=== PATIENT | female | born 1990 | race American Indian/Alaskan Native ===

== ENCOUNTER 2018-12-29 15:53 | Emergency (ER) | payer BC ==
[2018-12-29 16:35] VITALS: BP 121/75
--- NOTE | 2018-12-29 16:40 | Emergency Department Report ---
ED ENT HPI - General Chief complaint: Dental/Oral Stated complaint: LT SIDE HEAD PAIN/EAR SWOLLEN Time Seen by Provider: 12/29/18 16:34 Source: patient Mode of arrival: Ambulatory Limitations: No Limitations - History of Present Illness Initial comments: pt is a 28 yo female who presents to the ED with c/o left ear pain that began two days ago. she states it feels like a pressure. states she has rash behind the left ear which is painful. she denies any fever, ear drainage, numbness, weakness, or any other sx. no sick contacts. she denies any PMHx. allergy to sulfa. LNMP: 12/21/18. - Related Data Previous Rx's Medication Instructions Recorded Last Taken Type Acetaminophen/Codeine [Tylenol 1 tab PO Q6H PRN #12 tab 12/29/18 Unknown Rx /Codeine # 3 tab] Lidocaine [Lidocaine GEL] 1 applicatio TP BID #1 gel..gram. 12/29/18 Unknown Rx valACYclovir [Valtrex] 1,000 mg PO TID 7 Days #42 tab 12/29/18 Unknown Rx Allergies Allergy/AdvReac Type Severity Reaction Status Date / Time Sulfa (Sulfonamide Allergy Hives Verified 12/29/18 15:57 Antibiotics) ED Dental HPI - General Chief complaint: Dental/Oral Stated complaint: LT SIDE HEAD PAIN/EAR SWOLLEN Time Seen by Provider: 12/29/18 16:34 Source: patient Mode of arrival: Ambulatory Limitations: No Limitations - Related Data Previous Rx's Medication Instructions Recorded Last Taken Type Acetaminophen/Codeine [Tylenol 1 tab PO Q6H PRN #12 tab 12/29/18 Unknown Rx /Codeine # 3 tab] Lidocaine [Lidocaine GEL] 1 applicatio TP BID #1 gel..gram. 12/29/18 Unknown Rx valACYclovir [Valtrex] 1,000 mg PO TID 7 Days #42 tab 12/29/18 Unknown Rx Allergies Allergy/AdvReac Type Severity Reaction Status Date / Time Sulfa (Sulfonamide Allergy Hives Verified 12/29/18 15:57 Antibiotics) ED Review of Systems ROS: Stated complaint: LT SIDE HEAD PAIN/EAR SWOLLEN Other details as noted in HPI Comment: All other systems reviewed and negative ED Past Medical Hx - Past Medical History Previous Medical History?: No - Surgical History Past Surgical History?: Yes Additional Surgical History: Right leg surgery with omar 2010 - Medications Home Medications: Home Medications Medication Instructions Recorded Confirmed Last Taken Type Acetaminophen/Codeine [Tylenol 1 tab PO Q6H PRN #12 tab 12/29/18 Unknown Rx /Codeine # 3 tab] Lidocaine [Lidocaine GEL] 1 applicatio TP BID #1 gel..gram. 12/29/18 Unknown Rx valACYclovir [Valtrex] 1,000 mg PO TID 7 Days #42 tab 12/29/18 Unknown Rx ED Physical Exam - General Limitations: No Limitations General appearance: alert, in no apparent distress - Head Head exam: Present: atraumatic, normocephalic - Eye Eye exam: Present: normal appearance - ENT ENT exam: Present: mucous membranes moist, TM's normal bilaterally, normal external ear exam, other (no vesicles on the TM or canal, no vesicles on the nose) - Neurological Exam Neurological exam: Present: alert, oriented X3 - Psychiatric Psychiatric exam: Present: normal affect, normal mood - Skin Skin exam: Present: warm, dry, other (small amount of grouped vesicles present in the left posterior auricle region) ED Course Vital Signs 12/29/18 16:34 Temperature 98.3 F Pulse Rate 92 H Respiratory 16 Rate Blood Pressure 121/75 O2 Sat by Pulse 100 Oximetry ED Medical Decision Making - Medical Decision Making pt is a 28 yo female who presents to the ED with c/o left ear pain that began two days ago. she states it feels like a pressure. states she has rash behind the left ear which is painful. she denies any fever, ear drainage, numbness, weakness, or any other sx. no sick contacts. she denies any PMHx. allergy to sulfa. LNMP: 12/21/18. VSS. on exam: no vesicles on the TM or canal bilaterally, no vesicles on the nose, small amount of grouped vesicles present in the left posterior auricle region. Examination appears consistent with shingles rash. Patient given prescriptions for valacyclovir, Tylenol with codeine, lidocaine gel. advised pt to please take medication as prescribed. do not drive or operate heavy machinery while taking pain medication. follow up with a primary care doctor and ear nose and throat doctor in 2 days. it is very important you follow up to prevent hearing disturbance, disability. return to the emergency room for any new or worsening symptoms. Critical care attestation.: If time is entered above; I have spent that time in minutes in the direct care of this critically ill patient, excluding procedure time. ED Disposition Clinical Impression: Shingles Qualifiers: Herpes zoster complications: without complications Qualified Code(s): B02.9 - Zoster without complications Disposition: TO HOME OR SELFCARE Is pt being admited?: No Does the pt Need Aspirin: No Condition: Stable Instructions: Herpes Zoster (ED) Additional Instructions: please take medication as prescribed. do not drive or operate heavy machinery while taking pain medication. follow up with a primary care doctor and ear nose and throat doctor in 2 days. it is very important you follow up to prevent hearing disturbance, disability. return to the emergency room for any new or worsening symptoms. Prescriptions: Lidocaine [Lidocaine GEL] 1 applicatio TP BID #1 gel..gram. Acetaminophen/Codeine [Tylenol /Codeine # 3 tab] 1 tab PO Q6H PRN #12 tab PRN Reason: Pain , Severe (7-10) valACYclovir [Valtrex] 1,000 mg PO TID 7 Days #42 tab Referrals: [facility] [Provider Group] - 2-3 Days JOCE NEWBERRY MD [Staff Physician] - 2-3 Days Time of Disposition: 16:41 Print Language: SPANISH
== END 2018-12-29 16:56 | disposition home or self-care (01) ==
LOC: ED 15:53
DX: B02.9 Zoster without complications (principal); H92.02 Otalgia, left ear; Z88.2 Allergy status to sulfonamides; Z79.899 Other long term (current) drug therapy
CPT/HCPCS: 99281

== ENCOUNTER 2019-11-11 16:57 | Emergency (ER) | payer BC ==
[2019-11-11] MEDS ORDERED: ACETAMINOPHEN 325 MG TAB PO ONE (17:44)
--- NOTE | 2019-11-11 18:21 | XRay Report ---
CHEST 2 VIEWS INDICATION / CLINICAL INFORMATION: cough, SOB, fever. COMPARISON: None available. FINDINGS: SUPPORT DEVICES: None. HEART / MEDIASTINUM: No significant abnormality. LUNGS / PLEURA: Mild airspace consolidation superior segment right lower lobe. No pneumothorax. ADDITIONAL FINDINGS: No significant additional findings. IMPRESSION: 1. Right lower lobe pneumonia Signer Name: Sean Bentley MD Signed: 11/11/2019 6:17 PM Workstation Name: [id number]
[2019-11-11] MEDS ORDERED: predniSONE 20 MG TAB PO ONE (21:51)
[2019-11-11] MEDS ORDERED: DOXYCYCLINE 100 MG CAP PO ONE (21:51)
[2019-11-11] MEDS ORDERED: AZITHROMYCIN 250 MG TAB PO ONE (21:51)
--- NOTE | 2019-11-11 21:56 | Emergency Department Report ---
ED Fever HPI - General Chief Complaint: Upper Respiratory Infection Stated Complaint: NO SMELL/NO TASTE/SOB/SORE THROAT/COUGH/ PUI?: Yes Time Seen by Provider: 11/11/19 21:41 Source: patient Exam Limitations: no limitations - History of Present Illness Initial Comments: This is a 29-year-old female with history of asthma who presents with 2 weeks of cough. She has shortness of breath loss of taste and smell. She has mild headaches. She has chills. Fever began 2 days ago. No known sick contacts. 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 She has been to local [employer]. She lives with her sister. No recent travel. Timing/Duration: other (2 days fever, 2 weeks cough) Fever Severity/Quality: greater than 100.5 F Fever Therapy COOK SHIP: none Associated Symptoms: cough, headache, muscle aches ED Review of Systems ROS: Stated complaint: NO SMELL/NO TASTE/SOB/SORE THROAT/COUGH/ Other details as noted in HPI Comment: All other systems reviewed and negative Constitutional: chills, fever, malaise ENT: ear pain Respiratory: cough, shortness of breath. denies: wheezing Cardiovascular: denies: chest pain Gastrointestinal: denies: abdominal pain, nausea, vomiting Neurological: headache ED Past Medical Hx - Past Medical History Previous Medical History?: Yes Hx Asthma: Yes - Surgical History Past Surgical History?: Yes Additional Surgical History: Right leg surgery with omar 2010 - Social History Smoking Status: Never Smoker - Medications Home Medications: Home Medications Medication Instructions Recorded Confirmed Last Taken Type Acetaminophen/Codeine [Tylenol 1 tab PO Q6H PRN #12 tab 12/29/18 Unknown Rx /Codeine # 3 tab] Lidocaine [Lidocaine GEL] 1 applicatio TP BID #1 gel..gram. 12/29/18 Unknown Rx valACYclovir [Valtrex] 1,000 mg PO TID 7 Days #42 tab 12/29/18 Unknown Rx Nitrofurantoin [place]/M-Cryst 100 mg PO Q12HR 10 Days #20 capsule 08/25/19 Unknown Rx [Macrobid CAP] Albuterol Mdi (or & Nicu Only) 2 puff IH QID PRN #8.5 gram 11/11/19 Unknown Rx [ProAir HFA Inhaler] Doxycycline Hyclate [Doxycycline 1 tab PO Q12HR 7 Days #14 tab 11/11/19 Unknown Rx Hyclate TAB] predniSONE [Deltasone] 3 tab PO QDAY 3 Days #9 tab 11/11/19 Unknown Rx ED Physical Exam - General Limitations: No Limitations General appearance: alert, in no apparent distress - Head Head exam: Present: atraumatic, normocephalic - Eye Eye exam: Present: normal appearance - ENT ENT exam: Present: normal orophraynx, mucous membranes moist - Neck Neck exam: Present: normal inspection, full ROM - Respiratory Respiratory exam: Present: normal lung sounds bilaterally. Absent: respiratory distress, wheezes, rales, rhonchi - Cardiovascular Cardiovascular Exam: Present: regular rate, normal rhythm, normal heart sounds. Absent: systolic murmur, diastolic murmur, rubs, gallop - GI/Abdominal GI/Abdominal exam: Present: soft, normal bowel sounds. Absent: distended, tenderness, guarding, rebound - Extremities Exam Extremities exam: Present: normal inspection - Neurological Exam Neurological exam: Present: alert, oriented X3 - Psychiatric Psychiatric exam: Present: normal affect, normal mood - Skin Skin exam: Present: warm, dry, intact, normal color. Absent: rash ED Course Vital Signs 11/11/19 17:45 Temperature 100.6 F H Pulse Rate 111 H Respiratory 18 Rate Blood Pressure 114/65 [Right] O2 Sat by Pulse 97 Oximetry ED Medical Decision Making - Medical Decision Making This is a 29-year-old female with history of asthma who presents with constellation of symptoms considering viral syndrome. Differential diagnosis include COVID-19 coronavirus infection versus influenza. Considering distinctive symptoms loss of taste and smell, I have strong suspicion of COVID- 19 infection considering her current pandemic. Patient understands to self quarantine self isolate for 14 days after initial symptom. Chest radiograph reveals right lower lobe pneumonia. I have prescribed doxycycline and prednisone. Prednisone burst therapy indicated in setting of history of asthma. Patient is discharged home in stable condition. She is ambulatory without difficulty or work of breathing. Critical care attestation.: If time is entered above; I have spent that time in minutes in the direct care of this critically ill patient, excluding procedure time. ED Disposition Clinical Impression: Suspected COVID-19 virus infection, Community acquired pneumonia Disposition: TO HOME OR SELFCARE Is pt being admited?: No Does the pt Need Aspirin: No Condition: Stable Instructions: Bacterial Pneumonia (ED), COVID-19 Prescriptions: predniSONE [Deltasone] 3 tab PO QDAY 3 Days #9 tab Doxycycline Hyclate [Doxycycline Hyclate TAB] 1 tab PO Q12HR 7 Days #14 tab Albuterol Mdi (or & Nicu Only) [ProAir HFA Inhaler] 2 puff IH QID PRN #8.5 gram PRN Reason: Shortness Of Breath Referrals: SIDRA BLAND MD [Staff Physician] - as needed Forms: Work/School Release Form(ED)
[2019-11-11 22:33] VITALS: BP 108/60
== END 2019-11-11 22:38 | disposition home or self-care (01) ==
LOC: ED 16:57
DX: J18.8 Other pneumonia, unspecified organism (principal); J45.909 Unspecified asthma, uncomplicated; Z20.828 Contact with and (suspected) exposure to other viral communicable diseases; Z98.890 Other specified postprocedural states; Z88.2 Allergy status to sulfonamides; Z79.899 Other long term (current) drug therapy
CPT/HCPCS: 71046; 99283; J7512

== ENCOUNTER 2020-03-23 15:33 | Inpatient (IN) | payer BC, OTHER ==
[2020-03-23] MEDS ORDERED: SODIUM CHLORIDE 0.9% 500 ML 500 ML IV ONE (16:12)
[2020-03-23] MEDS ORDERED: ONDANSETRON 4 MG/2 ML INJ IV ONE (16:32)
[2020-03-23] MEDS ORDERED: cefTRIAXone/NS 2 GM/100 ML 2 GM/100 ML BAG IV ONE (16:32)
[2020-03-23] MEDS ORDERED: MORPHINE 4 MG/1 ML INJ IV ONE (16:32)
[2020-03-23] MEDS ORDERED: ACETAMINOPHEN 500 MG TAB PO ONE (16:32)
[2020-03-23] MEDS ORDERED: SODIUM CHLORIDE 0.9% 1000 ML IV SOLN IV ONE (16:33)
--- NOTE | 2020-03-23 16:34 | Emergency Department Report ---
ED General Adult HPI - General Chief complaint: Fever Stated complaint: LYMPH NODE SWELLING PUI?: Yes Time Seen by Provider: 03/23/20 16:17 Source: patient, RN notes reviewed Mode of arrival: Stretcher Limitations: No Limitations - History of Present Illness Initial comments: The patient was evaluated in the emergency department for symptoms described in the history of present illness. He/she was evaluated in the context of the global COVID-19 pandemic, which necessitated consideration that the patient might be at risk for infection with the virus that causes COVID-19. Institutional protocols and algorithms that pertain to the evaluation of patients at risk for COVID-19 are in a state of rapid change based on informati on released by regulatory bodies including the CDC and federal and state organizations. These policies and algorithms were followed during the patient's care in the emergency department. Please note that these policies, procedures and recommendations changed on a rapid basis. During the entire history and physical examination, I had on complete personal protective equipment. During the history and physical examination, I am chaperoned by nurse Deysi Gillis This is a 29-year-old female. She is not known to myself previously. She presents to the ER with a complaint of cough and chills for about 2 weeks. She describes left posterior cervical neck discomfort, over her trapezius. She reports having had lymph node surgically removed in her left neck March 09, for reasons that she cannot specify, at [facility]. Denies loss of taste and smell. Denies vomiting. Positive cough. Positive shortness of breath. No diarrhea. No urinary symptoms. Positive left flank pain for the past 2 days. Chills are intermittent over the past 2 weeks. Left flank pain is intermittent. Left neck pain is intermittent. -: Gradual, days(s), week(s) Location: neck (Left posterior paramidline neck), abdomen (Left posterior flank) Radiation: non-radiation Quality: aching Consistency: intermittent Improves with: rest Worsens with: movement - Related Data Previous Rx's Medication Instructions Recorded Last Taken Type Acetaminophen/Codeine [Tylenol 1 tab PO Q6H PRN #12 tab 12/29/18 Unknown Rx /Codeine # 3 tab] Lidocaine [Lidocaine GEL] 1 applicatio TP BID #1 gel..gram. 12/29/18 Unknown Rx valACYclovir [Valtrex] 1,000 mg PO TID 7 Days #42 tab 12/29/18 Unknown Rx Nitrofurantoin Mchenry/M-Cryst 100 mg PO Q12HR 10 Days #20 capsule 08/25/19 Unknown Rx [Macrobid CAP] Albuterol Mdi (or & Nicu Only) 2 puff IH QID PRN #8.5 gram 11/11/19 Unknown Rx [ProAir HFA Inhaler] Doxycycline Hyclate [Doxycycline 1 tab PO Q12HR 7 Days #14 tab 11/11/19 Unknown Rx Hyclate TAB] predniSONE [Deltasone] 3 tab PO QDAY 3 Days #9 tab 11/11/19 Unknown Rx Allergies Allergy/AdvReac Type Severity Reaction Status Date / Time Sulfa (Sulfonamide Allergy Hives Verified 08/25/19 12:19 Antibiotics) ED Review of Systems ROS: Stated complaint: LYMPH NODE SWELLING Other details as noted in HPI Constitutional: chills, fever, weakness Eyes: denies: eye discharge ENT: denies: ear pain, throat pain, dental pain, hearing loss, epistaxis, congestion Respiratory: cough, shortness of breath Cardiovascular: denies: chest pain Gastrointestinal: abdominal pain. denies: vomiting, hematemesis, melena, hematochezia Genitourinary: denies: dysuria Musculoskeletal: back pain Neurological: weakness. denies: headache, numbness, paresthesias, abnormal gait, vertigo ED Past Medical Hx - Past Medical History Previous Medical History?: Yes Hx Asthma: Yes - Surgical History Past Surgical History?: Yes Additional Surgical History: Right leg surgery with omar 2010 - Social History Smoking Status: Never Smoker Substance Use Type: None - Medications Home Medications: Home Medications Medication Instructions Recorded Confirmed Last Taken Type Acetaminophen/Codeine [Tylenol 1 tab PO Q6H PRN #12 tab 12/29/18 Unknown Rx /Codeine # 3 tab] Lidocaine [Lidocaine GEL] 1 applicatio TP BID #1 gel..gram. 12/29/18 Unknown Rx valACYclovir [Valtrex] 1,000 mg PO TID 7 Days #42 tab 12/29/18 Unknown Rx Nitrofurantoin Mchenry/M-Cryst 100 mg PO Q12HR 10 Days #20 capsule 08/25/19 Unknown Rx [Macrobid CAP] Albuterol Mdi (or & Nicu Only) 2 puff IH QID PRN #8.5 gram 11/11/19 Unknown Rx [ProAir HFA Inhaler] Doxycycline Hyclate [Doxycycline 1 tab PO Q12HR 7 Days #14 tab 11/11/19 Unknown Rx Hyclate TAB] predniSONE [Deltasone] 3 tab PO QDAY 3 Days #9 tab 11/11/19 Unknown Rx ED Physical Exam - General Limitations: No Limitations General appearance: alert, in no apparent distress - Head Head exam: Present: atraumatic, normocephalic - Eye Eye exam: Present: normal appearance, EOMI. Absent: nystagmus - ENT ENT exam: Present: normal exam, normal orophraynx, mucous membranes moist, normal external ear exam, other (Patient speaking in full sentences. There is no stridor or dysphonia. There is no elevation of the base of the tongue. The uvula is midline and nonswollen. No pharyngeal exudates are noted) - Neck Neck exam: Present: full ROM, lymphadenopathy, other (There is no redness, pus or streaking noted on the posterior neck. Surgical site appears to be clean and healing well, without redness, pus or streaking. Lymphadenopathy noted in the right paracervical neck region.). Absent: tenderness, meningismus - Respiratory Respiratory exam: Present: accessory muscle use, decreased breath sounds. Absent: respiratory distress, wheezes, rales, rhonchi, stridor - Cardiovascular Cardiovascular Exam: Present: normal rhythm, tachycardia, normal heart sounds. Absent: bradycardia, irregular rhythm, systolic murmur, diastolic murmur, rubs, gallop - GI/Abdominal GI/Abdominal exam: Present: soft. Absent: distended, tenderness, guarding, rebound, rigid, pulsatile mass - Extremities Exam Extremities exam: Present: normal inspection, full ROM, other (2+ pulses noted in the bilateral upper and lower extremities. There is no palpable cord. negative Homans sign. Muscular compartments are soft. The pelvis is stable.). Absent: tenderness, pedal edema, calf tenderness - Back Exam Back exam: Present: normal inspection, full ROM. Absent: tenderness, CVA tenderness (R), CVA tenderness (L), paraspinal tenderness, vertebral tenderness - Neurological Exam Neurological exam: Present: alert, other (No facial droop. Tongue midline. Extraocular movements intact bilaterally. Facial sensation intact to light touch in V1, V2, V3 distribution bilaterally. 5 and a 5 strength in 4 extremities. Sensation intact to light touch in 4 extremities.). Absent: motor sensory deficit - Psychiatric Psychiatric exam: Present: anxious - Skin Skin exam: Present: warm, dry, intact, normal color. Absent: rash ED Course Vital Signs 03/23/20 03/23/20 16:02 19:05 Temperature 101.6 F H 97.7 F Pulse Rate 134 H 104 H Respiratory 20 20 Rate Blood Pressure 130/71 Blood Pressure 108/66 [Right] O2 Sat by Pulse 99 98 Oximetry - Reevaluation(s) Reevaluation #1: 03/23/20 17:18 Differential diagnosis, including but not limited to: Pneumonia, pulmonary embolism, bacteremia, viremia, postoperative infection, COVID-19, urinary tract infection, intra-abdominal infection Assessment and plan: 29-year-old female, status post neck surgery at [place] approximately 3 weeks ago, with fever, tachycardia, chills. Patient meets systemic inflammatory response syndrome criteria, manifest by fever and tach ycardia. She complains of left posterior neck pain, external examination shows a supple neck, without any redness, pus or streaking, or obviously infected neck structures. She also complained of left flank pain. She will be resuscitated according to the sepsis pathway, with fluids, antibiotics, acetaminophen. She will be placed in isolation precautions to rule her out for Covid. An x-ray the chest suggested right lower lobe pneumonia, with a pleural effusion. She is also found to have markedly elevated D-dimer. We will therefore obtain a CT scan of the chest to rule out pulmonary embolism, and to better delineate her pulmonary disease. We will obtain CT scan of the abdomen pelvis to evaluate her left flank pain. We will obtain CT scan of the neck to assess her neck discomfort, and assess for postoperative infection. I have requested medical records from [place]. We will reassess after initial data points. Have discussed this plan of care with the patient, who verbalized understanding, and is amenable to this plan of care. Antibiotics ordered. Isolation precautions are initiated. 03/23/20 17:19 Reevaluation #2: 03/23/20 19:11 Courtesy consultation placed to infectious disease. We will defer to inpatient team to follow this up. Do not have emergent clinical question for infectious disease at this time. Reevaluation #3: 03/23/20 19:36 Patient reports that she feels improved. Medical records have not arrived yet. Patient amenable to admission and hospitalization. Hospital physician, Dr. Davis, to admit patient to the medical service. - Consultations Consultation #1: 03/23/20 19:10 CT scan of the neck reviewed and appreciated. Does not demonstrate any emergent surgical condition. Patient most likely had excisional biopsy at the other hospital. We are still waiting for her medical records to arrive. Have contacted general surgeon on-call, Dr. Maurilio Guardado, Have discussed the patient's history, physical, pertinent laboratory studies, and pertinent neck imaging studies. She recommends that if the inpatient medical team has any particular questions, she can be contacted, however, she advises, that is very unlikely that the patient will require additional surgical intervention to the neck. ED Medical Decision Making - Lab Data Result diagrams: 03/23/20 16:28 03/23/20 16:28 Vital Signs 03/23/20 16:02 Temperature 101.6 F H Pulse Rate 134 H Respiratory 20 Rate Blood Pressure 130/71 O2 Sat by Pulse 99 Oximetry Lab Results 03/23/20 03/23/20 03/23/20 Range/Units 16:28 16:28 16:28 WBC 4.7 (4.5-11.0) K/mm3 RBC 3.90 (3.65-5.03) M/mm3 Hgb 9.9 L (10.1-14.3) gm/dl Hct 30.3 (30.3-42.9) % MCV 78 L (79-97) fl MCH 26 L (28-32) pg MCHC 33 (30-34) % RDW 20.3 H (13.2-15.2) % Plt Count 316 (140-440) K/mm3 Lymph % (Auto) 14.0 (13.4-35.0) % Mchenry % (Auto) 5.0 (0.0-7.3) % Eos % (Auto) 0.0 (0.0-4.3) % Baso % (Auto) 0.3 (0.0-1.8) % Lymph # (Auto) 0.7 L (1.2-5.4) K/mm3 Mchenry # (Auto) 0.2 (0.0-0.8) K/mm3 Eos # (Auto) 0.0 (0.0-0.4) K/mm3 Baso # (Auto) 0.0 (0.0-0.1) K/mm3 Seg Neutrophils % 80.7 H (40.0-70.0) % Seg Neutrophils # 3.8 (1.8-7.7) K/mm3 PT 14.2 (12.2-14.9) Sec. INR 1.11 (0.87-1.13) D-Dimer 2608.14 H (0-234) ng/mlDDU Estimated GFR > 60 ml/min BUN/Creatinine Ratio 9 % Magnesium (1.7-2.3) mg/dL Ferritin (10.0-200.0) ng/mL Total Creatine Kinase (30-135) units/L Albumin/Globulin Ratio 0.7 % HCG, Quant (0-4) mIU/mL 03/23/20 03/23/20 03/23/20 Range/Units 16:28 16:28 16:28 WBC (4.5-11.0) K/mm3 RBC (3.65-5.03) M/mm3 Hgb (10.1-14.3) gm/dl Hct (30.3-42.9) % MCV (79-97) fl MCH (28-32) pg MCHC (30-34) % RDW (13.2-15.2) % Plt Count (140-440) K/mm3 Lymph % (Auto) (13.4-35.0) % Mchenry % (Auto) (0.0-7.3) % Eos % (Auto) (0.0-4.3) % Baso % (Auto) (0.0-1.8) % Lymph # (Auto) (1.2-5.4) K/mm3 Mchenry # (Auto) (0.0-0.8) K/mm3 Eos # (Auto) (0.0-0.4) K/mm3 Baso # (Auto) (0.0-0.1) K/mm3 Seg Neutrophils % (40.0-70.0) % Seg Neutrophils # (1.8-7.7) K/mm3 PT (12.2-14.9) Sec. INR (0.87-1.13) D-Dimer (0-234) ng/mlDDU Estimated GFR ml/min BUN/Creatinine Ratio % Magnesium 1.90 (1.7-2.3) mg/dL Ferritin 1124.0 H (10.0-200.0) ng/mL Total Creatine Kinase 30 (30-135) units/L Albumin/Globulin Ratio % HCG, Quant < 2 (0-4) mIU/mL - EKG Data -: EKG Interpreted by Mo - EKG Data 03/23/20 17:15 Sinus rhythm, tachycardia. 127 bpm. Borderline rightward axis deviation. High left ventricular voltage. QTC prolonged. Abnormal EKG. Not a STEMI. MO interval, QTc within normal limits. There is no prior for comparison. - Radiology Data Radiology results: report reviewed, image reviewed . XR chest 1V ap INDICATION / CLINICAL INFORMATION: Sepsis. COMPARISON: 11/11/2019 FINDINGS: SUPPORT DEVICES: None. HEART /PULMONARY VASCULATURE: No significant abnormality. LUNGS / PLEURA: There is moderately sized right pleural effusion with adjacent patchy airspace opacities in the right lung base. Left lung is clear. No evidence of pneumothorax. ADDITIONAL FINDINGS: No significant additional findings. IMPRESSION: Moderate right pleural effusion with adjacent atelectasis/pneumonia. Signer Name: Renyaldo Adair MD Signed: 03/23/2020 4:01 PM Workstation Name: [id number] CT NECK WITH INTRAVENOUS CONTRAST AND MULTIPLANAR RECONSTRUCTION CLINICAL HISTORY: neck pain fever, s/p surgery TECHNIQUE: 3.75 mm thick contiguous axial scans were obtained from the skull base down to the aortic arch during intravenous contrast administration. In addition to evaluation of axial source images sagittal and coronal multiplanar reconstructions were produced and reviewed for this report. Contrast dose report: Omnipaque 300: 75 ML administered intravenously All CT imaging studies performed at this facility utilize dose modulation, iterative reconstruction or weight based dosing, if appropriate, to obtain the lowest achievable radiation dose. FINDINGS: LYMPH NODES: Extensive conglomerate lymphadenopathy is seen throughout the neck. Lymphadenopathy is present in level 1B, level 2, level 3, level 4 and level 5 locations. This is a bilaterally symmetrical process characterized by multifocal areas of decreased attenuation, presumably secondary to necrosis, throughout. There is a history of recent left-sided lymph node biopsy. No evidence of surgical complication is identified. AIRWAY: No abnormalities are seen along the course of the airway. Nasopharynx, oropharynx, hypopharynx, larynx and v isualized portions of the subglottic airway all have an unremarkable appearance. ORAL CAVITY/FLOOR OF MOUTH: No abnormalities are seen in evaluation of the oral cavity and tongue. The floor the mouth has a normal appearance. MAJOR SALIVARY GLANDS: The parotid and submandibular salivary glands have a normal appearance. NASAL CAVITY AND PARANASAL SINUSES: Evaluation of the nasal cavity reveals no abnormality. The paranasal sinuses are free from inflammatory mucosal disease. ORBITS:No abnormalities of the visualized portions of the orbits are identified. Globes, optic nerves, extraocular muscles and lacrimal glands have an unremarkable appearance. THYROID GLAND: The thyroid gland is normal in size and homogeneous in attenuation. No focal thyroid lesions are identified. TEMPORAL BONES:Mastoid air cells are normally pneumatized. CERVICAL SPINE: Incidental note is made of developmental fusion across the left C5-C6 facet joint. Evaluation of the cervical spine reveals no significant abnormality. Normal alignment is maintained. No significant degenerative changes are identified. LUNG APICES: A loculated pleural effusion is identified anteriorly with a large posterior layering pleural effusion also identified. CONTRAST ADMINISTRATION: Enhancement of normal vascular structures is demonstrated. No areas of abnormal contrast enhancement are identified. IMPRESSION: 1. Extensive, bilaterally symmetrical cervical lymphadenopathy with multifocal areas of necrosis. Differential diagnosis includes a variety of infectious diseases, including tuberculous lymphadenitis and metastatic disease. IMPORTANT FINDING: Time of Communication (MARKET INTELLIGENCE CONSULTANT/CDT): 1730 Central standard time Licensed Practitioner Receiving Report: Dr. Bartholomew of the [facility] emergency department. Signer Name: Devon Pendleton MD Signed: 03/23/2020 5:41 PM Workstation Name: [id number] CT ABDOMEN AND PELVIS WITH CONTRAST INDICATION / CLINICAL INFORMATION: left flank pain, sepsis. TECHNIQUE: Axial CT images were obtained through the abdomen and pelvis after 75 cc Omnipaque 300 milligrams percent IV contrast. All CT scans at this location are performed using CT dose reduction for ALARA by means of automated exposure control. COMPARISON: None available. FINDINGS: LOWER CHEST: Space changes right lower lobe with associated loculated right pleural effusion CT of the thorax may be of benefit for further evaluation LIVER: No significant abnormality. GALLBLADDER: No significant abnormality. BILE DUCTS: No significant abnormality. PANCREAS: No significant abnormality. SPLEEN: No significant abnormality. ADRENALS: No significant abnormality. RIGHT KIDNEY and URETER: Small lucency lower pole right kidney, most likely representing a cyst. If the patient's had recent pyelonephritis a small abscess should be considered. LEFT KIDNEY and URETER: No significant abnormality. STOMACH and SMALL BOWEL: No significant abnormality. COLON: No significant abnormality. APPENDIX: No significant abnormality. PERITONEUM: No free fluid. No free air. No fluid collection. LYMPH NODES: No significant adenopathy. AORTA and ARTERIES: No significant abnormality. IVC and VEINS: No significant abnorm ality. URINARY BLADDER: No significant abnormality. REPRODUCTIVE ORGANS: No significant abnormality. Bilateral ovarian cyst are present. Small amount of free fluid is present in the cul-de-sac. ADDITIONAL FINDINGS: None. SKELETAL SYSTEM: No significant abnormality. IMPRESSION: 1. Multifocal patchy parenchymal changes right lower lung with associated loculated right pleural effusion, pneumonia is a concern 2. Ovarian cyst 3. Free fluid in the cul-de-sac Signer Name: Frank Huffman MD Signed: 03/23/2020 5:40 PM Workstation Name: [id number] CTA CHEST WITH CONTRAST INDICATION / CLINICAL INFORMATION: cough fever + d dimer, sepsis, pleural effusion. TECHNIQUE: Axial CT images were obtained through the chest after injection of IV contrast. 3 plane MIP and/or 3D reconstructions were produced. All CT scans at this location are performed using CT dose reduction for ALARA by means of automated exposure control. COMPARISON: None available. FINDINGS: PULMONARY ARTERIES: No central or se gmental pulmonary embolus. THORACIC AORTA: No significant abnormality. HEART: No significant abnormality. ADENOPATHY: Partially imaged bilateral cervical lymphadenopathy as detailed separately. There is bulky lymphadenopathy in the bilateral axillary regions, throughout the mediastinum, and involving bilateral hilar regions. LUNGS/PLEURA: There is airspace consolidation in the right lower lobe with extensive tree-in-bud opacities throughout the remainder of the right lower lobe and involving the right middle lobe and bilateral upper lobes. There is partially loculated [id number] volume right pleural effusion. No significant pleural effusion on the left. No pneumothorax. ADDITIONAL FINDINGS: None. UPPER ABDOMEN: Detailed separately. SKELETAL STRUCTURES: No significant osseous abnormality. IMPRESSION: 1. No evidence of pulmonary embolus. 2. Extensive lymphadenopathy throughout the chest, involving bilateral axillary, mediastinal, and hilar regions. Differential includes infectious etiologies, to include tuberculosis lymphadenitis, also including metastatic disease and lympho proliferative disorders. 3. Airspace consolidation of the right lower lobe with extensive tree-in-bud opacities in the right lower lobe and middle lobe, less so within bilateral upper lobes. There is also a partially loculated [id number] right pleural effusion. Findings are most consistent with infection. Signer Name: Reynaldo Adair MD Signed: 03/23/2020 6:12 PM Workstation Name: [id number] Critical care attestation.: If time is entered above; I have spent that time in minutes in the direct care of this critically ill patient, excluding procedure time. ED Disposition Clinical Impression: Systemic inflammatory response syndrome (SIRS), Neck pain on left side, Left flank pain, Suspected 2019 novel coronavirus infection, Loculated pleural effusion Disposition: OP ADMIT IP TO THIS HOSP Is pt being admited?: Yes Does the pt Need Aspirin: No Condition: Serious
[2020-03-23 16:45] LABS: Basophils % (Auto) 0.3 % (0.0-1.8); Hematocrit 30.3 % (30.3-42.9); Hemoglobin 9.9 gm/dl (10.1-14.3); Lymphocytes # (Auto) 0.7 K/mm3 (1.2-5.4); Mean Corpuscular HGB Conc 33 % (30-34); Mean Corpuscular Volume 78 fl (79-97); Monocytes # (Auto) 0.2 K/mm3 (0.0-0.8); Platelet Count 316 K/mm3 (140-440)
[2020-03-23 16:48] LABS: Red Cell Distribution Width 20.3 % (13.2-15.2)
[2020-03-23 16:55] LABS: INR 1.11 (0.87-1.13)
[2020-03-23 17:03] LABS: Alanine Aminotransferase 19 units/L (7-56); Albumin 3.3 g/dL (3.9-5); BUN/Creatinine Ratio 9; Blood Urea Nitrogen 9 mg/dL (7-17); Calcium 8.7 mg/dL (8.4-10.2); Hemolysis Index 13
--- NOTE | 2020-03-23 17:05 | XRay Report ---
. XR chest 1V ap INDICATION / CLINICAL INFORMATION: Sepsis. COMPARISON: 11/11/2019 FINDINGS: SUPPORT DEVICES: None. HEART /PULMONARY VASCULATURE: No significant abnormality. LUNGS / PLEURA: There is moderately sized right pleural effusion with adjacent patchy airspace opacit ies in the right lung base. Left lung is clear. No evidence of pneumothorax. ADDITIONAL FINDINGS: No significant additional findings. IMPRESSION: Moderate right pleural effusion with adjacent atelectasis/pneumonia. Signer Name: Reynaldo Adair MD Signed: 03/23/2020 5:01 PM Workstation Name: [id number]
[2020-03-23 17:14] LABS: HCG,Quantitative < 2 mIU/mL (0-4)
[2020-03-23 17:29] LABS: C-Reactive Protein 7.5 mg/dL (0.00-1.30)
--- NOTE | 2020-03-23 18:45 | Cat Scan Report ---
CT ABDOMEN AND PELVIS WITH CONTRAST INDICATION / CLINICAL INFORMATION: left flank pain, sepsis. TECHNIQUE: Axial CT images were obtained through the abdomen and pelvis after 75 cc Omnipaque 300 milligrams per cent IV contrast. All CT scans at this location are performed using CT dose reduction for SWAPNA sapp of automated exposure control. COMPARISON: None available. FINDINGS: LOWER CHEST: Space changes right lower lobe with associated loculated right pleural effusion CT of th e thorax may be of benefit for further evaluation LIVER: No significant abnormality. GALLBLADDER: No significant abnormality. BILE DUCTS: No significant abnormality. PANCREAS: No significant abnormality. SPLEEN: No significant abnormality. ADRENALS: No significant abnormality. RIGHT KIDNEY and URETER: Small lucency lower pole right kidney, most likely representing a cyst. If t he patient's had recent pyelonephritis a small abscess should be considered. LEFT KIDNEY and URETER: No significant abnormality. STOMACH and SMALL BOWEL: No significant abnormality. COLON: No significant abnormality. APPENDIX: No significant abnormality. PERITONEUM: No free fluid. No free air. No fluid collection. LYMPH NODES: No significant adenopathy. AORTA and ARTERIES: No significant abnormality. IVC and VEINS: No significant abnormality. URINARY BLADDER: No significant abnormality. REPRODUCTIVE ORGANS: No significant abnormality. Bilateral ovarian cyst are present. Small amount of free fluid is present in the cul-de-sac. ADDITIONAL FINDINGS: None. SKELETAL SYSTEM: No significant abnormality. IMPRESSION: 1. Multifocal patchy parenchymal changes right lower lung with associated loculated right pleural eff usion, pneumonia is a concern 2. Ovarian cyst 3. Free fluid in the cul-de-sac Signer Name: Frank Huffman MD Signed: 03/23/2020 6:40 PM Workstation Name: [id number]
--- NOTE | 2020-03-23 18:46 | Cat Scan Report ---
CT NECK WITH INTRAVENOUS CONTRAST AND MULTIPLANAR RECONSTRUCTION CLINICAL HISTORY: neck pain fever, s/p surgery TECHNIQUE: 3.75 mm thick contiguous axial scans were obtained from the skull base down to the aortic arch during intravenous contrast administration. In addition to evaluation of axial source images sagittal and c oronal multiplanar reconstructions were produced and reviewed for this report. Contrast dose report: Omnipaque 300: 75 ML administered intravenously All CT imaging studies performed at this facility utilize dose modulation, iterative reconstruction o r weight based dosing, if appropriate, to obtain the lowest achievable radiation dose. FINDINGS: LYMPH NODES: Extensive conglomerate lymphadenopathy is seen throughout the neck. Lymphadenopathy is p resent in level 1B, level 2, level 3, level 4 and level 5 locations. This is a bilaterally symmetrica l process characterized by multifocal areas of decreased attenuation, presumably secondary to necrosi s, throughout. There is a history of recent left-sided lymph node biopsy. No evidence of surgical complication is id entified. AIRWAY: No abnormalities are seen along the course of the airway. Nasopharynx, oropharynx, hypopharyn x, larynx and visualized portions of the subglottic airway all have an unremarkable appearance. ORAL CAVITY/FLOOR OF MOUTH: No abnormalities are seen in evaluation of the oral cavity and tongue. Th e floor the mouth has a normal appearance. MAJOR SALIVARY GLANDS: The parotid and submandibular salivary glands have a normal appearance. NASAL CAVITY AND PARANASAL SINUSES: Evaluation of the nasal cavity reveals no abnormality. The parana edwardo sinuses are free from inflammatory mucosal disease. ORBITS:No abnormalities of the visualized portions of the orbits are identified. Globes, optic nerves , extraocular muscles and lacrimal glands have an unremarkable appearance. THYROID GLAND: The thyroid gland is normal in size and homogeneous in attenuation. No focal thyroid l esions are identified. TEMPORAL BONES:Mastoid air cells are normally pneumatized. CERVICAL SPINE: Incidental note is made of developmental fusion across the left C5-C6 facet joint. Ev aluation of the cervical spine reveals no significant abnormality. Normal alignment is maintained. No significant degenerative changes are identified. LUNG APICES: A loculated pleural effusion is identified anteriorly with a large posterior layering pl eural effusion also identified. CONTRAST ADMINISTRATION: Enhancement of normal vascular structures is demonstrated. No areas of abnor mal contrast enhancement are identified. IMPRESSION: 1. Extensive, bilaterally symmetrical cervical lymphadenopathy with multifocal areas of necrosis. Dif ferential diagnosis includes a variety of infectious diseases, including tuberculous lymphadenitis an d metastatic disease. IMPORTANT FINDING: Time of Communication (SWITCH [employer]W SUPERVISOR/CDT): 1730 Central standard time Licensed Practitioner Receiving Report: Dr. Bartholomew of the [facility] emergenc y department. Signer Name: Devon Pendleton MD Signed: 03/23/2020 6:41 PM Workstation Name: [id number]
--- NOTE | 2020-03-23 19:17 | Cat Scan Report ---
CTA CHEST WITH CONTRAST INDICATION / CLINICAL INFORMATION: cough fever + d dimer, sepsis, pleural effusion. TECHNIQUE: Axial CT images were obtained through the chest after injection of IV contrast. 3 plane DC P and/or 3D reconstructions were produced. All CT scans at this location are performed using CT dose reduction for ALARA by means of automated exposure control. COMPARISON: None available. FINDINGS: PULMONARY ARTERIES: No central or segmental pulmonary embolus. THORACIC AORTA: No significant abnormality. HEART: No significant abnormality. ADENOPATHY: Partially imaged bilateral cervical lymphadenopathy as detailed separately. There is bulk y lymphadenopathy in the bilateral axillary regions, throughout the mediastinum, and involving bilate ral hilar regions. LUNGS/PLEURA: There is airspace consolidation in the right lower lobe with extensive tree-in-bud opac ities throughout the remainder of the right lower lobe and involving the right middle lobe and bilate ral upper lobes. There is partially loculated vjihp-[id number] volume right pleural effusion. No sig nificant pleural effusion on the left. No pneumothorax. ADDITIONAL FINDINGS: None. UPPER ABDOMEN: Detailed separately. SKELETAL STRUCTURES: No significant osseous abnormality. IMPRESSION: 1. No evidence of pulmonary embolus. 2. Extensive lymphadenopathy throughout the chest, involving bilateral axillary, mediastinal, and hil ar regions. Differential includes infectious etiologies, to include tuberculosis lymphadenitis, also including metastatic disease and lymphoproliferative disorders. 3. Airspace consolidation of the right lower lobe with extensive tree-in-bud opacities in the right l ower lobe and middle lobe, less so within bilateral upper lobes. There is also a partially loculated [id number] right pleural effusion. Findings are most consistent with infection. Signer Name: Reynaldo Adair MD Signed: 03/23/2020 7:12 PM Workstation Name: [id number]
--- NOTE | 2020-03-23 19:24 | History and Physical Report ---
History of Present Illness Chief complaint: I dont feel good History of present illness: 29 YO Female with Asthma presents to ED for evaluation. Patient reports "I do not feel good". Patient states that she has experienced dry cough, shaking chills, fever, generalized weakness, malaise over the past 2 weeks with pe rsistently worsening symptoms over the same timeframe. Patient transported to [facility] via private vehicle for further care and evaluation of the aforementioned symptoms. The patient was seen and evaluated in the emergency department. The patient was found to have a temperature of 1 to 1.6 F, tachycardia with a heart rate in 130s, and a respiratory rate in the 30s. All lab and imaging studies reviewed. Patient underwent chest x-ray which revealed pneumonia. Patient initiated on coronavirus protocol in the emergency department prior to my evaluation. 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 Patient admitted to medical floor due to increased risk of worsening symptoms. General surgery team consulted in ED. Patient denies chills, chest pain, palpitations, skin rash, recent ill contacts, or known exposure to COVID-19. Patient underwent cervical lymph node dissection at [facility]. Records request placed in the emergency department. Past History Past Medical History: other (See HPI) Past Surgical History: Other (Right leg surgery, cervical lymph node dissection) Social history: single. denies: smoking, alcohol abuse, prescription drug abuse Family history: hypertension Medications and Allergies Allergies Allergy/AdvReac Type Severity Reaction Status Date / Time Sulfa (Sulfonamide Allergy Hives Verified 08/25/19 12:19 Antibiotics) Home Medications Medication Instructions Recorded Confirmed Last Taken Type Acetaminophen/Codeine [Tylenol 1 tab PO Q6H PRN #12 tab 12/29/18 Unknown Rx /Codeine # 3 tab] Lidocaine [Lidocaine GEL] 1 applicatio TP BID #1 gel..gram. 12/29/18 Unknown Rx valACYclovir [Valtrex] 1,000 mg PO TID 7 Days #42 tab 12/29/18 Unknown Rx Nitrofurantoin [place]/M-Cryst 100 mg PO Q12HR 10 Days #20 capsule 08/25/19 Unknown Rx [Macrobid CAP] Albuterol Mdi (or & Nicu Only) 2 puff IH QID PRN #8.5 gram 11/11/19 Unknown Rx [ProAir HFA Inhaler] Doxycycline Hyclate [Doxycycline 1 tab PO Q12HR 7 Days #14 tab 11/11/19 Unknown Rx Hyclate TAB] predniSONE [Deltasone] 3 tab PO QDAY 3 Days #9 tab 11/11/19 Unknown Rx Active Meds: Active Medications Acetaminophen (Acetaminophen 325 Mg Tab) 650 mg PO Q4H PRN PRN Reason: Pain MILD(1-3)/Fever >100.5/RIVERA Albuterol (Albuterol 2.5 Mg/3 Ml Nebu) 2.5 mg IH Q4HRT PRN PRN Reason: Shortness Of Breath Ondansetron HCl (Ondansetron 4 Mg/2 Ml Inj) 4 mg IV Q8H PRN PRN Reason: Nausea And Vomiting Sodium Chloride (Sodium Chloride 0.9% 10 Ml Flush Syringe) 10 ml IV BID SUN Sodium Chloride (Sodium Chloride 0.9% 10 Ml Flush Syringe) 10 ml IV PRN PRN PRN Reason: LINE FLUSH Review of Systems Constitutional: fever, fatigue, weakness, malaise, no weight loss, no weight gain Ears, nose, mouth and throat: no ear pain, no ear discharge, no tinnitis, no decreased hearing, no nasal discharge Breasts: no change in shape Cardiovascular: no orthopnea, no palpitations, no edema, no syncope Respiratory: no cough with sputum, no shortness of breath Gastrointestinal: no abdominal pain, no nausea, no vomiting, no constipation Genitourinary Female: no pelvic pain, no flank pain, no urinary frequency, no post void dribbling Rectal: no pain, no incontinence Musculoskeletal: no neck stiffness, no neck pain, no shooting arm pain, no low back pain Integumentary: no rash, no redness, no sores, no wounds, no jaundice Neurological: no head injury, no paralysis, no parathesias Psychiatric: no anxiety, no sleep disturbances, no change in appetite, no change in libido, no disorientation Endocrine: no cold intolerance, no polyphagia, no polydipsia, no polyuria Hematologic/Lymphatic: lymphadenopathy, no easy bruising, no easy bleeding Allergic/Immunologic: no urticaria, no wheezing, no persistent infections, no anaphylaxis Exam - Constitutional Vitals: Temp Pulse Resp BP Pulse Ox 97.7 F 104 H 20 108/66 98 03/23/20 19:05 03/23/20 19:05 03/23/20 19:05 03/23/20 19:05 03/23/20 19:05 General appearance: Present: mild distress - EENT Eyes: Present: PERRL ENT: hearing intact, clear oral mucosa - Neck Neck: Present: supple, normal ROM - Respiratory Respiratory effort: normal Respiratory: bilateral: CTA - Cardiovascular Heart Sounds: Present: S1 & S2. Absent: rub, click - Extremities Extremities: pulses symmetrical, No edema Peripheral Pulses: within normal limits - Abdominal General gastrointestinal: Present: soft, non-tender, non-distended, normal bowel sounds Female genitourinary: Present: normal - Integumentary Integumentary: Present: clear, warm, dry - Musculoskeletal Musculoskeletal: gait normal, strength equal bilaterally - Psychiatric Psychiatric: appropriate mood/affect, intact judgment & insight - Neurologic Neurologic: CNII-XII intact, moves all extremities Results - Labs CBC & Chem 7: 03/23/20 16:28 03/23/20 16:28 Labs: Abnormal lab results 03/23/20 03/23/20 03/23/20 Range/Units 16:28 16:28 16:28 Hgb 9.9 L (10.1-14.3) gm/dl MCV 78 L (79-97) fl MCH 26 L (28-32) pg RDW 20.3 H (13.2-15.2) % Lymph # (Auto) 0.7 L (1.2-5.4) K/mm3 Seg Neutrophils % 80.7 H (40.0-70.0) % D-Dimer 2608.14 H (0-234) ng/mlDDU VBG pH (7.320-7.420) Sodium 130 L (137-145) mmol/L Chloride 95.2 L (98-107) mmol/L Ferritin (10.0-200.0) ng/mL Lactate Dehydrogenase (91-180) units/L C-Reactive Protein (0.00-1.30) mg/dL Total Protein 8.3 H (6.3-8.2) g/dL Albumin 3.3 L (3.9-5) g/dL 03/23/20 03/23/20 03/23/20 Range/Units 16:28 16: 17:13 Hgb (10.1-14.3) gm/dl MCV (79-97) fl MCH (28-32) pg RDW (13.2-15.2) % Lymph # (Auto) (1.2-5.4) K/mm3 Seg Neutrophils % (40.0-70.0) % D-Dimer (0-234) ng/mlDDU VBG pH 7.482 H (7.320-7.420) Sodium (137-145) mmol/L Chloride (98-107) mmol/L Ferritin 1124.0 H (10.0-200.0) ng/mL Lactate Dehydrogenase 428 H (91-180) units/L C-Reactive Protein 7.50 H (0.00-1.30) mg/dL Total Protein (6.3-8.2) g/dL Albumin (3.9-5) g/dL Assessment and Plan - Patient Problems (1) Pneumonia Current Visit: Yes Status: Acute Plan to address problem: Pneumonia protocol: Chest x-ray, CBC, CMP, supplemental oxygen, pulse oximetry, IV antibiotic therapy, supportive care. (2) Suspected tuberculosis Current Visit: Yes Status: Acute Plan to address problem: QuantiFERON gold, AFB, PPD placement, contact isolation, isolation precautions. (3) Suspected 2019 novel coronavirus infection Current Visit: Yes Status: Acute Plan to address problem: Coronavirus protocol: Coronavirus PCR ordered and is pending at time of admission, IV antibiotic therapy, supportive care. Contact precautions, isolation precautions. (4) Hyponatremia syndrome Current Visit: Yes Status: Acute Plan to address problem: IV fluid resuscitation therapy as clinically indicated, BMP, repeat BMP in a.m. (5) DVT prophylaxis Current Visit: Yes Status: Acute Plan to address problem: SCD to bilateral lower extremities while in bed
[2020-03-23 21:53] LABS: Bilirubin,Urine NEG (Negative); Blood,Urine SM (Negative); Color,Urine Colorless (Yellow); Protein,Urine <15 mg/dL mg/dL (Negative); Urobilinogen,Urine < 2.0 mg/dL (<2.0)
[2020-03-23] MEDS ORDERED: TUBERCULIN PPD 5 TUB UNIT/0.1 ML INJ ID ONE (21:54)
[2020-03-23] MEDS: ACETAMINOPHEN 325 MG TAB PO PRN (22:06)
[2020-03-24] MEDS: ACETAMINOPHEN 325 MG TAB PO PRN ×4 (02:21→22:08)
[2020-03-24 05:05] LABS: Basophils % (Auto) 0.2 % (0.0-1.8); Hematocrit 24.5 % (30.3-42.9); Hemoglobin 8.7 gm/dl (10.1-14.3); Lymphocytes # (Auto) 0.8 K/mm3 (1.2-5.4); Lymphocytes % (Auto) 7.3 % (13.4-35.0); Mean Corpuscular HGB Conc 35 % (30-34); Mean Corpuscular Volume 77 fl (79-97); Monocytes # (Auto) 0.6 K/mm3 (0.0-0.8); Monocytes % (Auto) 5.7 % (0.0-7.3); Platelet Count 251 K/mm3 (140-440); Red Blood Count 3.21 M/mm3 (3.65-5.03)
[2020-03-24 05:07] LABS: Red Cell Distribution Width 20.7 % (13.2-15.2)
[2020-03-24 05:10] LABS: BUN/Creatinine Ratio 11; Blood Urea Nitrogen 12 mg/dL (7-17); Calcium 7.6 mg/dL (8.4-10.2); Hemolysis Index 3
[2020-03-24] MEDS: cefTRIAXone/NS 1 GM/50 ML 1 GM/50 ML BAG IV SCH (13:36)
[2020-03-24] MEDS: AZITHROMYCIN/NS 500 MG/250 ML 500 MG/250 ML BAG IV SCH (14:34)
[2020-03-24] MEDS: SODIUM CHLORIDE 0.9% 1000 ML 1,000 ML IV SCH (14:36)
--- NOTE | 2020-03-24 14:49 | Consultation ---
History of Present Illness - Reason for Consult Consult date: 03/24/20 lymphadenopathy Requesting physician: MIKE GONG - History of Present Illness The patient is a 29-year-old female with history of asthma admitted to the hospital with dry cough, shaking chills, fever over the last 2 weeks. Upon evaluation in the ER, there was fever of 103.1 F, tachypnea, tachycardia. Labs revealed normal WBC, D-dimer 03/21/2007, ferritin 1124, LDH 428, CRP 7.5, procalcitonin 0.58. Patient was admitted to the hospital as a COVID-[address] chest revealed extensive lymphadenopathy throughout the chest including bilateral axillary, mediastinal and hilar regions. There was evidence of airspace consolidation of the right lower lobe with extensive tree-in-bud opacities in the right lower and middle lobe. CT neck showed extensive bilateral symmetrical cervical lymphadenopathy with multifocal areas of necrosis. Patient reports she was recently hospitalized at [facility] due to swollen lymph nodes in the neck, fever, shortness of breath, pneumonia and anemia. She underwent a lymph node biopsy but does not have the results yet. She has a history of HIV diagnosed in 2013, just restarted her medications a week ago, follows up at [facility] clinic and is on Epzicom in addition to Tivicay, it seems she had nausea with her previous medications. Patient reports she underwent evaluation for TB, COVID-19 and influenza while at [facility] and was negative. No international travel. No history of homelessness. No recreational drug use. Review of Systems: per HPI Past History Past Medical History: other (See HPI) Past Surgical History: Other (Right leg surgery, cervical lymph node dissection) Social history: single. denies: smoking, alcohol abuse, prescription drug abuse Family history: hypertension Medications and Allergies Allergies Allergy/AdvReac Type Severity Reaction Status Date / Time peanut Allergy Swelling Unverified 03/24/20 13:22 Sulfa (Sulfonamide Allergy Hives Verified 08/25/19 12:19 Antibiotics) Home Medications Medication Instructions Recorded Confirmed Last Taken Type Acetaminophen/Codeine [Tylenol 1 tab PO Q6H PRN #12 tab 12/29/18 Unknown Rx /Codeine # 3 tab] Lidocaine [Lidocaine GEL] 1 applicatio TP BID #1 gel..gram. 12/29/18 Unknown Rx valACYclovir [Valtrex] 1,000 mg PO TID 7 Days #42 tab 12/29/18 Unknown Rx Nitrofurantoin [place]/M-Cryst 100 mg PO Q12HR 10 Days #20 capsule 08/25/19 Unknown Rx [Macrobid CAP] Albuterol Mdi (or & Nicu Only) 2 puff IH QID PRN #8.5 gram 11/11/19 Unknown Rx [ProAir HFA Inhaler] Doxycycline Hyclate [Doxycycline 1 tab PO Q12HR 7 Days #14 tab 11/11/19 Unknown Rx Hyclate TAB] predniSONE [Deltasone] 3 tab PO QDAY 3 Days #9 tab 11/11/19 Unknown Rx Active Meds: Active Medications Acetaminophen (Acetaminophen 325 Mg Tab) 650 mg PO Q4H PRN PRN Reason: Pain MILD(1-3)/Fever >100.5/RIVERA Last Admin: 03/24/20 11:29 Dose: 650 mg Documented by: Albuterol (Albuterol 2.5 Mg/3 Ml Nebu) 2.5 mg IH Q4HRT PRN PRN Reason: Shortness Of Breath Azithromycin (Zithromax/Ns) 500 mg in 250 mls @ 250 mls/hr IV Q24H [facility] Stop: 03/28/20 14:59 Last Admin: 03/24/20 14:34 Dose: 250 mls/hr Documented by: Ceftriaxone Sodium (Rocephin/Ns 1 Gm/50 Ml) 1 gm in 50 mls @ 100 mls/hr IV Q24H SUN; Protocol Last Admin: 03/24/20 13:36 Dose: 100 mls/hr Documented by: Sodium Chloride (Nacl 0.9% 1000 Ml) 1,000 mls @ 100 mls/hr IV DIRECT SUN Last Admin: 03/24/20 14:36 Dose: 100 mls/hr Documented by: Ondansetron HCl (Ondansetron 4 Mg/2 Ml Inj) 4 mg IV Q8H PRN PRN Reason: Nausea And Vomiting Sodium Chloride (Sodium Chloride 0.9% 10 Ml Flush Syringe) 10 ml IV BID [facility] Last Admin: 03/24/20 11:33 Dose: 10 ml Documented by: Sodium Chloride (Sodium Chloride 0.9% 10 Ml Flush Syringe) 10 ml IV PRN PRN PRN Reason: LINE FLUSH Physical Examination - Physical Exam Narrative exam: Physical Exam (reviewed in chart to minimize risk of transmission) Constitutional: deferred Head, Ears, Nose: deferred Eyes: deferred Neck: deferred Oral: deferred Cardiovascular: deferred Respiratory: deferred GI: deferred Musculoskeletal: deferred Skin: deferred Hem/Lymphatic: deferred Psych: deferred Neurological: deferred - Constitutional Vitals: Vital Signs Temp Pulse Resp BP Pulse Ox 102.9 F H 133 H 18 119/60 95 03/24/20 11:00 03/24/20 11:20 03/24/20 08:00 03/24/20 11:20 03/24/20 11:20 Temperature -Last 24 Hours Temperature 102.9 F Temperature 97.6 F Temperature 100.1 F Temperature 103.1 F Temperature 99.5 F Temperature 102.9 F Temperature 97.6 F Temperature 97.7 F Temperature 101.6 F Results - Labs CBC & Chem 7: 03/24/20 04:20 03/24/20 04:20 Labs: Abnormal lab results 03/23/20 03/23/20 03/23/20 Range/Units 16:28 16:28 16:28 RBC (3.65-5.03) M/mm3 Hgb 9.9 L (10.1-14.3) gm/dl Hct (30.3-42.9) % MCV 78 L (79-97) fl MCH 26 L (28-32) pg MCHC (30-34) % RDW 20.3 H (13.2-15.2) % Lymph % (Auto) (13.4-35.0) % Lymph # (Auto) 0.7 L (1.2-5.4) K/mm3 Seg Neutrophils % 80.7 H (40.0-70.0) % Seg Neutrophils # (1.8-7.7) K/mm3 D-Dimer 2608.14 H (0-234) ng/mlDDU VBG pH (7.320-7.420) Sodium 130 L (137-145) mmol/L Chloride 95.2 L (98-107) mmol/L Carbon Dioxide (22-30) mmol/L Calcium (8.4-10.2) mg/dL Ferritin (10.0-200.0) ng/mL Lactate Dehydrogenase (91-180) units/L C-Reactive Protein (0.00-1.30) mg/dL Total Protein 8.3 H (6.3-8.2) g/dL Albumin 3.3 L (3.9-5) g/dL 03/23/20 03/23/20 03/23/20 Range/Units 16:28 16:28 17:13 RBC (3.65-5.03) M/mm3 Hgb (10.1-14.3) gm/dl Hct (30.3-42.9) % MCV (79-97) fl MCH (28-32) pg MCHC (30-34) % RDW (13.2-15.2) % Lymph % (Auto) (13.4-35.0) % Lymph # (Auto) (1.2-5.4) K/mm3 Seg Neutrophils % (40.0-70.0) % Seg Neutrophils # (1.8-7.7) K/mm3 D-Dimer (0-234) ng/mlDDU VBG pH 7.482 H (7.320-7.420) Sodium (137-145) mmol/L Chloride (98-107) mmol/L Carbon Dioxide (22-30) mmol/L Calcium (8.4-10.2) mg/dL Ferritin 1124.0 H (10.0-200.0) ng/mL Lactate Dehydrogenase 428 H (91-180) units/L C-Reactive Protein 7.50 H (0.00-1.30) mg/dL Total Protein (6.3-8.2) g/dL Albumin (3.9-5) g/dL 03/24/20 03/24/20 Range/Units 04:20 04:20 RBC 3.21 L (3.65-5.03) M/mm3 Hgb 8.7 L (10.1-14.3) gm/dl Hct 24.5 L (30.3-42.9) % MCV 77 L (79-97) fl MCH 27 L (28-32) pg MCHC 35 H (30-34) % RDW 20.7 H (13.2-15.2) % Lymph % (Auto) 7.3 L (13.4-35.0) % Lymph # (Auto) 0.8 L (1.2-5.4) K/mm3 Seg Neutrophils % 86.8 H (40.0-70.0) % Seg Neutrophils # 9.4 H (1.8-7.7) K/mm3 D-Dimer (0-234) ng/mlDDU VBG pH (7.320-7.420) Sodium 130 L (137-145) mmol/L Chloride (98-107) mmol/L Carbon Dioxide 21 L (22-30) mmol/L Calcium 7.6 L (8.4-10.2) mg/dL Ferritin (10.0-200.0) ng/mL Lactate Dehydrogenase (91-180) units/L C-Reactive Protein (0.00-1.30) mg/dL Total Protein (6.3-8.2) g/dL Albumin (3.9-5) g/dL - Imaging and Cardiology Chest x-ray: report reviewed, image reviewed (R sided pneumonia) Assessment and Plan Cultures: SARS CoV2 PCR: Pending 03/23/2020 blood culture: In process A/P: 29/ with HIV, asthma recent admission at [facility], underwent lymph node biopsy/surgery now here with: #Pneumonia: continue empiric abx: Ceftriaxone + Azithromycin. #Extensive lymphadenopathy: Status post biopsy at [facility]. Opportunistic infection v/s lymphoma v/s sarcoid. Patient reports she underwent evaluation for TB, COVID-19 and influenza while at [facility] and was negative. #HIV disease: unknown CD4 and HIV RNA PCR. ?prior non compliance. follows up at [facility] clinic and is on Epzicom in addition to Tivicay, it seems she had nausea with her previous medications Recs: -Follow-up COVID-19 PCR -Obtain cervical lymph node biopsy results and hospitalization records from [facility] -EBV DNA PCR, CMV DNA PCR ordered -Continue empiric antibiotics for now: Ceftriaxone plus azithromycin -Continue HIV medications: PO Epzicom plus Tivicay (patient has her own meds) -serum crypto Ag, urinary histoplasma Ag Bonita Vazquez MD, FACP [facility] [place] O: [phone] F: [phone]
[2020-03-24] MEDS ORDERED: ABACAVIR PO SCH (15:00)
[2020-03-24] MEDS ORDERED: LAMIVUDINE 300 MG PO SCH (15:00)
[2020-03-24] MEDS: ABACAVIR 300 MG TAB PO SCH (17:53)
[2020-03-24] MEDS: DOLUTEGRAVIR 50 MG TAB PO SCH (17:53)
--- NOTE | 2020-03-24 19:00 | Progress Note ---
Assessment and Plan Sepsis -POA -Presented with tachycardia into the 130s, tachypnea into the 30s and febrile state in the 101.6 and CXR shows pneumonia -Antibiotic therapy -Infectious disease consulted, appreciate recommendations -COVID-19 PCR negative -03/23 blood cultures x2 no growth to date -03/23 urinalysis negative for nitrates and leukoesterase Pneumonia -03/23 CXR shows pneumonia -03/23 CTA chest shows airspace consolidation at the right lower lobe with extensive tree-in-bud opacities in the right lower lobe and middle lobe and bilateral upper lobe -Supplemental oxygen as needed -SPO2 monitoring -IV antibiotic therapy -Supportive care -Pulmonary hygiene Extensive adenopathy -S/p biopsy at [place] (per infectious disease requested cervical lymph node biopsy results and hospitalization records) -Opportunistic infection versus lymphoma versus sarcoid -Kaiden bar virus and cytomegalovirus PCR pending -03/24 serum crypto antigen negative -03/24 urinary histoplasma antigen pending -03/23 CTA chest shows extensive lymphadenopathy throughout the chest involving bilateral axillary, mediastinal anthony regions, airspace consolidation of the right lower lobe with extensive tree-in-bud opacities in the right lower lobe and middle lobe less so within bilateral upper lobes and a partially loculated small to moderate right pleural effusion -03/23 CTA neck shows recent left-sided lymph node biopsy, extensive bilateral symmetrical cervical neck lymphadenopathies with multifocal areas of necrosis -03/23 CT abdomen with contrast shows multifocal patchy parenchymal changes in the right lower lung with associated loculated pleural right pleural effusion, ovari an cyst and free fluid in the cul-de-sac Suspected tuberculosis -03/23 CTA chest shows no evidence of pulmonary embolism, extensive lymphadenopathy throughout the chest involving bilateral axillary, mediastinal anterior regions (differentials include infectious etiologies such as tuberculosis and lymphadenitis), airspace consolidation of the right lower lobe with extensive tree-in-bud opacities in the right lower and middle lobe, less so within bilateral upper lobes and a partially loculated [id number] right pleural effusion -03/23 PPD pending -Continue airborne and droplet precautions HIV disease -Unknown CD4 -Continue home antiretroviral therapy Hyponatremia -Presented with a sodium of 130 -MIVF -Avoid rapid correction -03/25 sodium 130 -Monitor neuro status Elevated D-dimer -Presented with a D-dimer of 2608 -03/23 CTA chest shows no evidence of pulmonary embolism COVID-19 PUI -03/24 COVID-19 PCR negative Subjective Date of service: 03/24/20 Interval history: This is a 29-year-old female with asthma and HIV he was admitted to the hospital on 03/23 with a 2-week history of a dry cough, shaking chills, and fever. Work-up in the emergency department revealed tachypnea, tachycardia, febrile state and a CXR which revealed pneumonia. Patient CT scan of the chest revealed bilateral infiltrates as well as evidence of tuberculosis lymphadenitis, and hyponatremia. Patient was admitted to the hospital service with consult infectious disease for rule out tuberculosis and COVID-19. 03/24: TB PPD pending, COVID-19 PCR negative, infectious disease consulted, fever and patient was started on antibiotic therapy. No acute events reported overnight. Remains supplemental oxygenation. Objective - Constitutional Vitals: Vital Signs - 12hr 03/24/20 03/24/20 03/24/20 08:00 08:03 11:00 Temperature 102.9 F H Pulse Rate Respiratory 18 Rate Blood Pressure O2 Sat by Pulse 95 Oximetry 03/24/20 03/24/20 03/24/20 11:20 16:18 16:37 Temperature 103.0 F H Pulse Rate 133 H 138 H 77 Respiratory 21 Rate Blood Pressure 119/60 83/62 108/49 O2 Sat by Pulse 95 97 83 L Oximetry General appearance: Present: no acute distress - EENT Eyes: PERRL, EOM intact ENT: hearing intact, clear oral mucosa, dentition normal - Neck Neck: supple, normal ROM - Respiratory Respiratory effort: normal Respiratory: bilateral: diminished - Cardiovascular Rhythm: regular Heart Sounds: Present: S1 & S2. Absent: systolic murmur, diastolic murmur Extremities: no ischemia, pulses intact, pulses symmetrical, No edema, normal temperature, normal color, Full ROM - Gastrointestinal General gastrointestinal: Present: soft, non-tender (Today), non-distended, normal bowel sounds - Integumentary Integumentary: clear, warm, dry - Musculoskeletal Musculoskeletal: strength equal bilaterally - Neurologic Neurologic: CNII-XII intact, no focal deficits, moves all extremities - Psychiatric Psychiatric: appropriate mood/affect, intact judgment & insight, memory intact, cooperative - Allied health notes Allied health notes reviewed: nursing - Labs CBC & Chem 7: 03/24/20 04:20 03/24/20 04:20 Labs: Abnormal lab results 03/24/20 03/24/20 Range/Units 04:20 04:20 RBC 3.21 L (3.65-5.03) M/mm3 Hgb 8.7 L (10.1-14.3) gm/dl Hct 24.5 L (30.3-42.9) % MCV 77 L (79-97) fl MCH 27 L (28-32) pg MCHC 35 H (30-34) % RDW 20.7 H (13.2-15.2) % Lymph % (Auto) 7.3 L (13.4-35.0) % Lymph # (Auto) 0.8 L (1.2-5.4) K/mm3 Seg Neutrophils % 86.8 H (40.0-70.0) % Seg Neutrophils # 9.4 H (1.8-7.7) K/mm3 Sodium 130 L (137-145) mmol/L Carbon Dioxide 21 L (22-30) mmol/L Calcium 7.6 L (8.4-10.2) mg/dL
[2020-03-25] MEDS: SODIUM CHLORIDE 0.9% 1000 ML 1,000 ML IV SCH ×2 (01:56→20:35)
[2020-03-25] MEDS: ONDANSETRON 4 MG/2 ML INJ IV PRN ×3 (04:20→18:50)
[2020-03-25] MEDS: ACETAMINOPHEN 325 MG TAB PO PRN ×4 (05:07→18:44)
[2020-03-25 06:46] LABS: BUN/Creatinine Ratio 11; Blood Urea Nitrogen 10 mg/dL (7-17); Calcium 7.5 mg/dL (8.4-10.2); Hemolysis Index 6
[2020-03-25] MEDS: guaiFENesin/CODEINE 100-10MG ORAL LIQD 5 ML PO PRN ×3 (10:22→21:32)
[2020-03-25] MEDS: METOPROLOL TARTRATE 5 MG/5 ML INJ IV PRN (10:26)
[2020-03-25] MEDS: AZITHROMYCIN/NS 500 MG/250 ML 500 MG/250 ML BAG IV SCH (13:01)
--- NOTE | 2020-03-25 13:34 | Progress Note ---
Assessment and Plan Cultures: SARS CoV2 PCR: Negative 03/23/2020 blood culture: no growth 03/23/2020 urine culture: no growth 03/24/2020 serum cryptococcal antigen: Negative A/P: 29/F with HIV, asthma recent admission at [place], underwent lymph node biopsy/surgery now here with: #Pneumonia: continue empiric abx: Ceftriaxone + Azithromycin. #Extensive lymphadenopathy: Status post biopsy at [place]. Opportunistic infecti on v/s lymphoma v/s sarcoid. Patient reports she underwent evaluation for TB, COVID-19 and influenza while at [place] and was negative. #HIV disease: unknown CD4 and HIV RNA PCR. ?prior non compliance. follows up at [facility] clinic and is on Epzicom in addition to Tivicay, it seems she had nausea with her previous medications Recs: -F/U cervical lymph node biopsy results and hospitalization records from [place] -f/u EBV DNA PCR, CMV DNA PCR, urinary histoplasma Ag -Continue empiric antibiotics for now: Ceftriaxone plus azithromycin -Continue HIV medications: PO Epzicom plus Tivicay (patient has her own meds) -f/u HIV RNA PCR, CD4 count -It seems all my miscellaneous lab orders were canceled, reordered Histoplasma urinary antigen, EBV DNA PCR quantitative, Fungitell, TB QuantiFERON gold Bonita Vazquez MD, FACP [facility], [place]) O: [phone] F: [phone] Subjective Date of service: 03/25/20 Interval history: Fevers present no other complaints. COVID-19 PCR negative. Objective - Exam Narrative Exam: Physical Exam: Constitutional: Alert, cooperative. No acute distress Head, Ears, Nose: Normocephalic, atraumatic. External ears, nose normal Eyes: Conjunctivae/corneas clear. No icterus. No ptosis. Neck: Supple, no meningeal signs Cardiovascular: S1, S2 normal. Respiratory: Good air entry, clear to auscultation bilaterally GI: Soft, non-tender; bowel sounds normal. No peritoneal signs Musculoskeletal: No pedal edema, no cyanosis. Skin: No rash or abscess Psych: Mood ok. Affect normal Neurological: Awake, alert, oriented. No gross abnormality - Constitutional Vitals: Vital Signs Temp Pulse Resp BP Pulse Ox 99.1 F 105 H 18 102/61 96 03/25/20 12:53 03/25/20 12:53 03/25/20 12:53 03/25/20 12:53 03/25/20 12:53 Temperature -Last 24 Hours Temperature 99.1 F Temperature 98.0 F Temperature 100.2 F Temperature 102.9 F Temperature 102.9 F Temperature 102.9 F Temperature 103.0 F - Labs CBC & Chem 7: 03/24/20 04:20 03/25/20 05:35 Labs: Abnormal lab results 03/25/20 03/25/20 Range/Units 05:35 05:35 D-Dimer 1687.63 H (0-234) ng/mlDDU Sodium 128 L (137-145) mmol/L Carbon Dioxide 21 L (22-30) mmol/L Calcium 7.5 L (8.4-10.2) mg/dL C-Reactive Protein 28.60 H (0.00-1.30) mg/dL
[2020-03-25] MEDS: METOPROLOL TARTRATE 25 MG TAB PO SCH ×2 (13:43→21:33)
--- NOTE | 2020-03-25 14:00 | Progress Note ---
Assessment and Plan Assessment and plan: Sepsis -POA -Presented with tachycardia into the 130s, tachypnea into the 30s and febrile state in the 101.6 and CXR shows pneumonia -S/p 2 L normal saline bolus and ceftriaxone in the ED -Antibiotic therapy -Infectious disease consulted, appreciate recommendations -COVID-19 PCR negative -03/23 blood cultures x2 no growth to date -03/23 urinalysis negative for nitrates and leukoesterase Febrile illness -Patient has been spiking temperatures since admissions -Antibiotic therapy -Infectious disease consulted, patient recommendations -04/02 blood cultures x2 with no growth after 4 hours -03/23 urine culture shows normal joan -03/24 cryptococcal serum antigen negative Pneumonia -03/23 CXR shows pneumonia -03/23 CTA chest shows airspace consolidation at the right lower lobe with extensive tree-in-bud opacities in the right lower lobe and middle lobe and bilateral upper lobe -Supplemental oxygen as needed -SPO2 monitoring -IV antibiotic therapy -Supportive care -Pulmonary hygiene Extensive adenopathy -S/p biopsy at [place] (per infectious disease requested cervical lymph node biopsy results and hospitalization records) -Opportunistic infection versus lymphoma versus sarcoid -Kaiden bar virus and cytomegalovirus PCR pending -03/24 serum crypto antigen negative -03/24 urinary histoplasma antigen pending -03/23 CTA chest shows extensive lymphadenopathy throughout the chest involving bilateral axillary, mediastinal anthony regions, airspace consolidation of the right lower lobe with extensive tree-in-bud opacities in the right lower lobe and middle lobe less so within bilateral upper lobes and a partially loculated small to moderate right pleural effusion -03/23 CTA neck shows recent left-sided lymph node biopsy, extensive bilateral symmetrical cervical neck lymphadenopathies with multifocal areas of necrosis -03/23 CT abdomen with contrast shows multifocal patchy parenchymal changes in the right lower lung with associated loculated pleural right pleural effusion, ovarian cyst and free fluid in the cul-de-sac Suspected tuberculosis -03/23 CTA chest shows no evidence of pulmonary embolism, extensive lymphadenopathy throughout the chest involving bilateral axillary, mediastinal anterior regions (differentials include infectious etiologies such as tuberculosis and lymphadenitis), airspace consolidation of the right lower lobe with extensive tree-in-bud opacities in the right lower and middle lobe, less so within bilateral upper lobes and a partially loculated [id number] right pleural effusion -03/23 PPD pending -Continue airborne and droplet precautions HIV disease -Unknown CD4 -Continue home antiretroviral therapy Hyponatremia -Presented with a sodium of 130 -S/p 2 L normal saline bolus in the ED -MIVF -Avoid rapid correction -03/24 sodium 130, 03/25 Na 128 -Monitor neuro status Elevated D-dimer -Presented with a D-dimer of 2608 -03/23 CTA chest shows no evidence of pulmonary embolism Malnutrition -Presented with a BMI of 21 -Nutrition consulted for supplementation and dietary education DVT -SCDs to bilateral lower extremities while in bed -Lovenox subcu -GI prophylaxis COVID-19 PUI, ruled out -03/24 COVID-19 PCR negative History Interval history: This is a 29-year-old female with asthma and HIV he was admitted to the hospital on 03/23 with a 2-week history of a dry cough, shaking chills, and fever. Work-up in the emergency department revealed tachypnea, tachycardia, febrile state and a CXR which revealed pneumonia. Patient CT scan of the chest revealed bilateral infiltrates as well as evidence of tuberculosis lymphadenitis, and hyponatremia. Patient was admitted to the hospital service with consult infectious disease for rule out tuberculosis and COVID-19. 03/24: TB PPD pending, COVID-19 PCR negative, infectious disease consulted, fever and patient was started on antibiotic therapy. No acute events reported overnight. Remains supplemental oxygenation. 03/25: Patient is having persistent fevers, tachycardia into the 140s s/p IV Lopressor x1 and p.o. Lopressor for rate control, patient was transferred from [facility] to telemetry overnight. Hospitalist Physical - Constitutional Vitals: Temp Pulse Resp BP Pulse Ox 99.1 F 105 H 18 102/61 96 03/25/20 12:53 03/25/20 13:43 03/25/20 12:53 03/25/20 13:43 03/25/20 12:53 General appearance: Present: mild distress - EENT Eyes: Present: EOM intact ENT: clear oral mucosa, dentition normal - Neck Neck: Present: normal ROM - Respiratory Respiratory effort: normal Respiratory: bilateral: diminished - Cardiovascular Rhythm: regular Heart Sounds: Present: S1 & S2. Absent: systolic murmur, diastolic murmur - Extremities Extremities: no ischemia, pulses intact, pulses symmetrical, No edema, normal temperature, normal color, Full ROM Peripheral Pulses: within normal limits - Abdominal General gastrointestinal: soft, non-tender, non-distended, normal bowel sounds - Integumentary Integumentary: Present: clear, warm, dry - Psychiatric Psychiatric: cooperative - Neurologic Neurologic: CNII-XII intact, no focal deficits, moves all extremities - Allied Health Allied health notes reviewed: nursing Results - Labs CBC & Chem 7: 03/24/20 04:20 03/25/20 05:35 Labs: Laboratory Last Values WBC 10.8 K/mm3 (4.5-11.0) 03/24/20 04:20 RBC 3.21 M/mm3 (3.65-5.03) L 03/24/20 04:20 Hgb 8.7 gm/dl (10.1-14.3) L 03/24/20 04:20 Hct 24.5 % (30.3-42.9) L 03/24/20 04:20 MCV 77 fl (79-97) L 03/24/20 04:20 MCH 27 pg (28-32) L 03/24/20 04:20 MCHC 35 % (30-34) H 03/24/20 04:20 RDW 20.7 % (13.2-15.2) H 03/24/20 04:20 Plt Count 251 K/mm3 (140-440) 03/24/20 04:20 Lymph % (Auto) 7.3 % (13.4-35.0) L 03/24/20 04:20 [place] % (Auto) 5.7 % (0.0-7.3) 03/24/20 04:20 Eos % (Auto) 0.0 % (0.0-4.3) 03/24/20 04:20 Baso % (Auto) 0.2 % (0.0-1.8) 03/24/20 04:20 Lymph # (Auto) 0.8 K/mm3 (1.2-5.4) L 03/24/20 04:20 [place] # (Auto) 0.6 K/mm3 (0.0-0.8) 03/24/20 04:20 Eos # (Auto) 0.0 K/mm3 (0.0-0.4) 03/24/20 04:20 Baso # (Auto) 0.0 K/mm3 (0.0-0.1) 03/24/20 04:20 Seg Neutrophils % 86.8 % (40.0-70.0) H 03/24/20 04:20 Seg Neutrophils # 9.4 K/mm3 (1.8-7.7) H 03/24/20 04:20 PT 14.2 Sec. (12.2-14.9) 03/23/20 16:28 INR 1.11 (0.87-1.13) 03/23/20 16:28 D-Dimer 1687.63 ng/mlDDU (0-234) H 03/25/20 05:35 VBG pH 7.482 (7.320-7.420) H 03/23/20 17:13 Sodium 128 mmol/L (137-145) L 03/25/20 05:35 Potassium 3.8 mmol/L (3.6-5.0) 03/25/20 05:35 Chloride 99.5 mmol/L (98-107) 03/25/20 05:35 Carbon Dioxide 21 mmol/L (22-30) L 03/25/20 05:35 Anion Gap 11 mmol/L 03/25/20 05:35 BUN 10 mg/dL (7-17) 03/25/20 05:35 Creatinine 0.9 mg/dL (0.6-1.2) 03/25/20 05:35 Estimated GFR > 60 ml/min 03/25/20 05:35 BUN/Creatinine Ratio 11 % 03/25/20 05:35 Glucose 89 mg/dL (65-100) 03/25/20 05:35 Lactic Acid 1.10 mmol/L (0.7-2.0) 03/23/20 18:25 Calcium 7.5 mg/dL (8.4-10.2) L 03/25/20 05:35 Magnesium 1.90 mg/dL (1.7-2.3) 03/23/20 16:28 Ferritin 1124.0 ng/mL (10.0-200.0) H 03/23/20 16:28 Total Bilirubin 0.50 mg/dL (0.1-1.2) 03/23/20 16:28 AST 26 units/L (5-40) 03/23/20 16:28 ALT 19 units/L (7-56) 03/23/20 16:28 Alkaline Phosphatase 114 units/L (35-129) 03/23/20 16:28 Lactate Dehydrogenase 428 units/L (91-180) H 03/23/20 16:28 Total Creatine Kinase 30 units/L (30-135) 03/23/20 16:28 C-Reactive Protein 28.60 mg/dL (0.00-1.30) H 03/25/20 05:35 Total Protein 8.3 g/dL (6.3-8.2) H 03/23/20 16:28 Albumin 3.3 g/dL (3.9-5) L 03/23/20 16:28 Albumin/Globulin Ratio 0.7 % 03/23/20 16:28 Procalcitonin 0.58 ng/mL (<0.15) 03/23/20 16:28 HCG, Quant < 2 mIU/mL (0-4) 03/23/20 16:28 Urine Color Colorless (Yellow) 03/23/20 Unknown Urine Turbidity Clear (Clear) 03/23/20 Unknown Urine pH 7.0 (5.0-7.0) 03/23/20 Unknown Ur Specific [place] 1.019 (1.003-1.030) 03/23/20 Unknown Urine Protein <15 mg/dl mg/dL (Negative) 03/23/20 Unknown Urine Glucose (UA) Neg mg/dL (Negative) 03/23/20 Unknown Urine Ketones Neg mg/dL (Negative) 03/23/20 Unknown Urine Blood Sm (Negative) 03/23/20 Unknown Urine Nitrite Neg (Negative) 03/23/20 Unknown Ur Reducing Substances Not Reportable 03/23/20 Unknown Urine Bilirubin Neg (Negative) 03/23/20 Unknown Urine Ictotest Not Reportable 03/23/20 Unknown Urine Urobilinogen < 2.0 mg/dL (<2.0) 03/23/20 Unknown Ur Leukocyte Esterase Neg (Negative) 03/23/20 Unknown Urine WBC (Auto) 1.0 /HPF (0.0-6.0) 03/23/20 Unknown Urine RBC (Auto) 1.0 /HPF (0.0-6.0) 03/23/20 Unknown U Epithel Cells (Auto) < 1.0 /HPF (0-13.0) 03/23/20 Unknown Coronavirus (PCR) Negative (Negative) 03/24/20 Unknown Microbiology: Microbiology 03/23/20 Unknown Urine,Clean Catch Urine Culture - Final 03/24/20 Unknown Serum Cryptococcal Antigen - Final 03/23/20 16:33 Peripheral/Venous Blood Culture - Preliminary NO GROWTH AFTER 24 HOURS 03/23/20 16:28 Peripheral/Venous Blood Culture - Preliminary NO GROWTH AFTER 24 HOURS Marroquin/IV: Voiding Method Toilet Active Medications - Current Medications Current Medications: Generic Name Dose Route Start Last Admin Trade Name Freq PRN Reason Stop Dose Admin Abacavir Sulfate 600 mg 03/24/20 16:00 03/24/20 17:53 Abacavir 300 Mg Tab PO 600 mg DAILY SUN Administration Acetaminophen 650 mg 03/23/20 19:21 03/25/20 10:40 Acetaminophen 325 Mg Tab PO 650 mg Q4H PRN Administration Pain MILD(1-3)/Fever >100.5/RIVERA Albuterol 2.5 mg 03/23/20 19:21 Albuterol 2.5 Mg/3 Ml Nebu IH Q4HRT PRN Shortness Of Breath Alprazolam 0.5 mg 03/25/20 11:00 Alprazolam 0.5 Mg Tab PO Q8H PRN Anxiety Azithromycin 500 mg in 250 mls @ 250 mls/hr 03/24/20 14:00 03/25/20 13:01 Zithromax/Ns IV 03/28/20 14:59 250 mls/hr Q24H SUN Administration Ceftriaxone Sodium 1 gm in 50 mls @ 100 mls/hr 03/24/20 14:00 03/24/20 13:36 Rocephin/Ns 1 Gm/50 Ml IV 100 mls/hr Q24H SUN Administration Protocol Sodium Chloride 1,000 mls @ 100 mls/hr 03/24/20 14:30 03/25/20 01:56 Nacl 0.9% 1000 Ml IV 100 mls/hr DIRECT SUN Administration Lamivudine 300 mg 03/24/20 16:00 03/24/20 17:54 Lamivudine 150 Mg Tab PO 300 mg DAILY SUN Administration Metoprolol Tartrate 2.5 mg 03/25/20 11:00 03/25/20 10:26 Metoprolol Tartrate 5 Mg/5 Ml Inj IV 2.5 mg Q6H PRN Administration Tachyarrhythmias Metoprolol Tartrate 12.5 mg 03/25/20 11:00 03/25/20 13:43 Metoprolol Tartrate 25 Mg Tab PO 12.5 mg BID SUN Administration Ondansetron HCl 4 mg 03/23/20 19:21 03/25/20 09:50 Ondansetron 4 Mg/2 Ml Inj IV 4 mg Q8H PRN Administration Nausea And Vomiting Pseudoephedrine/Acetam/Chlorphenir 15 ml 03/24/20 16:53 03/25/20 10:22 Guaifenesin/Codeine 100-10mg Oral Liqd 5 Ml PO 15 ml Q4H PRN Administration Cough Sodium Chloride 10 ml 03/23/20 22:00 03/25/20 09:51 Sodium Chloride 0.9% 10 Ml Flush Syringe IV 10 ml BID SUN Administration Sodium Chloride 10 ml 03/23/20 19:21 Sodium Chloride 0.9% 10 Ml Flush Syringe IV PRN PRN LINE FLUSH Nutrition/Malnutrition Assess - Dietary Evaluation Nutrition/Malnutrition Findings: Nutrition Notes Start: 03/24/20 10:38 Freq: Status: Active Protocol: Document 03/24/20 10:39 [email or web address] (Rec: 03/24/20 10:59 [email or web address] [id number]) Co-Sign 03/24/20 10:39 MK Nutrition Notes Need for Assessment generated from: MD Order,retail asset protection specialist,MST Initial or Follow up Assessment Other Pertinent Diagnosis Suspected COVID, Pneu, suspected tuberculosis, loculated pleural effusion Current Diet Cardiac Diet Labs/Tests Na 130 Pertinent Medications Reviewed Height 5 ft 2 in Weight 52.1 kg [place] Body Weight (kg) 50.00 BMI 20.9 Intake Prior to Admission Fair Weight Status Appropriate Subjective/Other Information Consulted for poor oral intakes, ONS and MST score. Pt is unsure of any recent wt loss, has a poor appetite and poor intakes. Pt states she didn't eat breakfast because she didn't like the options. Pt states that she has a peanut allergy and she was given a PB&J sandwhich for dinner last night that she didn't eat. Pt states she would like a supplement BID with strawberry or vanilla flavor. Burn Absent Trauma Absent GI Symptoms None Food Allergy Yes Current % PO Negligible Minimum of two criteria No physical signs of malnutrition #1 Nutrition Diagnosis Inadequate oral intake Etiology poor appetite As Evidenced by Signs and Symptoms Pt consuming 0% of PO intakes and does not like the food options that have been provided. Is patient on ventilator? No Is Patient Ambulatory and/or Out of Bed No REE-([facility]-confined to bed) [phone] Calculation Used for Recommendations [facility] Additional Notes Protein needs:42-52g (0.8-1g/ kg) Fluid: 1ml/kcal or MD order Nutrition Intervention Change Diet Order: Continue cardiac diet Add Supplement/Snack (indicate name/kcal Ensure Enlive BID /protein ) Provides kCal: 700 Provides Protein (gm) 40 Goal #1 Meet at least 75% of energy and protein needs Goal #2 Monitor for PO intakes Goal #3 ONS tolerance Anticipated Discharge Needs: Cardiac Diet Follow-Up By: 03/26/20 Additional Comments F/U for Intakes, and ONS tolerance
[2020-03-25] MEDS: DOLUTEGRAVIR 50 MG TAB PO SCH (14:20)
[2020-03-25] MEDS: ABACAVIR 300 MG TAB PO SCH (14:20)
[2020-03-25] MEDS: cefTRIAXone/NS 1 GM/50 ML 1 GM/50 ML BAG IV SCH (14:25)
[2020-03-25] MEDS: ENOXAPARIN 40 MG/0.4 ML INJ SUB-Q SCH (14:25)
[2020-03-25] MEDS: ALPRAZolam 0.5 MG TAB PO PRN (21:32)
[2020-03-26] MEDS: ACETAMINOPHEN 325 MG TAB PO PRN ×4 (01:52→17:08)
[2020-03-26] MEDS: ONDANSETRON 4 MG/2 ML INJ IV PRN ×3 (01:52→22:55)
[2020-03-26] MEDS: guaiFENesin/CODEINE 100-10MG ORAL LIQD 5 ML PO PRN ×4 (01:52→22:46)
[2020-03-26] MEDS: SODIUM CHLORIDE 0.9% 1000 ML 1,000 ML IV SCH ×2 (02:04→16:25)
[2020-03-26 06:54] LABS: BUN/Creatinine Ratio 10; Blood Urea Nitrogen 9 mg/dL (7-17); Calcium 7.3 mg/dL (8.4-10.2); Hemolysis Index 0
[2020-03-26] MEDS: ENOXAPARIN 40 MG/0.4 ML INJ SUB-Q SCH (09:20)
[2020-03-26] MEDS: METOPROLOL TARTRATE 25 MG TAB PO SCH ×2 (09:21→21:42)
[2020-03-26] MEDS ORDERED: ENOXAPARIN 30 MG/0.3 ML INJ SUB-Q SCH (10:00)
[2020-03-26] MEDS: ABACAVIR 300 MG TAB PO SCH (12:20)
[2020-03-26] MEDS: DOLUTEGRAVIR 50 MG TAB PO SCH (12:20)
--- NOTE | 2020-03-26 13:49 | Progress Note ---
Assessment and Plan Cultures: SARS CoV2 PCR: Negative 03/23/2020 blood culture: no growth 03/23/2020 urine culture: no growth 03/24/2020 serum cryptococcal antigen: Negative A/P: 29/F with HIV, asthma recent admission at [place], underwent lymph node biopsy/surgery now here with: #Pneumonia: continue empiric abx: Ceftriaxone + Azithromycin. #Extensive lymphadenopathy: Status post biopsy at [place]. Opportunistic infecti on v/s lymphoma v/s sarcoid. Patient reports she underwent evaluation for TB, COVID-19 and influenza while at [place] and was negative. #HIV disease: unknown CD4 and HIV RNA PCR. ?prior non compliance. follows up at [facility] clinic and is on Epzicom in addition to Tivicay, it seems she had nausea with her previous medications Recs: -F/U cervical lymph node biopsy results and hospitalization records from [place]. D/W Dr. Zaragoza -f/u EBV DNA PCR, CMV DNA PCR, urinary histoplasma Ag -Continue empiric antibiotics for now: Ceftriaxone plus azithromycin -Continue HIV medications: PO Epzicom plus Tivicay (patient has her own meds) -f/u HIV RNA PCR, CD4 count -Orders placed but not yet collected: Histoplasma urinary antigen, EBV DNA PCR quantitative, Fungitell, TB QuantiFERON gold Bonita Vazquez MD, FACP [facility] ([facility] O: [phone] F: [phone] Subjective Date of service: 03/26/20 Interval history: Fevers improving. No other symptoms. Objective - Exam Narrative Exam: Physical Exam: Constitutional: Alert, cooperative. No acute distress Head, Ears, Nose: Normocephalic, atraumatic. External ears, nose normal Eyes: Conjunctivae/corneas clear. No icterus. No ptosis. Neck: Supple, no meningeal signs Cardiovascular: S1, S2 normal. Respiratory: Good air entry, clear to auscultation bilaterally GI: Soft, non-tender; bowel sounds normal. No peritoneal signs Musculoskeletal: No pedal edema, no cyanosis. Skin: No rash or abscess Psych: Mood ok. Affect normal Neurological: Awake, alert, oriented. No gross abnormality - Constitutional Vitals: Vital Signs Temp Pulse Resp BP Pulse Ox 98.0 F 79 16 99/56 100 03/26/20 12:12 03/26/20 12:12 03/26/20 12:12 03/26/20 12:12 03/26/20 12:12 Temperature -Last 24 Hours Temperature 98.0 F Temperature 98.9 F Temperature 100.5 F Temperature 97.8 F Temperature 97.8 F Temperature 97.4 F - Labs CBC & Chem 7: 03/24/20 04:20 03/26/20 06:05 Labs: Abnormal lab results 03/26/20 Range/Units 06:05 Sodium 133 L (137-145) mmol/L Glucose 110 H (65-100) mg/dL Calcium 7.3 L (8.4-10.2) mg/dL
[2020-03-26] MEDS: AZITHROMYCIN/NS 500 MG/250 ML 500 MG/250 ML BAG IV SCH (13:50)
--- NOTE | 2020-03-26 14:45 | Progress Note ---
Assessment and Plan Assessment and plan: Sepsis -POA -Presented with tachycardia into the 130s, tachypnea into the 30s and febrile state in the 101.6 and CXR shows pneumonia -S/p 2 L normal saline bolus and ceftriaxone in the ED -Antibiotic therapy -Infectious disease consulted, appreciate recommendations -COVID-19 PCR negative -03/23 blood cultures x2 no growth to date -03/23 urinalysis negative for nitrates and leukoesterase Febrile illness -Patient has been spiking temperatures since admissions -Antibiotic therapy -Infectious disease consulted, patient recommendations -04/02 blood cultures x2 with no growth after 4 hours -03/23 urine culture shows normal joan -03/24 cryptococcal serum antigen negative -03/24 Histoplasma urinary antigen, EBV DNA PCR quantitative, Fungitell, TB QuantiFERON gold pending Pneumonia -03/23 CXR shows pneumonia -03/23 CTA chest shows airspace consolidation at the right lower lobe with extensive tree-in-bud opacities in the right lower lobe and middle lobe and bilateral upper lobe -Supplemental oxygen as needed -SPO2 monitoring -IV antibiotic therapy -Supportive care -Pulmonary hygiene Extensive adenopathy -S/p biopsy at [place] (per infectious disease requested cervical lymph node biopsy results and hospitalization records) -Per ID: Opportunistic infection versus lymphoma versus sarcoid -Kaiden bar virus and cytomegalovirus PCR pending -03/24 serum crypto antigen negative -03/24 urinary histoplasma antigen pending -03/23 CTA chest shows extensive lymphadenopathy throughout the chest involving bilateral axillary, mediastinal anthony regions, airspace consolidation of the right lower lobe with extensive tree-in-bud opacities in the right lower lobe and middle lobe less so within bilateral upper lobes and a partially loculated small to moderate right pleural effusion -03/23 CTA neck shows recent left-sided lymph node biopsy, extensive bilateral symmetrical cervical neck lymphadenopathies with multifocal areas of necrosis -03/23 CT abdomen with contrast shows multifocal patchy parenchymal changes in the right lower lung with associated loculated pleural right pleural effusion, ovarian cyst and free fluid in the cul-de-sac -03/24 Histoplasma urinary antigen, EBV DNA PCR quantitative, Fungitell, TB QuantiFERON gold pending Suspected tuberculosis -03/23 CTA chest shows no evidence of pulmonary embolism, extensive lymphadenopathy throughout the chest involving bilateral axillary, mediastinal anterior regions (differentials include infectious etiologies such as tuberculosis and lymphadenitis), airspace consolidation of the right lower lobe with extensive tree-in-bud opacities in the right lower and middle lobe, less so within bilateral upper lobes and a partially loculated [id number] right p leural effusion -03/23 PPD pending -03/24 TB QuantiFERON gold pending -Continue airborne and droplet precautions Hyponatremia -Presented with a sodium of 130 -S/p 2 L normal saline bolus in the ED -MIVF -Avoid rapid correction -03/24 sodium 130, 03/25 Na 128, 03/26 Na 133 -Monitor neuro status Elevated D-dimer -Presented with a D-dimer of 2608 -03/23 CTA chest shows no evidence of pulmonary embolism HIV disease -Unknown CD4 -Continue home antiretroviral therapy Malnutrition -Presented with a BMI of 21 -Nutrition consulted for supplementation and dietary education DVT -SCDs to bilateral lower extremities while in bed -Lovenox subcu -GI prophylaxis COVID-19 PUI, ruled out -03/24 COVID-19 PCR negative History Interval history: This is a 29-year-old female with asthma and HIV he was admitted to the hospital on 03/23 with a 2-week history of a dry cough, shaking chills, and fever. Work-up in the emergency department revealed tachypnea, tachycardia, febrile state and a CXR which revealed pneumonia. Patient CT scan of the chest revealed bilateral infiltrates as well as evidence of tuberculosis lymphadenitis, and hyponatremia. Patient was admitted to the hospital service with consult infectious disease for rule out tuberculosis and COVID-19. 03/24: TB PPD pending, COVID-19 PCR negative, infectious disease consulted, fever and patient was started on antibiotic therapy. No acute events reported overnight. Remains supplemental oxygenation. 03/25: Patient is having persistent fevers, tachycardia into the 140s s/p IV Lopressor x1 and p.o. Lopressor for rate control, patient was transferred [facility] to telemetry overnight. 03/26: Patient had a low-grade temperature this morning which was treated with Tylenol. Patient states that she feels slightly better but is still experiencing coughing and chills. Patient still remains on empiric antibiotics and her hyponatremia has improved. Hospitalist Physical - Constitutional Vitals: Temp Pulse Resp BP Pulse Ox 98.0 F 79 16 99/56 100 03/26/20 12:12 03/26/20 12:12 03/26/20 12:12 03/26/20 12:12 03/26/20 12:12 General appearance: Present: mild distress - EENT Eyes: Present: PERRL, EOM intact ENT: clear oral mucosa, dentition normal - Neck Neck: Present: normal ROM - Respiratory Respiratory effort: normal Respiratory: bilateral: diminished - Cardiovascular Rhythm: regular Heart Sounds: Present: S1 & S2. Absent: systolic murmur, diastolic murmur - Extremities Extremities: no ischemia, pulses intact, pulses symmetrical, No edema, normal temperature, normal color, Full ROM Peripheral Pulses: within normal limits - Abdominal General gastrointestinal: soft, non-tender, non-distended, normal bowel sounds - Integumentary Integumentary: Present: clear, warm, dry - Psychiatric Psychiatric: appropriate mood/affect, cooperative - Neurologic Neurologic: CNII-XII intact, no focal deficits, moves all extremities - Allied Health Allied health notes reviewed: nursing Results - Labs CBC & Chem 7: 03/24/20 04:20 03/26/20 06:05 Labs: Laboratory Last Values WBC 10.8 K/mm3 (4.5-11.0) 03/24/20 04:20 RBC 3.21 M/mm3 (3.65-5.03) L 03/24/20 04:20 Hgb 8.7 gm/dl (10.1-14.3) L 03/24/20 04:20 Hct 24.5 % (30.3-42.9) L 03/24/20 04:20 MCV 77 fl (79-97) L 03/24/20 04:20 MCH 27 pg (28-32) L 03/24/20 04:20 MCHC 35 % (30-34) H 03/24/20 04:20 RDW 20.7 % (13.2-15.2) H 03/24/20 04:20 Plt Count 251 K/mm3 (140-440) 03/24/20 04:20 Lymph % (Auto) 7.3 % (13.4-35.0) L 03/24/20 04:20 [place] % (Auto) 5.7 % (0.0-7.3) 03/24/20 04:20 Eos % (Auto) 0.0 % (0.0-4.3) 03/24/20 04:20 Baso % (Auto) 0.2 % (0.0-1.8) 03/24/20 04:20 Lymph # (Auto) 0.8 K/mm3 (1.2-5.4) L 03/24/20 04:20 Parker # (Auto) 0.6 K/mm3 (0.0-0.8) 03/24/20 04:20 Eos # (Auto) 0.0 K/mm3 (0.0-0.4) 03/24/20 04:20 Baso # (Auto) 0.0 K/mm3 (0.0-0.1) 03/24/20 04:20 Seg Neutrophils % 86.8 % (40.0-70.0) H 03/24/20 04:20 Seg Neutrophils # 9.4 K/mm3 (1.8-7.7) H 03/24/20 04:20 PT 14.2 Sec. (12.2-14.9) 03/23/20 16:28 INR 1.11 (0.87-1.13) 03/23/20 16:28 D-Dimer 1687.63 ng/mlDDU (0-234) H 03/25/20 05:35 VBG pH 7.482 (7.320-7.420) H 03/23/20 17:13 Sodium 133 mmol/L (137-145) L 03/26/20 06:05 Potassium 4.0 mmol/L (3.6-5.0) 03/26/20 06:05 Chloride 105.2 mmol/L (98-107) 03/26/20 06:05 Carbon Dioxide 23 mmol/L (22-30) 03/26/20 06:05 Anion Gap 9 mmol/L 03/26/20 06:05 BUN 9 mg/dL (7-17) 03/26/20 06:05 Creatinine 0.9 mg/dL (0.6-1.2) 03/26/20 06:05 Estimated GFR > 60 ml/min 03/26/20 06:05 BUN/Creatinine Ratio 10 % 03/26/20 06:05 Glucose 110 mg/dL (65-100) H 03/26/20 06:05 Lactic Acid 1.10 mmol/L (0.7-2.0) 03/23/20 18:25 Calcium 7.3 mg/dL (8.4-10.2) L 03/26/20 06:05 Magnesium 1.90 mg/dL (1.7-2.3) 03/23/20 16:28 Ferritin 1124.0 ng/mL (10.0-200.0) H 03/23/20 16:28 Total Bilirubin 0.50 mg/dL (0.1-1.2) 03/23/20 16:28 AST 26 units/L (5-40) 03/23/20 16:28 ALT 19 units/L (7-56) 03/23/20 16:28 Alkaline Phosphatase 114 units/L (35-129) 03/23/20 16:28 Lactate Dehydrogenase 428 units/L (91-180) H 03/23/20 16:28 Total Creatine Kinase 30 units/L (30-135) 03/23/20 16:28 C-Reactive Protein 28.60 mg/dL (0.00-1.30) H 03/25/20 05:35 Total Protein 8.3 g/dL (6.3-8.2) H 03/23/20 16:28 Albumin 3.3 g/dL (3.9-5) L 03/23/20 16:28 Albumin/Globulin Ratio 0.7 % 03/23/20 16:28 Procalcitonin 0.58 ng/mL (<0.15) 03/23/20 16:28 HCG, Quant < 2 mIU/mL (0-4) 03/23/20 16:28 Urine Color Colorless (Yellow) 03/23/20 Unknown Urine Turbidity Clear (Clear) 03/23/20 Unknown Urine pH 7.0 (5.0-7.0) 03/23/20 Unknown Ur Specific [place] 1.019 (1.003-1.030) 03/23/20 Unknown Urine Protein <15 mg/dl mg/dL (Negative) 03/23/20 Unknown Urine Glucose (UA) Neg mg/dL (Negative) 03/23/20 Unknown Urine Ketones Neg mg/dL (Negative) 03/23/20 Unknown Urine Blood Sm (Negative) 03/23/20 Unknown Urine Nitrite Neg (Negative) 03/23/20 Unknown Ur Reducing Substances Not Reportable 03/23/20 Unknown Urine Bilirubin Neg (Negative) 03/23/20 Unknown Urine Ictotest Not Reportable 03/23/20 Unknown Urine Urobilinogen < 2.0 mg/dL (<2.0) 03/23/20 Unknown Ur Leukocyte Esterase Neg (Negative) 03/23/20 Unknown Urine WBC (Auto) 1.0 /HPF (0.0-6.0) 03/23/20 Unknown Urine RBC (Auto) 1.0 /HPF (0.0-6.0) 03/23/20 Unknown U Epithel Cells (Auto) < 1.0 /HPF (0-13.0) 03/23/20 Unknown Nasal Screen MRSA (PCR) Negative (Negative) 03/24/20 06:42 Coronavirus (PCR) Negative (Negative) 03/24/20 Unknown Microbiology: Microbiology 03/23/20 16:33 Peripheral/Venous Blood Culture - Preliminary NO GROWTH AFTER 48 HOURS 03/23/20 16:28 Peripheral/Venous Blood Culture - Preliminary NO GROWTH AFTER 48 HOURS 03/23/20 Unknown Urine,Clean Catch Urine Culture - Final [place]/IV: Voiding Method Toilet Active Medications - Current Medications Current Medications: Generic Name Dose Route Start Last Admin Trade Name Freq PRN Reason Stop Dose Admin Abacavir Sulfate 600 mg 03/24/20 16:00 03/26/20 12:20 Abacavir 300 Mg Tab PO 600 mg DAILY SUN Administration Acetaminophen 650 mg 03/23/20 19:21 03/26/20 12:19 Acetaminophen 325 Mg Tab PO 650 mg Q4H PRN Administration Pain MILD(1-3)/Fever >100.5/RIVERA Albuterol 2.5 mg 03/23/20 19:21 Albuterol 2.5 Mg/3 Ml Nebu IH Q4HRT PRN Shortness Of Breath Alprazolam 0.5 mg 03/25/20 11:00 03/25/20 21:32 Alprazolam 0.5 Mg Tab PO 0.5 mg Q8H PRN Administration Anxiety Enoxaparin Sodium 40 mg 03/25/20 15:00 03/26/20 09:20 Enoxaparin 40 Mg/0.4 Ml Inj SUB-Q 40 mg QDAY@1000 SUN Administration Azithromycin 500 mg in 250 mls @ 250 mls/hr 03/24/20 14:00 03/26/20 13:50 Zithromax/Ns IV 03/28/20 14:59 250 mls/hr Q24H SUN Administration Ceftriaxone Sodium 1 gm in 50 mls @ 100 mls/hr 03/24/20 14:00 03/25/20 14:25 Rocephin/Ns 1 Gm/50 Ml IV 100 mls/hr Q24H SUN Administration Protocol Sodium Chloride 1,000 mls @ 100 mls/hr 03/24/20 14:30 03/26/20 02:04 Nacl 0.9% 1000 Ml IV 100 mls/hr DIRECT SUN Administration Lamivudine 300 mg 03/24/20 16:00 03/26/20 13:51 Lamivudine 150 Mg Tab PO 300 mg DAILY SUN Administration Metoprolol Tartrate 2.5 mg 03/25/20 11:00 03/25/20 10:26 Metoprolol Tartrate 5 Mg/5 Ml Inj IV 2.5 mg Q6H PRN Administration Tachyarrhythmias Metoprolol Tartrate 12.5 mg 03/25/20 11:00 03/26/20 09:21 Metoprolol Tartrate 25 Mg Tab PO 12.5 mg BID SUN Administration Ondansetron HCl 4 mg 03/23/20 19:21 03/26/20 12:30 Ondansetron 4 Mg/2 Ml Inj IV 4 mg Q8H PRN Administration Nausea And Vomiting Pseudoephedrine/Acetam/Chlorphenir 15 ml 03/24/20 16:53 03/26/20 12:19 Guaifenesin/Codeine 100-10mg Oral Liqd 5 Ml PO 15 ml Q4H PRN Administration Cough Sodium Chloride 10 ml 03/23/20 22:00 03/26/20 12:20 Sodium Chloride 0.9% 10 Ml Flush Syringe IV 10 ml BID SUN Administration Sodium Chloride 10 ml 03/23/20 19:21 03/26/20 02:03 Sodium Chloride 0.9% 10 Ml Flush Syringe IV 10 ml PRN PRN Administration LINE FLUSH Nutrition/Malnutrition Assess - Dietary Evaluation Nutrition/Malnutrition Findings: Nutrition Notes Start: 03/24/20 10:38 Freq: Status: Active Protocol: Document 03/26/20 11:52 CW (Rec: 03/26/20 12:06 CW [id number]) Nutrition Notes Initial or Follow up Reassessment Other Pertinent Diagnosis PNA, suspected tuberculosis Current Diet Cardiac Diet Labs/Tests Na 133 Ca 7.3 Pertinent Medications Rocephin Zofran NS at 100ml/h Height 5 ft 2 in Weight 52.2 kg [place] Body Weight (kg) 50.00 BMI 21.0 Weight change and time frame Weight change noted Weight Status Appropriate Subjective/Other Information Current [place] score of 19. Pt states good appetite at the moment. Vomiting event x 1 yesterday and day before yesterday that was treated by rx. pt states rx helped and does not feel nauseous at this time. Pt reports some diarrhea. GI issues likely related to ABTx. Pt reports consuming ONS. Percent of energy/protein needs met: 100%/100% Burn Absent Trauma Absent GI Symptoms Nausea,Vomiting,Diarrhea Food Allergy Yes Current % PO Good (75-100%) Minimum of two criteria No physical signs of malnutrition #1 Nutrition Diagnosis Inadequate oral intake As Evidenced by Signs and Symptoms PO intake of 75% of meals + intakes of ONS Diagnosis Progress(for reassessment Improved documentation) Is patient on ventilator? No Is Patient Ambulatory and/or Out of Bed Yes REE-([facility]-ambulatory/OOB) [ 1553.825 [id number]] Calculation Used for Recommendations [facility] Additional Notes Protein needs:42-52g (0.8-1g/ kg) Fluid: 1ml/kcal or MD order Nutrition Intervention Change Diet Order: Continue cardiac diet Add Supplement/Snack (indicate name/kcal Ensure Enlive BID /protein ) Provides kCal: 700 Provides Protein (gm) 40 Goal #1 Meet at least 75% of energy and protein needs Goal #2 Monitor for PO intakes Goal #3 ONS tolerance Anticipated Discharge Needs: Cardiac Diet Follow-Up By: 03/31/20 Additional Comments F/U for Intakes, and ONS tolerance
[2020-03-26] MEDS: METOPROLOL TARTRATE 5 MG/5 ML INJ IV PRN ×2 (16:41→23:37)
[2020-03-26] MEDS: cefTRIAXone/NS 1 GM/50 ML 1 GM/50 ML BAG IV SCH (17:11)
[2020-03-26] MEDS: ALPRAZolam 0.5 MG TAB PO PRN (22:46)
[2020-03-27] MEDS ORDERED: ACETAMINOPHEN 325 MG TAB PO SCH
[2020-03-27] MEDS: IBUPROFEN 600 MG TAB PO PRN ×3 (01:53→21:54)
[2020-03-27 04:17] LABS: HIV-1 RNA QN PCR 4.54 Log cps/mL
[2020-03-27 05:56] LABS: BUN/Creatinine Ratio 8; Blood Urea Nitrogen 7 mg/dL (7-17); Calcium 7.4 mg/dL (8.4-10.2); Hemolysis Index 5
[2020-03-27] MEDS: ABACAVIR 300 MG TAB PO SCH (10:53)
[2020-03-27] MEDS: DOLUTEGRAVIR 50 MG TAB PO SCH (10:53)
[2020-03-27] MEDS: ENOXAPARIN 40 MG/0.4 ML INJ SUB-Q SCH (10:54)
[2020-03-27] MEDS: METOPROLOL TARTRATE 25 MG TAB PO SCH ×2 (10:55→21:55)
[2020-03-27] MEDS: ONDANSETRON 4 MG/2 ML INJ IV PRN (13:06)
[2020-03-27] MEDS: AZITHROMYCIN/NS 500 MG/250 ML 500 MG/250 ML BAG IV SCH (13:07)
[2020-03-27] MEDS: METOPROLOL TARTRATE 5 MG/5 ML INJ IV PRN (13:31)
[2020-03-27] MEDS: guaiFENesin/CODEINE 100-10MG ORAL LIQD 5 ML PO PRN (13:34)
[2020-03-27] MEDS: ALBUTEROL 2.5 MG/3 ML NEBU IH PRN (13:57)
--- NOTE | 2020-03-27 14:51 | Progress Note ---
Assessment and Plan Assessment and plan: Sepsis -POA -Presented with tachycardia into the 130s, tachypnea into the 30s and febrile state in the 101.6 and CXR shows pneumonia -S/p 2 L normal saline bolus and ceftriaxone in the ED -Antibiotic therapy -Infectious disease consulted, appreciate recommendations -COVID-19 PCR negative -03/23 blood cultures x2 no growth to date -03/23 urinalysis negative for nitrates and leukocyte esterase Febrile illness -Due to underlying illness -Patient has been spiking temperatures since admissions -Antibiotic therapy -Infectious disease consulted, appreciate recommendations -04/02 blood cultures x2 with no growth after 4 hours -03/23 urine culture shows normal joan -03/24 cryptococcal serum antigen negative -03/24 Histoplasma urinary antigen, EBV DNA PCR quantitative, Fungitell, TB QuantiFERON gold pending -03/27 CXR show worsened patchy consolidation/effusion in the right lung base with minimal patchy left basilar airspace disease also now present. No appreciable effusion on the left. -Pulmonary hygiene Pneumonia -03/23 CXR shows pneumonia -03/23 CTA chest shows airspace consolidation at the right lower lobe with extensive tree-in-bud opacities in the right lower lobe and middle lobe and bilateral upper lobe -03/27 CXR show worsened patchy consolidation/effusion in the right lung base with minimal patchy left basilar airspace disease also now present. No appreciable effusion on the left. -Supplemental oxygen as needed -SPO2 monitoring -IV antibiotic therapy -Supportive care -Pulmonary hygiene Extensive adenopathy -S/p biopsy at [facility] (per infectious disease requested cervical lymph node biopsy results and hospitalization records) -Per ID: Opportunistic infection versus lymphoma versus sarcoid -Kaiden bar virus and cytomegalovirus PCR pending -03/24 serum crypto antigen negative -03/24 urinary histoplasma antigen pending -03/23 CTA chest shows extensive lymphadenopathy throughout the chest involving bilateral axillary, mediastinal anthony regions, airspace consolidation of the right lower lobe with extensive tree-in-bud opacities in the right lower lobe and middle lobe less so within bilateral upper lobes and a partially loculated small to moderate right pleural effusion -03/23 CTA neck shows recent left-sided lymph node biopsy, extensive bilateral symmetrical cervical neck lymphadenopathies with multifocal areas of necrosis -03/23 CT abdomen with contrast shows multifocal patchy parenchymal changes in the right lower lung with associated loculated pleural right pleural effusion, ovarian cyst and free fluid in the cul-de-sac -03/24 Histoplasma urinary antigen, EBV DNA PCR quantitative, Fungitell, TB QuantiFERON gold pending Suspected tuberculosis -03/23 CTA chest shows no evidence of pulmonary embolism, extensive lymphadenopathy throughout the chest involving bilateral axillary, mediastinal anterior regions (differentials include infectious etiologies such as tuberculosis and lymphadenitis), airspace consolidation of the right lower lobe with extensive tree-in-bud opacities in the right lower and middle lobe, less so within bilateral upper lobes and a partially loculated [id number] right pleural effusion -03/23 PPD administered, read on 03/26 as negative (no induration, redness noted) -03/24 TB QuantiFERON gold pending -Continue airborne and droplet precautions Hyponatremia -Presented with a sodium of 130 -S/p 2 L normal saline bolus in the ED -MIVF -Avoid rapid correction -03/24 sodium 130, 03/25 Na 128, 03/26 Na 133, 03/27 135 -Monitor neuro status Hyperchloremia -03/27 chloride 108.4 -MIVF with NS -Trend BMP Metabolic acidosis -03/24 CO2 on BMP is 21, 03/25 CO2 21, 03/26 CO2 23, 03/27 CO2 21 -Patient is on MIVF due to miscellaneous loss for febrile illness, hyponatremia and labile BP -Trend BMP Elevated D-dimer -Presented with a D-dimer of 2608 -03/23 CTA chest shows no evidence of pulmonary embolism HIV disease -Unknown CD4 -Continue home antiretroviral therapy Malnutrition -Presented with a BMI of 21 -Nutrition consulted for supplementation and dietary education Anxiety -As needed Ativan -Redirection and verbal de-escalation as needed -Supportive care DVT -SCDs to bilateral lower extremities while in bed -Lovenox subcu -GI prophylaxis COVID-19 PUI, ruled out -03/24 COVID-19 PCR negative History Interval history: This is a 29-year-old female with asthma and HIV he was admitted to the hospital on 03/23 with a 2-week history of a dry cough, shaking chills, and fever. Work-up in the emergency department revealed tachypnea, tachycardia, febrile state and a CXR which revealed pneumonia. Patient CT scan of the chest revealed bilateral infiltrates as well as evidence of tuberculosis lymphadenitis, and hyponatremia. Patient was admitted to the hospital service with consult infectious disease for rule out tuberculosis and COVID-19. 03/24: TB PPD pending, COVID-19 PCR negative, infectious disease consulted, fever and patient was started on antibiotic therapy. No acute events reported overnight. Remains supplemental oxygenation. 03/25: Patient is having persistent fevers, tachycardia into the 140s s/p IV L opressor x1 and p.o. Lopressor for rate control, patient was transferred from [facility] to telemetry overnight. 03/26: Patient had a low-grade temperature this morning which was treated with Tylenol. Patient states that she feels slightly better but is still experiencing coughing and chills. Patient still remains on empiric antibiotics and her hyponatremia has improved. She has persistent fevers, on antibiotics, supportive care, we will try scheduled Tylenol every 6 hours for 24 hours 03/27: Patient remains febrile. This afternoon patient was tachypneic, tachycardic and experienced wheezing therefore she received an albuterol treatment with RT and IV metoprolol. Patient stated that she felt like she was having an anxiety attack and has a history of anxiety and RN was instructed to provide the patient with as needed Ativan. CXR ordered. Patient is currently on 5 L nasal cannula however on reexamination patient was speaking on the phone with her father. We will also order as needed Tessalon Perles. Patient's CXR shows worsening patchy consolidation/effusion in the right lung base with minimal patchy left basilar airspace disease. Encourage pulmonary hygiene. Hospitalist Physical - Constitutional Vitals: Temp Pulse Resp BP Pulse Ox 99.3 F 118 H 24 134/87 94 03/27/20 13:38 03/27/20 14:13 03/27/20 14:13 03/27/20 13:38 03/27/20 13:38 General appearance: Present: mild distress Results - Labs CBC & Chem 7: 03/24/20 04:20 03/27/20 04:53 Labs: Laboratory Last Values WBC 10.8 K/mm3 (4.5-11.0) 03/24/20 04:20 RBC 3.21 M/mm3 (3.65-5.03) L 03/24/20 04:20 Hgb 8.7 gm/dl (10.1-14.3) L 03/24/20 04:20 Hct 24.5 % (30.3-42.9) L 03/24/20 04:20 MCV 77 fl (79-97) L 03/24/20 04:20 MCH 27 pg (28-32) L 03/24/20 04:20 MCHC 35 % (30-34) H 03/24/20 04:20 RDW 20.7 % (13.2-15.2) H 03/24/20 04:20 Plt Count 251 K/mm3 (140-440) 03/24/20 04:20 Lymph % (Auto) 7.3 % (13.4-35.0) L 03/24/20 04:20 Howard % (Auto) 5.7 % (0.0-7.3) 03/24/20 04:20 Eos % (Auto) 0.0 % (0.0-4.3) 03/24/20 04:20 Baso % (Auto) 0.2 % (0.0-1.8) 03/24/20 04:20 Lymph # (Auto) 0.8 K/mm3 (1.2-5.4) L 03/24/20 04:20 Howard # (Auto) 0.6 K/mm3 (0.0-0.8) 03/24/20 04:20 Eos # (Auto) 0.0 K/mm3 (0.0-0.4) 03/24/20 04:20 Baso # (Auto) 0.0 K/mm3 (0.0-0.1) 03/24/20 04:20 Seg Neutrophils % 86.8 % (40.0-70.0) H 03/24/20 04:20 Seg Neutrophils # 9.4 K/mm3 (1.8-7.7) H 03/24/20 04:20 PT 14.2 Sec. (12.2-14.9) 03/23/20 16:28 INR 1.11 (0.87-1.13) 03/23/20 16:28 D-Dimer 1520.95 ng/mlDDU (0-234) H 03/27/20 04:53 VBG pH 7.482 (7.320-7.420) H 03/23/20 17:13 Sodium 135 mmol/L (137-145) L 03/27/20 04:53 Potassium 3.9 mmol/L (3.6-5.0) 03/27/20 04:53 Chloride 108.4 mmol/L (98-107) H 03/27/20 04:53 Carbon Dioxide 21 mmol/L (22-30) L 03/27/20 04:53 Anion Gap 10 mmol/L 03/27/20 04:53 BUN 7 mg/dL (7-17) 03/27/20 04:53 Creatinine 0.9 mg/dL (0.6-1.2) 03/27/20 04:53 Estimated GFR > 60 ml/min 03/27/20 04:53 BUN/Creatinine Ratio 8 % 03/27/20 04:53 Glucose 110 mg/dL (65-100) H 03/27/20 04:53 Lactic Acid 1.10 mmol/L (0.7-2.0) 03/23/20 18:25 Calcium 7.4 mg/dL (8.4-10.2) L 03/27/20 04:53 Magnesium 1.90 mg/dL (1.7-2.3) 03/23/20 16:28 Ferritin 1124.0 ng/mL (10.0-200.0) H 03/23/20 16:28 Total Bilirubin 0.50 mg/dL (0.1-1.2) 03/23/20 16:28 AST 26 units/L (5-40) 03/23/20 16:28 ALT 19 units/L (7-56) 03/23/20 16:28 Alkaline Phosphatase 114 units/L (35-129) 03/23/20 16:28 Lactate Dehydrogenase 428 units/L (91-180) H 03/23/20 16:28 Total Creatine Kinase 30 units/L (30-135) 03/23/20 16:28 C-Reactive Protein 23.00 mg/dL (0.00-1.30) H 03/27/20 04:53 Total Protein 8.3 g/dL (6.3-8.2) H 03/23/20 16:28 Albumin 3.3 g/dL (3.9-5) L 03/23/20 16:28 Albumin/Globulin Ratio 0.7 % 03/23/20 16:28 Procalcitonin 0.58 ng/mL (<0.15) 03/23/20 16:28 HCG, Quant < 2 mIU/mL (0-4) 03/23/20 16:28 Urine Color Colorless (Yellow) 03/23/20 Unknown Urine Turbidity Clear (Clear) 03/23/20 Unknown Urine pH 7.0 (5.0-7.0) 03/23/20 Unknown Ur Specific [place] 1.019 (1.003-1.030) 03/23/20 Unknown Urine Protein <15 mg/dl mg/dL (Negative) 03/23/20 Unknown Urine Glucose (UA) Neg mg/dL (Negative) 03/23/20 Unknown Urine Ketones Neg mg/dL (Negative) 03/23/20 Unknown Urine Blood Sm (Negative) 03/23/20 Unknown Urine Nitrite Neg (Negative) 03/23/20 Unknown Ur Reducing Substances Not Reportable 03/23/20 Unknown Urine Bilirubin Neg (Negative) 03/23/20 Unknown Urine Ictotest Not Reportable 03/23/20 Unknown Urine Urobilinogen < 2.0 mg/dL (<2.0) 03/23/20 Unknown Ur Leukocyte Esterase Neg (Negative) 03/23/20 Unknown Urine WBC (Auto) 1.0 /HPF (0.0-6.0) 03/23/20 Unknown Urine RBC (Auto) 1.0 /HPF (0.0-6.0) 03/23/20 Unknown U Epithel Cells (Auto) < 1.0 /HPF (0-13.0) 03/23/20 Unknown Nasal Screen MRSA (PCR) Negative (Negative) 03/24/20 06:42 Coronavirus (PCR) Negative (Negative) 03/24/20 Unknown HIV-1 RNA PCR copies/ml 40961 Copies/mL H 03/24/20 15:27 HIV-1 RNA (PCR) log 4.54 Log cps/mL H 03/24/20 15:27 Microbiology: Microbiology 03/23/20 16:33 Peripheral/Venous Blood Culture - Preliminary NO GROWTH AFTER 72 HOURS 03/23/20 16:28 Peripheral/Venous Blood Culture - Preliminary NO GROWTH AFTER 72 HOURS Marroquin/IV: Voiding Method Toilet Active Medications - Current Medications Current Medications: Generic Name Dose Route Start Last Admin Trade Name Freq PRN Reason Stop Dose Admin Abacavir Sulfate 600 mg 03/24/20 16:00 03/27/20 10:53 Abacavir 300 Mg Tab PO 600 mg DAILY SUN Administration Albuterol 2.5 mg 03/23/20 19:21 03/27/20 13:57 Albuterol 2.5 Mg/3 Ml Nebu IH 2.5 mg Q4HRT PRN Administration Shortness Of Breath Alprazolam 0.5 mg 03/25/20 11:00 03/26/20 22:46 Alprazolam 0.5 Mg Tab PO 0.5 mg Q8H PRN Administration Anxiety Enoxaparin Sodium 40 mg 03/25/20 15:00 03/27/20 10:54 Enoxaparin 40 Mg/0.4 Ml Inj SUB-Q 40 mg QDAY@1000 SUN Administration Azithromycin 500 mg in 250 mls @ 250 mls/hr 03/24/20 14:00 03/27/20 13:07 Zithromax/Ns IV 03/28/20 14:59 250 mls/hr Q24H SUN Administration Ceftriaxone Sodium 1 gm in 50 mls @ 100 mls/hr 03/24/20 14:00 03/26/20 17:11 Rocephin/Ns 1 Gm/50 Ml IV 100 mls/hr Q24H SUN Administration Protocol Sodium Chloride 1,000 mls @ 100 mls/hr 03/24/20 14:30 03/26/20 16:25 Nacl 0.9% 1000 Ml IV 100 mls/hr DIRECT SUN Administration Ibuprofen 600 mg 03/27/20 00:15 03/27/20 14:16 Ibuprofen 600 Mg Tab PO 600 mg Q8H PRN Administration Pain, Mild (1-3) Lamivudine 300 mg 03/24/20 16:00 03/27/20 10:53 Lamivudine 150 Mg Tab PO 300 mg DAILY SUN Administration Metoprolol Tartrate 2.5 mg 03/25/20 11:00 03/27/20 13:31 Metoprolol Tartrate 5 Mg/5 Ml Inj IV 2.5 mg Q6H PRN Administration Tachyarrhythmias Metoprolol Tartrate 12.5 mg 03/25/20 11:00 03/27/20 10:55 Metoprolol Tartrate 25 Mg Tab PO 12.5 mg BID SUN Administration Ondansetron HCl 4 mg 03/23/20 19:21 03/27/20 13:06 Ondansetron 4 Mg/2 Ml Inj IV 4 mg Q8H PRN Administration Nausea And Vomiting Pseudoephedrine/Acetam/Chlorphenir 15 ml 03/24/20 16:53 03/27/20 13:34 Guaifenesin/Codeine 100-10mg Oral Liqd 5 Ml PO 15 ml Q4H PRN Administration Cough Sodium Chloride 10 ml 03/23/20 22:00 03/27/20 10:53 Sodium Chloride 0.9% 10 Ml Flush Syringe IV 10 ml BID SUN Administration Sodium Chloride 10 ml 03/23/20 19:21 03/26/20 02:03 Sodium Chloride 0.9% 10 Ml Flush Syringe IV 10 ml PRN PRN Administration LINE FLUSH Nutrition/Malnutrition Assess - Dietary Evaluation Nutrition/Malnutrition Findings: Nutrition Notes Start: 03/24/20 10:38 Freq: Status: Active Protocol: Document 03/26/20 11:52 CW (Rec: 03/26/20 12:06 CW [email or web address]) Nutrition Notes Initial or Follow up Reassessment Other Pertinent Diagnosis PNA, suspected tuberculosis Current Diet Cardiac Diet Labs/Tests Na 133 Ca 7.3 Pertinent Medications Rocephin Zofran NS at 100ml/h Height 5 ft 2 in Weight 52.2 kg [place] Body Weight (kg) 50.00 BMI 21.0 Weight change and time frame Weight change noted Weight Status Appropriate Subjective/Other Information Current [place] score of 19. Pt states good appetite at the moment. Vomiting event x 1 yesterday and day before yesterday that was treated by rx. pt states rx helped and does not feel nauseous at this time. Pt reports some diarrhea. GI issues likely related to ABTx. Pt reports consuming ONS. Percent of energy/protein needs met: 100%/100% Burn Absent Trauma Absent GI Symptoms Nausea,Vomiting,Diarrhea Food Allergy Yes Current % PO Good (75-100%) Minimum of two criteria No physical signs of malnutrition #1 Nutrition Diagnosis Inadequate oral intake As Evidenced by Signs and Symptoms PO intake of 75% of meals + intakes of ONS Diagnosis Progress(for reassessment Improved documentation) Is patient on ventilator? No Is Patient Ambulatory and/or Out of Bed Yes REE-([facility]-ambulatory/OOB) [ 1553.825 [id number]] Calculation Used for Recommendations [facility] Additional Notes Protein needs:42-52g (0.8-1g/ kg) Fluid: 1ml/kcal or MD order Nutrition Intervention Change Diet Order: Continue cardiac diet Add Supplement/Snack (indicate name/kcal Ensure Enlive BID /protein ) Provides kCal: 700 Provides Protein (gm) 40 Goal #1 Meet at least 75% of energy and protein needs Goal #2 Monitor for PO intakes Goal #3 ONS tolerance Anticipated Discharge Needs: Cardiac Diet Follow-Up By: 03/31/20 Additional Comments F/U for Intakes, and ONS tolerance
--- NOTE | 2020-03-27 15:13 | XRay Report ---
CHEST 1 VIEW INDICATION: tachypnea. COMPARISON: 03/23/2020 FINDINGS: SUPPORT DEVICES: None. HEART: Within normal limits. LUNGS/PLEURA: Worsened patchy consolidation/effusion in the right lung base with minimal patchy left basilar airspace disease also now present. No appreciable effusion on the left. ADDITIONAL FINDINGS: None. IMPRESSION: 1. Worsened exam. Signer Name: Renzo Loco MD Signed: 03/27/2020 3:09 PM Workstation Name: [id number]
--- NOTE | 2020-03-27 15:54 | Progress Note ---
Assessment and Plan Cultures: SARS CoV2 PCR: Negative 03/23/2020 blood culture: no growth 03/23/2020 urine culture: no growth 03/24/2020 serum cryptococcal antigen: Negative HIV RNA PCR 34,900 MRSA nasal PCR: Negative A/P: 29/F with HIV, asthma recent admission at [place], underwent lymph node biopsy/surgery now here with: #Pneumonia: continue empiric abx: Ceftriaxone + Azithromycin. #Extensive lymphadenopathy: Status post biopsy at [place]. Patient reports she underwent evaluation for TB, COVID-19 and influenza while at [place] and was negative. 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 Negative for fungal and AFB organisms. Flow cytometry negative for abnormal B or T-cell population. Differential diagnosis is wide, could be fungal/AFB, Kikuchi, Castleman's disease, autoimmune, sarcoidosis. ?IRIS from recent initiation of HAART. #HIV disease: unknown CD4, HIV RNA PCR back at 34,900. ?prior non compliance. follows up at [facility] clinic and is on Epzicom in addition to Tivicay, it seems she had nausea with her previous medications. HAART was recently started. Recs: -HHV-8 PCR ordered -Started empiric p.o. atovaquone 750 mg twice daily. Patient allergic to Bactrim -f/u EBV DNA PCR, CMV DNA PCR, urinary histoplasma Ag, Fungitell, TB QuantiFERON gold -Continue empiric antibiotics for now: Ceftriaxone plus azithromycin -Continue HIV medications: PO Epzicom plus Tivicay (patient has her own meds) -f/u CD4 count -If fevers persist and no other etiology is found, may consider a short steroid trial Bonita Vazquez MD, FACP [facility] O: [phone] F: [phone] Subjective Date of service: 03/27/20 Interval history: Patient spiking fevers. Also tachycardic. T-max was 103.9 F. Outside records are now available. Objective - Exam Narrative Exam: Physical Exam: Constitutional: Alert, cooperative. No acute distress Head, Ears, Nose: Normocephalic, atraumatic. External ears, nose normal Eyes: Conjunctivae/corneas clear. No icterus. No ptosis. Neck: Supple, no meningeal signs Cardiovascular: S1, S2 normal. Respiratory: Good air entry, clear to auscultation bilaterally GI: Soft, non-tender; bowel sounds normal. No peritoneal signs Musculoskeletal: No pedal edema, no cyanosis. Skin: No rash or abscess Psych: Mood ok. Affect normal Neurological: Awake, alert, oriented. No gross abnormality - Constitutional Vitals: Vital Signs Temp Pulse Resp BP Pulse Ox 99.3 F 118 H 24 134/87 94 03/27/20 13:38 03/27/20 14:13 03/27/20 14:13 03/27/20 13:38 03/27/20 13:38 Temperature -Last 24 Hours Temperature 99.3 F Temperature 98.2 F Temperature 98.0 F Temperature 103.9 F Temperature 99.0 F Temperature 102.9 F Temperature 100.9 F Temperature 102.9 F - Labs CBC & Chem 7: 03/24/20 04:20 03/27/20 04:53 Labs: Abnormal lab results 03/24/20 03/27/20 03/27/20 Range/Units 15:27 04:53 04:53 D-Dimer 1520.95 H (0-234) ng/mlDDU Sodium 135 L (137-145) mmol/L Chloride 108.4 H (98-107) mmol/L Carbon Dioxide 21 L (22-30) mmol/L Glucose 110 H (65-100) mg/dL Calcium 7.4 L (8.4-10.2) mg/dL C-Reactive Protein 23.00 H (0.00-1.30) mg/dL HIV-1 RNA PCR copies/ml 98994 H Copies/mL HIV-1 RNA (PCR) log 4.54 H Log cps/mL
[2020-03-27] MEDS: cefTRIAXone/NS 1 GM/50 ML 1 GM/50 ML BAG IV SCH (17:07)
[2020-03-27] MEDS: SODIUM CHLORIDE 0.9% 1000 ML 1,000 ML IV SCH (17:09)
[2020-03-27] MEDS: ATOVAQUONE 750 MG/5 ML ORAL SUSP PO SCH (21:56)
[2020-03-28] MEDS: SODIUM CHLORIDE 0.9% 1000 ML 1,000 ML IV SCH ×2 (04:00→14:59)
[2020-03-28] MEDS: guaiFENesin/CODEINE 100-10MG ORAL LIQD 5 ML PO PRN ×4 (04:01→20:10)
[2020-03-28 06:51] LABS: Hematocrit 29.5 % (30.3-42.9); Hemoglobin 9.4 gm/dl (10.1-14.3); Mean Corpuscular HGB Conc 32 % (30-34); Mean Corpuscular Volume 80 fl (79-97); Platelet Count 284 K/mm3 (140-440); Red Blood Count 3.71 M/mm3 (3.65-5.03)
[2020-03-28 07:07] LABS: Red Cell Distribution Width 21.9 % (13.2-15.2)
[2020-03-28 07:13] LABS: Blood Urea Nitrogen 7 mg/dL (7-17); Calcium 7.6 mg/dL (8.4-10.2); Hemolysis Index 10
[2020-03-28 07:15] LABS: BUN/Creatinine Ratio 10
[2020-03-28] MEDS: METOPROLOL TARTRATE 5 MG/5 ML INJ IV PRN ×2 (07:28→20:09)
[2020-03-28] MEDS: ALPRAZolam 0.5 MG TAB PO PRN ×2 (07:31→20:29)
[2020-03-28] MEDS: METOPROLOL TARTRATE 25 MG TAB PO SCH ×3 (07:36→22:55)
[2020-03-28] MEDS: IBUPROFEN 600 MG TAB PO PRN ×2 (07:59→20:26)
--- NOTE | 2020-03-28 08:22 | Progress Note ---
Assessment and Plan Assessment and plan: --COVID-19 PCR negative --Extensive lymphadenopathy; S/p biopsy at [facility] (per infectious disease requested cervical lymph node biopsy results and hospitalization records) biopsy results from [facility];: showed necrotizing granulomatous lymphadenitis. Negative for fungal and AFB organisms. Flow cytometry negative for abnormal B or T-cell population. Differential diagnosis is wide, could be fungal/AFB, Kikuchi, Castleman's disease, autoimmune, sarcoidosis. ?IRIS from recent initiation of HAART. --Persistent fevers ; Due to underlying illness Continue current antibiotics, follow cultures Antipyretics, cooling blankets and supportive care --Persistent tachycardia; Secondary to fever, sepsis Treat the underlying cause, antipyretics, antibiotics Metoprolol, anxiolytics Xanax --Sepsis; present on admission tachycardia ,tachypnea, fever , CXR shows pneumonia Empiric antibiotics, IV fluids, follow cultures Cultures negative to date, ID following --Pneumonia/sepsis secondary to pneumonia Oxygen titrate O2 sats to more than 90% IV antibiotics, Supportive care, COVID-19 negative --History of HIV disease; management per ID --Severe hyponatremia; present on admission Continue current management, sodium levels significantly improved --Metabolic acidosis; multifactorial IV hydration, significant improvement closely monitor --Elevated D-dimers; CTA chest negative for PE Lower extremity venous Doppler to evaluate for DVT --Mild malnutrition/hypoalbuminemia; Nutrition supplements, nutrition consult --History of anxiety disorder; Low-dose Xanax, patient needs to follow psych upon discharge For further evaluation and management --DVT prophylaxis; subcu Lovenox We will closely monitor the patient and adjust management as needed Plan of care reviewed with the patient and her nurse Caser In recommendations noted and appreciated History Interval history: I have seen and examined the patient at the bedside Patient's chart and medications reviewed Patient feels slightly better Remains febrile in sinus tachycardia Vital signs noted Hospitalist Physical - Constitutional Vitals: Temp Pulse Resp BP Pulse Ox 100.6 F H 137 H 18 133/68 95 03/28/20 07:56 03/28/20 07:56 03/28/20 07:56 03/28/20 07:56 03/28/20 07:56 General appearance: Present: mild distress, well-nourished, other (Febrile) - EENT Eyes: Present: PERRL, EOM intact - Neck Neck: Present: supple, normal ROM - Respiratory Respiratory effort: normal Respiratory: bilateral: diminished, rhonchi, negative: rales, wheezing - Cardiovascular Rhythm: regular Heart Sounds: Present: S1 & S2 - Extremities Extremities: no ischemia, No edema - Abdominal General gastrointestinal: soft, non-tender, non-distended, normal bowel sounds - Integumentary Integumentary: Present: clear, warm - Psychiatric Psychiatric: appropriate mood/affect, cooperative - Neurologic Neurologic: CNII-XII intact, moves all extremities Results - Labs CBC & Chem 7: 03/28/20 06:35 03/28/20 06:35 Labs: Laboratory Last Values WBC 11.1 K/mm3 (4.5-11.0) H 03/28/20 06:35 RBC 3.71 M/mm3 (3.65-5.03) 03/28/20 06:35 Hgb 9.4 gm/dl (10.1-14.3) L 03/28/20 06:35 Hct 29.5 % (30.3-42.9) L 03/28/20 06:35 MCV 80 fl (79-97) 03/28/20 06:35 MCH 25 pg (28-32) L 03/28/20 06:35 MCHC 32 % (30-34) 03/28/20 06:35 RDW 21.9 % (13.2-15.2) H 03/28/20 06:35 Plt Count 284 K/mm3 (140-440) 03/28/20 06:35 Lymph % (Auto) 7.3 % (13.4-35.0) L 03/24/20 04:20 [place] % (Auto) 5.7 % (0.0-7.3) 03/24/20 04:20 Eos % (Auto) 0.0 % (0.0-4.3) 03/24/20 04:20 Baso % (Auto) 0.2 % (0.0-1.8) 03/24/20 04:20 Lymph # (Auto) 0.8 K/mm3 (1.2-5.4) L 03/24/20 04:20 [place] # (Auto) 0.6 K/mm3 (0.0-0.8) 03/24/20 04:20 Eos # (Auto) 0.0 K/mm3 (0.0-0.4) 03/24/20 04:20 Baso # (Auto) 0.0 K/mm3 (0.0-0.1) 03/24/20 04:20 Seg Neutrophils % 86.8 % (40.0-70.0) H 03/24/20 04:20 Seg Neutrophils # 9.4 K/mm3 (1.8-7.7) H 03/24/20 04:20 PT 14.2 Sec. (12.2-14.9) 03/23/20 16:28 INR 1.11 (0.87-1.13) 03/23/20 16:28 D-Dimer 1520.95 ng/mlDDU (0-234) H 03/27/20 04:53 VBG pH 7.482 (7.320-7.420) H 03/23/20 17:13 Sodium 139 mmol/L (137-145) 03/28/20 06:35 Potassium 3.7 mmol/L (3.6-5.0) 03/28/20 06:35 Chloride 111.1 mmol/L (98-107) H 03/28/20 06:35 Carbon Dioxide 16 mmol/L (22-30) L 03/28/20 06:35 Anion Gap 16 mmol/L 03/28/20 06:35 BUN 7 mg/dL (7-17) 03/28/20 06:35 Creatinine 0.7 mg/dL (0.6-1.2) 03/28/20 06:35 Estimated GFR > 60 ml/min 03/28/20 06:35 BUN/Creatinine Ratio 10 % 03/28/20 06:35 Glucose 93 mg/dL (65-100) 03/28/20 06:35 Lactic Acid 1.10 mmol/L (0.7-2.0) 03/23/20 18:25 Calcium 7.6 mg/dL (8.4-10.2) L 03/28/20 06:35 Magnesium 1.90 mg/dL (1.7-2.3) 03/23/20 16:28 Ferritin 1124.0 ng/mL (10.0-200.0) H 03/23/20 16:28 Total Bilirubin 0.50 mg/dL (0.1-1.2) 03/23/20 16:28 AST 26 units/L (5-40) 03/23/20 16:28 ALT 19 units/L (7-56) 03/23/20 16:28 Alkaline Phosphatase 114 units/L (35-129) 03/23/20 16:28 Lactate Dehydrogenase 428 units/L (91-180) H 03/23/20 16:28 Total Creatine Kinase 30 units/L (30-135) 03/23/20 16:28 C-Reactive Protein 23.00 mg/dL (0.00-1.30) H 03/27/20 04:53 Total Protein 8.3 g/dL (6.3-8.2) H 03/23/20 16:28 Albumin 3.3 g/dL (3.9-5) L 03/23/20 16:28 Albumin/Globulin Ratio 0.7 % 03/23/20 16:28 Procalcitonin 0.58 ng/mL (<0.15) 03/23/20 16:28 HCG, Quant < 2 mIU/mL (0-4) 03/23/20 16:28 Urine Color Colorless (Yellow) 03/23/20 Unknown Urine Turbidity Clear (Clear) 03/23/20 Unknown Urine pH 7.0 (5.0-7.0) 03/23/20 Unknown Ur Specific [place] 1.019 (1.003-1.030) 03/23/20 Unknown Urine Protein <15 mg/dl mg/dL (Negative) 03/23/20 Unknown Urine Glucose (UA) Neg mg/dL (Negative) 03/23/20 Unknown Urine Ketones Neg mg/dL (Negative) 03/23/20 Unknown Urine Blood Sm (Negative) 03/23/20 Unknown Urine Nitrite Neg (Negative) 03/23/20 Unknown Ur Reducing Substances Not Reportable 03/23/20 Unknown Urine Bilirubin Neg (Negative) 03/23/20 Unknown Urine Ictotest Not Reportable 03/23/20 Unknown Urine Urobilinogen < 2.0 mg/dL (<2.0) 03/23/20 Unknown Ur Leukocyte Esterase Neg (Negative) 03/23/20 Unknown Urine WBC (Auto) 1.0 /HPF (0.0-6.0) 03/23/20 Unknown Urine RBC (Auto) 1.0 /HPF (0.0-6.0) 03/23/20 Unknown U Epithel Cells (Auto) < 1.0 /HPF (0-13.0) 03/23/20 Unknown Nasal Screen MRSA (PCR) Negative (Negative) 03/24/20 06:42 Coronavirus (PCR) Negative (Negative) 03/24/20 Unknown HIV-1 RNA PCR copies/ml 83333 Copies/mL H 03/24/20 15:27 HIV-1 RNA (PCR) log 4.54 Log cps/mL H 03/24/20 15:27 Microbiology: Microbiology 03/23/20 16:33 Peripheral/Venous Blood Culture - Preliminary NO GROWTH AFTER 4 DAYS 03/23/20 16:28 Peripheral/Venous Blood Culture - Preliminary NO GROWTH AFTER 4 DAYS Marroquin/IV: Voiding Method Toilet Active Medications - Current Medications Current Medications: Generic Name Dose Route Start Last Admin Trade Name Freq PRN Reason Stop Dose Admin Abacavir Sulfate 600 mg 03/24/20 16:00 03/27/20 10:53 Abacavir 300 Mg Tab PO 600 mg DAILY SUN Administration Albuterol 2.5 mg 03/23/20 19:21 03/27/20 13:57 Albuterol 2.5 Mg/3 Ml Nebu IH 2.5 mg Q4HRT PRN Administration Shortness Of Breath Alprazolam 0.5 mg 03/25/20 11:00 03/28/20 07:31 Alprazolam 0.5 Mg Tab PO 0.5 mg Q8H PRN Administration Anxiety Atovaquone 750 mg 03/27/20 22:00 03/27/20 21:56 Atovaquone 750 Mg/5 Ml Oral Susp PO 750 mg BID SUN Administration Benzonatate 100 mg 03/27/20 14:53 Benzonatate 100 Mg Cap PO Q8HR PRN Cough Enoxaparin Sodium 40 mg 03/25/20 15:00 03/27/20 10:54 Enoxaparin 40 Mg/0.4 Ml Inj SUB-Q 40 mg QDAY@1000 SUN Administration Azithromycin 500 mg in 250 mls @ 250 mls/hr 03/24/20 14:00 03/27/20 13:07 Zithromax/Ns IV 03/28/20 14:59 250 mls/hr Q24H SNU Administration Ceftriaxone Sodium 1 gm in 50 mls @ 100 mls/hr 03/24/20 14:00 03/27/20 17:07 Rocephin/Ns 1 Gm/50 Ml IV 100 mls/hr Q24H SUN Administration Protocol Sodium Chloride 1,000 mls @ 100 mls/hr 03/24/20 14:30 03/28/20 04:00 Nacl 0.9% 1000 Ml IV 100 mls/hr DIRECT SUN Administration Ibuprofen 600 mg 03/27/20 00:15 03/28/20 07:59 Ibuprofen 600 Mg Tab PO 600 mg Q8H PRN Administration Pain, Mild (1-3) Lamivudine 300 mg 03/24/20 16:00 03/27/20 10:53 Lamivudine 150 Mg Tab PO 300 mg DAILY SUN Administration Metoprolol Tartrate 2.5 mg 03/25/20 11:00 03/28/20 07:28 Metoprolol Tartrate 5 Mg/5 Ml Inj IV 2.5 mg Q6H PRN Administration Tachyarrhythmias Metoprolol Tartrate 25 mg 03/27/20 22:00 03/28/20 07:36 Metoprolol Tartrate 25 Mg Tab PO 25 mg BID SUN Administration Ondansetron HCl 4 mg 03/23/20 19:21 03/27/20 13:06 Ondansetron 4 Mg/2 Ml Inj IV 4 mg Q8H PRN Administration Nausea And Vomiting Pseudoephedrine/Acetam/Chlorphenir 15 ml 03/24/20 16:53 03/28/20 07:31 Guaifenesin/Codeine 100-10mg Oral Liqd 5 Ml PO 15 ml Q4H PRN Administration Cough Sodium Chloride 10 ml 03/23/20 22:00 03/27/20 21:56 Sodium Chloride 0.9% 10 Ml Flush Syringe IV 10 ml BID SUN Administration Sodium Chloride 10 ml 03/23/20 19:21 03/26/20 02:03 Sodium Chloride 0.9% 10 Ml Flush Syringe IV 10 ml PRN PRN Administration LINE FLUSH Nutrition/Malnutrition Assess - Dietary Evaluation Nutrition/Malnutrition Findings: Nutrition Notes Start: 03/24/20 10:38 Freq: Status: Active Protocol: Document 03/26/20 11:52 CW (Rec: 03/26/20 12:06 CW [id number]) Nutrition Notes Initial or Follow up Reassessment Other Pertinent Diagnosis PNA, suspected tuberculosis Current Diet Cardiac Diet Labs/Tests Na 133 Ca 7.3 Pertinent Medications Rocephin Zofran NS at 100ml/h Height 5 ft 2 in Weight 52.2 kg [place] Body Weight (kg) 50.00 BMI 21.0 Weight change and time frame Weight change noted Weight Status Appropriate Subjective/Other Information Current [place] score of 19. Pt states good appetite at the moment. Vomiting event x 1 yesterday and day before yesterday that was treated by rx. pt states rx helped and does not feel nauseous at this time. Pt reports some diarrhea. GI issues likely related to ABTx. Pt reports consuming ONS. Percent of energy/protein needs met: 100%/100% Burn Absent Trauma Absent GI Symptoms Nausea,Vomiting,Diarrhea Food Allergy Yes Current % PO Good (75-100%) Minimum of two criteria No physical signs of malnutrition #1 Nutrition Diagnosis Inadequate oral intake As Evidenced by Signs and Symptoms PO intake of 75% of meals + intakes of ONS Diagnosis Progress(for reassessment Improved documentation) Is patient on ventilator? No Is Patient Ambulatory and/or Out of Bed Yes REE-([facility]-ambulatory/OOB) [ 1553.825 [id number]] Calculation Used for Recommendations [facility] Additional Notes Protein needs:42-52g (0.8-1g/ kg) Fluid: 1ml/kcal or MD order Nutrition Intervention Change Diet Order: Continue cardiac diet Add Supplement/Snack (indicate name/kcal Ensure Enlive BID /protein ) Provides kCal: 700 Provides Protein (gm) 40 Goal #1 Meet at least 75% of energy and protein needs Goal #2 Monitor for PO intakes Goal #3 ONS tolerance Anticipated Discharge Needs: Cardiac Diet Follow-Up By: 03/31/20 Additional Comments F/U for Intakes, and ONS tolerance
[2020-03-28] MEDS: BENZONATATE 100 MG CAP PO PRN (09:33)
[2020-03-28] MEDS: ENOXAPARIN 40 MG/0.4 ML INJ SUB-Q SCH (10:35)
[2020-03-28] MEDS: ATOVAQUONE 750 MG/5 ML ORAL SUSP PO SCH ×2 (10:35→22:55)
[2020-03-28] MEDS: ABACAVIR 300 MG TAB PO SCH (10:35)
[2020-03-28] MEDS: DOLUTEGRAVIR 50 MG TAB PO SCH (10:35)
[2020-03-28] MEDS: ALBUTEROL 2.5 MG/3 ML NEBU IH PRN (14:44)
[2020-03-28] MEDS: AZITHROMYCIN/NS 500 MG/250 ML 500 MG/250 ML BAG IV SCH (14:52)
[2020-03-28] MEDS: ONDANSETRON 4 MG/2 ML INJ IV PRN (14:54)
--- NOTE | 2020-03-28 15:22 | Progress Note ---
Assessment and Plan Cultures: SARS CoV2 PCR: Negative 03/23/2020 blood culture: no growth 03/23/2020 urine culture: no growth 03/24/2020 serum cryptococcal antigen: Negative HIV RNA PCR 34,900 MRSA nasal PCR: Negative A/P: 29/F with HIV, asthma recent admission at [facility], underwent lymph node biopsy/surgery now here with: #Pneumonia: continue empiric abx: Ceftriaxone + Azithromycin. #Extensive lymphadenopathy: Status post biopsy at [facility]. Patient reports she underwent evaluation for TB, COVID-19 and influenza while at [facility] and was negative. 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 Negative for fungal and AFB organisms. Flow cytometry negative for abnormal B or T-cell population. Differential diagnosis is wide, could be fungal/AFB, Kikuchi, Castleman's disease, autoimmune, sarcoidosis. ?IRIS from recent initiation of HAART. #HIV disease: unknown CD4, HIV RNA PCR back at 34,900. ?prior non compliance. follows up at [facility] clinic and is on Epzicom in addition to Tivicay, it seems she had nausea with her previous medications. HAART was recently started. Recs: -HHV-8 PCR pending -Started empiric p.o. atovaquone 750 mg twice daily. Patient allergic to Bactrim -f/u EBV DNA PCR, CMV DNA PCR, urinary histoplasma Ag, Fungitell, TB QuantiFERON gold -Continue empiric antibiotics for now: Ceftriaxone plus azithromycin. complete 5 and 3 days respectively. -Continue HIV medications: PO Epzicom plus Tivicay (patient has her own meds) -f/u CD4 count -If fevers persist and no other etiology is found, may consider a short steroid trial Liat Lopez MD [facility] ([facility] O: [phone] F: [phone] Subjective Date of service: 03/28/20 Interval history: Remains febrile to 100.6 with a white count 11.1. On 4 L nasal cannula. Objective - Exam Narrative Exam: Physical Exam: Constitutional: Alert, cooperative. No acute distress Head, Ears, Nose: Normocephalic, atraumatic. External ears, nose normal Eyes: Conjunctivae/corneas clear. No icterus. No ptosis. Neck: Supple, no meningeal signs Cardiovascular: S1, S2 normal. Respiratory: Good air entry, clear to auscultation bilaterally GI: Soft, non-tender; bowel sounds normal. No peritoneal signs Musculoskeletal: No pedal edema, no cyanosis. Skin: No rash or abscess Psych: Mood ok. Affect normal Neurological: Awake, alert, oriented. No gross abnormality - Constitutional Vitals: Vital Signs Temp Pulse Resp BP Pulse Ox 100.3 F H 103 H 18 133/73 100 03/28/20 11:18 03/28/20 14:13 03/28/20 14:13 03/28/20 11:18 03/28/20 11:18 Temperature -Last 24 Hours Temperature 100.3 F Temperature 100.6 F Temperature 97.4 F Temperature 98.6 F Temperature 97.5 F - Labs CBC & Chem 7: 03/28/20 06:35 03/28/20 06:35 Labs: Abnormal lab results 03/28/20 03/28/20 Range/Units 06:35 06:35 WBC 11.1 H (4.5-11.0) K/mm3 Hgb 9.4 L (10.1-14.3) gm/dl Hct 29.5 L (30.3-42.9) % MCH 25 L (28-32) pg RDW 21.9 H (13.2-15.2) % Chloride 111.1 H (98-107) mmol/L Carbon Dioxide 16 L (22-30) mmol/L Calcium 7.6 L (8.4-10.2) mg/dL
[2020-03-28] MEDS: cefTRIAXone/NS 1 GM/50 ML 1 GM/50 ML BAG IV SCH (18:12)
[2020-03-29] MEDS: guaiFENesin/CODEINE 100-10MG ORAL LIQD 5 ML PO PRN ×2 (05:25→16:55)
[2020-03-29] MEDS: METOPROLOL TARTRATE 5 MG/5 ML INJ IV PRN ×2 (05:49→17:00)
[2020-03-29] MEDS: IBUPROFEN 600 MG TAB PO PRN ×2 (06:22→18:10)
[2020-03-29] MEDS: DOLUTEGRAVIR 50 MG TAB PO SCH (09:53)
[2020-03-29] MEDS: ABACAVIR 300 MG TAB PO SCH (09:54)
[2020-03-29] MEDS: ATOVAQUONE 750 MG/5 ML ORAL SUSP PO SCH ×2 (09:54→22:45)
[2020-03-29] MEDS: ONDANSETRON 4 MG/2 ML INJ IV PRN (09:55)
[2020-03-29] MEDS: METOPROLOL TARTRATE 25 MG TAB PO SCH ×2 (09:55→22:45)
[2020-03-29] MEDS: ENOXAPARIN 40 MG/0.4 ML INJ SUB-Q SCH (09:55)
[2020-03-29] MEDS: BENZONATATE 100 MG CAP PO PRN ×2 (09:55→17:03)
--- NOTE | 2020-03-29 11:02 | Progress Note ---
Assessment and Plan Assessment and plan: --COVID-19 PCR negative --Extensive lymphadenopathy; S/p biopsy at [place] (per infectious disease requested cervical lymph node biopsy results and hospitalization records) biopsy results from [place];: showed necrotizing granulomatous lymphadenitis. Negative for fungal and AFB organisms. Flow cytometry negative for abnormal B or T-cell population. Differential diagnosis is wide, could be fungal/AFB, Kikuchi, Castleman's disease, autoimmune, sarcoidosis. ?IRIS from recent initiation of HAART. --Persistent fevers ; Due to underlying illness Continue current antibiotics, follow cultures Antipyretics, cooling blankets and supportive care --Persistent tachycardia; Secondary to fever, sepsis Treat the underlying cause, antipyretics, antibiotics Metoprolol, anxiolytics Xanax --Sepsis; present on admission tachycardia ,tachypnea, fever , CXR shows pneumonia Empiric antibiotics, IV fluids, follow cultures Cultures negative to date, ID following --Pneumonia/sepsis secondary to pneumonia Oxygen titrate O2 sats to more than 90% IV antibiotics, Supportive care, COVID-19 negative --History of HIV disease; management per ID --Severe hyponatremia; present on admission Continue current management, sodium levels significantly improved --Metabolic acidosis; multifactorial IV hydration, significant improvement closely monitor --Elevated D-dimers; CTA chest negative for PE Lower extremity venous Doppler to evaluate for DVT --Mild malnutrition/hypoalbuminemia; Nutrition supplements, nutrition consult --History of anxiety disorder; Low-dose Xanax, patient needs to follow psych upon discharge For further evaluation and management --DVT prophylaxis; subcu Lovenox We will closely monitor the patient and adjust management as needed Plan of care reviewed with the patient and her nurse Senior Principal Process Engineer recommendations noted and appreciated History Interval history: I have seen and examined the patient at the bedside Patient's chart and medications reviewed Patient continues to have low-grade fevers and sinus tachycardia Slightly anxious Vital signs reviewed Hospitalist Physical - Constitutional Vitals: Temp Pulse Resp BP Pulse Ox 98.2 F 121 H 18 136/85 98 03/29/20 08:29 03/29/20 09:55 03/29/20 08:29 03/29/20 09:55 03/29/20 08:29 General appearance: Present: no acute distress, well-nourished - EENT Eyes: Present: PERRL, EOM intact - Neck Neck: Present: supple, normal ROM - Respiratory Respiratory effort: normal Respiratory: bilateral: diminished, negative: rales, rhonchi, wheezing - Cardiovascular Rhythm: regular Heart Sounds: Present: S1 & S2 - Extremities Extremities: no ischemia, No edema - Abdominal General gastrointestinal: soft, non-tender, non-distended, normal bowel sounds - Integumentary Integumentary: Present: clear, warm - Psychiatric Psychiatric: appropriate mood/affect, cooperative - Neurologic Neurologic: CNII-XII intact, moves all extremities Results - Labs CBC & Chem 7: 03/28/20 06:35 03/28/20 06:35 Labs: Laboratory Last Values WBC 11.1 K/mm3 (4.5-11.0) H 03/28/20 06:35 RBC 3.71 M/mm3 (3.65-5.03) 03/28/20 06:35 Hgb 9.4 gm/dl (10.1-14.3) L 03/28/20 06:35 Hct 29.5 % (30.3-42.9) L 03/28/20 06:35 MCV 80 fl (79-97) 03/28/20 06:35 MCH 25 pg (28-32) L 03/28/20 06:35 MCHC 32 % (30-34) 03/28/20 06:35 RDW 21.9 % (13.2-15.2) H 03/28/20 06:35 Plt Count 284 K/mm3 (140-440) 03/28/20 06:35 Lymph % (Auto) 7.3 % (13.4-35.0) L 03/24/20 04:20 Price % (Auto) 5.7 % (0.0-7.3) 03/24/20 04:20 Eos % (Auto) 0.0 % (0.0-4.3) 03/24/20 04:20 Baso % (Auto) 0.2 % (0.0-1.8) 03/24/20 04:20 Lymph # (Auto) 0.8 K/mm3 (1.2-5.4) L 03/24/20 04:20 Price # (Auto) 0.6 K/mm3 (0.0-0.8) 03/24/20 04:20 Eos # (Auto) 0.0 K/mm3 (0.0-0.4) 03/24/20 04:20 Baso # (Auto) 0.0 K/mm3 (0.0-0.1) 03/24/20 04:20 Seg Neutrophils % 86.8 % (40.0-70.0) H 03/24/20 04:20 Seg Neutrophils # 9.4 K/mm3 (1.8-7.7) H 03/24/20 04:20 PT 14.2 Sec. (12.2-14.9) 03/23/20 16:28 INR 1.11 (0.87-1.13) 03/23/20 16:28 D-Dimer 1520.95 ng/mlDDU (0-234) H 03/27/20 04:53 VBG pH 7.482 (7.320-7.420) H 03/23/20 17:13 Sodium 139 mmol/L (137-145) 03/28/20 06:35 Potassium 3.7 mmol/L (3.6-5.0) 03/28/20 06:35 Chloride 111.1 mmol/L (98-107) H 03/28/20 06:35 Carbon Dioxide 16 mmol/L (22-30) L 03/28/20 06:35 Anion Gap 16 mmol/L 03/28/20 06:35 BUN 7 mg/dL (7-17) 03/28/20 06:35 Creatinine 0.7 mg/dL (0.6-1.2) 03/28/20 06:35 Estimated GFR > 60 ml/min 03/28/20 06:35 BUN/Creatinine Ratio 10 % 03/28/20 06:35 Glucose 93 mg/dL (65-100) 03/28/20 06:35 Lactic Acid 1.10 mmol/L (0.7-2.0) 03/23/20 18:25 Calcium 7.6 mg/dL (8.4-10.2) L 03/28/20 06:35 Magnesium 1.90 mg/dL (1.7-2.3) 03/23/20 16:28 Ferritin 1124.0 ng/mL (10.0-200.0) H 03/23/20 16:28 Total Bilirubin 0.50 mg/dL (0.1-1.2) 03/23/20 16:28 AST 26 units/L (5-40) 03/23/20 16:28 ALT 19 units/L (7-56) 03/23/20 16:28 Alkaline Phosphatase 114 units/L (35-129) 03/23/20 16:28 Lactate Dehydrogenase 428 units/L (91-180) H 03/23/20 16:28 Total Creatine Kinase 30 units/L (30-135) 03/23/20 16:28 C-Reactive Protein 23.00 mg/dL (0.00-1.30) H 03/27/20 04:53 Total Protein 8.3 g/dL (6.3-8.2) H 03/23/20 16:28 Albumin 3.3 g/dL (3.9-5) L 03/23/20 16:28 Albumin/Globulin Ratio 0.7 % 03/23/20 16:28 Procalcitonin 0.58 ng/mL (<0.15) 03/23/20 16:28 HCG, Quant < 2 mIU/mL (0-4) 03/23/20 16:28 Urine Color Colorless (Yellow) 03/23/20 Unknown Urine Turbidity Clear (Clear) 03/23/20 Unknown Urine pH 7.0 (5.0-7.0) 03/23/20 Unknown Ur Specific [place] 1.019 (1.003-1.030) 03/23/20 Unknown Urine Protein <15 mg/dl mg/dL (Negative) 03/23/20 Unknown Urine Glucose (UA) Neg mg/dL (Negative) 03/23/20 Unknown Urine Ketones Neg mg/dL (Negative) 03/23/20 Unknown Urine Blood Sm (Negative) 03/23/20 Unknown Urine Nitrite Neg (Negative) 03/23/20 Unknown Ur Reducing Substances Not Reportable 03/23/20 Unknown Urine Bilirubin Neg (Negative) 03/23/20 Unknown Urine Ictotest Not Reportable 03/23/20 Unknown Urine Urobilinogen < 2.0 mg/dL (<2.0) 03/23/20 Unknown Ur Leukocyte Esterase Neg (Negative) 03/23/20 Unknown Urine WBC (Auto) 1.0 /HPF (0.0-6.0) 03/23/20 Unknown Urine RBC (Auto) 1.0 /HPF (0.0-6.0) 03/23/20 Unknown U Epithel Cells (Auto) < 1.0 /HPF (0-13.0) 03/23/20 Unknown Nasal Screen MRSA (PCR) Negative (Negative) 03/24/20 06:42 Coronavirus (PCR) Negative (Negative) 03/24/20 Unknown HIV-1 RNA PCR copies/ml 57422 Copies/mL H 03/24/20 15:27 HIV-1 RNA (PCR) log 4.54 Log cps/mL H 03/24/20 15:27 Microbiology: Microbiology 03/23/20 16:33 Peripheral/Venous Blood Culture - Final NO GROWTH AFTER 5 DAYS 03/23/20 16:28 Peripheral/Venous Blood Culture - Final NO GROWTH AFTER 5 DAYS [place]/IV: Voiding Method Bedside Commode Active Medications - Current Medications Current Medications: Generic Name Dose Route Start Last Admin Trade Name Freq PRN Reason Stop Dose Admin Abacavir Sulfate 600 mg 03/24/20 16:00 03/29/20 09:54 Abacavir 300 Mg Tab PO 600 mg DAILY SUN Administration Albuterol 2.5 mg 03/23/20 19:21 03/28/20 14:44 Albuterol 2.5 Mg/3 Ml Nebu IH 2.5 mg Q4HRT PRN Administration Shortness Of Breath Alprazolam 0.5 mg 03/25/20 11:00 03/28/20 20:29 Alprazolam 0.5 Mg Tab PO 0.5 mg Q8H PRN Administration Anxiety Atovaquone 750 mg 03/27/20 22:00 03/29/20 09:54 Atovaquone 750 Mg/5 Ml Oral Susp PO 750 mg BID SUN Administration Benzonatate 100 mg 03/27/20 14:53 03/29/20 09:55 Benzonatate 100 Mg Cap PO 100 mg Q8HR PRN Administration Cough Enoxaparin Sodium 40 mg 03/25/20 15:00 03/29/20 09:55 Enoxaparin 40 Mg/0.4 Ml Inj SUB-Q 40 mg QDAY@1000 SUN Administration Ceftriaxone Sodium 1 gm in 50 mls @ 100 mls/hr 03/24/20 14:00 03/28/20 18:12 Rocephin/Ns 1 Gm/50 Ml IV 100 mls/hr Q24H SUN Administration Protocol Sodium Chloride 1,000 mls @ 100 mls/hr 03/24/20 14:30 03/28/20 14:59 Nacl 0.9% 1000 Ml IV 100 mls/hr DIRECT SUN Administration Ibuprofen 600 mg 03/27/20 00:15 03/29/20 06:22 Ibuprofen 600 Mg Tab PO 600 mg Q8H PRN Administration Pain, Mild (1-3) Lamivudine 300 mg 03/24/20 16:00 03/29/20 09:54 Lamivudine 150 Mg Tab PO 300 mg DAILY SUN Administration Metoprolol Tartrate 2.5 mg 03/25/20 11:00 03/29/20 05:49 Metoprolol Tartrate 5 Mg/5 Ml Inj IV 2.5 mg Q6H PRN Administration Tachyarrhythmias Metoprolol Tartrate 25 mg 03/27/20 22:00 03/29/20 09:55 Metoprolol Tartrate 25 Mg Tab PO 25 mg BID SUN Administration Ondansetron HCl 4 mg 03/23/20 19:21 03/29/20 09:55 Ondansetron 4 Mg/2 Ml Inj IV 4 mg Q8H PRN Administration Nausea And Vomiting Pseudoephedrine/Acetam/Chlorphenir 15 ml 03/24/20 16:53 03/29/20 05:25 Guaifenesin/Codeine 100-10mg Oral Liqd 5 Ml PO 15 ml Q4H PRN Administration Cough Sodium Chloride 10 ml 03/23/20 22:00 03/29/20 09:56 Sodium Chloride 0.9% 10 Ml Flush Syringe IV 10 ml BID SUN Administration Sodium Chloride 10 ml 03/23/20 19:21 03/26/20 02:03 Sodium Chloride 0.9% 10 Ml Flush Syringe IV 10 ml PRN PRN Administration LINE FLUSH Nutrition/Malnutrition Assess - Dietary Evaluation Nutrition/Malnutrition Findings: Nutrition Notes Start: 03/24/20 10:38 Freq: Status: Active Protocol: Document 03/26/20 11:52 CW (Rec: 03/26/20 12:06 CW [email or web address]) Nutrition Notes Initial or Follow up Reassessment Other Pertinent Diagnosis PNA, suspected tuberculosis Current Diet Cardiac Diet Labs/Tests Na 133 Ca 7.3 Pertinent Medications Rocephin Zofran NS at 100ml/h Height 5 ft 2 in Weight 52.2 kg [place] Body Weight (kg) 50.00 BMI 21.0 Weight change and time frame Weight change noted Weight Status Appropriate Subjective/Other Information Current [place] score of 19. Pt states good appetite at the moment. Vomiting event x 1 yesterday and day before yesterday that was treated by rx. pt states rx helped and does not feel nauseous at this time. Pt reports some diarrhea. GI issues likely related to ABTx. Pt reports consuming ONS. Percent of energy/protein needs met: 100%/100% Burn Absent Trauma Absent GI Symptoms Nausea,Vomiting,Diarrhea Food Allergy Yes Current % PO Good (75-100%) Minimum of two criteria No physical signs of malnutrition #1 Nutrition Diagnosis Inadequate oral intake As Evidenced by Signs and Symptoms PO intake of 75% of meals + intakes of ONS Diagnosis Progress(for reassessment Improved documentation) Is patient on ventilator? No Is Patient Ambulatory and/or Out of Bed Yes REE-([facility]-ambulatory/OOB) [ 1553.825 [id number]] Calculation Used for Recommendations [facility] Additional Notes Protein needs:42-52g (0.8-1g/ kg) Fluid: 1ml/kcal or MD order Nutrition Intervention Change Diet Order: Continue cardiac diet Add Supplement/Snack (indicate name/kcal Ensure Enlive BID /protein ) Provides kCal: 700 Provides Protein (gm) 40 Goal #1 Meet at least 75% of energy and protein needs Goal #2 Monitor for PO intakes Goal #3 ONS tolerance Anticipated Discharge Needs: Cardiac Diet Follow-Up By: 03/31/20 Additional Comments F/U for Intakes, and ONS tolerance
[2020-03-29] MEDS: SODIUM CHLORIDE 0.9% 1000 ML 1,000 ML IV SCH (13:26)
[2020-03-29 16:24] LABS: CD4/CD8 Ratio 0.23 (0.86-5.00)
[2020-03-29] MEDS: ALPRAZolam 0.5 MG TAB PO PRN (17:03)
[2020-03-29] MEDS: LOPERAMIDE 2 MG CAP PO PRN (17:03)
[2020-03-29] MEDS ORDERED: METOPROLOL TARTRATE 5 MG/5 ML INJ IV STA (18:17)
[2020-03-29] MEDS ORDERED: METOPROLOL TARTRATE 5 MG/5 ML INJ IV ONE (18:22)
[2020-03-30] MEDS: guaiFENesin/CODEINE 100-10MG ORAL LIQD 5 ML PO PRN ×2 (00:12→22:59)
[2020-03-30] MEDS: LOPERAMIDE 2 MG CAP PO PRN ×3 (00:13→22:59)
[2020-03-30] MEDS: IBUPROFEN 600 MG TAB PO PRN (01:00)
[2020-03-30 05:47] LABS: Hematocrit 32.4 % (30.3-42.9); Hemoglobin 10.6 gm/dl (10.1-14.3); Mean Corpuscular HGB Conc 33 % (30-34); Mean Corpuscular Volume 79 fl (79-97); Platelet Count 189 K/mm3 (140-440); Red Blood Count 4.11 M/mm3 (3.65-5.03)
[2020-03-30 05:51] LABS: Red Cell Distribution Width 22.1 % (13.2-15.2)
[2020-03-30 05:57] LABS: Blood Urea Nitrogen 5 mg/dL (7-17); Calcium 7.4 mg/dL (8.4-10.2); Hemolysis Index 7
[2020-03-30 05:59] LABS: BUN/Creatinine Ratio 7
[2020-03-30 06:53] LABS: Anisocytosis 1+; Band Neutrophils # (Manual) 0.1 K/mm3; Platelet Estimate Consistent w Auto; Total Cells Counted 100
[2020-03-30] MEDS: SODIUM CHLORIDE 0.9% 1000 ML 1,000 ML IV SCH (10:47)
[2020-03-30] MEDS: ENOXAPARIN 40 MG/0.4 ML INJ SUB-Q SCH ×2 (10:48→11:03)
[2020-03-30] MEDS: METOPROLOL TARTRATE 25 MG TAB PO SCH ×2 (10:48→23:00)
[2020-03-30] MEDS: DOLUTEGRAVIR 50 MG TAB PO SCH (10:49)
[2020-03-30] MEDS: ABACAVIR 300 MG TAB PO SCH (10:49)
[2020-03-30] MEDS: ATOVAQUONE 750 MG/5 ML ORAL SUSP PO SCH ×3 (10:49→22:59)
[2020-03-30] MEDS: ONDANSETRON 4 MG/2 ML INJ IV PRN ×2 (11:10→22:59)
--- NOTE | 2020-03-30 11:34 | Progress Note ---
Assessment and Plan Assessment and plan: Sepsis -POA -Presented with tachycardia into the 130s, tachypnea into the 30s and febrile state in the 101.6 and CXR shows pneumonia -S/p 2 L normal saline bolus and ceftriaxone in the ED -Antibiotic therapy -Infectious disease consulted, appreciate recommendations -COVID-19 PCR negative -03/23 blood cultures x2 no growth to date -03/23 urinalysis negative for nitrates and leukocyte esterase Persistent fevers -Due to underlying illness -Patient has been spiking temperatures since admissions -Antibiotic therapy -Infectious disease consulted, appreciate recommendations -04/02 blood cultures x2 with no growth after 4 hours -03/23 urine culture shows normal joan -03/24 cryptococcal serum antigen negative -03/24 Histoplasma urinary antigen, EBV DNA PCR quantitative, Fungitell, TB QuantiFERON gold pending -Pulmonary hygiene -Supportive care Persistent tachycardia -Low-dose beta-fletcher, titrate as needed -IV beta-fletcher as needed -Telemetry monitoring -Supportive care Pneumonia -03/23 CXR shows pneumonia -03/27 CXR shows worsened patchy consolidation/effusion in the right lung base with minimal patchy left basilar airspace disease also now present. No appreciable effusion on the left. -Supplemental oxygen as needed -SPO2 monitoring -IV antibiotic therapy -Supportive care -Pulmonary hygiene Extensive adenopathy -S/p biopsy at [place] (per infectious disease requested cervical lymph node biopsy results and hospitalization records) -Per ID: Opportunistic infection versus lymphoma versus sarcoid -03/23 CTA chest shows extensive lymphadenopathy throughout the chest involving bilateral axillary, mediastinal anthony regions, airspace consolidation of the right lower lobe with extensive tree-in-bud opacities in the right lower lobe and middle lobe less so within bilateral upper lobes and a partially loculated small to moderate right pleural effusion -03/23 CTA neck shows recent left-sided lymph node biopsy, extensive bilateral symmetrical cervical neck lymphadenopathies with multifocal areas of necrosis -03/23 CT abdomen with contrast shows multifocal patchy parenchymal changes in the right lower lung with associated loculated pleural right pleural effusion, ovarian cyst and free fluid in the cul-de-sac -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, negative for fungal and AFB organisms, flow cytometry negative for abnormal B or T-cell population Suspected tuberculosis -03/23 PPD administered, read on 03/26 as negative (no induration, redness noted) -03/24 TB QuantiFERON gold pending -Discontinue airborne and droplet precautions Hyperchloremia -03/27 chloride 108.4 -MIVF with NS -Trend BMP Metabolic acidosis -03/24 CO2 on BMP is 21 -Multifactorial -Trend BMP Elevated D-dimer -Presented with a D-dimer of 2608 -03/23 CTA chest shows no evidence of pulmonary embolism -03/30 BLE Doppler US pending HIV disease -Unknown CD4 -Continue home antiretroviral therapy -Follow-up outpatient with HIV clinic or ID Malnutrition -Presented with a BMI of 21 -Nutrition consulted for supplementation and dietary education Anxiety -As needed Ativan -Redirection and verbal de-escalation as needed -Supportive care -Follow-up outpatient with psych DVT -SCDs to bilateral lower extremities while in bed -Lovenox subcu -GI prophylaxis COVID-19 PUI, ruled out -03/24 COVID-19 PCR negative Hyponatremia, resolved -Present admission -Presented with a sodium of 130 -S/p 2 L normal saline bolus in the ED -MIVF -Avoid rapid correction -Trend BMP -Monitor neuro status -03/28 sodium 139 History Interval history: This is a 29-year-old female with asthma and HIV he was admitted to the hospital on 03/23 with a 2-week history of a dry cough, shaking chills, and fever. Work-up in the emergency department revealed tachypnea, tachycardia, febrile state and a CXR which revealed pneumonia. Patient CT scan of the chest revealed bilateral infiltrates as well as evidence of tuberculosis lymphadenitis, and hyponatremia. Patient was admitted to the hospital service with consult infectious disease for rule out tuberculosis and COVID-19. 03/24: TB PPD pending, COVID-19 PCR negative, infectious disease consulted, fever and patient was started on antibiotic therapy. No acute events reported overnight. Remains supplemental oxygenation. 03/25: Patient is having persistent fevers, tachycardia into the 140s s/p IV Lopressor x1 and p.o. Lopressor for rate control, patient was transferred from [facility] to telemetry overnight. 03/26: Patient had a low-grade temperature this morning which was treated with Tylenol. Patient states that she feels slightly better but is still experiencing coughing and chills. Patient still remains on empiric antibiotics and her hyponatremia has improved. She has persistent fevers, on antibiotics, supportive care, we will try scheduled Tylenol every 6 hours for 24 hours 2/12: Patient remains febrile. This afternoon patient was tachypneic, tachycardic and experienced wheezing therefore she received an albuterol treatment with RT and IV metoprolol. Patient stated that she felt like she was having an anxiety attack and has a history of anxiety and RN was instructed to provide the patient with as needed Ativan. CXR ordered. Patient is currently on 5 L nasal cannula however on reexamination patient was speaking on the phone with her father. We will also order as needed Tessalon Perles. Patient's CXR shows worsening patchy consolidation/effusion in the right lung base with minimal patchy left basilar airspace disease. Encourage pulmonary hygiene. 03/28: Febrile and sinus tachycardia 03/29: Febrile and sinus tachycardia 03/30: Patient was hypoglycemic this morning to the 60s and she received oral intake. RN to recheck BG. Patient placed on hypoglycemic protocol with Accu- Cheks AC at bedtime. Patient remains tachycardic though afebrile (T-max 99.0). Discharge pending infectious disease clearance. Hospitalist Physical - Constitutional Vitals: Temp Pulse Resp BP Pulse Ox 97.4 F L 111 H 22 125/87 100 03/30/20 09:21 03/30/20 11:00 03/30/20 11:00 03/30/20 10:48 03/30/20 09:21 General appearance: Present: mild distress, well-nourished, other (Febrile) Results - Labs CBC & Chem 7: 03/30/20 04:54 03/30/20 04:54 Labs: Laboratory Last Values WBC 8.1 K/mm3 (4.5-11.0) 03/30/20 04:54 RBC 4.11 M/mm3 (3.65-5.03) 03/30/20 04:54 Hgb 10.6 gm/dl (10.1-14.3) 03/30/20 04:54 Hct 32.4 % (30.3-42.9) 03/30/20 04:54 MCV 79 fl (79-97) 03/30/20 04:54 MCH 26 pg (28-32) L 03/30/20 04:54 MCHC 33 % (30-34) 03/30/20 04:54 RDW 22.1 % (13.2-15.2) H 03/30/20 04:54 Plt Count 189 K/mm3 (140-440) 03/30/20 04:54 Lymph % (Auto) Grades 1 Thru 6 Home Teacher 03/30/20 04:54 [place] % (Auto) Grades 1 Thru 6 Home Teacher 03/30/20 04:54 Eos % (Auto) Grades 1 Thru 6 Home Teacher 03/30/20 04:54 Baso % (Auto) Grades 1 Thru 6 Home Teacher 03/30/20 04:54 Lymph # (Auto) Grades 1 Thru 6 Home Teacher 03/30/20 04:54 [place] # (Auto) Grades 1 Thru 6 Home Teacher 03/30/20 04:54 Eos # (Auto) Grades 1 Thru 6 Home Teacher 03/30/20 04:54 Baso # (Auto) Grades 1 Thru 6 Home Teacher 03/30/20 04:54 Add Manual Diff Complete 03/30/20 04:54 Total Counted 100 03/30/20 04:54 Seg Neutrophils % Grades 1 Thru 6 Home Teacher 03/30/20 04:54 Seg Neuts % (Manual) 91.0 % (40.0-70.0) H 03/30/20 04:54 Band Neutrophils % 1.0 % 03/30/20 04:54 Lymphocytes % (Manual) 1.0 % (13.4-35.0) L 03/30/20 04:54 Monocytes % (Manual) 7.0 % (0.0-7.3) 03/30/20 04:54 Nucleated RBC % Not Reportable 03/30/20 04:54 Seg Neutrophils # Grades 1 Thru 6 Home Teacher 03/30/20 04:54 Seg Neutrophils # Man 7.4 K/mm3 (1.8-7.7) 03/30/20 04:54 Band Neutrophils # 0.1 K/mm3 03/30/20 04:54 Abs Lymphs (Manual) 1064 cells/uL (850-3900) 03/24/20 15:27 Lymphocytes # (Manual) 0.1 K/mm3 (1.2-5.4) L 03/30/20 04:54 Abs React Lymphs (Man) 0.0 K/mm3 03/30/20 04:54 Monocytes # (Manual) 0.6 K/mm3 (0.0-0.8) 03/30/20 04:54 Eosinophils # (Manual) 0.0 K/mm3 (0.0-0.4) 03/30/20 04:54 Basophils # (Manual) 0.0 K/mm3 (0.0-0.1) 03/30/20 04:54 Metamyelocytes # 0.0 K/mm3 03/30/20 04:54 Myelocytes # 0.0 K/mm3 03/30/20 04:54 Promyelocytes # 0.0 K/mm3 03/30/20 04:54 Blast Cells # 0.0 K/mm3 03/30/20 04:54 WBC Morphology Not Reportable 03/30/20 04:54 Hypersegmented Neuts Not Reportable 03/30/20 04:54 Hyposegmented Neuts Not Reportable 03/30/20 04:54 Hypogranular Neuts Not Reportable 03/30/20 04:54 Smudge Cells Not Reportable 03/30/20 04:54 Toxic Granulation Not Reportable 03/30/20 04:54 Toxic Vacuolation Not Reportable 03/30/20 04:54 Dohle Bodies Not Reportable 03/30/20 04:54 Pelger-Huet Anomaly Not Reportable 03/30/20 04:54 Ney Rods Not Reportable 03/30/20 04:54 Platelet Estimate Consistent w auto 03/30/20 04:54 Clumped Platelets Not Reportable 03/30/20 04:54 Plt Clumps, EDTA Not Reportable 03/30/20 04:54 Large Platelets Not Reportable 03/30/20 04:54 Giant Platelets Not Reportable 03/30/20 04:54 Platelet Satelliting Not Reportable 03/30/20 04:54 Plt Morphology Comment Not Reportable 03/30/20 04:54 RBC Morphology Not Reportable 03/30/20 04:54 Dimorphic RBCs Not Reportable 03/30/20 04:54 Polychromasia Not Reportable 03/30/20 04:54 Hypochromasia Not Reportable 03/30/20 04:54 Poikilocytosis Not Reportable 03/30/20 04:54 Anisocytosis 1+ 03/30/20 04:54 Microcytosis Not Reportable 03/30/20 04:54 Macrocytosis Not Reportable 03/30/20 04:54 Spherocytes Not Reportable 03/30/20 04:54 Pappenheimer Bodies Not Reportable 03/30/20 04:54 Sickle Cells Not Reportable 03/30/20 04:54 Target Cells Not Reportable 03/30/20 04:54 Tear Drop Cells Not Reportable 03/30/20 04:54 Ovalocytes Not Reportable 03/30/20 04:54 Helmet Cells Not Reportable 03/30/20 04:54 [place] Bodies Not Reportable 03/30/20 04:54 Mcrae Rings Not Reportable 03/30/20 04:54 Duarte Cells Not Reportable 03/30/20 04:54 Bite Cells Not Reportable 03/30/20 04:54 Crenated Cell Not Reportable 03/30/20 04:54 Elliptocytes Not Reportable 03/30/20 04:54 Acanthocytes (Spur) Not Reportable 03/30/20 04:54 Rouleaux Not Reportable 03/30/20 04:54 Hemoglobin C Crystals Not Reportable 03/30/20 04:54 Schistocytes Not Reportable 03/30/20 04:54 Malaria parasites Not Reportable 03/30/20 04:54 Tyron Bodies Not Reportable 03/30/20 04:54 Hem Pathologist Commnt No 03/30/20 04:54 PT 14.2 Sec. (12.2-14.9) 03/23/20 16:28 INR 1.11 (0.87-1.13) 03/23/20 16:28 D-Dimer 1520.95 ng/mlDDU (0-234) H 03/27/20 04:53 VBG pH 7.482 (7.320-7.420) H 03/23/20 17:13 Sodium 142 mmol/L (137-145) 03/30/20 04:54 Potassium 3.6 mmol/L (3.6-5.0) 03/30/20 04:54 Chloride 114.9 mmol/L (98-107) H 03/30/20 04:54 Carbon Dioxide 18 mmol/L (22-30) L 03/30/20 04:54 Anion Gap 13 mmol/L 03/30/20 04:54 BUN 5 mg/dL (7-17) L 03/30/20 04:54 Creatinine 0.7 mg/dL (0.6-1.2) 03/30/20 04:54 Estimated GFR > 60 ml/min 03/30/20 04:54 BUN/Creatinine Ratio 7 % 03/30/20 04:54 Glucose 92 mg/dL (65-100) 03/30/20 04:54 POC Glucose 66 mg/dL (70-105) L 03/30/20 09:13 Lactic Acid 1.10 mmol/L (0.7-2.0) 03/23/20 18:25 Calcium 7.4 mg/dL (8.4-10.2) L 03/30/20 04:54 Magnesium 1.90 mg/dL (1.7-2.3) 03/23/20 16:28 Ferritin 1124.0 ng/mL (10.0-200.0) H 03/23/20 16:28 Total Bilirubin 0.50 mg/dL (0.1-1.2) 03/23/20 16:28 AST 26 units/L (5-40) 03/23/20 16:28 ALT 19 units/L (7-56) 03/23/20 16:28 Alkaline Phosphatase 114 units/L (35-129) 03/23/20 16:28 Lactate Dehydrogenase 428 units/L (91-180) H 03/23/20 16:28 Total Creatine Kinase 30 units/L (30-135) 03/23/20 16:28 C-Reactive Protein 23.00 mg/dL (0.00-1.30) H 03/27/20 04:53 Total Protein 8.3 g/dL (6.3-8.2) H 03/23/20 16:28 Albumin 3.3 g/dL (3.9-5) L 03/23/20 16:28 Albumin/Globulin Ratio 0.7 % 03/23/20 16:28 Procalcitonin 0.58 ng/mL (<0.15) 03/23/20 16:28 HCG, Quant < 2 mIU/mL (0-4) 03/23/20 16:28 Urine Color Colorless (Yellow) 03/23/20 Unknown Urine Turbidity Clear (Clear) 03/23/20 Unknown Urine pH 7.0 (5.0-7.0) 03/23/20 Unknown Ur Specific [place] 1.019 (1.003-1.030) 03/23/20 Unknown Urine Protein <15 mg/dl mg/dL (Negative) 03/23/20 Unknown Urine Glucose (UA) Neg mg/dL (Negative) 03/23/20 Unknown Urine Ketones Neg mg/dL (Negative) 03/23/20 Unknown Urine Blood Sm (Negative) 03/23/20 Unknown Urine Nitrite Neg (Negative) 03/23/20 Unknown Ur Reducing Substances Not Reportable 03/23/20 Unknown Urine Bilirubin Neg (Negative) 03/23/20 Unknown Urine Ictotest Not Reportable 03/23/20 Unknown Urine Urobilinogen < 2.0 mg/dL (<2.0) 03/23/20 Unknown Ur Leukocyte Esterase Neg (Negative) 03/23/20 Unknown Urine WBC (Auto) 1.0 /HPF (0.0-6.0) 03/23/20 Unknown Urine RBC (Auto) 1.0 /HPF (0.0-6.0) 03/23/20 Unknown U Epithel Cells (Auto) < 1.0 /HPF (0-13.0) 03/23/20 Unknown Nasal Screen MRSA (PCR) Negative (Negative) 03/24/20 06:42 Lymph Enumerat CD4/CD8 0.23 (0.86-5.00) L 03/24/20 15:27 % CD3 Cells 92 % (57-85) H 03/24/20 15:27 Absolute CD3 Count 978 cells/uL (840-3060) 03/24/20 15:27 % CD4 Cells 17 % (30-61) L 03/24/20 15:27 Absolute CD4 Count 191 cells/uL (490-1740) L 03/24/20 15:27 % CD8 Cells 76 % (12-42) H 03/24/20 15:27 Absolute CD8 Count 837 cells/uL (180-1170) 03/24/20 15:27 % CD19 Cells 2 % (6-29) L 03/24/20 15:27 Absolute CD19 Count 22 cells/uL (110-660) L 03/24/20 15:27 Coronavirus (PCR) Negative (Negative) 03/24/20 Unknown HIV-1 RNA PCR copies/ml 61598 Copies/mL H 03/24/20 15:27 HIV-1 RNA (PCR) log 4.54 Log cps/mL H 03/24/20 15:27 Marroquin/IV: Voiding Method Bedside Commode Active Medications - Current Medications Current Medications: Generic Name Dose Route Start Last Admin Trade Name Freq PRN Reason Stop Dose Admin Abacavir Sulfate 600 mg 03/24/20 16:00 03/30/20 10:49 Abacavir 300 Mg Tab PO 600 mg DAILY SUN Administration Albuterol 2.5 mg 03/23/20 19:21 03/28/20 14:44 Albuterol 2.5 Mg/3 Ml Nebu IH 2.5 mg Q4HRT PRN Administration Shortness Of Breath Alprazolam 0.5 mg 03/25/20 11:00 03/29/20 17:03 Alprazolam 0.5 Mg Tab PO 0.5 mg Q8H PRN Administration Anxiety Atovaquone 750 mg 03/27/20 22:00 03/30/20 11:04 Atovaquone 750 Mg/5 Ml Oral Susp PO Not Given BID SUN Benzonatate 100 mg 03/27/20 14:53 03/29/20 17:03 Benzonatate 100 Mg Cap PO 100 mg Q8HR PRN Administration Cough Enoxaparin Sodium 40 mg 03/25/20 15:00 03/30/20 11:03 Enoxaparin 40 Mg/0.4 Ml Inj SUB-Q Not Given QDAY@1000 SUN Sodium Chloride 1,000 mls @ 100 mls/hr 03/24/20 14:30 03/30/20 10:47 Nacl 0.9% 1000 Ml IV 100 mls/hr DIRECT SUN Administration Ibuprofen 600 mg 03/27/20 00:15 03/30/20 01:00 Ibuprofen 600 Mg Tab PO 600 mg Q8H PRN Administration Pain, Mild (1-3) Lamivudine 300 mg 03/24/20 16:00 03/30/20 10:50 Lamivudine 150 Mg Tab PO 300 mg DAILY SUN Administration Loperamide HCl 2 mg 03/29/20 14:39 03/30/20 11:09 Loperamide 2 Mg Cap PO 2 mg Q2H PRN Administration Diarrhea Metoprolol Tartrate 2.5 mg 03/25/20 11:00 03/29/20 17:00 Metoprolol Tartrate 5 Mg/5 Ml Inj IV 2.5 mg Q6H PRN Administration Tachyarrhythmias Metoprolol Tartrate 50 mg 03/29/20 22:00 03/30/20 10:48 Metoprolol Tartrate 25 Mg Tab PO 50 mg BID SUN Administration Ondansetron HCl 4 mg 03/23/20 19:21 03/30/20 11:10 Ondansetron 4 Mg/2 Ml Inj IV 4 mg Q8H PRN Administration Nausea And Vomiting Pseudoephedrine/Acetam/Chlorphenir 15 ml 03/24/20 16:53 03/30/20 00:12 Guaifenesin/Codeine 100-10mg Oral Liqd 5 Ml PO 15 ml Q4H PRN Administration Cough Sodium Chloride 10 ml 03/23/20 22:00 03/30/20 10:51 Sodium Chloride 0.9% 10 Ml Flush Syringe IV 10 ml BID SUN Administration Sodium Chloride 10 ml 03/23/20 19:21 03/26/20 02:03 Sodium Chloride 0.9% 10 Ml Flush Syringe IV 10 ml PRN PRN Administration LINE FLUSH Nutrition/Malnutrition Assess - Dietary Evaluation Nutrition/Malnutrition Findings: Nutrition Notes Start: 03/24/20 10:38 Freq: Status: Active Protocol: Document 03/26/20 11:52 CW (Rec: 03/26/20 12:06 CW [email or web address]) Nutrition Notes Initial or Follow up Reassessment Other Pertinent Diagnosis PNA, suspected tuberculosis Current Diet Cardiac Diet Labs/Tests Na 133 Ca 7.3 Pertinent Medications Rocephin Zofran NS at 100ml/h Height 5 ft 2 in Weight 52.2 kg [place] Body Weight (kg) 50.00 BMI 21.0 Weight change and time frame Weight change noted Weight Status Appropriate Subjective/Other Information Current Carr score of 19. Pt states good appetite at the moment. Vomiting event x 1 yesterday and day before yesterday that was treated by rx. pt states rx helped and does not feel nauseous at this time. Pt reports some diarrhea. GI issues likely related to ABTx. Pt reports consuming ONS. Percent of energy/protein needs met: 100%/100% Burn Absent Trauma Absent GI Symptoms Nausea,Vomiting,Diarrhea Food Allergy Yes Current % PO Good (75-100%) Minimum of two criteria No physical signs of malnutrition #1 Nutrition Diagnosis Inadequate oral intake As Evidenced by Signs and Symptoms PO intake of 75% of meals + intakes of ONS Diagnosis Progress(for reassessment Improved documentation) Is patient on ventilator? No Is Patient Ambulatory and/or Out of Bed Yes REE-([facility]-ambulatory/OOB) [ 1553.825 [id number]] Calculation Used for Recommendations [facility] Additional Notes Protein needs:42-52g (0.8-1g/ kg) Fluid: 1ml/kcal or MD order Nutrition Intervention Change Diet Order: Continue cardiac diet Add Supplement/Snack (indicate name/kcal Ensure Enlive BID /protein ) Provides kCal: 700 Provides Protein (gm) 40 Goal #1 Meet at least 75% of energy and protein needs Goal #2 Monitor for PO intakes Goal #3 ONS tolerance Anticipated Discharge Needs: Cardiac Diet Follow-Up By: 03/31/20 Additional Comments F/U for Intakes, and ONS tolerance
[2020-03-30] MEDS: METOPROLOL TARTRATE 5 MG/5 ML INJ IV PRN (14:26)
[2020-03-30] MEDS: ACETAMINOPHEN 325 MG TAB PO PRN ×2 (15:25→23:01)
--- NOTE | 2020-03-30 17:00 | Progress Note ---
Assessment and Plan Cultures: SARS CoV2 PCR: Negative 03/23/2020 blood culture: no growth 03/23/2020 urine culture: no growth 03/24/2020 serum cryptococcal antigen: Negative HIV RNA PCR 34,900 MRSA nasal PCR: Negative A/P: 29/F with HIV, asthma recent admission at [place], underwent lymph node biopsy/surgery now here with: #Pneumonia: continue empiric abx: Ceftriaxone + Azithromycin. #Extensive lymphadenopathy: Status post biopsy at [place]. Patient reports she underwent evaluation for TB, COVID-19 and influenza while at [place] and was negative. 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 Negative for fungal and AFB organisms. Flow cytometry negative for abnormal B or T-cell population. Differential diagnosis is wide, could be fungal/AFB, Kikuchi, Castleman's disease, autoimmune, sarcoidosis. ?IRIS from recent initiation of HAART. #HIV disease: CD4 191, HIV RNA PCR back at 34,900. ?prior non compliance. follows up at [facility] clinic and is on Epzicom in addition to Tivicay, it seems she had nausea with her previous medications. HAART was recently started. Recs: -HHV-8 PCR pending -Started empiric p.o. atovaquone 750 mg twice daily. Patient allergic to Bactrim -f/u EBV DNA PCR, CMV DNA PCR, urinary histoplasma Ag, Fungitell, TB QuantiFERON gold -Escalated to vancomycin and meropenem -Ordered blood cultures -Consulted pulmonary -Continue HIV medications: PO Epzicom plus Tivicay (patient has her own meds) -If fevers persist and no other etiology is found, may consider a short steroid trial Liat Lopez MD [facility] ([facility] O: [phone] F: [phone] Subjective Date of service: 03/30/20 Interval history: Febrile to 102.7 with severe tachypnea tachycardia. Currently requiring Venturi mask. White count normal present time. CD4 count 191 with 17% Objective - Exam Narrative Exam: Physical Exam: Constitutional: Alert, cooperative. No acute distress Head, Ears, Nose: Normocephalic, atraumatic. External ears, nose normal Eyes: Conjunctivae/corneas clear. No icterus. No ptosis. Neck: Supple, no meningeal signs Cardiovascular: S1, S2 normal. Respiratory: Good air entry, clear to auscultation bilaterally GI: Soft, non-tender; bowel sounds normal. No peritoneal signs Musculoskeletal: No pedal edema, no cyanosis. Skin: No rash or abscess Psych: Mood ok. Affect normal Neurological: Awake, alert, oriented. No gross abnormality - Constitutional Vitals: Vital Signs Temp Pulse Resp BP Pulse Ox 102.7 F H 140 H 42 H 155/85 95 03/30/20 14:51 03/30/20 15:04 03/30/20 15:32 03/30/20 14:51 03/30/20 15:20 Temperature -Last 24 Hours Temperature 102.7 F Temperature 100.4 F Temperature 97.4 F Temperature 98.0 F Temperature 97.8 F Temperature 99.0 F Temperature 99.8 F Temperature 100.3 F Temperature 99.7 F - Labs CBC & Chem 7: 03/30/20 04:54 03/30/20 04:54 Labs: Abnormal lab results 03/30/20 03/30/20 03/30/20 Range/Units 04:54 04:54 09:13 MCH 26 L (28-32) pg RDW 22.1 H (13.2-15.2) % Seg Neuts % (Manual) 91.0 H (40.0-70.0) % Lymphocytes % (Manual) 1.0 L (13.4-35.0) % Lymphocytes # (Manual) 0.1 L (1.2-5.4) K/mm3 Chloride 114.9 H (98-107) mmol/L Carbon Dioxide 18 L (22-30) mmol/L BUN 5 L (7-17) mg/dL POC Glucose 66 L (70-105) mg/dL Calcium 7.4 L (8.4-10.2) mg/dL
[2020-03-30] MEDS ORDERED: VANCOMYCIN PHARMACY TO DOSE IV SCH (18:00)
[2020-03-30] MEDS: MEROPENEM/NS 1 GRAM/100 ML 1 GRAM/100 ML BAG IV SCH ×2 (19:05→23:08)
[2020-03-30] MEDS ORDERED: VANCOMYCIN/NS 1 GM/250 ML 1 GM/250 ML BAG IV ONE (20:00)
--- NOTE | 2020-03-30 21:18 | XRay Report ---
CHEST 1 VIEW 03/30/2020 9:03 PM INDICATION / CLINICAL INFORMATION: PNA. COMPARISON: 03/27/2020. FINDINGS: SUPPORT DEVICES: None. HEART / MEDIASTINUM: Stable. LUNGS / PLEURA: There has been minimal worsening of right-sided pulmonary opacities. No pneumothorax. ADDITIONAL FINDINGS: No significant additional findings. IMPRESSION: 1. Interval worsening of right-sided pulmonary opacities. Signer Name: Ephraim Pederson MD Signed: 03/30/2020 9:14 PM Workstation Name: [id number]
[2020-03-30] MEDS: BENZONATATE 100 MG CAP PO PRN (22:59)
[2020-03-30] MEDS: ALPRAZolam 0.5 MG TAB PO PRN (22:59)
[2020-03-31] MEDS: guaiFENesin/CODEINE 100-10MG ORAL LIQD 5 ML PO PRN (04:35)
[2020-03-31] MEDS: LOPERAMIDE 2 MG CAP PO PRN (04:35)
[2020-03-31] MEDS: IBUPROFEN 600 MG TAB PO PRN (05:03)
[2020-03-31] MEDS: ONDANSETRON 4 MG/2 ML INJ IV PRN (05:04)
[2020-03-31] MEDS: MEROPENEM/NS 1 GRAM/100 ML 1 GRAM/100 ML BAG IV SCH ×3 (05:06→23:10)
[2020-03-31 05:45] LABS: BUN/Creatinine Ratio TNR; Blood Urea Nitrogen TNR mg/dL (7-17)
[2020-03-31 05:46] LABS: Calcium TNR mg/dL (8.4-10.2); Hemolysis Index TNR
[2020-03-31] MEDS: DOLUTEGRAVIR 50 MG TAB PO SCH (09:21)
[2020-03-31] MEDS: VANCOMYCIN 750 MG in SODIUM CHLORIDE 0.9% 250ML 250 ML IV SCH ×2 (09:21→20:43)
[2020-03-31] MEDS: METOPROLOL TARTRATE 25 MG TAB PO SCH ×2 (09:22→23:11)
[2020-03-31] MEDS: ABACAVIR 300 MG TAB PO SCH (09:22)
[2020-03-31] MEDS: ENOXAPARIN 40 MG/0.4 ML INJ SUB-Q SCH (09:23)
[2020-03-31] MEDS: ATOVAQUONE 750 MG/5 ML ORAL SUSP PO SCH ×2 (09:23→23:11)
[2020-03-31 11:48] LABS: BUN/Creatinine Ratio 8; Blood Urea Nitrogen 7 mg/dL (7-17); Calcium 7.7 mg/dL (8.4-10.2); Hemolysis Index 3
--- NOTE | 2020-03-31 12:38 | Event Note ---
Date: 03/31/20 Called for worsening right sided pleural effusion. ORdered stat coags and ultrasound guided thoracentesis. If not done in the next 24 hours will attempt at bedside tomorrow. Will go ahead and order necessary studies. Patient currently stable on room air.
[2020-03-31] MEDS ORDERED: POTASSIUM CHLORIDE ER 20 MEQ TAB PO NR (13:53)
--- NOTE | 2020-03-31 13:56 | Progress Note ---
Assessment and Plan Cultures: SARS CoV2 PCR: Negative 03/23/2020 blood culture: no growth 03/23/2020 urine culture: no growth 03/24/2020 serum cryptococcal antigen: Negative HIV RNA PCR 34,900 MRSA nasal PCR: Negative A/P: 29/F with HIV, asthma recent admission at [facility], underwent lymph node biopsy/surgery now here with: #Pneumonia: continue empiric abx: Ceftriaxone + Azithromycin. #Extensive lymphadenopathy: Status post biopsy at [facility]. Patient reports she underwent evaluation for TB, COVID-19 and influenza while at [facility] and was negative. 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 Negative for fungal and AFB organisms. Flow cytometry negative for abnormal B or T-cell population. Differential diagnosis is wide, could be fungal/AFB, Kikuchi, Castleman's disease, autoimmune, sarcoidosis. ?IRIS from recent initiation of HAART. CMV DNA negative #HIV disease: CD4 191, HIV RNA PCR back at 34,900. ?prior non compliance. follows up at [facility] clinic and is on Epzicom in addition to Tivicay, it seems she had nausea with her previous medications. HAART was recently started. Recs: -HHV-8 PCR pending -Started empiric p.o. atovaquone 750 mg twice daily. Patient allergic to Bactrim -f/u EBV DNA PCR, urinary histoplasma Ag, Fungitell, TB QuantiFERON gold -Escalated to vancomycin and meropenem -Continue HIV medications: PO Epzicom plus Tivicay (patient has her own meds) -If fevers persist and no other etiology is found, may consider a short steroid trial Liat Lopez MD [facility] ([facility] O: [phone] F: [phone] Subjective Date of service: 03/31/20 Interval history: Afebrile over last 24 hours, no other acute concerns. Serum CMV DNA has returned negative. Objective - Exam Narrative Exam: Physical Exam: Constitutional: Alert, cooperative. No acute distress Head, Ears, Nose: Normocephalic, atraumatic. External ears, nose normal Eyes: Conjunctivae/corneas clear. No icterus. No ptosis. Neck: Supple, no meningeal signs Cardiovascular: S1, S2 normal. Respiratory: Good air entry, clear to auscultation bilaterally GI: Soft, non-tender; bowel sounds normal. No peritoneal signs Musculoskeletal: No pedal edema, no cyanosis. Skin: No rash or abscess Psych: Mood ok. Affect normal Neurological: Awake, alert, oriented. No gross abnormality - Constitutional Vitals: Vital Signs Temp Pulse Resp BP Pulse Ox 98.0 F 98 H 18 114/77 100 03/31/20 11:14 03/31/20 11:14 03/31/20 11:14 03/31/20 11:14 03/31/20 11:14 Temperature -Last 24 Hours Temperature 98.0 F Temperature 97.6 F Temperature 98.8 F Temperature 97.5 F Temperature 96.8 F Temperature 97.9 F Temperature 102.7 F - Labs CBC & Chem 7: 03/30/20 04:54 03/31/20 10:19 Labs: Abnormal lab results 03/31/20 Range/Units 10:19 Potassium 3.5 L (3.6-5.0) mmol/L Chloride 111.3 H (98-107) mmol/L Carbon Dioxide 21 L (22-30) mmol/L Glucose 109 H (65-100) mg/dL Calcium 7.7 L (8.4-10.2) mg/dL
[2020-03-31 14:43] LABS: INR 1.26 (0.87-1.13)
[2020-03-31 14:54] LABS: Partial Thromboplastin Time 63.2 Sec. (24.2-36.6)
--- NOTE | 2020-03-31 15:16 | Progress Note ---
Assessment and Plan Assessment and plan: Sepsis -POA -Presented with tachycardia into the 130s, tachypnea into the 30s and febrile state in the 101.6 and CXR shows pneumonia -S/p 2 L normal saline bolus and ceftriaxone in the ED -Antibiotic therapy -Infectious disease consulted, appreciate recommendations -COVID-19 PCR negative -03/23 blood cultures x2 no growth to date -03/23 urinalysis negative for nitrates and leukocyte esterase Persistent fevers -Due to underlying illness -Patient has been spiking temperatures since admissions -Antibiotic therapy -Infectious disease consulted, appreciate recommendations -04/02 blood cultures x2 with no growth after 4 hours -03/23 urine culture shows normal joan -03/24 cryptococcal serum antigen negative, Histoplasma urinary antigen, EBV DNA PCR quantitative, Fungitell, TB QuantiFERON gold positive, CMV negative -Pulmonary hygiene -Supportive care Acute respiratory failure -Patient is a supplemental oxygenation -Pulmonary hygiene -Pulmonary consult, appreciate recommendations Pleural effusion -Partially loculated wckva-up-dlnmxuwu right pleural effusion noted on CTA chest -Pulmonology consult, appreciate recommendations -03/31 coagulation studies -Plan for thoracentesis by pulmonology Persistent tachycardia -Low-dose beta-fletcher, titrate as needed -IV beta-fletcher as needed -Telemetry monitoring -Supportive care Pneumonia -03/23 CXR shows pneumonia -03/27 CXR shows worsened patchy consolidation/effusion in the right lung base with minimal patchy left basilar airspace disease also now present. No appreciable effusion on the left. -Supplemental oxygen as needed -SPO2 monitoring -Antibiotic therapy -Supportive care -Pulmonary hygiene Extensive adenopathy -S/p biopsy at [place] (per infectious disease requested cervical lymph node biopsy results and hospitalization records) -Per ID: Opportunistic infection versus lymphoma versus sarcoid -03/23 CTA chest shows extensive lymphadenopathy throughout the chest involving bilateral axillary, mediastinal anthony regions, airspace consolidation of the right lower lobe with extensive tree-in-bud opacities in the right lower lobe and middle lobe less so within bilateral upper lobes -03/23 CTA neck shows recent left-sided lymph node biopsy, extensive bilateral symmetrical cervical neck lymphadenopathies with multifocal areas of necrosis -Per ID: Biopsy from [place] showed necrotizing granulomatous lymphandenitis, negative for fungal and AFB organisms, flow cytometry negative for abnormal B or T-cell population Hyperchloremia,improving -03/27 chloride 108.4 -MIVF with NS -Trend BMP Metabolic acidosis,improving -03/24 CO2 on BMP is 21 -Multifactorial -Trend BMP Elevated D-dimer -Presented with a D-dimer of 2608 -03/23 CTA chest shows no evidence of pulmonary embolism -03/30 BLE Doppler US negative for DVT/SVT HIV disease -03/24: CD4/CD8 0.23, CD3% 92, absolute CD3 978, CD4% 17, absolute CD4 191, CD8% 76, absolute CD8 837, CD19% 2, absolute CD19 22 -Continue home antiretroviral therapy -Follow-up outpatient with HIV clinic or ID Hypokalemia -03/31 potassium 3.5 -Repleted -Trend BMP Malnutrition -Presented with a BMI of 21 -Nutrition consulted for supplementation and dietary education Anxiety -As needed Ativan -Redirection and verbal de-escalation as needed -Supportive care -Follow-up outpatient with psych DVT -SCDs to bilateral lower extremities while in bed -Lovenox subcu -GI prophylaxis Suspected tuberculosis -03/23 PPD administered, read on 03/26 as negative (no induration, redness noted) -03/24 TB QuantiFERON gold positive -Discontinue airborne and droplet precautions -ruled out by [place] History Interval history: This is a 29-year-old female with asthma and HIV he was admitted to the hospital on 03/23 with a 2-week history of a dry cough, shaking chills, and fever. Work-up in the emergency department revealed tachypnea, tachycardia, febrile state and a CXR which revealed pneumonia. Patient CT scan of the chest revealed bilateral infiltrates as well as evidence of tuberculosis lymphadenitis, and hyponatremia. Patient was admitted to the hospital service with consult infectious disease for rule out tuberculosis and COVID-19. 03/24: TB PPD pending, COVID-19 PCR negative, infectious disease consulted, fever and patient was started on antibiotic therapy. No acute events reported overnight. Remains supplemental oxygenation. 03/25: Patient is having persistent fevers, tachycardia into the 140s s/p IV Lopressor x1 and p.o. Lopressor for rate control, patient was transferred from [facility] to telemetry overnight. 03/26: Patient had a low-grade temperature this morning which was treated with Tylenol. Patient states that she feels slightly better but is still experiencing coughing and chills. Patient still remains on empiric antibiotics and her hyponatremia has improved. She has persistent fevers, on antibiotics, supportive care, we will try scheduled Tylenol every 6 hours for 24 hours 03/27: Patient remains febrile. This afternoon patient was tachypneic, tachycardi c and experienced wheezing therefore she received an albuterol treatment with RT and IV metoprolol. Patient stated that she felt like she was having an anxiety attack and has a history of anxiety and RN was instructed to provide the patient with as needed Ativan. CXR ordered. Patient is currently on 5 L nasal cannula however on reexamination patient was speaking on the phone with her father. We will also order as needed Tessalon Perles. Patient's CXR shows worsening patchy consolidation/effusion in the right lung base with minimal patchy left basilar airspace disease. Encourage pulmonary hygiene. 03/28: Febrile and sinus tachycardia 03/29: Febrile and sinus tachycardia 03/30: Patient was hypoglycemic this morning to the 60s and she received oral intake. RN to recheck BG. Patient placed on hypoglycemic protocol with Accu- Cheks AC at bedtime. Patient remains tachycardic though afebrile (T-max 99.0). Discharge pending infectious disease clearance. 03/31: Pulmonology was consulted for loculated pleural effusion. Patient remains tachycardic to the low 100s but has been afebrile. Coagulation studies ordered by pulmonology are slightly elevated. Patient is hypokalemic today which was repleted. Repeat BMP in the a.m. Hospitalist Physical - Constitutional Vitals: Temp Pulse Resp BP Pulse Ox 98.0 F 98 H 18 114/77 100 03/31/20 11:14 03/31/20 11:14 03/31/20 11:14 03/31/20 11:14 03/31/20 11:14 General appearance: Present: no acute distress, well-nourished, other - EENT Eyes: Present: PERRL, EOM intact ENT: hearing intact, clear oral mucosa, dentition normal - Neck Neck: Present: normal ROM - Respiratory Respiratory effort: normal Respiratory: bilateral: diminished - Cardiovascular Rhythm: regular Heart Sounds: Present: S1 & S2. Absent: systolic murmur, diastolic murmur - Extremities Extremities: no ischemia, pulses intact, pulses symmetrical, No edema, normal temperature, normal color, Full ROM Peripheral Pulses: within normal limits - Abdominal General gastrointestinal: soft, non-tender, non-distended, normal bowel sounds - Integumentary Integumentary: Present: clear, warm, dry - Psychiatric Psychiatric: appropriate mood/affect, cooperative - Neurologic Neurologic: CNII-XII intact, no focal deficits, moves all extremities - Allied Health Allied health notes reviewed: nursing Results - Labs CBC & Chem 7: 03/30/20 04:54 03/31/20 10:19 Labs: Laboratory Last Values WBC 8.1 K/mm3 (4.5-11.0) 03/30/20 04:54 RBC 4.11 M/mm3 (3.65-5.03) 03/30/20 04:54 Hgb 10.6 gm/dl (10.1-14.3) 03/30/20 04:54 Hct 32.4 % (30.3-42.9) 03/30/20 04:54 MCV 79 fl (79-97) 03/30/20 04:54 MCH 26 pg (28-32) L 03/30/20 04:54 MCHC 33 % (30-34) 03/30/20 04:54 RDW 22.1 % (13.2-15.2) H 03/30/20 04:54 Plt Count 189 K/mm3 (140-440) 03/30/20 04:54 Lymph % (Auto) Quick Print Operator 03/30/20 04:54 [place] % (Auto) Quick Print Operator 03/30/20 04:54 Eos % (Auto) Quick Print Operator 03/30/20 04:54 Baso % (Auto) Quick Print Operator 03/30/20 04:54 Lymph # (Auto) Quick Print Operator 03/30/20 04:54 [place] # (Auto) Quick Print Operator 03/30/20 04:54 Eos # (Auto) Quick Print Operator 03/30/20 04:54 Baso # (Auto) Quick Print Operator 03/30/20 04:54 Add Manual Diff Complete 03/30/20 04:54 Total Counted 100 03/30/20 04:54 Seg Neutrophils % Quick Print Operator 03/30/20 04:54 Seg Neuts % (Manual) 91.0 % (40.0-70.0) H 03/30/20 04:54 Band Neutrophils % 1.0 % 03/30/20 04:54 Lymphocytes % (Manual) 1.0 % (13.4-35.0) L 03/30/20 04:54 Monocytes % (Manual) 7.0 % (0.0-7.3) 03/30/20 04:54 Nucleated RBC % Not Reportable 03/30/20 04:54 Seg Neutrophils # Quick Print Operator 03/30/20 04:54 Seg Neutrophils # Man 7.4 K/mm3 (1.8-7.7) 03/30/20 04:54 Band Neutrophils # 0.1 K/mm3 03/30/20 04:54 Abs Lymphs (Manual) 1064 cells/uL (850-3900) 03/24/20 15:27 Lymphocytes # (Manual) 0.1 K/mm3 (1.2-5.4) L 03/30/20 04:54 Abs React Lymphs (Man) 0.0 K/mm3 03/30/20 04:54 Monocytes # (Manual) 0.6 K/mm3 (0.0-0.8) 03/30/20 04:54 Eosinophils # (Manual) 0.0 K/mm3 (0.0-0.4) 03/30/20 04:54 Basophils # (Manual) 0.0 K/mm3 (0.0-0.1) 03/30/20 04:54 Metamyelocytes # 0.0 K/mm3 03/30/20 04:54 Myelocytes # 0.0 K/mm3 03/30/20 04:54 Promyelocytes # 0.0 K/mm3 03/30/20 04:54 Blast Cells # 0.0 K/mm3 03/30/20 04:54 WBC Morphology Not Reportable 03/30/20 04:54 Hypersegmented Neuts Not Reportable 03/30/20 04:54 Hyposegmented Neuts Not Reportable 03/30/20 04:54 Hypogranular Neuts Not Reportable 03/30/20 04:54 Smudge Cells Not Reportable 03/30/20 04:54 Toxic Granulation Not Reportable 03/30/20 04:54 Toxic Vacuolation Not Reportable 03/30/20 04:54 Dohle Bodies Not Reportable 03/30/20 04:54 Pelger-Huet Anomaly Not Reportable 03/30/20 04:54 Ney Rods Not Reportable 03/30/20 04:54 Platelet Estimate Consistent w auto 03/30/20 04:54 Clumped Platelets Not Reportable 03/30/20 04:54 Plt Clumps, EDTA Not Reportable 03/30/20 04:54 Large Platelets Not Reportable 03/30/20 04:54 Giant Platelets Not Reportable 03/30/20 04:54 Platelet Satelliting Not Reportable 03/30/20 04:54 Plt Morphology Comment Not Reportable 03/30/20 04:54 RBC Morphology Not Reportable 03/30/20 04:54 Dimorphic RBCs Not Reportable 03/30/20 04:54 Polychromasia Not Reportable 03/30/20 04:54 Hypochromasia Not Reportable 03/30/20 04:54 Poikilocytosis Not Reportable 03/30/20 04:54 Anisocytosis 1+ 03/30/20 04:54 Microcytosis Not Reportable 03/30/20 04:54 Macrocytosis Not Reportable 03/30/20 04:54 Spherocytes Not Reportable 03/30/20 04:54 Pappenheimer Bodies Not Reportable 03/30/20 04:54 Sickle Cells Not Reportable 03/30/20 04:54 Target Cells Not Reportable 03/30/20 04:54 Tear Drop Cells Not Reportable 03/30/20 04:54 Ovalocytes Not Reportable 03/30/20 04:54 Helmet Cells Not Reportable 03/30/20 04:54 [place] Bodies Not Reportable 03/30/20 04:54 [place] Rings Not Reportable 03/30/20 04:54 Duarte Cells Not Reportable 03/30/20 04:54 Bite Cells Not Reportable 03/30/20 04:54 Crenated Cell Not Reportable 03/30/20 04:54 Elliptocytes Not Reportable 03/30/20 04:54 Acanthocytes (Spur) Not Reportable 03/30/20 04:54 Rouleaux Not Reportable 03/30/20 04:54 Hemoglobin C Crystals Not Reportable 03/30/20 04:54 Schistocytes Not Reportable 03/30/20 04:54 Malaria parasites Not Reportable 03/30/20 04:54 Tyron Bodies Not Reportable 03/30/20 04:54 Hem Pathologist Commnt No 03/30/20 04:54 PT 15.6 Sec. (12.2-14.9) H 03/31/20 14:02 INR 1.26 (0.87-1.13) H 03/31/20 14:02 APTT 63.2 Sec. (24.2-36.6) H* 03/31/20 14:02 D-Dimer 1520.95 ng/mlDDU (0-234) H 03/27/20 04:53 VBG pH 7.482 (7.320-7.420) H 03/23/20 17:13 Sodium 140 mmol/L (137-145) 03/31/20 10:19 Potassium 3.5 mmol/L (3.6-5.0) L 03/31/20 10:19 Chloride 111.3 mmol/L (98-107) H 03/31/20 10:19 Carbon Dioxide 21 mmol/L (22-30) L 03/31/20 10:19 Anion Gap 11 mmol/L 03/31/20 10:19 BUN 7 mg/dL (7-17) 03/31/20 10:19 Creatinine 0.9 mg/dL (0.6-1.2) 03/31/20 10:19 Estimated GFR > 60 ml/min 03/31/20 10:19 BUN/Creatinine Ratio 8 % 03/31/20 10:19 Glucose 109 mg/dL (65-100) H 03/31/20 10:19 POC Glucose 103 mg/dL (70-105) 03/31/20 11:12 Lactic Acid 1.10 mmol/L (0.7-2.0) 03/23/20 18:25 Calcium 7.7 mg/dL (8.4-10.2) L 03/31/20 10:19 Magnesium 1.90 mg/dL (1.7-2.3) 03/23/20 16:28 Ferritin 1124.0 ng/mL (10.0-200.0) H 03/23/20 16:28 Total Bilirubin 0.50 mg/dL (0.1-1.2) 03/23/20 16:28 AST 26 units/L (5-40) 03/23/20 16:28 ALT 19 units/L (7-56) 03/23/20 16:28 Alkaline Phosphatase 114 units/L (35-129) 03/23/20 16:28 Lactate Dehydrogenase 428 units/L (91-180) H 03/23/20 16:28 Total Creatine Kinase 30 units/L (30-135) 03/23/20 16:28 C-Reactive Protein 23.00 mg/dL (0.00-1.30) H 03/27/20 04:53 Total Protein 8.3 g/dL (6.3-8.2) H 03/23/20 16:28 Albumin 3.3 g/dL (3.9-5) L 03/23/20 16:28 Albumin/Globulin Ratio 0.7 % 03/23/20 16:28 Procalcitonin 26.58 ng/mL (<0.15) 03/30/20 18:15 HCG, Quant < 2 mIU/mL (0-4) 03/23/20 16:28 Urine Color Colorless (Yellow) 03/23/20 Unknown Urine Turbidity Clear (Clear) 03/23/20 Unknown Urine pH 7.0 (5.0-7.0) 03/23/20 Unknown Ur Specific [place] 1.019 (1.003-1.030) 03/23/20 Unknown Urine Protein <15 mg/dl mg/dL (Negative) 03/23/20 Unknown Urine Glucose (UA) Neg mg/dL (Negative) 03/23/20 Unknown Urine Ketones Neg mg/dL (Negative) 03/23/20 Unknown Urine Blood Sm (Negative) 03/23/20 Unknown Urine Nitrite Neg (Negative) 03/23/20 Unknown Ur Reducing Substances Not Reportable 03/23/20 Unknown Urine Bilirubin Neg (Negative) 03/23/20 Unknown Urine Ictotest Not Reportable 03/23/20 Unknown Urine Urobilinogen < 2.0 mg/dL (<2.0) 03/23/20 Unknown Ur Leukocyte Esterase Neg (Negative) 03/23/20 Unknown Urine WBC (Auto) 1.0 /HPF (0.0-6.0) 03/23/20 Unknown Urine RBC (Auto) 1.0 /HPF (0.0-6.0) 03/23/20 Unknown U Epithel Cells (Auto) < 1.0 /HPF (0-13.0) 03/23/20 Unknown Nasal Screen MRSA (PCR) Negative (Negative) 03/24/20 06:42 Lymph Enumerat CD4/CD8 0.23 (0.86-5.00) L 03/24/20 15:27 % CD3 Cells 92 % (57-85) H 03/24/20 15:27 Absolute CD3 Count 978 cells/uL (840-3060) 03/24/20 15:27 % CD4 Cells 17 % (30-61) L 03/24/20 15:27 Absolute CD4 Count 191 cells/uL (490-1740) L 03/24/20 15:27 % CD8 Cells 76 % (12-42) H 03/24/20 15:27 Absolute CD8 Count 837 cells/uL (180-1170) 03/24/20 15:27 % CD19 Cells 2 % (6-29) L 03/24/20 15:27 Absolute CD19 Count 22 cells/uL (110-660) L 03/24/20 15:27 Coronavirus (PCR) Negative (Negative) 03/24/20 Unknown CMV Specimen Source Serum 03/24/20 15:27 CMV DNA PCR log service technician copier/mL See scanned result 03/24/20 15:27 HIV-1 RNA PCR copies/ml 02411 Copies/mL H 03/24/20 15:27 HIV-1 RNA (PCR) log 4.54 Log cps/mL H 03/24/20 15:27 TB (QFT) Gold In Tube Positive (NEGATIVE) H 03/27/20 11:08 TB Test (QFT) Nil 3.46 IU/mL 03/27/20 11:08 TB Test Mitogen - Nil 4.57 IU/mL 03/27/20 11:08 TB Test Ag - Nil 1 1.82 IU/mL 03/27/20 11:08 TB Test Ag - Nil 2 1.95 IU/mL 03/27/20 11:08 Microbiology: Microbiology 03/30/20 18:15 Peripheral/Venous Blood Culture - Preliminary Culture in Progress 03/30/20 18:15 Peripheral/Venous Blood Culture - Preliminary Culture in Progress Marroquin/IV: Voiding Method Toilet Active Medications - Current Medications Current Medications: Generic Name Dose Route Start Last Admin Trade Name Freq PRN Reason Stop Dose Admin Abacavir Sulfate 600 mg 03/24/20 16:00 03/31/20 09:22 Abacavir 300 Mg Tab PO 600 mg DAILY SUN Administration Acetaminophen 650 mg 03/30/20 15:19 03/30/20 23:01 Acetaminophen 325 Mg Tab PO 650 mg Q4H PRN Administration Pain, Mild (1-3) Albuterol 2.5 mg 03/23/20 19:21 03/28/20 14:44 Albuterol 2.5 Mg/3 Ml Nebu IH 2.5 mg Q4HRT PRN Administration Shortness Of Breath Alprazolam 0.5 mg 03/25/20 11:00 03/30/20 22:59 Alprazolam 0.5 Mg Tab PO 0.5 mg Q8H PRN Administration Anxiety Atovaquone 750 mg 03/27/20 22:00 03/31/20 09:23 Atovaquone 750 Mg/5 Ml Oral Susp PO 750 mg BID SUN Administration Benzonatate 100 mg 03/27/20 14:53 03/30/20 22:59 Benzonatate 100 Mg Cap PO 100 mg Q8HR PRN Administration Cough Enoxaparin Sodium 40 mg 03/25/20 15:00 03/31/20 09:23 Enoxaparin 40 Mg/0.4 Ml Inj SUB-Q 40 mg QDAY@1000 SUN Administration MEROPENEM/NS 1 GRAM/100 ML 1 gram in 100 mls @ 100 mls/hr 03/30/20 18:00 03/31/20 05:06 Merrem/Ns 1 Gram/100 Ml IV 100 mls/hr Q8HR SUN Administration Protocol Vancomycin HCl 750 mg/ Sodium 265 mls @ 166.667 mls/hr 03/31/20 08:00 03/31/20 09:21 Chloride IV 166.667 mls/hr Q12H SUN Administration Ibuprofen 600 mg 03/27/20 00:15 03/31/20 05:03 Ibuprofen 600 Mg Tab PO 600 mg Q8H PRN Administration Pain, Mild (1-3) Lamivudine 300 mg 03/24/20 16:00 03/31/20 09:22 Lamivudine 150 Mg Tab PO 300 mg DAILY SUN Administration Loperamide HCl 2 mg 03/29/20 14:39 03/31/20 04:35 Loperamide 2 Mg Cap PO 2 mg Q2H PRN Administration Diarrhea Metoprolol Tartrate 2.5 mg 03/25/20 11:00 03/30/20 14:26 Metoprolol Tartrate 5 Mg/5 Ml Inj IV 2.5 mg Q6H PRN Administration Tachyarrhythmias Metoprolol Tartrate 50 mg 03/29/20 22:00 03/31/20 09:22 Metoprolol Tartrate 25 Mg Tab PO 50 mg BID SUN Administration Ondansetron HCl 4 mg 03/23/20 19:21 03/31/20 05:04 Ondansetron 4 Mg/2 Ml Inj IV 4 mg Q8H PRN Administration Nausea And Vomiting Potassium Chloride 40 meq 03/31/20 13:53 Potassium Chloride Er 20 Meq Tab PO 03/31/20 18:00 ONCE NR Pseudoephedrine/Acetam/Chlorphenir 15 ml 03/24/20 16:53 03/31/20 04:35 Guaifenesin/Codeine 100-10mg Oral Liqd 5 Ml PO 15 ml Q4H PRN Administration Cough Sodium Chloride 10 ml 03/23/20 22:00 03/31/20 09:22 Sodium Chloride 0.9% 10 Ml Flush Syringe IV 10 ml BID SUN Administration Sodium Chloride 10 ml 03/23/20 19:21 03/31/20 05:05 Sodium Chloride 0.9% 10 Ml Flush Syringe IV 10 ml PRN PRN Administration LINE FLUSH Nutrition/Malnutrition Assess - Dietary Evaluation Nutrition/Malnutrition Findings: Nutrition Notes Start: 03/24/20 10:38 Freq: Status: Active Protocol: Document 03/31/20 11:21 CW (Rec: 03/31/20 11:32 CW [id number]) Nutrition Notes Initial or Follow up Reassessment Other Pertinent Diagnosis PNA, suspected tuberculosis, HIV Current Diet Cardiac Diet Labs/Tests Ca 7.4 BG 82 Pertinent Medications Imodium Zofran Vancomycin NS at 100 ml/h Height 5 ft 2 in Weight 57.2 kg [place] Body Weight (kg) 50.00 BMI 23.1 Weight change and time frame Weight change noted; likely r/ t edema Weight Status Appropriate Subjective/Other Information F/U for ONS tolerance adn intakes. Intakes has decreased and pt states loss of appetite; meal preferences noted. Pt tolerating ONS. R/o nausea, vomiting, and diarrhea Percent of energy/protein needs met: 43%77% Burn Absent Trauma Absent GI Symptoms Nausea,Vomiting,Diarrhea Food Allergy Yes Current % PO Poor (25-49%) Minimum of two criteria Yes Energy Intake (severe) < or equal to 50% Estimated Energy Requirement > or equal to 5 days Fluid Accumulation Moderate to Severe (severe) Reduced Lumber Tallier Strength Measurably Reduced (severe) #1 Nutrition Diagnosis Malnutrition Etiology loss of appetite As Evidenced by Signs and Symptoms PO intake of 50% or less x 6 days, 1+ pitting edema, bilateral wekaness Is patient on ventilator? No Is Patient Ambulatory and/or Out of Bed Yes REE-([facility]-ambulatory/OOB) [ 1618.825 [id number]] Calculation Used for Recommendations [facility] Additional Notes Protein needs:52 - 69g (1 - 1. 2g/kg for hepatic disorder) Fluid: 1ml/kcal or MD order Nutrition Intervention Change Diet Order: Continue cardiac diet Add Supplement/Snack (indicate name/kcal Ensure Enlive BID /protein ) Provides kCal: 700 Provides Protein (gm) 40 Goal #1 Meet at least 75% of energy and protein needs Anticipated Discharge Needs: Cardiac Diet Follow-Up By: 04/02/20 Additional Comments F/U PO intake and ONS tolerance
--- NOTE | 2020-03-31 15:50 | Vascular Lab Report ---
VL venous duplex LE BILAT INDICATION / CLINICAL INFORMATION: r/o dvt. TECHNIQUE: Duplex doppler imaging was performed using venous compression and other maneuvers. COMPARISON: None available. FINDINGS: No venous thrombosis is identified within the visualized extremity vasculature. ADDITIONAL FINDINGS: None. IMPRESSION: 1. No sonographic evidence for DVT in the visualized bilateral lower extremity vasculature. Signer Name: Evan Dean MD Signed: 03/31/2020 3:46 PM Workstation Name: [id number]
[2020-03-31] MEDS ORDERED: DEXTROSE 50% IN WATER (25GM) 50 ML SYRINGE IV ONE (16:27)
[2020-03-31 22:57] LABS: INR 1.31 (0.87-1.13)
[2020-03-31 22:58] LABS: Partial Thromboplastin Time 50.7 Sec. (24.2-36.6)
[2020-04-01 05:15] LABS: INR 1.36 (0.87-1.13)
[2020-04-01 05:16] LABS: Partial Thromboplastin Time 42.8 Sec. (24.2-36.6)
[2020-04-01] MEDS: MEROPENEM/NS 1 GRAM/100 ML 1 GRAM/100 ML BAG IV SCH ×3 (05:37→23:14)
[2020-04-01] MEDS: BENZONATATE 100 MG CAP PO PRN (08:34)
[2020-04-01] MEDS: ATOVAQUONE 750 MG/5 ML ORAL SUSP PO SCH ×2 (09:09→23:15)
[2020-04-01] MEDS: ABACAVIR 300 MG TAB PO SCH (09:09)
[2020-04-01] MEDS: ENOXAPARIN 40 MG/0.4 ML INJ SUB-Q SCH (09:09)
[2020-04-01] MEDS: DOLUTEGRAVIR 50 MG TAB PO SCH (09:09)
[2020-04-01] MEDS: ACETAMINOPHEN 325 MG TAB PO PRN ×2 (09:34→23:15)
[2020-04-01] MEDS ORDERED: SODIUM CHLORIDE 0.45% 1000 ML 1,000 ML IV SCH (11:00)
[2020-04-01] MEDS: METOPROLOL TARTRATE 25 MG TAB PO SCH ×2 (11:24→23:15)
--- NOTE | 2020-04-01 14:21 | XRay Report ---
CHEST 1 VIEW INDICATION: sob, cough, recent thoracentesis. COMPARISON: 03/30/2020 FINDINGS: Support devices: None. Heart: Stable Lungs/Pleura: Right lung infiltration and right pleural effusion have decreased by at least 50%. The left lung remains clear. No pneumothorax is appreciated. Additional findings: None. IMPRESSION: 50% decrease in the loculated right pleural effusion. No pneumothorax. Signer Name: Matt Morrow Jr, MD Signed: 04/01/2020 2:17 PM Workstation Name: [id number]
--- NOTE | 2020-04-01 14:37 | Ultrasound Report ---
Ultrasound-guided thoracentesis HISTORY: right sided thoracentesis. COMPARISON: AP chest performed 2 days ago PROCEDURE: The risks (including but not limited to bleeding, infection, and pneumothorax) and benefi ts were explained to the patient and informed consent was obtained. A time out procedure was perform ed. Ultrasound was used to evaluate the right pleural effusion and locate the optimal site for needle ent ry. Multiple rather thick septations are noted in the right pleural effusion. Once the skin was marke d, the procedure site was prepped and draped in the usual sterile fashion and lidocaine was used for local anesthesia. A skin areli was made and a 6-Mohawk thoracentesis catheter was placed. The patien t was monitored closely throughout the procedure, and a total of 720 mL of blood-tinged fluid was asp irated. Samples were sent to the lab for further evaluation per the primary clinicians orders. The patient tolerated the procedure well with no complications. A post-procedure chest x-ray was imm ediately ordered. IMPRESSION: Successful ultrasound-guided thoracentesis as described. Signer Name: Matt Morrow Jr, MD Signed: 04/01/2020 2:32 PM Workstation Name: [id number]
[2020-04-01 14:54] LABS: INR 1.35 (0.87-1.13)
[2020-04-01 14:55] LABS: Partial Thromboplastin Time 58.9 Sec. (24.2-36.6)
[2020-04-01] MEDS: VANCOMYCIN 750 MG in SODIUM CHLORIDE 0.9% 250ML 250 ML IV SCH (15:40)
[2020-04-01] MEDS: DEXTROSE 50% IN WATER (25GM) 50 ML SYRINGE IV PRN (15:40)
--- NOTE | 2020-04-01 16:17 | Progress Note ---
Assessment and Plan Assessment and plan: Sepsis -POA -Presented with tachycardia into the 130s, tachypnea into the 30s and febrile state in the 101.6 and CXR shows pneumonia -S/p 2 L normal saline bolus and ceftriaxone in the ED -Antibiotic therapy -Infectious disease consulted, appreciate recommendations -COVID-19 PCR negative -03/23 blood cultures x2 no growth to date -03/23 urinalysis negative for nitrates and leukocyte esterase Persistent fevers -Due to underlying illness -Patient has been spiking temperatures since admissions -Antibiotic therapy -Infectious disease consulted, appreciate recommendations -04/02 blood cultures x2 with no growth after 4 hours -03/23 urine culture shows normal joan -03/24 cryptococcal serum antigen negative, Histoplasma urinary antigen, EBV DNA PCR quantitative, Fungitell, TB QuantiFERON gold positive, CMV negative -Pulmonary hygiene -Supportive care Acute respiratory failure -Patient is a supplemental oxygenation -Pulmonary hygiene -Pulmonary consult, appreciate recommendations Pleural effusion -Partially loculated [id number] right pleural effusion noted on CTA chest -Pulmonology consult, appreciate recommendations -03/31 coagulation studies -04/01 thoracentesis with removal of 720 mL of blood-tinged fluid -04/01 CXR postthoracentesis shows 50% decrease in loculated pleural effusion with no pneumothorax -04/01 Pleural fluid acid-fast base culture and smear, cell count, glucose, LDH, total protein pending Persistent tachycardia -Initiated beta-fletcher, titrate as needed -IV beta-fletcher as needed -Telemetry monitoring -Supportive care Pneumonia -03/23 CXR shows pneumonia -03/27 CXR shows worsened patchy consolidation/effusion in the right lung base with minimal patchy left basilar airspace disease also now present. No appreciable effusion on the left. -Supplemental oxygen as needed -SPO2 monitoring -Antibiotic therapy -Supportive care -Pulmonary hygiene Extensive adenopathy -S/p biopsy at [facility] (per infectious disease requested cervical lymph node biopsy results and hospitalization records) -Per ID: Opportunistic infection versus lymphoma versus sarcoid -03/23 CTA chest shows extensive lymphadenopathy throughout the chest involving bilateral axillary, mediastinal anthony regions, airspace consolidation of the right lower lobe with extensive tree-in-bud opacities in the right lower lobe and middle lobe less so within bilateral upper lobes -03/23 CTA neck shows recent left-sided lymph node biopsy, extensive bilateral symmetrical cervical neck lymphadenopathies with multifocal areas of necrosis -Per ID: 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, neg ative for fungal and AFB organisms, flow cytometry negative for abnormal B or T- cell population Acute kidney injury -Presented with a BUN/creatinine 7/0.9 -04/01 BUN/creatinine 7/1.3 -MIVF -Trend BMP -Consider nephrology consult and further studies if not improving -Avoid nephrotoxic medications -Renally dose medications -Strict intake and output Hyperchloremia,improving -03/27 chloride 108.4 -MIVF with NS -Trend BMP Metabolic acidosis,improving -03/24 CO2 on BMP is 21 -Multifactorial -Trend BMP Elevated D-dimer -Presented with a D-dimer of 2608 -03/23 CTA chest shows no evidence of pulmonary embolism -03/30 BLE Doppler US negative for DVT/SVT HIV disease -03/24: CD4/CD8 0.23, CD3% 92, absolute CD3 978, CD4% 17, absolute CD4 191, CD8% 76, absolute CD8 837, CD19% 2, absolute CD19 22 -Continue home antiretroviral therapy -Follow-up outpatient with HIV clinic or ID Malnutrition -Presented with a BMI of 21 -Nutrition consulted for supplementation and dietary education Anxiety -As needed Ativan -Redirection and verbal de-escalation as needed -Supportive care -Follow-up outpatient with psych DVT -SCDs to bilateral lower extremities while in bed -Lovenox subcu -GI prophylaxis Suspected tuberculosis -03/23 PPD administered, read on 03/26 as negative (no induration, redness noted) -03/24 TB QuantiFERON gold positive -Discontinue airborne and droplet precautions -Per [facility] records: Acid-fast base of lymph node biopsy was negative Hypokalemia, resolved -03/31 potassium 3.5, 04/01 K 3.6 -Repleted -Trend BMP History Interval history: This is a 29-year-old female with asthma and HIV he was admitted to the hospital on 03/23 with a 2-week history of a dry cough, shaking chills, and fever. Work-up in the emergency department revealed tachypnea, tachycardia, febrile state and a CXR which revealed pneumonia. Patient CT scan of the chest revealed bilateral infiltrates as well as evidence of tuberculosis lymphadenitis, and hyponatremia. Patient was admitted to the hospital service with consult infectious disease for rule out tuberculosis and COVID-19. 03/24: TB PPD pending, COVID-19 PCR negative, infectious disease consulted, fever and patient was started on antibiotic therapy. No acute events reported overnight. Remains supplemental oxygenation. 03/25: Patient is having persistent fevers, tachycardia into the 140s s/p IV Lopressor x1 and p.o. Lopressor for rate control, patient was transferred from [facility] to telemetry overnight. 03/26: Patient had a low-grade temperature this morning which was treated with Tylenol. Patient states that she feels slightly better but is still experiencing coughing and chills. Patient still remains on empiric antibiotics and her hyponatremia has improved. She has persistent fevers, on antibiotics, supportive care, we will try scheduled Tylenol every 6 hours for 24 hours 03/27: Patient remains febrile. This afternoon patient was tachypneic, tachycardic and experienced wheezing therefore she received an albuterol treatment with RT and IV metoprolol. Patient stated that she felt like she was having an anxiety attack and has a history of anxiety and RN was instructed to provide the patient with as needed Ativan. CXR ordered. Patient is currently on 5 L nasal cannula however on reexamination patient was speaking on the phone with her father. We will also order as needed Tessalon Perles. Patient's CXR shows worsening patchy consolidation/effusion in the right lung base with minimal patchy left basilar airspace disease. Encourage pulmonary hygiene. 03/28: Febrile and sinus tachycardia 03/29: Febrile and sinus tachycardia 03/30: Patient was hypoglycemic this morning to the 60s and she received oral intake. RN to recheck BG. Patient placed on hypoglycemic protocol with Accu- Cheks AC at bedtime. Patient remains tachycardic though afebrile (T-max 99.0). Discharge pending infectious disease clearance. 03/31: Pulmonology was consulted for loculated pleural effusion. Patient remains tachycardic to the low 100s but has been afebrile. Coagulation studies ordered by pulmonology are slightly elevated. Patient is hypokalemic today which was repleted. Repeat BMP in the a.m. 04/01: At the time my examination patient was 35% Venturi mask for comfort even though her SPO2 was in the high 90s, patient stated that she feels zapien, T-max 100.4, patient scheduled for a thoracentesis today. No acute events reported overnight. Patient still remains tachycardic and today she developed acute kidney injury. Hospitalist Physical - Constitutional Vitals: Temp Pulse Resp BP Pulse Ox 98.3 F 79 18 135/73 100 04/01/20 12:19 04/01/20 12:19 04/01/20 12:19 04/01/20 12:19 04/01/20 12:19 General appearance: Present: no acute distress, well-nourished, other - EENT Eyes: Present: PERRL, EOM intact ENT: hearing intact, clear oral mucosa, dentition normal - Neck Neck: Present: normal ROM, cervical LAD, other - Respiratory Respiratory effort: normal Respiratory: bilateral: CTA - Cardiovascular Rhythm: regular Heart Sounds: Present: S1 & S2. Absent: systolic murmur, diastolic murmur - Extremities Extremities: no ischemia, pulses intact, pulses symmetrical, No edema, normal temperature, normal color, Full ROM Peripheral Pulses: within normal limits - Abdominal General gastrointestinal: soft, non-tender, non-distended, normal bowel sounds - Integumentary Integumentary: Present: clear, warm, dry - Psychiatric Psychiatric: appropriate mood/affect, cooperative - Neurologic Neurologic: CNII-XII intact, no focal deficits, moves all extremities - Allied Health Allied health notes reviewed: nursing Results - Labs CBC & Chem 7: 03/30/20 04:54 04/01/20 04:44 Labs: Laboratory Last Values WBC 8.1 K/mm3 (4.5-11.0) 03/30/20 04:54 RBC 4.11 M/mm3 (3.65-5.03) 03/30/20 04:54 Hgb 10.6 gm/dl (10.1-14.3) 03/30/20 04:54 Hct 32.4 % (30.3-42.9) 03/30/20 04:54 MCV 79 fl (79-97) 03/30/20 04:54 MCH 26 pg (28-32) L 03/30/20 04:54 MCHC 33 % (30-34) 03/30/20 04:54 RDW 22.1 % (13.2-15.2) H 03/30/20 04:54 Plt Count 189 K/mm3 (140-440) 03/30/20 04:54 Lymph % (Auto) Port Cdl A Driver 03/30/20 04:54 [place]aine % (Auto) Port Cdl A Driver 03/30/20 04:54 Eos % (Auto) Port Cdl A Driver 03/30/20 04:54 Baso % (Auto) Port Cdl A Driver 03/30/20 04:54 Lymph # (Auto) Port Cdl A Driver 03/30/20 04:54 Blaine # (Auto) Port Cdl A Driver 03/30/20 04:54 Eos # (Auto) Port Cdl A Driver 03/30/20 04:54 Baso # (Auto) Port Cdl A Driver 03/30/20 04:54 Add Manual Diff Complete 03/30/20 04:54 Total Counted 100 03/30/20 04:54 Seg Neutrophils % Port Cdl A Driver 03/30/20 04:54 Seg Neuts % (Manual) 91.0 % (40.0-70.0) H 03/30/20 04:54 Band Neutrophils % 1.0 % 03/30/20 04:54 Lymphocytes % (Manual) 1.0 % (13.4-35.0) L 03/30/20 04:54 Monocytes % (Manual) 7.0 % (0.0-7.3) 03/30/20 04:54 Nucleated RBC % Not Reportable 03/30/20 04:54 Seg Neutrophils # Port Cdl A Driver 03/30/20 04:54 Seg Neutrophils # Man 7.4 K/mm3 (1.8-7.7) 03/30/20 04:54 Band Neutrophils # 0.1 K/mm3 03/30/20 04:54 Abs Lymphs (Manual) 1064 cells/uL (850-3900) 03/24/20 15:27 Lymphocytes # (Manual) 0.1 K/mm3 (1.2-5.4) L 03/30/20 04:54 Abs React Lymphs (Man) 0.0 K/mm3 03/30/20 04:54 Monocytes # (Manual) 0.6 K/mm3 (0.0-0.8) 03/30/20 04:54 Eosinophils # (Manual) 0.0 K/mm3 (0.0-0.4) 03/30/20 04:54 Basophils # (Manual) 0.0 K/mm3 (0.0-0.1) 03/30/20 04:54 Metamyelocytes # 0.0 K/mm3 03/30/20 04:54 Myelocytes # 0.0 K/mm3 03/30/20 04:54 Promyelocytes # 0.0 K/mm3 03/30/20 04:54 Blast Cells # 0.0 K/mm3 03/30/20 04:54 WBC Morphology Not Reportable 03/30/20 04:54 Hypersegmented Neuts Not Reportable 03/30/20 04:54 Hyposegmented Neuts Not Reportable 03/30/20 04:54 Hypogranular Neuts Not Reportable 03/30/20 04:54 Smudge Cells Not Reportable 03/30/20 04:54 Toxic Granulation Not Reportable 03/30/20 04:54 Toxic Vacuolation Not Reportable 03/30/20 04:54 Dohle Bodies Not Reportable 03/30/20 04:54 Pelger-Huet Anomaly Not Reportable 03/30/20 04:54 Ney Rods Not Reportable 03/30/20 04:54 Platelet Estimate Consistent w auto 03/30/20 04:54 Clumped Platelets Not Reportable 03/30/20 04:54 Plt Clumps, EDTA Not Reportable 03/30/20 04:54 Large Platelets Not Reportable 03/30/20 04:54 Giant Platelets Not Reportable 03/30/20 04:54 Platelet Satelliting Not Reportable 03/30/20 04:54 Plt Morphology Comment Not Reportable 03/30/20 04:54 RBC Morphology Not Reportable 03/30/20 04:54 Dimorphic RBCs Not Reportable 03/30/20 04:54 Polychromasia Not Reportable 03/30/20 04:54 Hypochromasia Not Reportable 03/30/20 04:54 Poikilocytosis Not Reportable 03/30/20 04:54 Anisocytosis 1+ 03/30/20 04:54 Microcytosis Not Reportable 03/30/20 04:54 Macrocytosis Not Reportable 03/30/20 04:54 Spherocytes Not Reportable 03/30/20 04:54 Pappenheimer Bodies Not Reportable 03/30/20 04:54 Sickle Cells Not Reportable 03/30/20 04:54 Target Cells Not Reportable 03/30/20 04:54 Tear Drop Cells Not Reportable 03/30/20 04:54 Ovalocytes Not Reportable 03/30/20 04:54 Helmet Cells Not Reportable 03/30/20 04:54 Badillo-Lancaster Bodies Not Reportable 03/30/20 04:54 Heflin Rings Not Reportable 03/30/20 04:54 Duarte Cells Not Reportable 03/30/20 04:54 Bite Cells Not Reportable 03/30/20 04:54 Crenated Cell Not Reportable 03/30/20 04:54 Elliptocytes Not Reportable 03/30/20 04:54 Acanthocytes (Spur) Not Reportable 03/30/20 04:54 Rouleaux Not Reportable 03/30/20 04:54 Hemoglobin C Crystals Not Reportable 03/30/20 04:54 Schistocytes Not Reportable 03/30/20 04:54 Malaria parasites Not Reportable 03/30/20 04:54 Tyron Bodies Not Reportable 03/30/20 04:54 Hem Pathologist Commnt No 03/30/20 04:54 PT 16.5 Sec. (12.2-14.9) H 04/01/20 13:10 INR 1.35 (0.87-1.13) H 04/01/20 13:10 APTT 58.9 Sec. (24.2-36.6) H 04/01/20 13:10 D-Dimer 1520.95 ng/mlDDU (0-234) H 03/27/20 04:53 VBG pH 7.482 (7.320-7.420) H 03/23/20 17:13 Sodium 139 mmol/L (137-145) 04/01/20 04:44 Potassium 3.6 mmol/L (3.6-5.0) 04/01/20 04:44 Chloride 108.7 mmol/L (98-107) H 04/01/20 04:44 Carbon Dioxide 19 mmol/L (22-30) L 04/01/20 04:44 Anion Gap 15 mmol/L 04/01/20 04:44 BUN 7 mg/dL (7-17) 04/01/20 04:44 Creatinine 1.3 mg/dL (0.6-1.2) H 04/01/20 04:44 Estimated GFR 58 ml/min 04/01/20 04:44 BUN/Creatinine Ratio 5 % 04/01/20 04:44 Glucose 125 mg/dL (65-100) H 04/01/20 04:44 POC Glucose 92 mg/dL (70-105) 04/01/20 11:30 Lactic Acid 1.10 mmol/L (0.7-2.0) 03/23/20 18:25 Calcium 8.0 mg/dL (8.4-10.2) L 04/01/20 04:44 Magnesium 1.90 mg/dL (1.7-2.3) 03/23/20 16:28 Ferritin 1124.0 ng/mL (10.0-200.0) H 03/23/20 16:28 Total Bilirubin 0.50 mg/dL (0.1-1.2) 03/23/20 16:28 AST 26 units/L (5-40) 03/23/20 16:28 ALT 19 units/L (7-56) 03/23/20 16:28 Alkaline Phosphatase 114 units/L (35-129) 03/23/20 16:28 Lactate Dehydrogenase 428 units/L (91-180) H 03/23/20 16:28 Total Creatine Kinase 30 units/L (30-135) 03/23/20 16:28 C-Reactive Protein 23.00 mg/dL (0.00-1.30) H 03/27/20 04:53 Total Protein 8.3 g/dL (6.3-8.2) H 03/23/20 16:28 Albumin 3.3 g/dL (3.9-5) L 03/23/20 16:28 Albumin/Globulin Ratio 0.7 % 03/23/20 16:28 Procalcitonin 26.58 ng/mL (<0.15) 03/30/20 18:15 HCG, Quant < 2 mIU/mL (0-4) 03/23/20 16:28 Urine Color Colorless (Yellow) 03/23/20 Unknown Urine Turbidity Clear (Clear) 03/23/20 Unknown Urine pH 7.0 (5.0-7.0) 03/23/20 Unknown Ur Specific [place] 1.019 (1.003-1.030) 03/23/20 Unknown Urine Protein <15 mg/dl mg/dL (Negative) 03/23/20 Unknown Urine Glucose (UA) Neg mg/dL (Negative) 03/23/20 Unknown Urine Ketones Neg mg/dL (Negative) 03/23/20 Unknown Urine Blood Sm (Negative) 03/23/20 Unknown Urine Nitrite Neg (Negative) 03/23/20 Unknown Ur Reducing Substances Not Reportable 03/23/20 Unknown Urine Bilirubin Neg (Negative) 03/23/20 Unknown Urine Ictotest Not Reportable 03/23/20 Unknown Urine Urobilinogen < 2.0 mg/dL (<2.0) 03/23/20 Unknown Ur Leukocyte Esterase Neg (Negative) 03/23/20 Unknown Urine WBC (Auto) 1.0 /HPF (0.0-6.0) 03/23/20 Unknown Urine RBC (Auto) 1.0 /HPF (0.0-6.0) 03/23/20 Unknown U Epithel Cells (Auto) < 1.0 /HPF (0-13.0) 03/23/20 Unknown Nasal Screen MRSA (PCR) Negative (Negative) 03/24/20 06:42 Vancomycin Trough 14.6 ug/mL (5.0-20.0) 04/01/20 07:27 Lymph Enumerat CD4/CD8 0.23 (0.86-5.00) L 03/24/20 15:27 % CD3 Cells 92 % (57-85) H 03/24/20 15:27 Absolute CD3 Count 978 cells/uL (840-3060) 03/24/20 15:27 % CD4 Cells 17 % (30-61) L 03/24/20 15:27 Absolute CD4 Count 191 cells/uL (490-1740) L 03/24/20 15:27 % CD8 Cells 76 % (12-42) H 03/24/20 15:27 Absolute CD8 Count 837 cells/uL (180-1170) 03/24/20 15:27 % CD19 Cells 2 % (6-29) L 03/24/20 15:27 Absolute CD19 Count 22 cells/uL (110-660) L 03/24/20 15:27 Coronavirus (PCR) Negative (Negative) 03/24/20 Unknown CMV Specimen Source Serum 03/24/20 15:27 CMV DNA PCR log paste up copy camera operator/mL See scanned result 03/24/20 15:27 HIV-1 RNA PCR copies/ml 72884 Copies/mL H 03/24/20 15:27 HIV-1 RNA (PCR) log 4.54 Log cps/mL H 03/24/20 15:27 TB (QFT) Gold In Tube Positive (NEGATIVE) H 03/27/20 11:08 TB Test (QFT) Nil 3.46 IU/mL 03/27/20 11:08 TB Test Mitogen - Nil 4.57 IU/mL 03/27/20 11:08 TB Test Ag - Nil 1 1.82 IU/mL 03/27/20 11:08 TB Test Ag - Nil 2 1.95 IU/mL 03/27/20 11:08 Microbiology: Microbiology 03/30/20 18:15 Peripheral/Venous Blood Culture - Preliminary NO GROWTH AFTER 24 HOURS 03/30/20 18:15 Peripheral/Venous Blood Culture - Preliminary NO GROWTH AFTER 24 HOURS Marroquin/IV: Voiding Method Toilet Active Medications - Current Medications Current Medications: Generic Name Dose Route Start Last Admin Trade Name Freq PRN Reason Stop Dose Admin Abacavir Sulfate 600 mg 03/24/20 16:00 04/01/20 09:09 Abacavir 300 Mg Tab PO 600 mg DAILY SUN Administration Acetaminophen 650 mg 03/30/20 15:19 04/01/20 09:34 Acetaminophen 325 Mg Tab PO 650 mg Q4H PRN Administration Pain, Mild (1-3) Albuterol 2.5 mg 03/23/20 19:21 03/28/20 14:44 Albuterol 2.5 Mg/3 Ml Nebu IH 2.5 mg Q4HRT PRN Administration Shortness Of Breath Alprazolam 0.5 mg 03/25/20 11:00 03/30/20 22:59 Alprazolam 0.5 Mg Tab PO 0.5 mg Q8H PRN Administration Anxiety Atovaquone 750 mg 03/27/20 22:00 04/01/20 09:09 Atovaquone 750 Mg/5 Ml Oral Susp PO 750 mg BID SUN Administration Benzonatate 100 mg 03/27/20 14:53 04/01/20 08:34 Benzonatate 100 Mg Cap PO 100 mg Q8HR PRN Administration Cough Dextrose 50 ml 03/31/20 16:27 04/01/20 15:40 Dextrose 50% In Water (25gm) 50 Ml Syringe IV 50 ml Q30MIN PRN Administration Hypoglycemia Protocol Enoxaparin Sodium 40 mg 03/25/20 15:00 04/01/20 09:09 Enoxaparin 40 Mg/0.4 Ml Inj SUB-Q 40 mg QDAY@1000 SUN Administration MEROPENEM/NS 1 GRAM/100 ML 1 gram in 100 mls @ 100 mls/hr 03/30/20 18:00 04/01/20 14:40 Merrem/Ns 1 Gram/100 Ml IV 100 mls/hr Q8HR SUN Administration Protocol Sodium Chloride 1,000 mls @ 75 mls/hr 04/01/20 11:00 Nacl 0.45% 1000 Ml IV DIRECT SUN Vancomycin HCl 750 mg/ Sodium 265 mls @ 166.667 mls/hr 04/01/20 13:00 04/01/20 15:40 Chloride IV 166.667 mls/hr Q12H SUN Administration Ibuprofen 600 mg 03/27/20 00:15 03/31/20 05:03 Ibuprofen 600 Mg Tab PO 600 mg Q8H PRN Administration Pain, Mild (1-3) Lamivudine 300 mg 03/24/20 16:00 04/01/20 09:09 Lamivudine 150 Mg Tab PO 300 mg DAILY SUN Administration Loperamide HCl 2 mg 03/29/20 14:39 03/31/20 04:35 Loperamide 2 Mg Cap PO 2 mg Q2H PRN Administration Diarrhea Metoprolol Tartrate 2.5 mg 03/25/20 11:00 03/30/20 14:26 Metoprolol Tartrate 5 Mg/5 Ml Inj IV 2.5 mg Q6H PRN Administration Tachyarrhythmias Metoprolol Tartrate 50 mg 03/29/20 22:00 04/01/20 11:24 Metoprolol Tartrate 25 Mg Tab PO 50 mg BID SUN Administration Ondansetron HCl 4 mg 03/23/20 19:21 03/31/20 05:04 Ondansetron 4 Mg/2 Ml Inj IV 4 mg Q8H PRN Administration Nausea And Vomiting Pseudoephedrine/Acetam/Chlorphenir 15 ml 03/24/20 16:53 03/31/20 04:35 Guaifenesin/Codeine 100-10mg Oral Liqd 5 Ml PO 15 ml Q4H PRN Administration Cough Sodium Chloride 10 ml 03/23/20 22:00 04/01/20 09:10 Sodium Chloride 0.9% 10 Ml Flush Syringe IV 10 ml BID SUN Administration Sodium Chloride 10 ml 03/23/20 19:21 03/31/20 05:05 Sodium Chloride 0.9% 10 Ml Flush Syringe IV 10 ml PRN PRN Administration LINE FLUSH Nutrition/Malnutrition Assess - Dietary Evaluation Nutrition/Malnutrition Findings: Nutrition Notes Start: 03/24/20 10:38 Freq: Status: Active Protocol: Document 03/31/20 11:21 CW (Rec: 03/31/20 11:32 CW [email or web address]) Nutrition Notes Initial or Follow up Reassessment Other Pertinent Diagnosis PNA, suspected tuberculosis, HIV Current Diet Cardiac Diet Labs/Tests Ca 7.4 BG 82 Pertinent Medications Imodium Zofran Vancomycin NS at 100 ml/h Height 5 ft 2 in Weight 57.2 kg [place] Body Weight (kg) 50.00 BMI 23.1 Weight change and time frame Weight change noted; likely r/ t edema Weight Status Appropriate Subjective/Other Information F/U for ONS tolerance adn intakes. Intakes has decreased and pt states loss of appetite; meal preferences noted. Pt tolerating ONS. 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 No Is Patient Ambulatory and/or Out of Bed Yes REE-([facility]-ambulatory/OOB) [ 1618.825 [id number]] Calculation Used for Recommendations [facility] Additional Notes Protein needs:52 - 69g (1 - 1. 2g/kg for hepatic disorder) Fluid: 1ml/kcal or MD order Nutrition Intervention Change Diet Order: Continue cardiac diet Add Supplement/Snack (indicate name/kcal Ensure Enlive BID /protein ) Provides kCal: 700 Provides Protein (gm) 40 Goal #1 Meet at least 75% of energy and protein needs Anticipated Discharge Needs: Cardiac Diet Follow-Up By: 04/02/20 Additional Comments F/U PO intake and ONS tolerance
--- NOTE | 2020-04-01 16:49 | Progress Note ---
Assessment and Plan Cultures: SARS CoV2 PCR: Negative 03/23/2020 blood culture: no growth 03/23/2020 urine culture: no growth 03/24/2020 serum cryptococcal antigen: Negative HIV RNA PCR 34,900 MRSA nasal PCR: Negative A/P: 29/F with HIV, asthma recent admission at [place], underwent lymph node biopsy/surgery now here with: #Pneumonia: continue empiric abx: Ceftriaxone + Azithromycin. #Extensive lymphadenopathy: Status post biopsy at [place]. Patient reports she underwent evaluation for TB, COVID-19 and influenza while at [place] and was negative. 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 Negative for fungal and AFB organisms. Flow cytometry negative for abnormal B or T-cell population. Differential diagnosis is wide, could be fungal/AFB, Kikuchi, Castleman's disease, autoimmune, sarcoidosis. ?IRIS from recent initiation of HAART. CMV DNA negative #HIV disease: CD4 191, HIV RNA PCR back at 34,900. ?prior non compliance. follows up at [facility] clinic and is on Epzicom in addition to Tivicay, it seems she had nausea with her previous medications. HAART was recently started. #Positive Quantiferon: noted she reported being negative for TB at [place], unclear what was performed. Will obtain AFB cultures and determine treatment necessity. Recs: -HHV-8 PCR pending -Continue empiric p.o. atovaquone 750 mg twice daily. Patient allergic to Bact rim -f/u EBV DNA PCR, urinary histoplasma Ag, Fungitell, TB QuantiFERON gold -Continue vancomycin and meropenem -Continue HIV medications: PO Epzicom plus Tivicay (patient has her own meds) -If fevers persist and no other etiology is found, may consider a short steroid trial -s/p thoracentesis today, follow up studies performed, if any -Ordered AFB cultures x3 with induced sputum if necessary. unclear if any have been obtained yet. Liat Lopez MD [facility] ([facility] O: [phone] F: [phone] Subjective Date of service: 04/01/20 Interval history: Remains febrile to 100.4, ongoing tachycardia. Noted QuantiFERON returned positive yesterday. Imaging personally reviewed: Chest x-ray: Improvement in loculated pleural effusion. Objective - Exam Narrative Exam: Physical Exam: Constitutional: Alert, cooperative. No acute distress Head, Ears, Nose: Normocephalic, atraumatic. External ears, nose normal Eyes: Conjunctivae/corneas clear. No icterus. No ptosis. Neck: Supple, no meningeal signs Cardiovascular: S1, S2 normal. Respiratory: Good air entry, clear to auscultation bilaterally GI: Soft, non-tender; bowel sounds normal. No peritoneal signs Musculoskeletal: No pedal edema, no cyanosis. Skin: No rash or abscess Psych: Mood ok. Affect normal Neurological: Awake, alert, oriented. No gross abnormality - Constitutional Vitals: Vital Signs Temp Pulse Resp BP Pulse Ox 98.3 F 79 18 135/73 100 04/01/20 12:19 04/01/20 12:19 04/01/20 12:19 04/01/20 12:19 04/01/20 12:19 Temperature -Last 24 Hours Temperature 98.3 F Temperature 98.1 F Temperature 97.5 F Temperature 100.4 F Temperature 97.7 F - Labs CBC & Chem 7: 03/30/20 04:54 04/01/20 04:44 Labs: Abnormal lab results 03/31/20 03/31/20 03/31/20 Range/Units 15:26 16:27 20:31 PT (12.2-14.9) Sec. INR (0.87-1.13) APTT (24.2-36.6) Sec. Chloride (98-107) mmol/L Carbon Dioxide (22-30) mmol/L Creatinine (0.6-1.2) mg/dL Glucose (65-100) mg/dL POC Glucose 59 L 69 L 67 L (70-105) mg/dL Calcium (8.4-10.2) mg/dL 03/31/20 04/01/20 04/01/20 Range/Units 22:21 04:44 04:44 PT 16.1 H 16.6 H (12.2-14.9) Sec. INR 1.31 H 1.36 H (0.87-1.13) APTT 50.7 H 42.8 H (24.2-36.6) Sec. Chloride 108.7 H (98-107) mmol/L Carbon Dioxide 19 L (22-30) mmol/L Creatinine 1.3 H (0.6-1.2) mg/dL Glucose 125 H (65-100) mg/dL POC Glucose (70-105) mg/dL Calcium 8.0 L (8.4-10.2) mg/dL 04/01/20 Range/Units 13:10 PT 16.5 H (12.2-14.9) Sec. INR 1.35 H (0.87-1.13) APTT 58.9 H (24.2-36.6) Sec. Chloride (98-107) mmol/L Carbon Dioxide (22-30) mmol/L Creatinine (0.6-1.2) mg/dL Glucose (65-100) mg/dL POC Glucose (70-105) mg/dL Calcium (8.4-10.2) mg/dL
[2020-04-02] MEDS: VANCOMYCIN 750 MG in SODIUM CHLORIDE 0.9% 250ML 250 ML IV SCH ×2 (00:59→17:00)
[2020-04-02 02:10] LABS: INR 1.39 (0.87-1.13)
[2020-04-02 02:11] LABS: Partial Thromboplastin Time 57.2 Sec. (24.2-36.6)
[2020-04-02 05:31] LABS: Basophils % (Auto) 0.2 % (0.0-1.8); Eosinophils % (Auto) 0.2 % (0.0-4.3); Hematocrit 24.8 % (30.3-42.9); Lymphocytes # (Auto) 1.2 K/mm3 (1.2-5.4); Lymphocytes % (Auto) 9.7 % (13.4-35.0); Mean Corpuscular HGB Conc 32 % (30-34); Mean Corpuscular Volume 77 fl (79-97); Monocytes # (Auto) 1.5 K/mm3 (0.0-0.8); Monocytes % (Auto) 12.3 % (0.0-7.3); Platelet Count 266 K/mm3 (140-440); Red Blood Count 3.21 M/mm3 (3.65-5.03)
[2020-04-02 05:38] LABS: Red Cell Distribution Width 22.5 % (13.2-15.2)
[2020-04-02 05:46] LABS: Alanine Aminotransferase 13 units/L (7-56); BUN/Creatinine Ratio 7; Bilirubin,Direct 0.3 mg/dL (0-0.2); Blood Urea Nitrogen 8 mg/dL (7-17); Calcium 8.1 mg/dL (8.4-10.2); Hemolysis Index 12
[2020-04-02] MEDS: MEROPENEM/NS 1 GRAM/100 ML 1 GRAM/100 ML BAG IV SCH ×3 (07:00→21:39)
[2020-04-02] MEDS: guaiFENesin/CODEINE 100-10MG ORAL LIQD 5 ML PO PRN ×2 (07:53→21:39)
[2020-04-02] MEDS ORDERED: POTASSIUM CHLORIDE ER 20 MEQ TAB PO SCH (09:00)
[2020-04-02 11:24] LABS: INR 1.41 (0.87-1.13)
[2020-04-02 11:26] LABS: Partial Thromboplastin Time 48.6 Sec. (24.2-36.6)
[2020-04-02] MEDS: ENOXAPARIN 40 MG/0.4 ML INJ SUB-Q SCH (12:58)
[2020-04-02] MEDS: METOPROLOL TARTRATE 5 MG/5 ML INJ IV PRN (12:59)
[2020-04-02] MEDS: ATOVAQUONE 750 MG/5 ML ORAL SUSP PO SCH ×2 (13:08→21:39)
[2020-04-02] MEDS: ABACAVIR 300 MG TAB PO SCH (13:09)
[2020-04-02] MEDS: DOLUTEGRAVIR 50 MG TAB PO SCH (13:09)
[2020-04-02] MEDS: METOPROLOL TARTRATE 25 MG TAB PO SCH ×2 (13:12→21:39)
[2020-04-02] MEDS: BENZONATATE 100 MG CAP PO PRN (13:14)
[2020-04-02] MEDS: LOPERAMIDE 2 MG CAP PO PRN ×2 (13:14→21:39)
[2020-04-02] MEDS: ALPRAZolam 0.5 MG TAB PO PRN ×2 (13:15→21:39)
--- NOTE | 2020-04-02 15:42 | Progress Note ---
Assessment and Plan Cultures: SARS CoV2 PCR: Negative 03/23/2020 blood culture: no growth 03/23/2020 urine culture: no growth 03/24/2020 serum cryptococcal antigen: Negative HIV RNA PCR 34,900 MRSA nasal PCR: Negative A/P: 29/F with HIV, asthma recent admission at [place], underwent lymph node biopsy/surgery now here with: #Pneumonia: continue empiric abx: Ceftriaxone + Azithromycin. #Extensive lymphadenopathy: Status post biopsy at [place]. Patient reports she underwent evaluation for TB, COVID-19 and influenza while at [place] and was negative. 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 Negative for fungal and AFB organisms. Flow cytometry negative for abnormal B or T-cell population. Differential diagnosis is wide, could be fungal/AFB, Kikuchi, Castleman's disease, autoimmune, sarcoidosis. ?IRIS from recent initiation of HAART. CMV DNA negative. Fungitell negative #HIV disease: CD4 191, HIV RNA PCR back at 34,900. ?prior non compliance. follows up at [facility] clinic and is on Epzicom in addition to Tivicay, it seems she had nausea with her previous medications. HAART was recently started. #Positive Quantiferon: noted she reported being negative for TB at [place], unclear what was performed. Will obtain AFB cultures and determine treatment necessity. Recs: -HHV-8 PCR pending -Continue empiric p.o. atovaquone 750 mg twice daily. Patient allergic to Bactrim -f/u EBV DNA PCR, urinary histoplasma Ag, -Continue vancomycin and meropenem -Continue HIV medications: PO Epzicom plus Tivicay (patient has her own meds) -If fevers persist and no other etiology is found, may consider a short steroid trial -Follow-up thoracentesis studies -Ordered AFB cultures x3 with induced sputum if necessary. Have not been obtained yet. Please obtain Liat Lopez MD [facility] ([facility] O: [phone] F: [phone] Subjective Date of service: 04/02/20 Interval history: Recurrently febrile overnight to 102.7. White count remains elevated at 12.6. Objective - Exam Narrative Exam: Physical Exam: Constitutional: Alert, cooperative. No acute distress Head, Ears, Nose: Normocephalic, atraumatic. External ears, nose normal Eyes: Conjunctivae/corneas clear. No icterus. No ptosis. Neck: Supple, no meningeal signs Cardiovascular: S1, S2 normal. Respiratory: Good air entry, clear to auscultation bilaterally GI: Soft, non-tender; bowel sounds normal. No peritoneal signs Musculoskeletal: No pedal edema, no cyanosis. Skin: No rash or abscess Psych: Mood ok. Affect normal Neurological: Awake, alert, oriented. No gross abnormality - Constitutional Vitals: Vital Signs Temp Pulse Resp BP Pulse Ox 98.3 F 120 H 20 128/80 100 04/02/20 11:41 04/02/20 13:12 04/02/20 09:21 04/02/20 11:41 04/02/20 11:41 Temperature -Last 24 Hours Temperature 98.3 F Temperature 98.3 F Temperature 97.2 F Temperature 102.7 F Temperature 97.7 F - Labs CBC & Chem 7: 04/02/20 05:07 04/02/20 05:07 Labs: Abnormal lab results 04/02/20 04/02/20 04/02/20 Range/Units 00:22 05:07 05:07 WBC 12.6 H (4.5-11.0) K/mm3 RBC 3.21 L (3.65-5.03) M/mm3 Hgb 8.0 L (10.1-14.3) gm/dl Hct 24.8 L (30.3-42.9) % MCV 77 L (79-97) fl MCH 25 L (28-32) pg RDW 22.5 H (13.2-15.2) % Lymph % (Auto) 9.7 L (13.4-35.0) % Dodge % (Auto) 12.3 H (0.0-7.3) % Dodge # (Auto) 1.5 H (0.0-0.8) K/mm3 Seg Neutrophils % 77.6 H (40.0-70.0) % Seg Neutrophils # 9.8 H (1.8-7.7) K/mm3 PT 16.9 H (12.2-14.9) Sec. INR 1.39 H (0.87-1.13) APTT 57.2 H (24.2-36.6) Sec. Potassium 3.4 L (3.6-5.0) mmol/L Chloride 107.4 H (98-107) mmol/L POC Glucose (70-105) mg/dL Calcium 8.1 L (8.4-10.2) mg/dL Direct Bilirubin 0.3 H (0-0.2) mg/dL Alkaline Phosphatase 227 H (35-129) units/L Albumin 2.0 L (3.9-5) g/dL 04/02/20 04/02/20 04/02/20 Range/Units 07:52 09:29 11:53 WBC (4.5-11.0) K/mm3 RBC (3.65-5.03) M/mm3 Hgb (10.1-14.3) gm/dl Hct (30.3-42.9) % MCV (79-97) fl MCH (28-32) pg RDW (13.2-15.2) % Lymph % (Auto) (13.4-35.0) % Dodge % (Auto) (0.0-7.3) % Dodge # (Auto) (0.0-0.8) K/mm3 Seg Neutrophils % (40.0-70.0) % Seg Neutrophils # (1.8-7.7) K/mm3 PT 17.1 H (12.2-14.9) Sec. INR 1.41 H (0.87-1.13) APTT 48.6 H (24.2-36.6) Sec. Potassium (3.6-5.0) mmol/L Chloride (98-107) mmol/L POC Glucose 64 L 112 H (70-105) mg/dL Calcium (8.4-10.2) mg/dL Direct Bilirubin (0-0.2) mg/dL Alkaline Phosphatase (35-129) units/L Albumin (3.9-5) g/dL
--- NOTE | 2020-04-02 16:09 | Progress Note ---
Assessment and Plan Assessment and plan: Sepsis -POA -Presented with tachycardia into the 130s, tachypnea into the 30s and febrile state in the 101.6 and CXR shows pneumonia -S/p 2 L normal saline bolus and ceftriaxone in the ED -Antibiotic therapy -Infectious disease consulted, appreciate recommendations -COVID-19 PCR negative -03/23 blood cultures x2 no growth to date -03/23 urinalysis negative for nitrates and leukocyte esterase Persistent fevers -Due to underlying illness -Patient has been spiking temperatures since admission -Antibiotic therapy -Infectious disease consulted, appreciate recommendations -04/02 blood cultures x2 with no growth after 4 hours -03/23 urine culture shows normal joan -03/24 cryptococcal serum antigen negative, Histoplasma urinary antigen, EBV DNA PCR quantitative, Fungitell, TB QuantiFERON gold positive, CMV negative -Pulmonary hygiene -Supportive care Acute respiratory failure -Patient is a supplemental oxygenation -Pulmonary hygiene -Pulmonary consult, appreciate recommendations Pleural effusion -Partially loculated [id number] right pleural effusion noted on CTA chest -Pulmonology consult, appreciate recommendations -03/31 coagulation studies -04/01 thoracentesis with removal of 720 mL of blood-tinged fluid -04/01 CXR postthoracentesis shows 50% decrease in loculated pleural effusion with no pneumothorax -04/01 Pleural fluid acid-fast base culture and smear, cell count, glucose, LDH, total protein pending Persistent tachycardia -Initiated beta-fletcher, titrate as needed -IV beta-fletcher as needed -Telemetry monitoring -Supportive care -04/02 thyroid studies pending Pneumonia -03/23 CXR shows pneumonia -03/27 CXR shows worsened patchy consolidation/effusion in the right lung base with minimal patchy left basilar airspace disease also now present. No appreciable effusion on the left. -Supplemental oxygen as needed -SPO2 monitoring -Antibiotic therapy -Supportive care -Pulmonary hygiene Extensive adenopathy -S/p biopsy at [place] (per infectious disease requested cervical lymph node b iopsy results and hospitalization records) -Per ID: Opportunistic infection versus lymphoma versus sarcoid -03/23 CTA chest shows extensive lymphadenopathy throughout the chest involving bilateral axillary, mediastinal anthony regions, airspace consolidation of the right lower lobe with extensive tree-in-bud opacities in the right lower lobe and middle lobe less so within bilateral upper lobes -03/23 CTA neck shows recent left-sided lymph node biopsy, extensive bilateral symmetrical cervical neck lymphadenopathies with multifocal areas of necrosis -Per ID: 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, negative for fungal and AFB organisms, flow cytometry negative for abnormal B or T-cell population Acute kidney injury -Presented with a BUN/creatinine 7/0.9 -04/01 BUN/creatinine 7/1.3 -MIVF -Trend BMP -Consider nephrology consult and further studies if not improving -Avoid nephrotoxic medications -Renally dose medications -Strict intake and output Hyperchloremia,improving -03/27 chloride 108.4 -MIVF with NS -Trend BMP Suspected tuberculosis -03/23 PPD administered, read on 03/26 as negative (no induration, redness noted) -03/24 TB QuantiFERON gold positive -Discontinue airborne and droplet precautions -Per [place] records: Acid-fast base of lymph node biopsy was negative -AFB pending Elevated D-dimer -Presented with a D-dimer of 2608 -03/23 CTA chest shows no evidence of pulmonary embolism -03/30 BLE Doppler US negative for DVT/SVT Hypokalemia -03/31 potassium 3.5, 04/02 K 3.4 -Repleted -Trend BMP Supratherapeutic INR -03/31 INR 1.26, PT 13.6, APTT 63.2 -Trend INR/PT/APTT -Monitor for bleeding Leukocytosis -04/02 WBC 12.6 -Antibiotic therapy -Trend CBC HIV disease -03/24: CD4/CD8 0.23, CD3% 92, absolute CD3 978, CD4% 17, absolute CD4 191, CD8% 76, absolute CD8 837, CD19% 2, absolute CD19 22 -Continue home antiretroviral therapy -Follow-up outpatient with HIV clinic or ID Malnutrition -Presented with a BMI of 21 -Nutrition consulted for supplementation and dietary education Anxiety -As needed Ativan -Redirection and verbal de-escalation as needed -Supportive care -Follow-up outpatient with psych DVT -SCDs to bilateral lower extremities while in bed -Lovenox subcu -GI prophylaxis Metabolic acidosis,improving -03/24 CO2 on BMP is 21, 04/02 CO2 23 -Multifactorial -Trend BMP History Interval history: This is a 29-year-old female with asthma and HIV he was admitted to the hospital on 03/23 with a 2-week history of a dry cough, shaking chills, and fever. Work-up in the emergency department revealed tachypnea, tachycardia, febrile state and a CXR which revealed pneumonia. Patient CT scan of the chest revealed bilateral infiltrates as well as evidence of tuberculosis lymphadenitis, and hyponatremia. Patient was admitted to the hospital service with consult infectious disease for rule out tuberculosis and COVID-19. 03/24: TB PPD pending, COVID-19 PCR negative, infectious disease consulted, fever and patient was started on antibiotic therapy. No acute events reported overnight. Remains supplemental oxygenation. 03/25: Patient is having persistent fevers, tachycardia into the 140s s/p IV Lopressor x1 and p.o. Lopressor for rate control, patient was transferred from [facility] to telemetry overnight. 03/26: Patient had a low-grade temperature this morning which was treated with Tylenol. Patient states that she feels slightly better but is still experiencing coughing and chills. Patient still remains on empiric antibiotics and her hyponatremia has improved. She has persistent fevers, on antibiotics, supportive care, we will try scheduled Tylenol every 6 hours for 24 hours 03/27: Patient remains febrile. This afternoon patient was tachypneic, tachycardic and experienced wheezing therefore she received an albuterol treatment with RT and IV metoprolol. Patient stated that she felt like she was having an anxiety attack and has a history of anxiety and RN was instructed to provide the patient with as needed Ativan. CXR ordered. Patient is currently on 5 L nasal cannula however on reexamination patient was speaking on the phone with her father. We will also order as needed Tessalon Perles. Patient's CXR shows worsening patchy consolidation/effusion in the right lung base with minimal patchy left basilar airspace disease. Encourage pulmonary hygiene. 03/28: Febrile and sinus tachycardia 03/29: Febrile and sinus tachycardia 03/30: Patient was hypoglycemic this morning to the 60s and she received oral intake. RN to recheck BG. Patient placed on hypoglycemic protocol with Accu- Cheks AC at bedtime. Patient remains tachycardic though afebrile (T-max 99.0). Discharge pending infectious disease clearance. 03/31: Pulmonology was consulted for loculated pleural effusion. Patient remains tachycardic to the low 100s but has been afebrile. Coagulation studies ordered by pulmonology are slightly elevated. Patient is hypokalemic today which was repleted. Repeat BMP in the a.m. 04/01: At the time my examination patient was 35% Venturi mask for comfort even though her SPO2 was in the high 90s, patient stated that she feels zapien, T-max 100.4, patient scheduled for a thoracentesis today. No acute events reported overnight. Patient still remains tachycardic and today she developed acute kidney injury. 04/02: Patient is on 35% venti mask for patient comfort and she states that she " is not feeling well" but does not elaborate further when asked. Sputum culture still not obtained and RN instructed to ask RT to obtain. Patient still is having tachycardia. Hospitalist Physical - Constitutional Vitals: Temp Pulse Resp BP Pulse Ox 97.7 F 122 H 20 126/69 91 04/02/20 15:30 04/02/20 15:30 04/02/20 09:21 04/02/20 15:30 04/02/20 15:30 General appearance: Present: no acute distress, well-nourished, other - EENT Eyes: Present: PERRL, EOM intact ENT: clear oral mucosa, dentition normal - Neck Neck: Present: normal ROM - Respiratory Respiratory effort: normal Respiratory: bilateral: CTA - Cardiovascular Rhythm: regular Heart Sounds: Present: S1 & S2. Absent: systolic murmur, diastolic murmur - Extremities Extremities: no ischemia, pulses intact, pulses symmetrical, No edema, normal temperature, normal color, Full ROM Peripheral Pulses: within normal limits - Abdominal General gastrointestinal: soft, non-tender, non-distended, normal bowel sounds - Integumentary Integumentary: Present: clear, warm, dry - Psychiatric Psychiatric: appropriate mood/affect, cooperative - Neurologic Neurologic: CNII-XII intact, no focal deficits, moves all extremities - Allied Health Allied health notes reviewed: nursing, RT, social work Results - Labs CBC & Chem 7: 04/02/20 05:07 04/02/20 05:07 Labs: Laboratory Last Values WBC 12.6 K/mm3 (4.5-11.0) H 04/02/20 05:07 RBC 3.21 M/mm3 (3.65-5.03) L 04/02/20 05:07 Hgb 8.0 gm/dl (10.1-14.3) L 04/02/20 05:07 Hct 24.8 % (30.3-42.9) L 04/02/20 05:07 MCV 77 fl (79-97) L 04/02/20 05:07 MCH 25 pg (28-32) L 04/02/20 05:07 MCHC 32 % (30-34) 04/02/20 05:07 RDW 22.5 % (13.2-15.2) H 04/02/20 05:07 Plt Count 266 K/mm3 (140-440) 04/02/20 05:07 Lymph % (Auto) 9.7 % (13.4-35.0) L 04/02/20 05:07 Early % (Auto) 12.3 % (0.0-7.3) H 04/02/20 05:07 Eos % (Auto) 0.2 % (0.0-4.3) 04/02/20 05:07 Baso % (Auto) 0.2 % (0.0-1.8) 04/02/20 05:07 Lymph # (Auto) 1.2 K/mm3 (1.2-5.4) 04/02/20 05:07 Early # (Auto) 1.5 K/mm3 (0.0-0.8) H 04/02/20 05:07 Eos # (Auto) 0.0 K/mm3 (0.0-0.4) 04/02/20 05:07 Baso # (Auto) 0.0 K/mm3 (0.0-0.1) 04/02/20 05:07 Add Manual Diff Complete 03/30/20 04:54 Total Counted 100 03/30/20 04:54 Seg Neutrophils % 77.6 % (40.0-70.0) H 04/02/20 05:07 Seg Neuts % (Manual) 91.0 % (40.0-70.0) H 03/30/20 04:54 Band Neutrophils % 1.0 % 03/30/20 04:54 Lymphocytes % (Manual) 1.0 % (13.4-35.0) L 03/30/20 04:54 Monocytes % (Manual) 7.0 % (0.0-7.3) 03/30/20 04:54 Nucleated RBC % Not Reportable 03/30/20 04:54 Seg Neutrophils # 9.8 K/mm3 (1.8-7.7) H 04/02/20 05:07 Seg Neutrophils # Man 7.4 K/mm3 (1.8-7.7) 03/30/20 04:54 Band Neutrophils # 0.1 K/mm3 03/30/20 04:54 Abs Lymphs (Manual) 1064 cells/uL (850-3900) 03/24/20 15:27 Lymphocytes # (Manual) 0.1 K/mm3 (1.2-5.4) L 03/30/20 04:54 Abs React Lymphs (Man) 0.0 K/mm3 03/30/20 04:54 Monocytes # (Manual) 0.6 K/mm3 (0.0-0.8) 03/30/20 04:54 Eosinophils # (Manual) 0.0 K/mm3 (0.0-0.4) 03/30/20 04:54 Basophils # (Manual) 0.0 K/mm3 (0.0-0.1) 03/30/20 04:54 Metamyelocytes # 0.0 K/mm3 03/30/20 04:54 Myelocytes # 0.0 K/mm3 03/30/20 04:54 Promyelocytes # 0.0 K/mm3 03/30/20 04:54 Blast Cells # 0.0 K/mm3 03/30/20 04:54 WBC Morphology Not Reportable 03/30/20 04:54 Hypersegmented Neuts Not Reportable 03/30/20 04:54 Hyposegmented Neuts Not Reportable 03/30/20 04:54 Hypogranular Neuts Not Reportable 03/30/20 04:54 Smudge Cells Not Reportable 03/30/20 04:54 Toxic Granulation Not Reportable 03/30/20 04:54 Toxic Vacuolation Not Reportable 03/30/20 04:54 Dohle Bodies Not Reportable 03/30/20 04:54 Pelger-Huet Anomaly Not Reportable 03/30/20 04:54 Ney Rods Not Reportable 03/30/20 04:54 Platelet Estimate Consistent w auto 03/30/20 04:54 Clumped Platelets Not Reportable 03/30/20 04:54 Plt Clumps, EDTA Not Reportable 03/30/20 04:54 Large Platelets Not Reportable 03/30/20 04:54 Giant Platelets Not Reportable 03/30/20 04:54 Platelet Satelliting Not Reportable 03/30/20 04:54 Plt Morphology Comment Not Reportable 03/30/20 04:54 RBC Morphology Not Reportable 03/30/20 04:54 Dimorphic RBCs Not Reportable 03/30/20 04:54 Polychromasia Not Reportable 03/30/20 04:54 Hypochromasia Not Reportable 03/30/20 04:54 Poikilocytosis Not Reportable 03/30/20 04:54 Anisocytosis 1+ 03/30/20 04:54 Microcytosis Not Reportable 03/30/20 04:54 Macrocytosis Not Reportable 03/30/20 04:54 Spherocytes Not Reportable 03/30/20 04:54 Pappenheimer Bodies Not Reportable 03/30/20 04:54 Sickle Cells Not Reportable 03/30/20 04:54 Target Cells Not Reportable 03/30/20 04:54 Tear Drop Cells Not Reportable 03/30/20 04:54 Ovalocytes Not Reportable 03/30/20 04:54 Helmet Cells Not Reportable 03/30/20 04:54 Bad[place] Bodies Not Reportable 03/30/20 04:54 Thorndike Rings Not Reportable 03/30/20 04:54 Duarte Cells Not Reportable 03/30/20 04:54 Bite Cells Not Reportable 03/30/20 04:54 Crenated Cell Not Reportable 03/30/20 04:54 Elliptocytes Not Reportable 03/30/20 04:54 Acanthocytes (Spur) Not Reportable 03/30/20 04:54 Rouleaux Not Reportable 03/30/20 04:54 Hemoglobin C Crystals Not Reportable 03/30/20 04:54 Schistocytes Not Reportable 03/30/20 04:54 Malaria parasites Not Reportable 03/30/20 04:54 Tyron Bodies Not Reportable 03/30/20 04:54 Hem Pathologist Commnt No 03/30/20 04:54 PT 17.1 Sec. (12.2-14.9) H 04/02/20 09:29 INR 1.41 (0.87-1.13) H 04/02/20 09:29 APTT 48.6 Sec. (24.2-36.6) H 04/02/20 09:29 D-Dimer 1520.95 ng/mlDDU (0-234) H 03/27/20 04:53 VBG pH 7.482 (7.320-7.420) H 03/23/20 17:13 Sodium 139 mmol/L (137-145) 04/02/20 05:07 Potassium 3.4 mmol/L (3.6-5.0) L 04/02/20 05:07 Chloride 107.4 mmol/L (98-107) H 04/02/20 05:07 Carbon Dioxide 23 mmol/L (22-30) 04/02/20 05:07 Anion Gap 12 mmol/L 04/02/20 05:07 BUN 8 mg/dL (7-17) 04/02/20 05:07 Creatinine 1.1 mg/dL (0.6-1.2) 04/02/20 05:07 Estimated GFR > 60 ml/min 04/02/20 05:07 BUN/Creatinine Ratio 7 % 04/02/20 05:07 Glucose 100 mg/dL (65-100) 04/02/20 05:07 POC Glucose 112 mg/dL (70-105) H 04/02/20 11:53 Lactic Acid 1.10 mmol/L (0.7-2.0) 03/23/20 18:25 Calcium 8.1 mg/dL (8.4-10.2) L 04/02/20 05:07 Magnesium 1.90 mg/dL (1.7-2.3) 04/02/20 05:07 Ferritin 1124.0 ng/mL (10.0-200.0) H 03/23/20 16:28 Total Bilirubin 0.60 mg/dL (0.1-1.2) 04/02/20 05:07 Direct Bilirubin 0.3 mg/dL (0-0.2) H 04/02/20 05:07 Indirect Bilirubin 0.3 mg/dL 04/02/20 05:07 AST 18 units/L (5-40) 04/02/20 05:07 ALT 13 units/L (7-56) 04/02/20 05:07 Alkaline Phosphatase 227 units/L (35-129) H 04/02/20 05:07 Lactate Dehydrogenase 428 units/L (91-180) H 03/23/20 16:28 Total Creatine Kinase 30 units/L (30-135) 03/23/20 16:28 C-Reactive Protein 23.00 mg/dL (0.00-1.30) H 03/27/20 04:53 Total Protein 6.5 g/dL (6.3-8.2) 04/02/20 05:07 Albumin 2.0 g/dL (3.9-5) L 04/02/20 05:07 Albumin/Globulin Ratio 0.4 % 04/02/20 05:07 Procalcitonin 26.58 ng/mL (<0.15) 03/30/20 18:15 HCG, Quant < 2 mIU/mL (0-4) 03/23/20 16:28 Urine Color Colorless (Yellow) 03/23/20 Unknown Urine Turbidity Clear (Clear) 03/23/20 Unknown Urine pH 7.0 (5.0-7.0) 03/23/20 Unknown Ur Specific [place] 1.019 (1.003-1.030) 03/23/20 Unknown Urine Protein <15 mg/dl mg/dL (Negative) 03/23/20 Unknown Urine Glucose (UA) Neg mg/dL (Negative) 03/23/20 Unknown Urine Ketones Neg mg/dL (Negative) 03/23/20 Unknown Urine Blood Sm (Negative) 03/23/20 Unknown Urine Nitrite Neg (Negative) 03/23/20 Unknown Ur Reducing Substances Not Reportable 03/23/20 Unknown Urine Bilirubin Neg (Negative) 03/23/20 Unknown Urine Ictotest Not Reportable 03/23/20 Unknown Urine Urobilinogen < 2.0 mg/dL (<2.0) 03/23/20 Unknown Ur Leukocyte Esterase Neg (Negative) 03/23/20 Unknown Urine WBC (Auto) 1.0 /HPF (0.0-6.0) 03/23/20 Unknown Urine RBC (Auto) 1.0 /HPF (0.0-6.0) 03/23/20 Unknown U Epithel Cells (Auto) < 1.0 /HPF (0-13.0) 03/23/20 Unknown Nasal Screen MRSA (PCR) Negative (Negative) 03/24/20 06:42 Vancomycin Trough 14.6 ug/mL (5.0-20.0) 04/01/20 07:27 Lymph Enumerat CD4/CD8 0.23 (0.86-5.00) L 03/24/20 15:27 % CD3 Cells 92 % (57-85) H 03/24/20 15:27 Absolute CD3 Count 978 cells/uL (840-3060) 03/24/20 15:27 % CD4 Cells 17 % (30-61) L 03/24/20 15:27 Absolute CD4 Count 191 cells/uL (490-1740) L 03/24/20 15:27 % CD8 Cells 76 % (12-42) H 03/24/20 15:27 Absolute CD8 Count 837 cells/uL (180-1170) 03/24/20 15:27 % CD19 Cells 2 % (6-29) L 03/24/20 15:27 Absolute CD19 Count 22 cells/uL (110-660) L 03/24/20 15:27 Coronavirus (PCR) Negative (Negative) 03/24/20 Unknown CMV Specimen Source Serum 03/24/20 15:27 CMV DNA PCR log hat copyist/mL See scanned result 03/24/20 15:27 HIV-1 RNA PCR copies/ml 57118 Copies/mL H 03/24/20 15:27 HIV-1 RNA (PCR) log 4.54 Log cps/mL H 03/24/20 15:27 TB (QFT) Gold In Tube Positive (NEGATIVE) H 03/27/20 11:08 TB Test (QFT) Nil 3.46 IU/mL 03/27/20 11:08 TB Test Mitogen - Nil 4.57 IU/mL 03/27/20 11:08 TB Test Ag - Nil 1 1.82 IU/mL 03/27/20 11:08 TB Test Ag - Nil 2 1.95 IU/mL 03/27/20 11:08 Miscellaneous Test Flexitest 1 03/27/20 11:09 Miscellaneous Test Flexitest 1 03/27/20 11:09 Microbiology: Microbiology 03/30/20 18:15 Peripheral/Venous Blood Culture - Preliminary NO GROWTH AFTER 48 HOURS 03/30/20 18:15 Peripheral/Venous Blood Culture - Preliminary NO GROWTH AFTER 48 HOURS Marroquin/IV: Voiding Method Toilet Active Medications - Current Medications Current Medications: Generic Name Dose Route Start Last Admin Trade Name Freq PRN Reason Stop Dose Admin Abacavir Sulfate 600 mg 03/24/20 16:00 04/02/20 13:09 Abacavir 300 Mg Tab PO 600 mg DAILY SUN Administration Acetaminophen 650 mg 03/30/20 15:19 04/01/20 23:15 Acetaminophen 325 Mg Tab PO 650 mg Q4H PRN Administration Pain, Mild (1-3) Albuterol 2.5 mg 03/23/20 19:21 03/28/20 14:44 Albuterol 2.5 Mg/3 Ml Nebu IH 2.5 mg Q4HRT PRN Administration Shortness Of Breath Alprazolam 0.5 mg 03/25/20 11:00 04/02/20 13:15 Alprazolam 0.5 Mg Tab PO 0.5 mg Q8H PRN Administration Anxiety Atovaquone 750 mg 03/27/20 22:00 04/02/20 13:08 Atovaquone 750 Mg/5 Ml Oral Susp PO 750 mg BID SUN Administration Benzonatate 100 mg 03/27/20 14:53 04/02/20 13:14 Benzonatate 100 Mg Cap PO 100 mg Q8HR PRN Administration Cough Dextrose 50 ml 03/31/20 16:27 04/01/20 15:40 Dextrose 50% In Water (25gm) 50 Ml Syringe IV 50 ml Q30MIN PRN Administration Hypoglycemia Protocol Enoxaparin Sodium 40 mg 03/25/20 15:00 04/02/20 12:58 Enoxaparin 40 Mg/0.4 Ml Inj SUB-Q 40 mg QDAY@1000 SUN Administration MEROPENEM/NS 1 GRAM/100 ML 1 gram in 100 mls @ 100 mls/hr 03/30/20 18:00 04/02/20 07:00 Merrem/Ns 1 Gram/100 Ml IV 100 mls/hr Q8HR SUN Administration Protocol Sodium Chloride 1,000 mls @ 75 mls/hr 04/01/20 11:00 Nacl 0.45% 1000 Ml IV DIRECT SUN Vancomycin HCl 750 mg/ Sodium 265 mls @ 166.667 mls/hr 04/01/20 13:00 04/02/20 00:59 Chloride IV 166.667 mls/hr Q12H SUN Administration Ibuprofen 600 mg 03/27/20 00:15 03/31/20 05:03 Ibuprofen 600 Mg Tab PO 600 mg Q8H PRN Administration Pain, Mild (1-3) Lamivudine 300 mg 03/24/20 16:00 04/02/20 13:10 Lamivudine 150 Mg Tab PO 300 mg DAILY SUN Administration Loperamide HCl 2 mg 03/29/20 14:39 04/02/20 13:14 Loperamide 2 Mg Cap PO 2 mg Q2H PRN Administration Diarrhea Metoprolol Tartrate 2.5 mg 03/25/20 11:00 04/02/20 12:59 Metoprolol Tartrate 5 Mg/5 Ml Inj IV 2.5 mg Q6H PRN Administration Tachyarrhythmias Metoprolol Tartrate 50 mg 03/29/20 22:00 04/02/20 13:12 Metoprolol Tartrate 25 Mg Tab PO 50 mg BID SUN Administration Ondansetron HCl 4 mg 03/23/20 19:21 03/31/20 05:04 Ondansetron 4 Mg/2 Ml Inj IV 4 mg Q8H PRN Administration Nausea And Vomiting Pseudoephedrine/Acetam/Chlorphenir 15 ml 03/24/20 16:53 04/02/20 07:53 Guaifenesin/Codeine 100-10mg Oral Liqd 5 Ml PO 15 ml Q4H PRN Administration Cough Sodium Chloride 10 ml 03/23/20 22:00 04/01/20 23:19 Sodium Chloride 0.9% 10 Ml Flush Syringe IV 10 ml BID SUN Administration Sodium Chloride 10 ml 03/23/20 19:21 03/31/20 05:05 Sodium Chloride 0.9% 10 Ml Flush Syringe IV 10 ml PRN PRN Administration LINE FLUSH Nutrition/Malnutrition Assess - Dietary Evaluation Nutrition/Malnutrition Findings: Nutrition Notes Start: 03/24/20 10:38 Freq: Status: Active Protocol: Document 04/02/20 10:02 (Rec: 04/02/20 10:19 [id number]) Nutrition Notes Initial or Follow up Reassessment Other Pertinent Diagnosis PNA, tuberculosis, HIV Current Diet Cardiac Diet Labs/Tests K 3.4 Pertinent Medications Imodium Vancomycin Merpenem Height 5 ft 2 in Weight 59.2 kg [place] Body Weight (kg) 50.00 BMI 23.8 Intake Prior to Admission Fair Weight change and time frame Weight change noted; likely r/ t edema Weight Status Appropriate Subjective/Other Information F/U for ONS tolerance and intakes. Intakes have decreased. Pt requests soft snacks such as applesauce and ice cream throughout the day. Pt states that she dislikes the food. Food preferences noted and relayed to the kitchen. Pt states that she likes receiving ensures but has a few in the room to drink throughout the day. Will monitor for further build up of ONS in room. Percent of energy/protein needs met: 0%/0% Burn Absent Trauma Absent GI Symptoms None,Diarrhea Food Allergy Yes Current % PO Negligible Minimum of two criteria Yes Energy Intake (severe) < or equal to 50% Estimated Energy Requirement > or equal to 5 days Fluid Accumulation Moderate to Severe (severe) #1 Nutrition Diagnosis Malnutrition As Evidenced by Signs and Symptoms Regained silver wrapper stength and edema now nonpitting however energy intake is still neglible Diagnosis Progress(for reassessment Improved documentation) Is patient on ventilator? No Is Patient Ambulatory and/or Out of Bed Yes REE-([facility]-ambulatory/OOB) [ 1644.825 [id number]] Calculation Used for Recommendations [facility] Additional Notes Protein needs:52 - 69g (1 - 1. 2g/kg for hepatic disorder) Fluid: 1ml/kcal or MD order Nutrition Intervention Change Diet Order: Continue cardiac diet Add Supplement/Snack (indicate name/kcal Ensure Enlive BID /protein ) Provides kCal: 700 Provides Protein (gm) 40 Goal #1 Meet at least 75% of energy and protein needs Goal #2 Monitor for PO intakes Goal #3 ONS tolerance Anticipated Discharge Needs: Cardiac Diet Follow-Up By: 04/06/20 Additional Comments F/U PO intake and ONS tolerance
[2020-04-02] MEDS: IBUPROFEN 600 MG TAB PO PRN (23:14)
[2020-04-03] MEDS: VANCOMYCIN 750 MG in SODIUM CHLORIDE 0.9% 250ML 250 ML IV SCH ×2 (00:22→14:11)
[2020-04-03 06:35] LABS: BUN/Creatinine Ratio 10; Blood Urea Nitrogen 10 mg/dL (7-17); Calcium 7.5 mg/dL (8.4-10.2); Hemolysis Index 5
[2020-04-03] MEDS: BENZONATATE 100 MG CAP PO PRN ×2 (06:45→21:31)
[2020-04-03] MEDS: MEROPENEM/NS 1 GRAM/100 ML 1 GRAM/100 ML BAG IV SCH ×3 (06:45→21:33)
[2020-04-03] MEDS: ENOXAPARIN 40 MG/0.4 ML INJ SUB-Q SCH (10:49)
[2020-04-03] MEDS: ATOVAQUONE 750 MG/5 ML ORAL SUSP PO SCH ×2 (10:49→21:29)
[2020-04-03] MEDS: ABACAVIR 300 MG TAB PO SCH (10:49)
[2020-04-03] MEDS: DOLUTEGRAVIR 50 MG TAB PO SCH ×2 (10:49→11:52)
[2020-04-03] MEDS: guaiFENesin/CODEINE 100-10MG ORAL LIQD 5 ML PO PRN (11:51)
[2020-04-03] MEDS: METOPROLOL TARTRATE 25 MG TAB PO SCH ×2 (11:53→21:29)
[2020-04-03] MEDS: DEXTROSE 50% IN WATER (25GM) 50 ML SYRINGE IV PRN (13:13)
[2020-04-03] MEDS: METOPROLOL TARTRATE 5 MG/5 ML INJ IV PRN (13:13)
[2020-04-03] MEDS: ACETAMINOPHEN 325 MG TAB PO PRN (13:24)
[2020-04-03] MEDS: D5W/0.45% NACL 1,000 ML IV SCH (14:10)
--- NOTE | 2020-04-03 14:53 | Progress Note ---
Assessment and Plan Cultures: SARS CoV2 PCR: Negative 03/23/2020 blood culture: no growth 03/23/2020 urine culture: no growth 03/24/2020 serum cryptococcal antigen: Negative HIV RNA PCR 34,900 MRSA nasal PCR: Negative 03/30/2020 blood culture: no growth A/P: 29/F with HIV, asthma recent admission at [facility], underwent lymph node biopsy/surgery now here with: #Pneumonia: continue empiric abx: Ceftriaxone + Azithromycin. #Fevers: unclear etiology. ?IRIS given recent resumption of ART, though would not explain lympahadenopathy. Most recent procalcitonion highly elevated >25. #Extensive lymphadenopathy: Status post biopsy at [facility]. Patient reports she underwent evaluation for TB, COVID-19 and influenza while at [facility] and was negative. 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 Negative for fungal and AFB organisms. Flow cytometry negative for abnormal B or T-cell population. Differential diagnosis is wide, could be fungal/AFB, Kikuchi, Castleman's disease, autoimmune, sarcoidosis. ?IRIS from recent initiation of HAART. CMV DNA negative. Fungitell negative. HHV-8 negative. #HIV disease: CD4 191, HIV RNA PCR back at 34,900. ?prior non compliance. follows up at [facility] clinic and is on Epzicom in addition to Tivicay, it seems she had nausea with her previous medications. HAART was recently started. #Positive Quantiferon: noted she reported being negative for TB at [facility], she reports blood test performed there. Will obtain AFB cultures and determine celia tment necessity, ordered x3. Will repeat Quantiferon too, as she is low risk for TB (born in [facility], no travel, never in shelter//homeless, no known family members with TB). Recs: -HHV-8 PCR pending -Continue empiric p.o. atovaquone 750 mg twice daily. Patient allergic to Bactrim -f/u EBV DNA PCR, urinary histoplasma Ag, -Continue vancomycin and meropenem -Continue HIV medications: PO Epzicom plus Tivicay (patient has her own meds) -Started prednisone 40mg q24h as steroid trial -Follow-up thoracentesis studies -airborn precautions pending AFB cultures -Repeat Quantiferon gold and procalcitonin. -Ordered AFB cultures x3 with induced sputum if necessary. Have not been obtained yet. Please obtain Will follow. Dr. Vazquez covering this weekend. Liat Lopez MD [facility] ([facility]) O: [phone] F: [phone] Subjective Date of service: 04/03/20 Interval history: Persistently febrile, up to 104.8 last night. HHV-8 PCR negative. No other acute complaints, wants to go home. Objective - Exam Narrative Exam: Physical Exam: Constitutional: Alert, cooperative. No acute distress Head, Ears, Nose: Normocephalic, atraumatic. External ears, nose normal Eyes: Conjunctivae/corneas clear. No icterus. No ptosis. Neck: Supple, no meningeal signs Cardiovascular: S1, S2 normal. Respiratory: Good air entry, clear to auscultation bilaterally GI: Soft, non-tender; bowel sounds normal. No peritoneal signs Musculoskeletal: No pedal edema, no cyanosis. Skin: No rash or abscess Psych: Mood ok. Affect normal Neurological: Awake, alert, oriented. No gross abnormality - Constitutional Vitals: Vital Signs Temp Pulse Resp BP Pulse Ox 99.0 F 81 18 106/75 99 04/03/20 03:55 04/03/20 10:27 04/03/20 03:55 04/03/20 03:55 04/03/20 03:55 Temperature -Last 24 Hours Temperature 99.0 F Temperature 100.1 F Temperature 101.6 F Temperature 102.7 F Temperature 104.8 F Temperature 97.7 F - Labs CBC & Chem 7: 04/02/20 05:07 04/03/20 05:24 Labs: Abnormal lab results 04/03/20 04/03/20 04/03/20 Range/Units 05:24 08:09 11:49 Sodium 136 L (137-145) mmol/L Glucose 134 H (65-100) mg/dL POC Glucose 111 H 69 L (70-105) mg/dL Calcium 7.5 L (8.4-10.2) mg/dL
--- NOTE | 2020-04-03 16:57 | Progress Note ---
Assessment and Plan Assessment and plan: Sepsis -POA -Presented with tachycardia into the 130s, tachypnea into the 30s and febrile state in the 101.6 and CXR shows pneumonia -S/p 2 L normal saline bolus and ceftriaxone in the ED -Antibiotic therapy -Infectious disease consulted, appreciate recommendations -COVID-19 PCR negative -03/23 blood cultures x2 no growth to date -03/23 urinalysis negative for nitrates and leukocyte esterase Fever of unknown origin -Due to underlying illness -Patient has been spiking temperatures since admission -Antibiotic therapy -Infectious disease consulted, appreciate recommendations -04/02 blood cultures x2 with no growth after 4 hours -03/23 urine culture shows normal joan -03/24 cryptococcal serum antigen negative, Histoplasma urinary antigen, EBV DNA PCR quantitative, Fungitell, TB QuantiFERON gold positive, CMV negative, Fungitell negative, HHV-8 negative, HHV -8 PCR pending -Pulmonary hygiene -Supportive care - Per ID: steroid trial with Prednisone 40 mg q 24 fo Acute respiratory failure -Patient is a supplemental oxygenation -Pulmonary hygiene -Pulmonary consult, appreciate recommendations Pleural effusion -Partially loculated [id number] right pleural effusion noted on CTA chest -Pulmonology consult, appreciate recommendations -03/31 coagulation studies -04/01 thoracentesis with removal of 720 mL of blood-tinged fluid -04/01 CXR postthoracentesis shows 50% decrease in loculated pleural effusion with no pneumothorax -04/01 Pleural fluid acid-fast base culture and smear, cell count, glucose, LDH, total protein pending Persistent tachycardia -Initiated beta-fletcher, titrate as needed -IV beta-fletcher as needed -Telemetry monitoring -Supportive care -04/02 thyroid studies: TSH 1.7, free T4 0.98, T4 5 Pneumonia -03/23 CXR shows pneumonia -03/27 CXR shows worsened patchy consolidation/effusion in the right lung base with minimal patchy left basilar airspace disease also now present. No appreciable effusion on the left. -Supplemental oxygen as needed -SPO2 monitoring -Antibiotic therapy -Supportive care -Pulmonary hygiene Extensive adenopathy -S/p biopsy at [facility] [place] (per infectious disease requested cervical lymph node biopsy results and hospitalization records) -Per ID: Opportunistic infection versus lymphoma versus sarcoid -03/23 CTA chest shows extensive lymphadenopathy throughout the chest involving bilateral axillary, mediastinal anthony regions, airspace consolidation of the right lower lobe with extensive tree-in-bud opacities in the right lower lobe and middle lobe less so within bilateral upper lobes -03/23 CTA neck shows recent left-sided lymph node biopsy, extensive bilateral symmetrical cervical neck lymphadenopathies with multifocal areas of necrosis -Per ID: 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, negative for fungal and AFB organisms, flow cytometry negative for abnormal B or T-cell population Suspected tuberculosis -03/23 PPD administered, read on 03/26 as negative (no induration, redness noted) -03/24 TB QuantiFERON gold positive -Discontinue airborne and droplet precautions -Per [facility] records: Acid-fast base of lymph node biopsy was negative -AFB x3 and repeat Quantiferon pending -Per ID: continue airborne precautions till AFB results Acute kidney injury -Presented with a BUN/creatinine 7/0.9 -04/01 BUN/creatinine 7/1.3 -MIVF -Trend BMP -Consider nephrology consult and further studies if not improving -Avoid nephrotoxic medications -Renally dose medications -Strict intake and output Elevated D-dimer -Presented with a D-dimer of 2608 -03/23 CTA chest shows no evidence of pulmonary embolism -03/30 BLE Doppler US negative for DVT/SVT Supratherapeutic INR -03/31 INR 1.26, PT 13.6, APTT 63.2 -Trend INR/PT/APTT -Monitor for bleeding Leukocytosis -04/02 WBC 12.6 -Antibiotic therapy -Trend CBC HIV disease -03/24: Absolute CD4 191, HIV RNA PCR [id number] -Continue home antiretroviral therapy -Follow-up outpatient with HIV clinic or ID Malnutrition -Presented with a BMI of 21 -Nutrition consulted for supplementation and dietary education Anxiety -As needed Ativan -Redirection and verbal de-escalation as needed -Supportive care -Follow-up outpatient with psych DVT -SCDs to bilateral lower extremities while in bed -Lovenox subcu -GI prophylaxis Metabolic acidosis, improving -03/24 CO2 on BMP is 21, 04/02 CO2 23 -Multifactorial -Trend BMP Hypokalemia, resolved -03/31 potassium 3.5, 04/02 K 3.4, 04/03 K 3.6 -Repleted -Trend BMP Hyperchloremia, resolved -03/27 chloride 108.4 -MIVF with NS -Trend BMP -04/03 Cl 104 History Interval history: This is a 29-year-old female with asthma and HIV he was admitted to the hospital on 03/23 with a 2-week history of a dry cough, shaking chills, and fever. Work-up in the emergency department revealed tachypnea, tachycardia, febrile state and a CXR which revealed pneumonia. Patient CT scan of the chest revealed bilateral infiltrates as well as evidence of tuberculosis lymphadenitis, and hyponatremia. Patient was admitted to the hospital service with consult infectious disease for rule out tuberculosis and COVID-19. 03/24: TB PPD pending, COVID-19 PCR negative, infectious disease consulted, fever and patient was started on antibiotic therapy. No acute events reported overnight. Remains supplemental oxygenation. 03/25: Patient is having persistent fevers, tachycardia into the 140s s/p IV Lopressor x1 and p.o. Lopressor for rate control, patient was transferred from [facility] to telemetry overnight. 03/26: Patient had a low-grade temperature this morning which was treated with Tylenol. Patient states that she feels slightly better but is still experiencing coughing and chills. Patient still remains on empiric antibiotics and her hyponatremia has improved. She has persistent fevers, on antibiotics, supportive care, we will try scheduled Tylenol every 6 hours for 24 hours 03/27: Patient remains febrile. This afternoon patient was tachypneic, tachycardic and experienced wheezing therefore she received an albuterol treatment with RT and IV metoprolol. Patient stated that she felt like she was having an anxiety attack and has a history of anxiety and RN was instructed to provide the patient with as needed Ativan. CXR ordered. Patient is currently on 5 L nasal cannula however on reexamination patient was speaking on the phone with her father. We will also order as needed Tessalon Perles. Patient's CXR shows worsening patchy consolidation/effusion in the right lung base with minimal patchy left basilar airspace disease. Encourage pulmonary hygiene. 03/28: Febrile and sinus tachycardia 03/29: Febrile and sinus tachycardia 03/30: Patient was hypoglycemic this morning to the 60s and she received oral intake. RN to recheck BG. Patient placed on hypoglycemic protocol with Accu- Cheks AC at bedtime. Patient remains tachycardic though afebrile (T-max 99.0). Discharge pending infectious disease clearance. 03/31: Pulmonology was consulted for loculated pleural effusion. Patient remains tachycardic to the low 100s but has been afebrile. Coagulation studies ordered by pulmonology are slightly elevated. Patient is hypokalemic today which was repleted. Repeat BMP in the a.m. 04/01: At the time my examination patient was 35% Venturi mask for comfort even though her SPO2 was in the high 90s, patient stated that she feels zapien, T-max 100.4, patient scheduled for a thoracentesis today. No acute events reported overnight. Patient still remains tachycardic and today she developed acute kidney injury. 04/02: Patient is on 35% venti mask for patient comfort and she states that she "is not feeling well" but does not elaborate further when asked. Sputum culture still not obtained and RN instructed to ask RT to obtain. Patient still is having tachycardia. 04/03: Patient was severely tachycardic and as needed beta-fletcher was given, patient was again febrile. Patient's RN reports that the patient has decreased p.o. intake and only drinks clear liquids therefore diet has been changed and patient has been restarted on MIVF. ID has initiated the patient on a trial dose of steroids. Airborne precautions strictly in place until AFB results. Hospitalist Physical - Constitutional Vitals: Temp Pulse Resp BP Pulse Ox 97.3 F L 133 H 25 H 105/50 99 04/03/20 14:49 04/03/20 14:49 04/03/20 13:20 04/03/20 14:49 04/03/20 14:49 General appearance: Present: no acute distress, well-nourished, other - EENT Eyes: Present: PERRL, EOM intact ENT: hearing intact, clear oral mucosa - Neck Neck: Present: normal ROM, cervical LAD - Respiratory Respiratory effort: normal Respiratory: bilateral: CTA - Cardiovascular Rhythm: regular Heart Sounds: Present: S1 & S2. Absent: systolic murmur, diastolic murmur - Extremities Extremities: no ischemia, pulses intact, pulses symmetrical, No edema, normal temperature, normal color, Full ROM Peripheral Pulses: within normal limits - Abdominal General gastrointestinal: soft, non-tender, non-distended, normal bowel sounds - Integumentary Integumentary: Present: clear, warm, dry - Psychiatric Psychiatric: appropriate mood/affect, cooperative - Neurologic Neurologic: CNII-XII intact, no focal deficits, moves all extremities - Allied Health Allied health notes reviewed: nursing Results - Labs CBC & Chem 7: 04/02/20 05:07 04/03/20 05:24 Labs: Laboratory Last Values WBC 12.6 K/mm3 (4.5-11.0) H 04/02/20 05:07 RBC 3.21 M/mm3 (3.65-5.03) L 04/02/20 05:07 Hgb 8.0 gm/dl (10.1-14.3) L 04/02/20 05:07 Hct 24.8 % (30.3-42.9) L 04/02/20 05:07 MCV 77 fl (79-97) L 04/02/20 05:07 MCH 25 pg (28-32) L 04/02/20 05:07 MCHC 32 % (30-34) 04/02/20 05:07 RDW 22.5 % (13.2-15.2) H 04/02/20 05:07 Plt Count 266 K/mm3 (140-440) 04/02/20 05:07 Lymph % (Auto) 9.7 % (13.4-35.0) L 04/02/20 05:07 [place] % (Auto) 12.3 % (0.0-7.3) H 04/02/20 05:07 Eos % (Auto) 0.2 % (0.0-4.3) 04/02/20 05:07 Baso % (Auto) 0.2 % (0.0-1.8) 04/02/20 05:07 Lymph # (Auto) 1.2 K/mm3 (1.2-5.4) 04/02/20 05:07 [place] # (Auto) 1.5 K/mm3 (0.0-0.8) H 04/02/20 05:07 Eos # (Auto) 0.0 K/mm3 (0.0-0.4) 04/02/20 05:07 Baso # (Auto) 0.0 K/mm3 (0.0-0.1) 04/02/20 05:07 Add Manual Diff Complete 03/30/20 04:54 Total Counted 100 03/30/20 04:54 Seg Neutrophils % 77.6 % (40.0-70.0) H 04/02/20 05:07 Seg Neuts % (Manual) 91.0 % (40.0-70.0) H 03/30/20 04:54 Band Neutrophils % 1.0 % 03/30/20 04:54 Lymphocytes % (Manual) 1.0 % (13.4-35.0) L 03/30/20 04:54 Monocytes % (Manual) 7.0 % (0.0-7.3) 03/30/20 04:54 Nucleated RBC % Not Reportable 03/30/20 04:54 Seg Neutrophils # 9.8 K/mm3 (1.8-7.7) H 04/02/20 05:07 Seg Neutrophils # Man 7.4 K/mm3 (1.8-7.7) 03/30/20 04:54 Band Neutrophils # 0.1 K/mm3 03/30/20 04:54 Abs Lymphs (Manual) 1064 cells/uL (850-3900) 03/24/20 15:27 Lymphocytes # (Manual) 0.1 K/mm3 (1.2-5.4) L 03/30/20 04:54 Abs React Lymphs (Man) 0.0 K/mm3 03/30/20 04:54 Monocytes # (Manual) 0.6 K/mm3 (0.0-0.8) 03/30/20 04:54 Eosinophils # (Manual) 0.0 K/mm3 (0.0-0.4) 03/30/20 04:54 Basophils # (Manual) 0.0 K/mm3 (0.0-0.1) 03/30/20 04:54 Metamyelocytes # 0.0 K/mm3 03/30/20 04:54 Myelocytes # 0.0 K/mm3 03/30/20 04:54 Promyelocytes # 0.0 K/mm3 03/30/20 04:54 Blast Cells # 0.0 K/mm3 03/30/20 04:54 WBC Morphology Not Reportable 03/30/20 04:54 Hypersegmented Neuts Not Reportable 03/30/20 04:54 Hyposegmented Neuts Not Reportable 03/30/20 04:54 Hypogranular Neuts Not Reportable 03/30/20 04:54 Smudge Cells Not Reportable 03/30/20 04:54 Toxic Granulation Not Reportable 03/30/20 04:54 Toxic Vacuolation Not Reportable 03/30/20 04:54 Dohle Bodies Not Reportable 03/30/20 04:54 Pelger-Huet Anomaly Not Reportable 03/30/20 04:54 Ney Rods Not Reportable 03/30/20 04:54 Platelet Estimate Consistent w auto 03/30/20 04:54 Clumped Platelets Not Reportable 03/30/20 04:54 Plt Clumps, EDTA Not Reportable 03/30/20 04:54 Large Platelets Not Reportable 03/30/20 04:54 Giant Platelets Not Reportable 03/30/20 04:54 Platelet Satelliting Not Reportable 03/30/20 04:54 Plt Morphology Comment Not Reportable 03/30/20 04:54 RBC Morphology Not Reportable 03/30/20 04:54 Dimorphic RBCs Not Reportable 03/30/20 04:54 Polychromasia Not Reportable 03/30/20 04:54 Hypochromasia Not Reportable 03/30/20 04:54 Poikilocytosis Not Reportable 03/30/20 04:54 Anisocytosis 1+ 03/30/20 04:54 Microcytosis Not Reportable 03/30/20 04:54 Macrocytosis Not Reportable 03/30/20 04:54 Spherocytes Not Reportable 03/30/20 04:54 Pappenheimer Bodies Not Reportable 03/30/20 04:54 Sickle Cells Not Reportable 03/30/20 04:54 Target Cells Not Reportable 03/30/20 04:54 Tear Drop Cells Not Reportable 03/30/20 04:54 Ovalocytes Not Reportable 03/30/20 04:54 Helmet Cells Not Reportable 03/30/20 04:54 Badillo-Chinchilla Bodies Not Reportable 03/30/20 04:54 [place] Rings Not Reportable 03/30/20 04:54 [place] Cells Not Reportable 03/30/20 04:54 Bite Cells Not Reportable 03/30/20 04:54 Crenated Cell Not Reportable 03/30/20 04:54 Elliptocytes Not Reportable 03/30/20 04:54 Acanthocytes (Spur) Not Reportable 03/30/20 04:54 Rouleaux Not Reportable 03/30/20 04:54 Hemoglobin C Crystals Not Reportable 03/30/20 04:54 Schistocytes Not Reportable 03/30/20 04:54 Malaria parasites Not Reportable 03/30/20 04:54 Tyron Bodies Not Reportable 03/30/20 04:54 Hem Pathologist Commnt No 03/30/20 04:54 PT 17.1 Sec. (12.2-14.9) H 04/02/20 09:29 INR 1.41 (0.87-1.13) H 04/02/20 09:29 APTT 48.6 Sec. (24.2-36.6) H 04/02/20 09:29 D-Dimer 1520.95 ng/mlDDU (0-234) H 03/27/20 04:53 VBG pH 7.482 (7.320-7.420) H 03/23/20 17:13 Sodium 136 mmol/L (137-145) L 04/03/20 05:24 Potassium 3.6 mmol/L (3.6-5.0) 04/03/20 05:24 Chloride 104.1 mmol/L (98-107) 04/03/20 05:24 Carbon Dioxide 25 mmol/L (22-30) 04/03/20 05:24 Anion Gap 11 mmol/L 04/03/20 05:24 BUN 10 mg/dL (7-17) 04/03/20 05:24 Creatinine 1.0 mg/dL (0.6-1.2) 04/03/20 05:24 Estimated GFR > 60 ml/min 04/03/20 05:24 BUN/Creatinine Ratio 10 % 04/03/20 05:24 Glucose 134 mg/dL (65-100) H 04/03/20 05:24 POC Glucose 77 mg/dL (70-105) 04/03/20 12:54 Lactic Acid 1.10 mmol/L (0.7-2.0) 03/23/20 18:25 Calcium 7.5 mg/dL (8.4-10.2) L 04/03/20 05:24 Magnesium 1.90 mg/dL (1.7-2.3) 04/02/20 05:07 Ferritin 1124.0 ng/mL (10.0-200.0) H 03/23/20 16:28 Total Bilirubin 0.60 mg/dL (0.1-1.2) 04/02/20 05:07 Direct Bilirubin 0.3 mg/dL (0-0.2) H 04/02/20 05:07 Indirect Bilirubin 0.3 mg/dL 04/02/20 05:07 AST 18 units/L (5-40) 04/02/20 05:07 ALT 13 units/L (7-56) 04/02/20 05:07 Alkaline Phosphatase 227 units/L (35-129) H 04/02/20 05:07 Lactate Dehydrogenase 428 units/L (91-180) H 03/23/20 16:28 Total Creatine Kinase 30 units/L (30-135) 03/23/20 16:28 C-Reactive Protein 23.00 mg/dL (0.00-1.30) H 03/27/20 04:53 Total Protein 6.5 g/dL (6.3-8.2) 04/02/20 05:07 Albumin 2.0 g/dL (3.9-5) L 04/02/20 05:07 Albumin/Globulin Ratio 0.4 % 04/02/20 05:07 Procalcitonin 26.58 ng/mL (<0.15) 03/30/20 18:15 TSH 1.730 mlU/mL (0.270-4.200) 04/02/20 19:11 Free T4 0.98 ng/dL (0.76-1.46) 04/02/20 19:11 Thyroxine (T4) 5.0 ug/dL (4.0-12.0) 04/02/20 19:11 HCG, Quant < 2 mIU/mL (0-4) 03/23/20 16:28 Urine Color Colorless (Yellow) 03/23/20 Unknown Urine Turbidity Clear (Clear) 03/23/20 Unknown Urine pH 7.0 (5.0-7.0) 03/23/20 Unknown Ur Specific [place] 1.019 (1.003-1.030) 03/23/20 Unknown Urine Protein <15 mg/dl mg/dL (Negative) 03/23/20 Unknown Urine Glucose (UA) Neg mg/dL (Negative) 03/23/20 Unknown Urine Ketones Neg mg/dL (Negative) 03/23/20 Unknown Urine Blood Sm (Negative) 03/23/20 Unknown Urine Nitrite Neg (Negative) 03/23/20 Unknown Ur Reducing Substances Not Reportable 03/23/20 Unknown Urine Bilirubin Neg (Negative) 03/23/20 Unknown Urine Ictotest Not Reportable 03/23/20 Unknown Urine Urobilinogen < 2.0 mg/dL (<2.0) 03/23/20 Unknown Ur Leukocyte Esterase Neg (Negative) 03/23/20 Unknown Urine WBC (Auto) 1.0 /HPF (0.0-6.0) 03/23/20 Unknown Urine RBC (Auto) 1.0 /HPF (0.0-6.0) 03/23/20 Unknown U Epithel Cells (Auto) < 1.0 /HPF (0-13.0) 03/23/20 Unknown Nasal Screen MRSA (PCR) Negative (Negative) 03/24/20 06:42 Vancomycin Trough 14.6 ug/mL (5.0-20.0) 04/01/20 07:27 Lymph Enumerat CD4/CD8 0.23 (0.86-5.00) L 03/24/20 15:27 % CD3 Cells 92 % (57-85) H 03/24/20 15:27 Absolute CD3 Count 978 cells/uL (840-3060) 03/24/20 15:27 % CD4 Cells 17 % (30-61) L 03/24/20 15:27 Absolute CD4 Count 191 cells/uL (490-1740) L 03/24/20 15:27 % CD8 Cells 76 % (12-42) H 03/24/20 15:27 Absolute CD8 Count 837 cells/uL (180-1170) 03/24/20 15:27 % CD19 Cells 2 % (6-29) L 03/24/20 15:27 Absolute CD19 Count 22 cells/uL (110-660) L 03/24/20 15:27 Coronavirus (PCR) Negative (Negative) 03/24/20 Unknown CMV Specimen Source Serum 03/24/20 15:27 CMV DNA PCR log advertising copy writer/mL See scanned result 03/24/20 15:27 HIV-1 RNA PCR copies/ml 04106 Copies/mL H 03/24/20 15:27 HIV-1 RNA (PCR) log 4.54 Log cps/mL H 03/24/20 15:27 TB (QFT) Gold In Tube Positive (NEGATIVE) H 03/27/20 11:08 TB Test (QFT) Nil 3.46 IU/mL 03/27/20 11:08 TB Test Mitogen - Nil 4.57 IU/mL 03/27/20 11:08 TB Test Ag - Nil 1 1.82 IU/mL 03/27/20 11:08 TB Test Ag - Nil 2 1.95 IU/mL 03/27/20 11:08 Miscellaneous Test Flexitest 1 03/31/20 07:56 Microbiology: Microbiology 03/30/20 18:15 Peripheral/Venous Blood Culture - Preliminary NO GROWTH AFTER 72 HOURS 03/30/20 18:15 Peripheral/Venous Blood Culture - Preliminary NO GROWTH AFTER 72 HOURS Marroquin/IV: Voiding Method Toilet Active Medications - Current Medications Current Medications: Generic Name Dose Route Start Last Admin Trade Name Freq PRN Reason Stop Dose Admin Abacavir Sulfate 600 mg 03/24/20 16:00 04/03/20 10:49 Abacavir 300 Mg Tab PO 600 mg DAILY SUN Administration Acetaminophen 650 mg 03/30/20 15:19 04/03/20 13:24 Acetaminophen 325 Mg Tab PO 650 mg Q4H PRN Administration Pain, Mild (1-3) Albuterol 2.5 mg 03/23/20 19:21 03/28/20 14:44 Albuterol 2.5 Mg/3 Ml Nebu IH 2.5 mg Q4HRT PRN Administration Shortness Of Breath Alprazolam 0.5 mg 03/25/20 11:00 04/02/20 21:39 Alprazolam 0.5 Mg Tab PO 0.5 mg Q8H PRN Administration Anxiety Atovaquone 750 mg 03/27/20 22:00 04/03/20 10:49 Atovaquone 750 Mg/5 Ml Oral Susp PO 750 mg BID SUN Administration Benzonatate 100 mg 03/27/20 14:53 04/03/20 06:45 Benzonatate 100 Mg Cap PO 100 mg Q8HR PRN Administration Cough Dextrose 50 ml 03/31/20 16:27 04/03/20 13:13 Dextrose 50% In Water (25gm) 50 Ml Syringe IV 50 ml Q30MIN PRN Administration Hypoglycemia Protocol Enoxaparin Sodium 40 mg 03/25/20 15:00 04/03/20 10:49 Enoxaparin 40 Mg/0.4 Ml Inj SUB-Q 40 mg QDAY@1000 SUN Administration MEROPENEM/NS 1 GRAM/100 ML 1 gram in 100 mls @ 100 mls/hr 03/30/20 18:00 04/03/20 14:10 Merrem/Ns 1 Gram/100 Ml IV 100 mls/hr Q8HR SUN Administration Protocol Vancomycin HCl 750 mg/ Sodium 265 mls @ 166.667 mls/hr 04/01/20 13:00 04/03/20 14:11 Chloride IV 166.667 mls/hr Q12H SUN Administration Dextrose/Sodium Chloride 1,000 mls @ 42 mls/hr 04/03/20 14:00 04/03/20 14:10 D5/0.45ns IV 42 mls/hr DIRECT SUN Administration Ibuprofen 600 mg 03/27/20 00:15 04/02/20 23:14 Ibuprofen 600 Mg Tab PO 600 mg Q8H PRN Administration Pain, Mild (1-3) Lamivudine 300 mg 03/24/20 16:00 04/03/20 10:48 Lamivudine 150 Mg Tab PO 300 mg DAILY SUN Administration Loperamide HCl 2 mg 03/29/20 14:39 04/02/20 21:39 Loperamide 2 Mg Cap PO 2 mg Q2H PRN Administration Diarrhea Metoprolol Tartrate 2.5 mg 03/25/20 11:00 04/03/20 13:13 Metoprolol Tartrate 5 Mg/5 Ml Inj IV 2.5 mg Q6H PRN Administration Tachyarrhythmias Metoprolol Tartrate 50 mg 03/29/20 22:00 04/03/20 11:53 Metoprolol Tartrate 25 Mg Tab PO Not Given BID [facility] Ondansetron HCl 4 mg 03/23/20 19:21 03/31/20 05:04 Ondansetron 4 Mg/2 Ml Inj IV 4 mg Q8H PRN Administration Nausea And Vomiting Pseudoephedrine/Acetam/Chlorphenir 15 ml 03/24/20 16:53 04/03/20 11:51 Guaifenesin/Codeine 100-10mg Oral Liqd 5 Ml PO 15 ml Q4H PRN Administration Cough Sodium Chloride 10 ml 03/23/20 22:00 04/03/20 11:52 Sodium Chloride 0.9% 10 Ml Flush Syringe IV 10 ml BID SUN Administration Sodium Chloride 10 ml 03/23/20 19:21 03/31/20 05:05 Sodium Chloride 0.9% 10 Ml Flush Syringe IV 10 ml PRN PRN Administration LINE FLUSH Nutrition/Malnutrition Assess - Dietary Evaluation Nutrition/Malnutrition Findings: Nutrition Notes Start: 03/24/20 10:38 Freq: Status: Active Protocol: Document 04/02/20 10:02 CW (Rec: 04/02/20 10:19 CW [id number]) Nutrition Notes Initial or Follow up Reassessment Other Pertinent Diagnosis PNA, tuberculosis, HIV Current Diet Cardiac Diet Labs/Tests K 3.4 Pertinent Medications Imodium Vancomycin Merpenem Height 5 ft 2 in Weight 59.2 kg [place] Body Weight (kg) 50.00 BMI 23.8 Intake Prior to Admission Fair Weight change and time frame Weight change noted; likely r/ t edema Weight Status Appropriate Subjective/Other Information F/U for ONS tolerance and intakes. Intakes have decreased. Pt requests soft snacks such as applesauce and ice cream throughout the day. Pt states that she dislikes the food. Food preferences noted and relayed to the kitchen. Pt states that she likes receiving ensures but has a few in the room to drink throughout the day. Will monitor for further build up of ONS in room. Percent of energy/protein needs met: 0%/0% Burn Absent Trauma Absent GI Symptoms None,Diarrhea Food Allergy Yes Current % PO Negligible Minimum of two criteria Yes Energy Intake (severe) < or equal to 50% Estimated Energy Requirement > or equal to 5 days Fluid Accumulation Moderate to Severe (severe) #1 Nutrition Diagnosis Malnutrition As Evidenced by Signs and Symptoms Regained fruit thinner stength and edema now nonpitting however energy intake is still neglible Diagnosis Progress(for reassessment Improved documentation) Is patient on ventilator? No Is Patient Ambulatory and/or Out of Bed Yes [facility] [ 1644.825 [id number]] [facility] Additional Notes Protein needs:52 - 69g (1 - 1. 2g/kg for hepatic disorder) Fluid: 1ml/kcal or MD order Nutrition Intervention Change Diet Order: Continue cardiac diet Add Supplement/Snack (indicate name/kcal Ensure Enlive BID /protein ) Provides kCal: 700 Provides Protein (gm) 40 Goal #1 Meet at least 75% of energy and protein needs Goal #2 Monitor for PO intakes Goal #3 ONS tolerance Anticipated Discharge Needs: Cardiac Diet Follow-Up By: 04/06/20 Additional Comments F/U PO intake and ONS tolerance
[2020-04-03] MEDS: ALPRAZolam 0.5 MG TAB PO PRN (21:29)
[2020-04-03] MEDS: IBUPROFEN 600 MG TAB PO PRN (21:31)
[2020-04-03] MEDS: LOPERAMIDE 2 MG CAP PO PRN (22:12)
[2020-04-04] MEDS: VANCOMYCIN 750 MG in SODIUM CHLORIDE 0.9% 250ML 250 ML IV SCH ×2 (01:15→13:02)
[2020-04-04] MEDS: MEROPENEM/NS 1 GRAM/100 ML 1 GRAM/100 ML BAG IV SCH ×3 (06:34→22:51)
[2020-04-04 07:06] LABS: Hematocrit 23.9 % (30.3-42.9); Mean Corpuscular HGB Conc 33 % (30-34); Mean Corpuscular Volume 77 fl (79-97); Platelet Count 223 K/mm3 (140-440); Red Blood Count 3.11 M/mm3 (3.65-5.03)
[2020-04-04 07:29] LABS: BUN/Creatinine Ratio 11; Blood Urea Nitrogen 13 mg/dL (7-17); Hemolysis Index 13
--- NOTE | 2020-04-04 08:44 | Progress Note ---
Assessment and Plan Assessment and plan: Sepsis -POA -Presented with tachycardia into the 130s, tachypnea into the 30s and febrile state in the 101.6 and CXR shows pneumonia -S/p 2 L normal saline bolus and ceftriaxone in the ED -Antibiotic therapy -Infectious disease consulted, appreciate recommendations -COVID-19 PCR negative -03/23 blood cultures x2 no growth to date -03/23 urinalysis negative for nitrates and leukocyte esterase Fever of unknown origin -Due to underlying illness -Patient has been spiking temperatures since admission -Antibiotic therapy -Infectious disease consulted, appreciate recommendations -04/02 blood cultures x2 with no growth after 4 hours -03/23 urine culture shows normal joan -03/24 cryptococcal serum antigen negative, Histoplasma urinary antigen, EBV DNA PCR quantitative, Fungitell, TB QuantiFERON gold positive, CMV negative, Fungitell negative, HHV-8 negative, HHV -8 PCR pending -Pulmonary hygiene -Supportive care - Per ID: steroid trial with Prednisone 40 mg q 24 fo Acute respiratory failure -Patient is a supplemental oxygenation -Pulmonary hygiene -Pulmonary consult, appreciate recommendations Pleural effusion -Partially loculated [id number] right pleural effusion noted on CTA chest -Pulmonology consult, appreciate recommendations -03/31 coagulation studies -04/01 thoracentesis with removal of 720 mL of blood-tinged fluid -04/01 CXR postthoracentesis shows 50% decrease in loculated pleural effusion with no pneumothorax -04/01 Pleural fluid acid-fast base culture and smear, cell count, glucose, LDH, total protein pending Persistent tachycardia -Initiated beta-fletcher, titrate as needed -IV beta-fletcher as needed -Telemetry monitoring -Supportive care -04/02 thyroid studies: TSH 1.7, free T4 0.98, T4 5 Pneumonia -03/23 CXR shows pneumonia -03/27 CXR shows worsened patchy consolidation/effusion in the right lung base with minimal patchy left basilar airspace disease also now present. No appreciable effusion on the left. -Supplemental oxygen as needed -SPO2 monitoring -Antibiotic therapy -Supportive care -Pulmonary hygiene Extensive adenopathy -S/p biopsy at [facility] (per infectious disease requested cervical lymph node biopsy results and hospitalization records) -Per ID: Opportunistic infection versus lymphoma versus sarcoid -03/23 CTA chest shows extensive lymphadenopathy throughout the chest involving bilateral axillary, mediastinal anthony regions, airspace consolidation of the right lower lobe with extensive tree-in-bud opacities in the right lower lobe and middle lobe less so within bilateral upper lobes -03/23 CTA neck shows recent left-sided lymph node biopsy, extensive bilateral symmetrical cervical neck lymphadenopathies with multifocal areas of necrosis -Per ID: 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, negative for fungal and AFB organisms, flow cytometry negative for abnormal B or T-cell population Suspected tuberculosis -03/23 PPD administered, read on 03/26 as negative (no induration, redness noted) -03/24 TB QuantiFERON gold positive -Discontinue airborne and droplet precautions -Per [facility] records: Acid-fast base of lymph node biopsy was negative -AFB x3 and repeat Quantiferon pending -Per ID: continue airborne precautions till AFB results Acute kidney injury -Presented with a BUN/creatinine 7/0.9 -04/01 BUN/creatinine 7/1.3 -MIVF -Trend BMP -Consider nephrology consult and further studies if not improving -Avoid nephrotoxic medications -Renally dose medications -Strict intake and output Elevated D-dimer -Presented with a D-dimer of 2608 -03/23 CTA chest shows no evidence of pulmonary embolism -03/30 BLE Doppler US negative for DVT/SVT Supratherapeutic INR -03/31 INR 1.26, PT 13.6, APTT 63.2 -Trend INR/PT/APTT -Monitor for bleeding Leukocytosis -04/02 WBC 12.6 -Antibiotic therapy -Trend CBC HIV disease -03/24: Absolute CD4 191, HIV RNA PCR [id number] -Continue home antiretroviral therapy -Follow-up outpatient with HIV clinic or ID Malnutrition -Presented with a BMI of 21 -Nutrition consulted for supplementation and dietary education Anxiety -As needed Ativan -Redirection and verbal de-escalation as needed -Supportive care -Follow-up outpatient with psych DVT -SCDs to bilateral lower extremities while in bed -Lovenox subcu -GI prophylaxis Metabolic acidosis, improving -03/24 CO2 on BMP is 21, 04/02 CO2 23 -Multifactorial -Trend BMP Hypokalemia, resolved -03/31 potassium 3.5, 04/02 K 3.4, 04/03 K 3.6 -Repleted -Trend BMP Hyperchloremia, resolved -03/27 chloride 108.4 -MIVF with NS -Trend BMP -04/03 Cl 104 History Interval history: This is a 29-year-old female with asthma and HIV he was admitted to the hospital on 03/23 with a 2-week history of a dry cough, shaking chills, and fever. Work-up in the emergency department revealed tachypnea, tachycardia, febrile state and a CXR which revealed pneumonia. Patient CT scan of the chest revealed bilateral infiltrates as well as evidence of tuberculosis lymphadenitis, and hyponatremia. Patient was admitted to the hospital service with consult infectious disease for rule out tuberculosis and COVID-19. 03/24: TB PPD pending, COVID-19 PCR negative, infectious disease consulted, fever and patient was started on antibiotic therapy. No acute events reported overnight. Remains supplemental oxygenation. 03/25: Patient is having persistent fevers, tachycardia into the 140s s/p IV Lopressor x1 and p.o. Lopressor for rate control, patient was transferred from [facility] to telemetry overnight. 03/26: Patient had a low-grade temperature this morning which was treated with Tylenol. Patient states that she feels slightly better but is still experiencing coughing and chills. Patient still remains on empiric antibiotics and her hyponatremia has improved. She has persistent fevers, on antibiotics, supportive care, we will try scheduled Tylenol every 6 hours for 24 hours 03/27: Patient remains febrile. This afternoon patient was tachypneic, tachycardic and experienced wheezing therefore she received an albuterol treatment with RT and IV metoprolol. Patient stated that she felt like she was having an anxiety attack and has a history of anxiety and RN was instructed to provide the patient with as needed Ativan. CXR ordered. Patient is currently on 5 L nasal cannula however on reexamination patient was speaking on the phone with her father. We will also order as needed Tessalon Perles. Patient's CXR shows worsening patchy consolidation/effusion in the right lung base with minimal patchy left basilar airspace disease. Encourage pulmonary hygiene. 03/28: Febrile and sinus tachycardia 03/29: Febrile and sinus tachycardia 03/30: Patient was hypoglycemic this morning to the 60s and she received oral intake. RN to recheck BG. Patient placed on hypoglycemic protocol with Accu- Cheks AC at bedtime. Patient remains tachycardic though afebrile (T-max 99.0). Discharge pending infectious disease clearance. 03/31: Pulmonology was consulted for loculated pleural effusion. Patient remains tachycardic to the low 100s but has been afebrile. Coagulation studies ordered by pulmonology are slightly elevated. Patient is hypokalemic today which was repleted. Repeat BMP in the a.m. 04/01: At the time my examination patient was 35% Venturi mask for comfort even though her SPO2 was in the high 90s, patient stated that she feels zapien, T-max 100.4, patient scheduled for a thoracentesis today. No acute events reported overnight. Patient still remains tachycardic and today she developed acute kidney injury. 04/02: Patient is on 35% venti mask for patient comfort and she states that she "is not feeling well" but does not elaborate further when asked. Sputum culture still not obtained and RN instructed to ask RT to obtain. Patient still is having tachycardia. 04/03: Patient was severely tachycardic and as needed beta-fletcher was given, patient was again febrile. Patient's RN reports that the patient has decreased p.o. intake and only drinks clear liquids therefore diet has been changed and patient has been restarted on MIVF. ID has initiated the patient on a trial dose of steroids. Airborne precautions strictly in place until AFB results. 04/04/2020; -HHV-8 PCR pending -Continue empiric p.o. atovaquone 750 mg twice daily. Patient allergic to Bactrim -f/u EBV DNA PCR, urinary histoplasma Ag, -Continue vancomycin and meropenem -Continue HIV medications: PO Epzicom plus Tivicay (patient has her own meds) -Started prednisone 40mg q24h as steroid trial -Follow-up thoracentesis studies -airborn precautions pending AFB cultures -Repeat Quantiferon gold and procalcitonin. -Ordered AFB cultures x3 with induced sputum if necessary. Have not been obtained yet. I discussed with respiratory to get induced sputum. History Interval history: Patient was seen and evaluated this morning Patient said has poor appetite but drinking fluids well No fever overnight No sputum production [facility] - Physical exam Narrative exam: Not in cardiopulmonary distress. The patient appeared well nourished and normally developed. Vital signs as documented. Head exam is unremarkable. No scleral icterus . Neck is without jugular venous distension, thyromegaly, or carotid bruits. Lungs are clear to auscultation. Cardiac exam reveals regular rate and Rhythm. Abdominal exam reveals normal bowel sounds, nontender, no organomegaly. Extremities are nonedematous and both femoral and pedal pulses are normal. CASE SEALER: Alert and oriented 3. No focal weakness. - Constitutional Vitals: Temp Pulse Resp BP Pulse Ox 98.3 F 91 H 18 120/81 100 04/04/20 05:02 04/04/20 05:02 04/04/20 05:02 04/04/20 05:02 04/04/20 05:02 General appearance: Present: no acute distress, well-nourished, other Results - Labs CBC & Chem 7: 04/04/20 05:37 04/04/20 05:37 Labs: Laboratory Last Values WBC 8.4 K/mm3 (4.5-11.0) 04/04/20 05:37 RBC 3.11 M/mm3 (3.65-5.03) L 04/04/20 05:37 Hgb 8.0 gm/dl (10.1-14.3) L 04/04/20 05:37 Hct 23.9 % (30.3-42.9) L 04/04/20 05:37 MCV 77 fl (79-97) L 04/04/20 05:37 MCH 26 pg (28-32) L 04/04/20 05:37 MCHC 33 % (30-34) 04/04/20 05:37 RDW 23.0 % (13.2-15.2) H 04/04/20 05:37 Plt Count 223 K/mm3 (140-440) 04/04/20 05:37 Lymph % (Auto) 9.7 % (13.4-35.0) L 04/02/20 05:07 [place] % (Auto) 12.3 % (0.0-7.3) H 04/02/20 05:07 Eos % (Auto) 0.2 % (0.0-4.3) 04/02/20 05:07 Baso % (Auto) 0.2 % (0.0-1.8) 04/02/20 05:07 Lymph # (Auto) 1.2 K/mm3 (1.2-5.4) 04/02/20 05:07 [place] # (Auto) 1.5 K/mm3 (0.0-0.8) H 04/02/20 05:07 Eos # (Auto) 0.0 K/mm3 (0.0-0.4) 04/02/20 05:07 Baso # (Auto) 0.0 K/mm3 (0.0-0.1) 04/02/20 05:07 Add Manual Diff Complete 03/30/20 04:54 Total Counted 100 03/30/20 04:54 Seg Neutrophils % 77.6 % (40.0-70.0) H 04/02/20 05:07 Seg Neuts % (Manual) 91.0 % (40.0-70.0) H 03/30/20 04:54 Band Neutrophils % 1.0 % 03/30/20 04:54 Lymphocytes % (Manual) 1.0 % (13.4-35.0) L 03/30/20 04:54 Monocytes % (Manual) 7.0 % (0.0-7.3) 03/30/20 04:54 Nucleated RBC % Not Reportable 03/30/20 04:54 Seg Neutrophils # 9.8 K/mm3 (1.8-7.7) H 04/02/20 05:07 Seg Neutrophils # Man 7.4 K/mm3 (1.8-7.7) 03/30/20 04:54 Band Neutrophils # 0.1 K/mm3 03/30/20 04:54 Abs Lymphs (Manual) 1064 cells/uL (850-3900) 03/24/20 15:27 Lymphocytes # (Manual) 0.1 K/mm3 (1.2-5.4) L 03/30/20 04:54 Abs React Lymphs (Man) 0.0 K/mm3 03/30/20 04:54 Monocytes # (Manual) 0.6 K/mm3 (0.0-0.8) 03/30/20 04:54 Eosinophils # (Manual) 0.0 K/mm3 (0.0-0.4) 03/30/20 04:54 Basophils # (Manual) 0.0 K/mm3 (0.0-0.1) 03/30/20 04:54 Metamyelocytes # 0.0 K/mm3 03/30/20 04:54 Myelocytes # 0.0 K/mm3 03/30/20 04:54 Promyelocytes # 0.0 K/mm3 03/30/20 04:54 Blast Cells # 0.0 K/mm3 03/30/20 04:54 WBC Morphology Not Reportable 03/30/20 04:54 Hypersegmented Neuts Not Reportable 03/30/20 04:54 Hyposegmented Neuts Not Reportable 03/30/20 04:54 Hypogranular Neuts Not Reportable 03/30/20 04:54 Smudge Cells Not Reportable 03/30/20 04:54 Toxic Granulation Not Reportable 03/30/20 04:54 Toxic Vacuolation Not Reportable 03/30/20 04:54 Dohle Bodies Not Reportable 03/30/20 04:54 Pelger-Huet Anomaly Not Reportable 03/30/20 04:54 Ney Rods Not Reportable 03/30/20 04:54 Platelet Estimate Consistent w auto 03/30/20 04:54 Clumped Platelets Not Reportable 03/30/20 04:54 Plt Clumps, EDTA Not Reportable 03/30/20 04:54 Large Platelets Not Reportable 03/30/20 04:54 Giant Platelets Not Reportable 03/30/20 04:54 Platelet Satelliting Not Reportable 03/30/20 04:54 Plt Morphology Comment Not Reportable 03/30/20 04:54 RBC Morphology Not Reportable 03/30/20 04:54 Dimorphic RBCs Not Reportable 03/30/20 04:54 Polychromasia Not Reportable 03/30/20 04:54 Hypochromasia Not Reportable 03/30/20 04:54 Poikilocytosis Not Reportable 03/30/20 04:54 Anisocytosis 1+ 03/30/20 04:54 Microcytosis Not Reportable 03/30/20 04:54 Macrocytosis Not Reportable 03/30/20 04:54 Spherocytes Not Reportable 03/30/20 04:54 Pappenheimer Bodies Not Reportable 03/30/20 04:54 Sickle Cells Not Reportable 03/30/20 04:54 Target Cells Not Reportable 03/30/20 04:54 Tear Drop Cells Not Reportable 03/30/20 04:54 Ovalocytes Not Reportable 03/30/20 04:54 Helmet Cells Not Reportable 03/30/20 04:54 Bad[place]-Harrison Bodies Not Reportable 03/30/20 04:54 Noble Rings Not Reportable 03/30/20 04:54 [place] Cells Not Reportable 03/30/20 04:54 Bite Cells Not Reportable 03/30/20 04:54 Crenated Cell Not Reportable 03/30/20 04:54 Elliptocytes Not Reportable 03/30/20 04:54 Acanthocytes (Spur) Not Reportable 03/30/20 04:54 Rouleaux Not Reportable 03/30/20 04:54 Hemoglobin C Crystals Not Reportable 03/30/20 04:54 Schistocytes Not Reportable 03/30/20 04:54 Malaria parasites Not Reportable 03/30/20 04:54 Tyron Bodies Not Reportable 03/30/20 04:54 Hem Pathologist Commnt No 03/30/20 04:54 PT 17.1 Sec. (12.2-14.9) H 04/02/20 09:29 INR 1.41 (0.87-1.13) H 04/02/20 09:29 APTT 48.6 Sec. (24.2-36.6) H 04/02/20 09:29 D-Dimer 1520.95 ng/mlDDU (0-234) H 03/27/20 04:53 VBG pH 7.482 (7.320-7.420) H 03/23/20 17:13 Sodium 136 mmol/L (137-145) L 04/04/20 05:37 Potassium 3.5 mmol/L (3.6-5.0) L 04/04/20 05:37 Chloride 104.2 mmol/L (98-107) 04/04/20 05:37 Carbon Dioxide 24 mmol/L (22-30) 04/04/20 05:37 Anion Gap 11 mmol/L 04/04/20 05:37 BUN 13 mg/dL (7-17) 04/04/20 05:37 Creatinine 1.2 mg/dL (0.6-1.2) 04/04/20 05:37 Estimated GFR > 60 ml/min 04/04/20 05:37 BUN/Creatinine Ratio 11 % 04/04/20 05:37 Glucose 85 mg/dL (65-100) 04/04/20 05:37 POC Glucose 82 mg/dL (70-105) 04/03/20 21:31 Lactic Acid 1.10 mmol/L (0.7-2.0) 03/23/20 18:25 Calcium 8.0 mg/dL (8.4-10.2) L 04/04/20 05:37 Magnesium 1.90 mg/dL (1.7-2.3) 04/02/20 05:07 Ferritin 1124.0 ng/mL (10.0-200.0) H 03/23/20 16:28 Total Bilirubin 0.60 mg/dL (0.1-1.2) 04/02/20 05:07 Direct Bilirubin 0.3 mg/dL (0-0.2) H 04/02/20 05:07 Indirect Bilirubin 0.3 mg/dL 04/02/20 05:07 AST 18 units/L (5-40) 04/02/20 05:07 ALT 13 units/L (7-56) 04/02/20 05:07 Alkaline Phosphatase 227 units/L (35-129) H 04/02/20 05:07 Lactate Dehydrogenase 428 units/L (91-180) H 03/23/20 16:28 Total Creatine Kinase 30 units/L (30-135) 03/23/20 16:28 C-Reactive Protein 23.00 mg/dL (0.00-1.30) H 03/27/20 04:53 Total Protein 6.5 g/dL (6.3-8.2) 04/02/20 05:07 Albumin 2.0 g/dL (3.9-5) L 04/02/20 05:07 Albumin/Globulin Ratio 0.4 % 04/02/20 05:07 Procalcitonin 26.58 ng/mL (<0.15) 03/30/20 18:15 TSH 1.730 mlU/mL (0.270-4.200) 04/02/20 19:11 Free T4 0.98 ng/dL (0.76-1.46) 04/02/20 19:11 Thyroxine (T4) 5.0 ug/dL (4.0-12.0) 04/02/20 19:11 HCG, Quant < 2 mIU/mL (0-4) 03/23/20 16:28 Urine Color Colorless (Yellow) 03/23/20 Unknown Urine Turbidity Clear (Clear) 03/23/20 Unknown Urine pH 7.0 (5.0-7.0) 03/23/20 Unknown Ur Specific [place] 1.019 (1.003-1.030) 03/23/20 Unknown Urine Protein <15 mg/dl mg/dL (Negative) 03/23/20 Unknown Urine Glucose (UA) Neg mg/dL (Negative) 03/23/20 Unknown Urine Ketones Neg mg/dL (Negative) 03/23/20 Unknown Urine Blood Sm (Negative) 03/23/20 Unknown Urine Nitrite Neg (Negative) 03/23/20 Unknown Ur Reducing Substances Not Reportable 03/23/20 Unknown Urine Bilirubin Neg (Negative) 03/23/20 Unknown Urine Ictotest Not Reportable 03/23/20 Unknown Urine Urobilinogen < 2.0 mg/dL (<2.0) 03/23/20 Unknown Ur Leukocyte Esterase Neg (Negative) 03/23/20 Unknown Urine WBC (Auto) 1.0 /HPF (0.0-6.0) 03/23/20 Unknown Urine RBC (Auto) 1.0 /HPF (0.0-6.0) 03/23/20 Unknown U Epithel Cells (Auto) < 1.0 /HPF (0-13.0) 03/23/20 Unknown Nasal Screen MRSA (PCR) Negative (Negative) 03/24/20 06:42 Vancomycin Trough 14.6 ug/mL (5.0-20.0) 04/01/20 07:27 Lymph Enumerat CD4/CD8 0.23 (0.86-5.00) L 03/24/20 15:27 % CD3 Cells 92 % (57-85) H 03/24/20 15:27 Absolute CD3 Count 978 cells/uL (840-3060) 03/24/20 15:27 % CD4 Cells 17 % (30-61) L 03/24/20 15:27 Absolute CD4 Count 191 cells/uL (490-1740) L 03/24/20 15:27 % CD8 Cells 76 % (12-42) H 03/24/20 15:27 Absolute CD8 Count 837 cells/uL (180-1170) 03/24/20 15:27 % CD19 Cells 2 % (6-29) L 03/24/20 15:27 Absolute CD19 Count 22 cells/uL (110-660) L 03/24/20 15:27 Coronavirus (PCR) Negative (Negative) 03/24/20 Unknown CMV Specimen Source Serum 03/24/20 15:27 CMV DNA PCR log copy chief/mL See scanned result 03/24/20 15:27 HIV-1 RNA PCR copies/ml 94562 Copies/mL H 03/24/20 15:27 HIV-1 RNA (PCR) log 4.54 Log cps/mL H 03/24/20 15:27 TB (QFT) Gold In Tube Positive (NEGATIVE) H 03/27/20 11:08 TB Test (QFT) Nil 3.46 IU/mL 03/27/20 11:08 TB Test Mitogen - Nil 4.57 IU/mL 03/27/20 11:08 TB Test Ag - Nil 1 1.82 IU/mL 03/27/20 11:08 TB Test Ag - Nil 2 1.95 IU/mL 03/27/20 11:08 Miscellaneous Test Flexitest 1 03/31/20 07:56 Microbiology: Microbiology 03/30/20 18:15 Peripheral/Venous Blood Culture - Preliminary NO GROWTH AFTER 4 DAYS 03/30/20 18:15 Peripheral/Venous Blood Culture - Preliminary NO GROWTH AFTER 4 DAYS Marroquin/IV: Voiding Method Bedside Commode Active Medications - Current Medications Current Medications: Generic Name Dose Route Start Last Admin Trade Name Freq PRN Reason Stop Dose Admin Abacavir Sulfate 600 mg 03/24/20 16:00 04/03/20 10:49 Abacavir 300 Mg Tab PO 600 mg DAILY SUN Administration Acetaminophen 650 mg 03/30/20 15:19 04/03/20 13:24 Acetaminophen 325 Mg Tab PO 650 mg Q4H PRN Administration Pain, Mild (1-3) Albuterol 2.5 mg 03/23/20 19:21 03/28/20 14:44 Albuterol 2.5 Mg/3 Ml Nebu IH 2.5 mg Q4HRT PRN Administration Shortness Of Breath Alprazolam 0.5 mg 03/25/20 11:00 04/03/20 21:29 Alprazolam 0.5 Mg Tab PO 0.5 mg Q8H PRN Administration Anxiety Atovaquone 750 mg 03/27/20 22:00 04/03/20 21:29 Atovaquone 750 Mg/5 Ml Oral Susp PO 750 mg BID SUN Administration Benzonatate 100 mg 03/27/20 14:53 04/03/20 21:31 Benzonatate 100 Mg Cap PO 100 mg Q8HR PRN Administration Cough Dextrose 50 ml 03/31/20 16:27 04/03/20 13:13 Dextrose 50% In Water (25gm) 50 Ml Syringe IV 50 ml Q30MIN PRN Administration Hypoglycemia Protocol Enoxaparin Sodium 40 mg 03/25/20 15:00 04/03/20 10:49 Enoxaparin 40 Mg/0.4 Ml Inj SUB-Q 40 mg QDAY@1000 SUN Administration MEROPENEM/NS 1 GRAM/100 ML 1 gram in 100 mls @ 100 mls/hr 03/30/20 18:00 04/04/20 06:34 Merrem/Ns 1 Gram/100 Ml IV 100 mls/hr Q8HR SUN Administration Protocol Vancomycin HCl 750 mg/ Sodium 265 mls @ 166.667 mls/hr 04/01/20 13:00 04/04/20 01:15 Chloride IV 166.667 mls/hr Q12H SUN Administration Dextrose/Sodium Chloride 1,000 mls @ 42 mls/hr 04/03/20 14:00 04/03/20 14:10 D5/0.45ns IV 42 mls/hr DIRECT SUN Administration Ibuprofen 600 mg 03/27/20 00:15 04/03/20 21:31 Ibuprofen 600 Mg Tab PO 600 mg Q8H PRN Administration Pain, Mild (1-3) Lamivudine 300 mg 03/24/20 16:00 04/03/20 10:48 Lamivudine 150 Mg Tab PO 300 mg DAILY SUN Administration Loperamide HCl 2 mg 03/29/20 14:39 04/03/20 22:12 Loperamide 2 Mg Cap PO 2 mg Q2H PRN Administration Diarrhea Metoprolol Tartrate 2.5 mg 03/25/20 11:00 04/03/20 13:13 Metoprolol Tartrate 5 Mg/5 Ml Inj IV 2.5 mg Q6H PRN Administration Tachyarrhythmias Metoprolol Tartrate 50 mg 03/29/20 22:00 04/03/20 21:29 Metoprolol Tartrate 25 Mg Tab PO 50 mg BID SUN Administration Ondansetron HCl 4 mg 02/08/21 19:21 03/31/20 05:04 Ondansetron 4 Mg/2 Ml Inj IV 4 mg Q8H PRN Administration Nausea And Vomiting Pseudoephedrine/Acetam/Chlorphenir 15 ml 03/24/20 16:53 04/03/20 11:51 Guaifenesin/Codeine 100-10mg Oral Liqd 5 Ml PO 15 ml Q4H PRN Administration Cough Sodium Chloride 10 ml 03/23/20 22:00 04/03/20 21:33 Sodium Chloride 0.9% 10 Ml Flush Syringe IV 10 ml BID SUN Administration Sodium Chloride 10 ml 03/23/20 19:21 03/31/20 05:05 Sodium Chloride 0.9% 10 Ml Flush Syringe IV 10 ml PRN PRN Administration LINE FLUSH Nutrition/Malnutrition Assess - Dietary Evaluation Nutrition/Malnutrition Findings: Nutrition Notes Start: 03/24/20 10:38 Freq: Status: Active Protocol: Document 04/02/20 10:02 (Rec: 04/02/20 10:19 [id number]) Nutrition Notes Initial or Follow up Reassessment Other Pertinent Diagnosis PNA, tuberculosis, HIV Current Diet Cardiac Diet Labs/Tests K 3.4 Pertinent Medications Imodium Vancomycin Merpenem Height 5 ft 2 in Weight 59.2 kg [place] Body Weight (kg) 50.00 BMI 23.8 Intake Prior to Admission Fair Weight change and time frame Weight change noted; likely r/ t edema Weight Status Appropriate Subjective/Other Information F/U for ONS tolerance and intakes. Intakes have decreased. Pt requests soft snacks such as applesauce and ice cream throughout the day. Pt states that she dislikes the food. Food preferences noted and relayed to the kitchen. Pt states that she likes receiving ensures but has a few in the room to drink throughout the day. Will monitor for further build up of ONS in room. Percent of energy/protein needs met: 0%/0% Burn Absent Trauma Absent GI Symptoms None,Diarrhea Food Allergy Yes Current % PO Negligible Minimum of two criteria Yes Energy Intake (severe) < or equal to 50% Estimated Energy Requirement > or equal to 5 days Fluid Accumulation Moderate to Severe (severe) #1 Nutrition Diagnosis Malnutrition As Evidenced by Signs and Symptoms Regained quality engineer stength and edema now nonpitting however energy intake is still neglible Diagnosis Progress(for reassessment Improved documentation) Is patient on ventilator? No Is Patient Ambulatory and/or Out of Bed Yes REE-([facility]-ambulatory/OOB) [ 1644.825 [id number]] Calculation Used for Recommendations [facility] Additional Notes Protein needs:52 - 69g (1 - 1. 2g/kg for hepatic disorder) Fluid: 1ml/kcal or MD order Nutrition Intervention Change Diet Order: Continue cardiac diet Add Supplement/Snack (indicate name/kcal Ensure Enlive BID /protein ) Provides kCal: 700 Provides Protein (gm) 40 Goal #1 Meet at least 75% of energy and protein needs Goal #2 Monitor for PO intakes Goal #3 ONS tolerance Anticipated Discharge Needs: Cardiac Diet Follow-Up By: 04/06/20 Additional Comments F/U PO intake and ONS tolerance
[2020-04-04] MEDS: guaiFENesin/CODEINE 100-10MG ORAL LIQD 5 ML PO PRN (10:27)
[2020-04-04] MEDS: ENOXAPARIN 40 MG/0.4 ML INJ SUB-Q SCH (10:28)
[2020-04-04] MEDS: DOLUTEGRAVIR 50 MG TAB PO SCH (10:28)
[2020-04-04] MEDS: ABACAVIR 300 MG TAB PO SCH (10:28)
[2020-04-04] MEDS: ACETAMINOPHEN 325 MG TAB PO PRN ×2 (10:29→18:35)
[2020-04-04] MEDS: METOPROLOL TARTRATE 25 MG TAB PO SCH ×2 (10:31→22:50)
[2020-04-04] MEDS: ATOVAQUONE 750 MG/5 ML ORAL SUSP PO SCH ×2 (10:31→22:51)
[2020-04-05] MEDS: ACETAMINOPHEN 325 MG TAB PO PRN ×2 (01:18→22:26)
[2020-04-05] MEDS: VANCOMYCIN 750 MG in SODIUM CHLORIDE 0.9% 250ML 250 ML IV SCH ×2 (01:19→12:03)
[2020-04-05] MEDS: D5W/0.45% NACL 1,000 ML IV SCH (01:19)
[2020-04-05] MEDS: MEROPENEM/NS 1 GRAM/100 ML 1 GRAM/100 ML BAG IV SCH ×3 (06:34→22:17)
--- NOTE | 2020-04-05 08:18 | Progress Note ---
Assessment and Plan Assessment and plan: Sepsis -POA -Presented with tachycardia into the 130s, tachypnea into the 30s and febrile state in the 101.6 and CXR shows pneumonia -S/p 2 L normal saline bolus and ceftriaxone in the ED -Antibiotic therapy -Infectious disease consulted, appreciate recommendations -COVID-19 PCR negative -03/23 blood cultures x2 no growth to date -03/23 urinalysis negative for nitrates and leukocyte esterase Fever of unknown origin -Due to underlying illness -Patient has been spiking temperatures since admission -Antibiotic therapy -Infectious disease consulted, appreciate recommendations -04/02 blood cultures x2 with no growth after 4 hours -03/23 urine culture shows normal joan -03/24 cryptococcal serum antigen negative, Histoplasma urinary antigen, EBV DNA PCR quantitative, Fungitell, TB QuantiFERON gold positive, CMV negative, Fungitell negative, HHV-8 negative, HHV -8 PCR pending -Pulmonary hygiene -Supportive care - Per ID: steroid trial with Prednisone 40 mg q 24 fo Acute respiratory failure -Patient is a supplemental oxygenation -Pulmonary hygiene -Pulmonary consult, appreciate recommendations Pleural effusion -Partially loculated [id number] right pleural effusion noted on CTA chest -Pulmonology consult, appreciate recommendations -03/31 coagulation studies -04/01 thoracentesis with removal of 720 mL of blood-tinged fluid -04/01 CXR postthoracentesis shows 50% decrease in loculated pleural effusion with no pneumothorax -04/01 Pleural fluid acid-fast base culture and smear, cell count, glucose, LDH, total protein pending Persistent tachycardia -Initiated beta-fletcher, titrate as needed -IV beta-fletcher as needed -Telemetry monitoring -Supportive care -04/02 thyroid studies: TSH 1.7, free T4 0.98, T4 5 Pneumonia -03/23 CXR shows pneumonia -03/27 CXR shows worsened patchy consolidation/effusion in the right lung base with minimal patchy left basilar airspace disease also now present. No appreciable effusion on the left. -Supplemental oxygen as needed -SPO2 monitoring -Antibiotic therapy -Supportive care -Pulmonary hygiene Extensive adenopathy -S/p biopsy at [facility] (per infectious disease requested cervical lymph node biopsy results and hospitalization records) -Per ID: Opportunistic infection versus lymphoma versus sarcoid -03/23 CTA chest shows extensive lymphadenopathy throughout the chest involving bilateral axillary, mediastinal anthony regions, airspace consolidation of the right lower lobe with extensive tree-in-bud opacities in the right lower lobe and middle lobe less so within bilateral upper lobes -03/23 CTA neck shows recent left-sided lymph node biopsy, extensive bilateral symmetrical cervical neck lymphadenopathies with multifocal areas of necrosis -Per ID: 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, negative for fungal and AFB organisms, flow cytometry negative for abnormal B or T-cell population Suspected tuberculosis -03/23 PPD administered, read on 03/26 as negative (no induration, redness noted) -03/24 TB QuantiFERON gold positive -Discontinue airborne and droplet precautions -Per [facility] records: Acid-fast base of lymph node biopsy was negative -AFB x3 and repeat Quantiferon pending -Per ID: continue airborne precautions till AFB results Acute kidney injury -Presented with a BUN/creatinine 7/0.9 -04/01 BUN/creatinine 7/1.3 -MIVF -Trend BMP -Consider nephrology consult and further studies if not improving -Avoid nephrotoxic medications -Renally dose medications -Strict intake and output Elevated D-dimer -Presented with a D-dimer of 2608 -03/23 CTA chest shows no evidence of pulmonary embolism -03/30 BLE Doppler US negative for DVT/SVT Supratherapeutic INR -03/31 INR 1.26, PT 13.6, APTT 63.2 -Trend INR/PT/APTT -Monitor for bleeding Leukocytosis -04/02 WBC 12.6 -Antibiotic therapy -Trend CBC HIV disease -03/24: Absolute CD4 191, HIV RNA PCR 18530 -Continue home antiretroviral therapy -Follow-up outpatient with HIV clinic or ID Malnutrition -Presented with a BMI of 21 -Nutrition consulted for supplementation and dietary education Anxiety -As needed Ativan -Redirection and verbal de-escalation as needed -Supportive care -Follow-up outpatient with psych DVT -SCDs to bilateral lower extremities while in bed -Lovenox subcu -GI prophylaxis Metabolic acidosis, improving -03/24 CO2 on BMP is 21, 04/02 CO2 23 -Multifactorial -Trend BMP Hypokalemia, resolved -03/31 potassium 3.5, 04/02 K 3.4, 04/03 K 3.6 -Repleted -Trend BMP Hyperchloremia, resolved -03/27 chloride 108.4 -MIVF with NS -Trend BMP -04/03 Cl 104 History Interval history: This is a 29-year-old female with asthma and HIV he was admitted to the hospital on 03/23 with a 2-week history of a dry cough, shaking chills, and fever. Work-up in the emergency department revealed tachypnea, tachycardia, febrile state and a CXR which revealed pneumonia. Patient CT scan of the chest revealed bilateral infiltrates as well as evidence of tuberculosis lymphadenitis, and hyponatremia. Patient was admitted to the hospital service with consult infectious disease for rule out tuberculosis and COVID-19. 03/24: TB PPD pending, COVID-19 PCR negative, infectious disease consulted, fever and patient was started on antibiotic therapy. No acute events reported overnight. Remains supplemental oxygenation. 03/25: Patient is having persistent fevers, tachycardia into the 140s s/p IV Lopressor x1 and p.o. Lopressor for rate control, patient was transferred from [facility] to telemetry overnight. 03/26: Patient had a low-grade temperature this morning which was treated with Tylenol. Patient states that she feels slightly better but is still experiencing coughing and chills. Patient still remains on empiric antibiotics and her hyponatremia has improved. She has persistent fevers, on antibiotics, supportive care, we will try scheduled Tylenol every 6 hours for 24 hours 03/27: Patient remains febrile. This afternoon patient was tachypneic, tachycardic and experienced wheezing therefore she received an albuterol treatment with RT and IV metoprolol. Patient stated that she felt like she was having an anxiety attack and has a history of anxiety and RN was instructed to provide the patient with as needed Ativan. CXR ordered. Patient is currently on 5 L nasal cannula however on reexamination patient was speaking on the phone with her father. We will also order as needed Tessalon Perles. Patient's CXR shows worsening patchy consolidation/effusion in the right lung base with minimal patchy left basilar airspace disease. Encourage pulmonary hygiene. 03/28: Febrile and sinus tachycardia 03/29: Febrile and sinus tachycardia 03/30: Patient was hypoglycemic this morning to the 60s and she received oral intake. RN to recheck BG. Patient placed on hypoglycemic protocol with Accu- Cheks AC at bedtime. Patient remains tachycardic though afebrile (T-max 99.0). Discharge pending infectious disease clearance. 03/31: Pulmonology was consulted for loculated pleural effusion. Patient remains tachycardic to the low 100s but has been afebrile. Coagulation studies ordered by pulmonology are slightly elevated. Patient is hypokalemic today which was repleted. Repeat BMP in the a.m. 04/01: At the time my examination patient was 35% Venturi mask for comfort even though her SPO2 was in the high 90s, patient stated that she feels zapien, T-max 100.4, patient scheduled for a thoracentesis today. No acute events reported overnight. Patient still remains tachycardic and today she developed acute kidney injury. 04/02: Patient is on 35% venti mask for patient comfort and she states that she "is not feeling well" but does not elaborate further when asked. Sputum culture still not obtained and RN instructed to ask RT to obtain. Patient still is having tachycardia. 04/03: Patient was severely tachycardic and as needed beta-fletcher was given, patient was again febrile. Patient's RN reports that the patient has decreased p.o. intake and only drinks clear liquids therefore diet has been changed and patient has been restarted on MIVF. ID has initiated the patient on a trial dose of steroids. Airborne precautions strictly in place until AFB results. 04/04/2020; -HHV-8 PCR pending -Continue empiric p.o. atovaquone 750 mg twice daily. Patient allergic to Bactrim -f/u EBV DNA PCR, urinary histoplasma Ag, -Continue vancomycin and meropenem -Continue HIV medications: PO Epzicom plus Tivicay (patient has her own meds) -Started prednisone 40mg q24h as steroid trial -Follow-up thoracentesis studies -airborn precautions pending AFB cultures -Repeat Quantiferon gold and procalcitonin. -Ordered AFB cultures x3 with induced sputum if necessary. Have not been obtained yet. I discussed with respiratory to get induced sputum. 04/05/2020; patient had episodes fever overnight. Continue with p.o. atovaquone, Vanco and meropenem. Continue HIV medication. Sputum for AFB, was ordered and patient is not producing sputum so discussed with respiratory therapist and one sample was taken yesterday. ID is following the patient. History Interval history: Patient was seen and evaluated this morning Patient said has poor appetite but drinking fluids well No fever overnight No sputum production [facility] - Physical exam Narrative exam: Not in cardiopulmonary distress. The patient appeared well nourished and normally developed. Vital signs as documented. Head exam is unremarkable. No scleral icterus . Neck is without jugular venous distension, thyromegaly, or carotid bruits. Lungs are clear to auscultation. Cardiac exam reveals regular rate and Rhythm. Abdominal exam reveals normal bowel sounds, nontender, no organomegaly. Extremities are nonedematous and both femoral and pedal pulses are normal. KITMAN: Alert and oriented 3. No focal weakness. - Constitutional Vitals: Temp Pulse Resp BP Pulse Ox 101.7 F H 110 H 20 113/64 94 04/05/20 06:19 04/05/20 06:16 04/05/20 06:16 04/05/20 06:16 04/05/20 06:16 General appearance: Present: no acute distress, well-nourished, other Results - Labs CBC & Chem 7: 04/04/20 05:37 04/05/20 08:26 Labs: Laboratory Last Values WBC 8.4 K/mm3 (4.5-11.0) 04/04/20 05:37 RBC 3.11 M/mm3 (3.65-5.03) L 04/04/20 05:37 Hgb 8.0 gm/dl (10.1-14.3) L 04/04/20 05:37 Hct 23.9 % (30.3-42.9) L 04/04/20 05:37 MCV 77 fl (79-97) L 04/04/20 05:37 MCH 26 pg (28-32) L 04/04/20 05:37 MCHC 33 % (30-34) 04/04/20 05:37 RDW 23.0 % (13.2-15.2) H 04/04/20 05:37 Plt Count 223 K/mm3 (140-440) 04/04/20 05:37 Lymph % (Auto) 9.7 % (13.4-35.0) L 04/02/20 05:07 [place] % (Auto) 12.3 % (0.0-7.3) H 04/02/20 05:07 Eos % (Auto) 0.2 % (0.0-4.3) 04/02/20 05:07 Baso % (Auto) 0.2 % (0.0-1.8) 04/02/20 05:07 Lymph # (Auto) 1.2 K/mm3 (1.2-5.4) 04/02/20 05:07 [place] # (Auto) 1.5 K/mm3 (0.0-0.8) H 04/02/20 05:07 Eos # (Auto) 0.0 K/mm3 (0.0-0.4) 04/02/20 05:07 Baso # (Auto) 0.0 K/mm3 (0.0-0.1) 04/02/20 05:07 Add Manual Diff Complete 03/30/20 04:54 Total Counted 100 03/30/20 04:54 Seg Neutrophils % 77.6 % (40.0-70.0) H 04/02/20 05:07 Seg Neuts % (Manual) 91.0 % (40.0-70.0) H 03/30/20 04:54 Band Neutrophils % 1.0 % 03/30/20 04:54 Lymphocytes % (Manual) 1.0 % (13.4-35.0) L 03/30/20 04:54 Monocytes % (Manual) 7.0 % (0.0-7.3) 03/30/20 04:54 Nucleated RBC % Not Reportable 03/30/20 04:54 Seg Neutrophils # 9.8 K/mm3 (1.8-7.7) H 04/02/20 05:07 Seg Neutrophils # Man 7.4 K/mm3 (1.8-7.7) 03/30/20 04:54 Band Neutrophils # 0.1 K/mm3 03/30/20 04:54 Abs Lymphs (Manual) 1064 cells/uL (850-3900) 03/24/20 15:27 Lymphocytes # (Manual) 0.1 K/mm3 (1.2-5.4) L 03/30/20 04:54 Abs React Lymphs (Man) 0.0 K/mm3 03/30/20 04:54 Monocytes # (Manual) 0.6 K/mm3 (0.0-0.8) 03/30/20 04:54 Eosinophils # (Manual) 0.0 K/mm3 (0.0-0.4) 03/30/20 04:54 Basophils # (Manual) 0.0 K/mm3 (0.0-0.1) 03/30/20 04:54 Metamyelocytes # 0.0 K/mm3 03/30/20 04:54 Myelocytes # 0.0 K/mm3 03/30/20 04:54 Promyelocytes # 0.0 K/mm3 03/30/20 04:54 Blast Cells # 0.0 K/mm3 03/30/20 04:54 WBC Morphology Not Reportable 03/30/20 04:54 Hypersegmented Neuts Not Reportable 03/30/20 04:54 Hyposegmented Neuts Not Reportable 03/30/20 04:54 Hypogranular Neuts Not Reportable 03/30/20 04:54 Smudge Cells Not Reportable 03/30/20 04:54 Toxic Granulation Not Reportable 03/30/20 04:54 Toxic Vacuolation Not Reportable 03/30/20 04:54 Dohle Bodies Not Reportable 03/30/20 04:54 Pelger-Huet Anomaly Not Reportable 03/30/20 04:54 Nye Rods Not Reportable 03/30/20 04:54 Platelet Estimate Consistent w auto 03/30/20 04:54 Clumped Platelets Not Reportable 03/30/20 04:54 Plt Clumps, EDTA Not Reportable 03/30/20 04:54 Large Platelets Not Reportable 03/30/20 04:54 Giant Platelets Not Reportable 03/30/20 04:54 Platelet Satelliting Not Reportable 03/30/20 04:54 Plt Morphology Comment Not Reportable 03/30/20 04:54 RBC Morphology Not Reportable 03/30/20 04:54 Dimorphic RBCs Not Reportable 03/30/20 04:54 Polychromasia Not Reportable 03/30/20 04:54 Hypochromasia Not Reportable 03/30/20 04:54 Poikilocytosis Not Reportable 03/30/20 04:54 Anisocytosis 1+ 03/30/20 04:54 Microcytosis Not Reportable 03/30/20 04:54 Macrocytosis Not Reportable 03/30/20 04:54 Spherocytes Not Reportable 03/30/20 04:54 Pappenheimer Bodies Not Reportable 03/30/20 04:54 Sickle Cells Not Reportable 03/30/20 04:54 Target Cells Not Reportable 03/30/20 04:54 Tear Drop Cells Not Reportable 03/30/20 04:54 Ovalocytes Not Reportable 03/30/20 04:54 Helmet Cells Not Reportable 03/30/20 04:54 [place] Bodies Not Reportable 03/30/20 04:54 Sumner Rings Not Reportable 03/30/20 04:54 [place] Cells Not Reportable 03/30/20 04:54 Bite Cells Not Reportable 03/30/20 04:54 Crenated Cell Not Reportable 03/30/20 04:54 Elliptocytes Not Reportable 03/30/20 04:54 Acanthocytes (Spur) Not Reportable 03/30/20 04:54 Rouleaux Not Reportable 03/30/20 04:54 Hemoglobin C Crystals Not Reportable 03/30/20 04:54 Schistocytes Not Reportable 03/30/20 04:54 Malaria parasites Not Reportable 03/30/20 04:54 Tyron Bodies Not Reportable 03/30/20 04:54 Hem Pathologist Commnt No 03/30/20 04:54 PT 17.1 Sec. (12.2-14.9) H 04/02/20 09:29 INR 1.41 (0.87-1.13) H 04/02/20 09:29 APTT 48.6 Sec. (24.2-36.6) H 04/02/20 09:29 D-Dimer 1520.95 ng/mlDDU (0-234) H 03/27/20 04:53 VBG pH 7.482 (7.320-7.420) H 03/23/20 17:13 Sodium 136 mmol/L (137-145) L 04/04/20 05:37 Potassium 3.5 mmol/L (3.6-5.0) L 04/04/20 05:37 Chloride 104.2 mmol/L (98-107) 04/04/20 05:37 Carbon Dioxide 24 mmol/L (22-30) 04/04/20 05:37 Anion Gap 11 mmol/L 04/04/20 05:37 BUN 13 mg/dL (7-17) 04/04/20 05:37 Creatinine 1.2 mg/dL (0.6-1.2) 04/04/20 05:37 Estimated GFR > 60 ml/min 04/04/20 05:37 BUN/Creatinine Ratio 11 % 04/04/20 05:37 Glucose 85 mg/dL (65-100) 04/04/20 05:37 POC Glucose 130 mg/dL (70-105) H 04/05/20 02:46 Lactic Acid 1.10 mmol/L (0.7-2.0) 03/23/20 18:25 Calcium 8.0 mg/dL (8.4-10.2) L 04/04/20 05:37 Magnesium 1.90 mg/dL (1.7-2.3) 04/02/20 05:07 Ferritin 1124.0 ng/mL (10.0-200.0) H 03/23/20 16:28 Total Bilirubin 0.60 mg/dL (0.1-1.2) 04/02/20 05:07 Direct Bilirubin 0.3 mg/dL (0-0.2) H 04/02/20 05:07 Indirect Bilirubin 0.3 mg/dL 04/02/20 05:07 AST 18 units/L (5-40) 04/02/20 05:07 ALT 13 units/L (7-56) 04/02/20 05:07 Alkaline Phosphatase 227 units/L (35-129) H 04/02/20 05:07 Lactate Dehydrogenase 428 units/L (91-180) H 03/23/20 16:28 Total Creatine Kinase 30 units/L (30-135) 03/23/20 16:28 C-Reactive Protein 23.00 mg/dL (0.00-1.30) H 03/27/20 04:53 Total Protein 6.5 g/dL (6.3-8.2) 04/02/20 05:07 Albumin 2.0 g/dL (3.9-5) L 04/02/20 05:07 Albumin/Globulin Ratio 0.4 % 04/02/20 05:07 Procalcitonin 26.58 ng/mL (<0.15) 03/30/20 18:15 TSH 1.730 mlU/mL (0.270-4.200) 04/02/20 19:11 Free T4 0.98 ng/dL (0.76-1.46) 04/02/20 19:11 Thyroxine (T4) 5.0 ug/dL (4.0-12.0) 04/02/20 19:11 HCG, Quant < 2 mIU/mL (0-4) 03/23/20 16:28 Urine Color Colorless (Yellow) 03/23/20 Unknown Urine Turbidity Clear (Clear) 03/23/20 Unknown Urine pH 7.0 (5.0-7.0) 03/23/20 Unknown Ur Specific [place] 1.019 (1.003-1.030) 03/23/20 Unknown Urine Protein <15 mg/dl mg/dL (Negative) 03/23/20 Unknown Urine Glucose (UA) Neg mg/dL (Negative) 03/23/20 Unknown Urine Ketones Neg mg/dL (Negative) 03/23/20 Unknown Urine Blood Sm (Negative) 03/23/20 Unknown Urine Nitrite Neg (Negative) 03/23/20 Unknown Ur Reducing Substances Not Reportable 03/23/20 Unknown Urine Bilirubin Neg (Negative) 03/23/20 Unknown Urine Ictotest Not Reportable 03/23/20 Unknown Urine Urobilinogen < 2.0 mg/dL (<2.0) 03/23/20 Unknown Ur Leukocyte Esterase Neg (Negative) 03/23/20 Unknown Urine WBC (Auto) 1.0 /HPF (0.0-6.0) 03/23/20 Unknown Urine RBC (Auto) 1.0 /HPF (0.0-6.0) 03/23/20 Unknown U Epithel Cells (Auto) < 1.0 /HPF (0-13.0) 03/23/20 Unknown Nasal Screen MRSA (PCR) Negative (Negative) 03/24/20 06:42 Vancomycin Trough 14.6 ug/mL (5.0-20.0) 04/01/20 07:27 Lymph Enumerat CD4/CD8 0.23 (0.86-5.00) L 03/24/20 15:27 % CD3 Cells 92 % (57-85) H 03/24/20 15:27 Absolute CD3 Count 978 cells/uL (840-3060) 03/24/20 15:27 % CD4 Cells 17 % (30-61) L 03/24/20 15:27 Absolute CD4 Count 191 cells/uL (490-1740) L 03/24/20 15:27 % CD8 Cells 76 % (12-42) H 03/24/20 15:27 Absolute CD8 Count 837 cells/uL (180-1170) 03/24/20 15:27 % CD19 Cells 2 % (6-29) L 03/24/20 15:27 Absolute CD19 Count 22 cells/uL (110-660) L 03/24/20 15:27 Coronavirus (PCR) Negative (Negative) 03/24/20 Unknown CMV Specimen Source Serum 03/24/20 15:27 CMV DNA PCR log nuclear spectroscopist/mL See scanned result 03/24/20 15:27 HIV-1 RNA PCR copies/ml [id number] Copies/mL H 03/24/20 15:27 HIV-1 RNA (PCR) log 4.54 Log cps/mL H 03/24/20 15:27 TB (QFT) Gold In Tube Positive (NEGATIVE) H 03/27/20 11:08 TB Test (QFT) Nil 3.46 IU/mL 03/27/20 11:08 TB Test Mitogen - Nil 4.57 IU/mL 03/27/20 11:08 TB Test Ag - Nil 1 1.82 IU/mL 03/27/20 11:08 TB Test Ag - Nil 2 1.95 IU/mL 03/27/20 11:08 Miscellaneous Test Flexitest 1 03/31/20 07:56 Microbiology: Microbiology 03/30/20 18:15 Peripheral/Venous Blood Culture - Final NO GROWTH AFTER 5 DAYS 03/30/20 18:15 Peripheral/Venous Blood Culture - Final NO GROWTH AFTER 5 DAYS Marroquin/IV: Voiding Method Bedside Commode Active Medications - Current Medications Current Medications: Generic Name Dose Route Start Last Admin Trade Name Freq PRN Reason Stop Dose Admin Abacavir Sulfate 600 mg 03/24/20 16:00 04/04/20 10:28 Abacavir 300 Mg Tab PO 600 mg DAILY SUN Administration Acetaminophen 650 mg 03/30/20 15:19 04/05/20 01:18 Acetaminophen 325 Mg Tab PO 650 mg Q4H PRN Administration Pain, Mild (1-3) Albuterol 2.5 mg 03/23/20 19:21 03/28/20 14:44 Albuterol 2.5 Mg/3 Ml Nebu IH 2.5 mg Q4HRT PRN Administration Shortness Of Breath Alprazolam 0.5 mg 03/25/20 11:00 04/03/20 21:29 Alprazolam 0.5 Mg Tab PO 0.5 mg Q8H PRN Administration Anxiety Atovaquone 750 mg 03/27/20 22:00 04/04/20 22:51 Atovaquone 750 Mg/5 Ml Oral Susp PO 750 mg BID SUN Administration Benzonatate 100 mg 03/27/20 14:53 04/03/20 21:31 Benzonatate 100 Mg Cap PO 100 mg Q8HR PRN Administration Cough Dextrose 50 ml 03/31/20 16:27 04/03/20 13:13 Dextrose 50% In Water (25gm) 50 Ml Syringe IV 50 ml Q30MIN PRN Administration Hypoglycemia Protocol Enoxaparin Sodium 40 mg 03/25/20 15:00 04/04/20 10:28 Enoxaparin 40 Mg/0.4 Ml Inj SUB-Q 40 mg QDAY@1000 SUN Administration MEROPENEM/NS 1 GRAM/100 ML 1 gram in 100 mls @ 100 mls/hr 03/30/20 18:00 04/05/20 06:34 Merrem/Ns 1 Gram/100 Ml IV 100 mls/hr Q8HR SUN Administration Protocol Vancomycin HCl 750 mg/ Sodium 265 mls @ 166.667 mls/hr 04/01/20 13:00 04/05/20 01:19 Chloride IV 166.667 mls/hr Q12H SUN Administration Dextrose/Sodium Chloride 1,000 mls @ 42 mls/hr 04/03/20 14:00 04/05/20 01:19 D5/0.45ns IV 42 mls/hr DIRECT SUN Administration Ibuprofen 600 mg 03/27/20 00:15 04/03/20 21:31 Ibuprofen 600 Mg Tab PO 600 mg Q8H PRN Administration Pain, Mild (1-3) Lamivudine 300 mg 03/24/20 16:00 04/04/20 10:28 Lamivudine 150 Mg Tab PO 300 mg DAILY SUN Administration Loperamide HCl 2 mg 03/29/20 14:39 04/03/20 22:12 Loperamide 2 Mg Cap PO 2 mg Q2H PRN Administration Diarrhea Metoprolol Tartrate 2.5 mg 03/25/20 11:00 04/03/20 13:13 Metoprolol Tartrate 5 Mg/5 Ml Inj IV 2.5 mg Q6H PRN Administration Tachyarrhythmias Metoprolol Tartrate 50 mg 03/29/20 22:00 04/04/20 22:50 Metoprolol Tartrate 25 Mg Tab PO 50 mg BID SUN Administration Ondansetron HCl 4 mg 03/23/20 19:21 03/31/20 05:04 Ondansetron 4 Mg/2 Ml Inj IV 4 mg Q8H PRN Administration Nausea And Vomiting Pseudoephedrine/Acetam/Chlorphenir 15 ml 03/24/20 16:53 04/04/20 10:27 Guaifenesin/Codeine 100-10mg Oral Liqd 5 Ml PO 15 ml Q4H PRN Administration Cough Sodium Chloride 10 ml 03/23/20 22:00 04/04/20 22:50 Sodium Chloride 0.9% 10 Ml Flush Syringe IV 10 ml BID SUN Administration Sodium Chloride 10 ml 03/23/20 19:21 03/31/20 05:05 Sodium Chloride 0.9% 10 Ml Flush Syringe IV 10 ml PRN PRN Administration LINE FLUSH Nutrition/Malnutrition Assess - Dietary Evaluation Nutrition/Malnutrition Findings: Nutrition Notes Start: 03/24/20 10:38 Freq: Status: Active Protocol: Document 04/02/20 10:02 CW (Rec: 04/02/20 10:19 [id number]) Nutrition Notes Initial or Follow up Reassessment Other Pertinent Diagnosis PNA, tuberculosis, HIV Current Diet Cardiac Diet Labs/Tests K 3.4 Pertinent Medications Imodium Vancomycin Merpenem Height 5 ft 2 in Weight 59.2 kg [place] Body Weight (kg) 50.00 BMI 23.8 Intake Prior to Admission Fair Weight change and time frame Weight change noted; likely r/ t edema Weight Status Appropriate Subjective/Other Information F/U for ONS tolerance and intakes. Intakes have decreased. Pt requests soft snacks such as applesauce and ice cream throughout the day. Pt states that she dislikes the food. Food preferences noted and relayed to the kitchen. Pt states that she likes receiving ensures but has a few in the room to drink throughout the day. Will monitor for further build up of ONS in room. Percent of energy/protein needs met: 0%/0% Burn Absent Trauma Absent GI Symptoms None,Diarrhea Food Allergy Yes Current % PO Negligible Minimum of two criteria Yes Energy Intake (severe) < or equal to 50% Estimated Energy Requirement > or equal to 5 days Fluid Accumulation Moderate to Severe (severe) #1 Nutrition Diagnosis Malnutrition As Evidenced by Signs and Symptoms Regained events director stength and edema now nonpitting however energy intake is still neglible Diagnosis Progress(for reassessment Improved documentation) Is patient on ventilator? No Is Patient Ambulatory and/or Out of Bed Yes REE-([facility]-ambulatory/OOB) [ 1644.825 [id number]] Calculation Used for Recommendations [facility] Additional Notes Protein needs:52 - 69g (1 - 1. 2g/kg for hepatic disorder) Fluid: 1ml/kcal or MD order Nutrition Intervention Change Diet Order: Continue cardiac diet Add Supplement/Snack (indicate name/kcal Ensure Enlive BID /protein ) Provides kCal: 700 Provides Protein (gm) 40 Goal #1 Meet at least 75% of energy and protein needs Goal #2 Monitor for PO intakes Goal #3 ONS tolerance Anticipated Discharge Needs: Cardiac Diet Follow-Up By: 04/06/20 Additional Comments F/U PO intake and ONS tolerance
[2020-04-05 09:29] LABS: Calcium 8.1 mg/dL (8.4-10.2)
[2020-04-05] MEDS: ENOXAPARIN 40 MG/0.4 ML INJ SUB-Q SCH (11:54)
[2020-04-05] MEDS: IBUPROFEN 600 MG TAB PO PRN (11:55)
[2020-04-05] MEDS: ABACAVIR 300 MG TAB PO SCH (11:55)
[2020-04-05] MEDS: ATOVAQUONE 750 MG/5 ML ORAL SUSP PO SCH ×2 (11:55→22:25)
[2020-04-05] MEDS: DOLUTEGRAVIR 50 MG TAB PO SCH (11:55)
[2020-04-05] MEDS: METOPROLOL TARTRATE 25 MG TAB PO SCH ×2 (11:55→22:25)
[2020-04-06] MEDS: VANCOMYCIN 750 MG in SODIUM CHLORIDE 0.9% 250ML 250 ML IV SCH (00:28)
[2020-04-06] MEDS: guaiFENesin/CODEINE 100-10MG ORAL LIQD 5 ML PO PRN (01:15)
[2020-04-06] MEDS: MEROPENEM/NS 1 GRAM/100 ML 1 GRAM/100 ML BAG IV SCH ×3 (05:24→21:42)
[2020-04-06 11:23] LABS: Calcium 8.1 mg/dL (8.4-10.2)
[2020-04-06] MEDS: ENOXAPARIN 40 MG/0.4 ML INJ SUB-Q SCH (14:27)
--- NOTE | 2020-04-06 14:27 | Progress Note ---
Assessment and Plan Cultures: SARS CoV2 PCR: Negative 03/23/2020 blood culture: no growth 03/23/2020 urine culture: no growth 03/24/2020 serum cryptococcal antigen: Negative HIV RNA PCR 34,900 MRSA nasal PCR: Negative 03/30/2020 blood culture: no growth A/P: 29/F with HIV, asthma recent admission at [facility], underwent lymph node biopsy/surgery now here with: #Pneumonia: continue empiric abx: Ceftriaxone + Azithromycin. #Fevers: unclear etiology. ?IRIS given recent resumption of ART, though would not explain lympahadenopathy. Most recent procalcitonion highly elevated >25. #Extensive lymphadenopathy: Status post biopsy at [facility]. Patient reports she underwent evaluation for TB, COVID-19 and influenza while at [facility] and was negative. 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 Negative for fungal and AFB organisms. Flow cytometry negative for abnormal B or T-cell population. Differential diagnosis is wide, could be fungal/AFB, Kikuchi, Castleman's disease, autoimmune, sarcoidosis. ?IRIS from recent initiation of HAART. CMV DNA negative. Fungitell negative. HHV-8 negative. #HIV disease: CD4 191, HIV RNA PCR back at 34,900. ?prior non compliance. follows up at [facility] clinic and is on Epzicom in addition to Tivicay, it seems she had nausea with her previous medications. HAART was recently started. #Positive Quantiferon: noted she reported being negative for TB at [facility], she reports blood test performed there. Will obtain AFB cultures and determine celia tment necessity, ordered x3. Will repeat Quantiferon too, as she is low risk for TB (born in [facility], no travel, never in jail//homeless, no known family members with TB). Recs: -HHV-8 PCR pending -Continue empiric p.o. atovaquone 750 mg twice daily. Patient allergic to Bactrim -f/u EBV DNA PCR, urinary histoplasma Ag, -Continue vancomycin and meropenem -Continue HIV medications: PO Epzicom plus Tivicay (patient has her own meds) -Started prednisone 40mg q24h as steroid trial -Follow-up thoracentesis studies -airborn precautions pending AFB cultures -Repeat Quantiferon gold and procalcitonin. -Notes from nursing indicate at least one AFB has been obtained. Follow up smear. Liat Lopez MD [facility] ([facility]) O: [phone] F: [phone] Subjective Date of service: 04/06/20 Interval history: Febrile to 100.9 today. Objective - Exam Narrative Exam: Physical Exam: Constitutional: Alert, cooperative. No acute distress Head, Ears, Nose: Normocephalic, atraumatic. External ears, nose normal Eyes: Conjunctivae/corneas clear. No icterus. No ptosis. Neck: Supple, no meningeal signs Cardiovascular: S1, S2 normal. Respiratory: Good air entry, clear to auscultation bilaterally GI: Soft, non-tender; bowel sounds normal. No peritoneal signs Musculoskeletal: No pedal edema, no cyanosis. Skin: No rash or abscess Psych: Mood ok. Affect normal Neurological: Awake, alert, oriented. No gross abnormality - Constitutional Vitals: Vital Signs Temp Pulse Resp BP Pulse Ox 100.9 F H 133 H 18 147/80 97 04/06/20 08:25 04/06/20 08:25 04/06/20 08:25 04/06/20 08:25 04/06/20 09:08 Temperature -Last 24 Hours Temperature 100.9 F Temperature 99.5 F Temperature 98.0 F Temperature 98.4 F Temperature 97.6 F - Labs CBC & Chem 7: 04/04/20 05:37 04/06/20 10:27 Labs: Abnormal lab results 04/02/20 04/06/20 04/06/20 Range/Units 19:11 00:25 10:27 Sodium 135 L (137-145) mmol/L Creatinine 1.3 H (0.6-1.2) mg/dL Glucose 108 H (65-100) mg/dL POC Glucose (70-105) mg/dL Calcium 8.1 L (8.4-10.2) mg/dL Free T3 Index 1.9 L (2.3-4.2) pg/mL Vancomycin Trough 26.2 H (5.0-20.0) ug/mL 04/06/20 Range/Units 13:02 Sodium (137-145) mmol/L Creatinine (0.6-1.2) mg/dL Glucose (65-100) mg/dL POC Glucose 113 H (70-105) mg/dL Calcium (8.4-10.2) mg/dL Free T3 Index (2.3-4.2) pg/mL Vancomycin Trough (5.0-20.0) ug/mL
--- NOTE | 2020-04-06 14:31 | Progress Note ---
Assessment and Plan Assessment and plan: Sepsis -POA -Presented with tachycardia into the 130s, tachypnea into the 30s and febrile state in the 101.6 and CXR shows pneumonia -S/p 2 L normal saline bolus and ceftriaxone in the ED -Antibiotic therapy -Infectious disease consulted, appreciate recommendations -COVID-19 PCR negative -03/23 blood cultures x2 no growth to date -03/23 urinalysis negative for nitrates and leukocyte esterase Fever of unknown origin -Due to underlying illness -Patient has been spiking temperatures since admission -Antibiotic therapy -Infectious disease consulted, appreciate recommendations -04/02 blood cultures x2 with no growth after 4 hours -03/23 urine culture shows normal joan -03/24 cryptococcal serum antigen negative, Histoplasma urinary antigen, EBV DNA PCR quantitative,TB QuantiFERON gold positive, CMV negative, Fungitell negative, HHV-8 negative, HHV -8 PCR pending -Pulmonary hygiene -Supportive care -Per ID: steroid trial with Prednisone 40 mg q 24 Acute respiratory failure -Patient is a supplemental oxygenation -Pulmonary hygiene -Pulmonary consult, appreciate recommendations Pleural effusion -Partially loculated rledz-oa-whyjeisp right pleural effusion noted on CTA chest -Pulmonology consult, appreciate recommendations -03/31 coagulation studies -04/01 thoracentesis with removal of 720 mL of blood-tinged fluid -04/01 CXR postthoracentesis shows 50% decrease in loculated pleural effusion with no pneumothorax -04/01 Pleural fluid acid-fast base culture and smear, cell count, glucose, LDH, total protein pending Persistent tachycardia -Initiated beta-fletcher, titrate as needed -IV beta-fletcher as needed -Telemetry monitoring -Supportive care -04/02 thyroid studies: TSH 1.7, free T4 0.98, T4 5 Pneumonia -03/23 CXR shows pneumonia -03/27 CXR shows worsened patchy consolidation/effusion in the right lung base with minimal patchy left basilar airspace disease also now present. No appreciable effusion on the left. -Supplemental oxygen as needed -SPO2 monitoring -Antibiotic therapy -Supportive care -Pulmonary hygiene Extensive adenopathy -S/p biopsy at [facility] (per infectious disease requested cervical lymph node biopsy results and hospitalization records) -Per ID: Opportunistic infection versus lymphoma versus sarcoid -03/23 CTA chest shows extensive lymphadenopathy throughout the chest involving bilateral axillary, mediastinal anthony regions, airspace consolidation of the right lower lobe with extensive tree-in-bud opacities in the right lower lobe and middle lobe less so within bilateral upper lobes -03/23 CTA neck shows recent left-sided lymph node biopsy, extensive bilateral symmetrical cervical neck lymphadenopathies with multifocal areas of necrosis -Per ID: 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, negative for fungal and AFB organisms, flow cytometry negative for abnormal B or T-cell population Suspected tuberculosis -03/23 PPD administered, read on 03/26 as negative (no induration, redness noted) -03/24 TB QuantiFERON gold positive -Discontinue airborne and droplet precautions -Per [facility] records: Acid-fast base of lymph node biopsy was negative -AFB x3 and repeat Quantiferon pending -Per ID: continue airborne precautions till AFB results Acute kidney injury -Presented with a BUN/creatinine 7/0.9 -04/01 BUN/creatinine 7/1.3 -MIVF -Trend BMP -Consider nephrology consult and further studies if not improving -Avoid nephrotoxic medications -Renally dose medications -Strict intake and output Elevated D-dimer -Presented with a D-dimer of 2608 -03/23 CTA chest shows no evidence of pulmonary embolism -03/30 BLE Doppler US negative for DVT/SVT Supratherapeutic INR -03/31 INR 1.26, PT 13.6, APTT 63.2 -Trend INR/PT/APTT -Monitor for bleeding HIV disease -03/24: Absolute CD4 191, HIV RNA PCR [id number] -Continue home antiretroviral therapy -Follow-up outpatient with HIV clinic or ID Malnutrition -Presented with a BMI of 21 -Nutrition consulted for supplementation and dietary education Anxiety -As needed Ativan -Redirection and verbal de-escalation as needed -Supportive care -Follow-up outpatient with psych DVT -SCDs to bilateral lower extremities while in bed -Lovenox subcu -GI prophylaxis Metabolic acidosis -03/24 CO2 on BMP is 21, 04/02 CO2 23 -Multifactorial -Trend BMP Leukocytosis -04/02 WBC 12.6 -Antibiotic therapy -Trend CBC -04/04 WBC 8.4 History Interval history: This is a 29-year-old female with asthma and HIV he was admitted to the hospital on 03/23 with a 2-week history of a dry cough, shaking chills, and fever. Work-up in the emergency department revealed tachypnea, tachycardia, febrile state and a CXR which revealed pneumonia. Patient CT scan of the chest revealed bilateral infiltrates as well as evidence of tuberculosis lymphadenitis, and hyponatremia. Patient was admitted to the hospital service with consult infectious disease for rule out tuberculosis and COVID-19. 03/24: TB PPD pending, COVID-19 PCR negative, infectious disease consulted, fever and patient was started on antibiotic therapy. No acute events reported overnight. Remains supplemental oxygenation. 03/25: Patient is having persistent fevers, tachycardia into the 140s s/p IV Lopressor x1 and p.o. Lopressor for rate control, patient was transferred from [facility] to telemetry overnight. 03/26: Patient had a low-grade temperature this morning which was treated with Tylenol. Patient states that she feels slightly better but is still experiencing coughing and chills. Patient still remains on empiric antibiotics and her hyponatremia has improved. She has persistent fevers, on antibiotics, supportive care, we will try scheduled Tylenol every 6 hours for 24 hours 03/27: Patient remains febrile. This afternoon patient was tachypneic, tachycardic and experienced wheezing therefore she received an albuterol treatment with RT and IV metoprolol. Patient stated that she felt like she was having an anxiety attack and has a history of anxiety and RN was instructed to provide the patient with as needed Ativan. CXR ordered. Patient is currently on 5 L nasal cannula however on reexamination patient was speaking on the phone with her father. We will also order as needed Tessalon Perles. Patient's CXR shows worsening patchy consolidation/effusion in the right lung base with minimal patchy left basilar airspace disease. Encourage pulmonary hygiene. 03/28: Febrile and sinus tachycardia 03/29: Febrile and sinus tachycardia 03/30: Patient was hypoglycemic this morning to the 60s and she received oral i ntake. RN to recheck BG. Patient placed on hypoglycemic protocol with Accu- Cheks AC at bedtime. Patient remains tachycardic though afebrile (T-max 99.0). Discharge pending infectious disease clearance. 03/31: Pulmonology was consulted for loculated pleural effusion. Patient remains tachycardic to the low 100s but has been afebrile. Coagulation studies ordered by pulmonology are slightly elevated. Patient is hypokalemic today which was repleted. Repeat BMP in the a.m. 04/01: At the time my examination patient was 35% Venturi mask for comfort even though her SPO2 was in the high 90s, patient stated that she feels zapien, T-max 100.4, patient scheduled for a thoracentesis today. No acute events reported overnight. Patient still remains tachycardic and today she developed acute kidney injury. 04/02: Patient is on 35% venti mask for patient comfort and she states that she "is not feeling well" but does not elaborate further when asked. Sputum culture still not obtained and RN instructed to ask RT to obtain. Patient still is having tachycardia. 04/03: Patient was severely tachycardic and as needed beta-fletcher was given, patient was again febrile. Patient's RN reports that the patient has decreased p.o. intake and only drinks clear liquids therefore diet has been changed and patient has been restarted on MIVF. ID has initiated the patient on a trial dose of steroids. Airborne precautions strictly in place until AFB results. 04/04/2020: HHV-8 PCR pending, Continue empiric p.o. atovaquone 750 mg twice daily, f/u EBV DNA PCR, urinary histoplasma Ag, continue vancomycin and meropenem, continue HIV medications: PO Epzicom plus Tivicay (patient has her own meds), Started prednisone 40mg q24h as steroid trial, Follow-up thoracentesis studies, airborne precautions pending AFB cultures, Repeat Quantiferon gold and procalcitonin. Ordered AFB cultures x3 with induced sputum if necessary. Have not been obtained yet. I discussed with respiratory to get induced sputum. 04/05/2020; patient had episodes fever overnight. Continue with p.o. atovaquone, Vanco and meropenem. Continue HIV medication. Sputum for AFB, was ordered and patient is not producing sputum so discussed with respiratory therapist and one sample was taken yesterday. ID is following the patient. 04/06: At the time of my examination patient is standing to leave AMA when informed that she would be discharged today due to pending AFB cultures. Patient states that she feels that she can be discharged and is discharging herself. Trial steroids started today. RT contacted to assist in obtaining cultures. Patient remains tachycardic and T-max was 101.7 yesterday. She still remains on 35% Ventimask for patient comfort. Hospitalist Physical - Constitutional Vitals: Temp Pulse Resp BP Pulse Ox 100.9 F H 133 H 18 147/80 97 04/06/20 08:25 04/06/20 08:25 04/06/20 08:25 04/06/20 08:25 04/06/20 09:08 General appearance: Present: no acute distress, well-nourished, other - EENT Eyes: Present: PERRL, EOM intact ENT: hearing intact, clear oral mucosa, dentition normal - Neck Neck: Present: normal ROM - Respiratory Respiratory effort: normal Respiratory: bilateral: diminished - Cardiovascular Rhythm: regular Heart Sounds: Present: S1 & S2. Absent: systolic murmur, diastolic murmur - Extremities Extremities: no ischemia, pulses intact, pulses symmetrical, No edema, normal temperature, normal color, Full ROM Peripheral Pulses: within normal limits - Abdominal General gastrointestinal: soft, non-tender, non-distended, normal bowel sounds - Integumentary Integumentary: Present: clear, warm, dry - Psychiatric Psychiatric: appropriate mood/affect, cooperative - Neurologic Neurologic: CNII-XII intact, no focal deficits, moves all extremities Results - Labs CBC & Chem 7: 04/04/20 05:37 04/06/20 10:27 Labs: Laboratory Last Values WBC 8.4 K/mm3 (4.5-11.0) 04/04/20 05:37 RBC 3.11 M/mm3 (3.65-5.03) L 04/04/20 05:37 Hgb 8.0 gm/dl (10.1-14.3) L 04/04/20 05:37 Hct 23.9 % (30.3-42.9) L 04/04/20 05:37 MCV 77 fl (79-97) L 04/04/20 05:37 MCH 26 pg (28-32) L 04/04/20 05:37 MCHC 33 % (30-34) 04/04/20 05:37 RDW 23.0 % (13.2-15.2) H 04/04/20 05:37 Plt Count 223 K/mm3 (140-440) 04/04/20 05:37 Lymph % (Auto) 9.7 % (13.4-35.0) L 04/02/20 05:07 Wirt % (Auto) 12.3 % (0.0-7.3) H 04/02/20 05:07 Eos % (Auto) 0.2 % (0.0-4.3) 04/02/20 05:07 Baso % (Auto) 0.2 % (0.0-1.8) 04/02/20 05:07 Lymph # (Auto) 1.2 K/mm3 (1.2-5.4) 04/02/20 05:07 Wirt # (Auto) 1.5 K/mm3 (0.0-0.8) H 04/02/20 05:07 Eos # (Auto) 0.0 K/mm3 (0.0-0.4) 04/02/20 05:07 Baso # (Auto) 0.0 K/mm3 (0.0-0.1) 04/02/20 05:07 Add Manual Diff Complete 03/30/20 04:54 Total Counted 100 03/30/20 04:54 Seg Neutrophils % 77.6 % (40.0-70.0) H 04/02/20 05:07 Seg Neuts % (Manual) 91.0 % (40.0-70.0) H 03/30/20 04:54 Band Neutrophils % 1.0 % 03/30/20 04:54 Lymphocytes % (Manual) 1.0 % (13.4-35.0) L 03/30/20 04:54 Monocytes % (Manual) 7.0 % (0.0-7.3) 03/30/20 04:54 Nucleated RBC % Not Reportable 03/30/20 04:54 Seg Neutrophils # 9.8 K/mm3 (1.8-7.7) H 04/02/20 05:07 Seg Neutrophils # Man 7.4 K/mm3 (1.8-7.7) 03/30/20 04:54 Band Neutrophils # 0.1 K/mm3 03/30/20 04:54 Abs Lymphs (Manual) 1064 cells/uL (850-3900) 03/24/20 15:27 Lymphocytes # (Manual) 0.1 K/mm3 (1.2-5.4) L 03/30/20 04:54 Abs React Lymphs (Man) 0.0 K/mm3 03/30/20 04:54 Monocytes # (Manual) 0.6 K/mm3 (0.0-0.8) 03/30/20 04:54 Eosinophils # (Manual) 0.0 K/mm3 (0.0-0.4) 03/30/20 04:54 Basophils # (Manual) 0.0 K/mm3 (0.0-0.1) 03/30/20 04:54 Metamyelocytes # 0.0 K/mm3 03/30/20 04:54 Myelocytes # 0.0 K/mm3 03/30/20 04:54 Promyelocytes # 0.0 K/mm3 03/30/20 04:54 Blast Cells # 0.0 K/mm3 03/30/20 04:54 WBC Morphology Not Reportable 03/30/20 04:54 Hypersegmented Neuts Not Reportable 03/30/20 04:54 Hyposegmented Neuts Not Reportable 03/30/20 04:54 Hypogranular Neuts Not Reportable 03/30/20 04:54 Smudge Cells Not Reportable 03/30/20 04:54 Toxic Granulation Not Reportable 03/30/20 04:54 Toxic Vacuolation Not Reportable 03/30/20 04:54 Dohle Bodies Not Reportable 03/30/20 04:54 Pelger-Huet Anomaly Not Reportable 03/30/20 04:54 Ney Rods Not Reportable 03/30/20 04:54 Platelet Estimate Consistent w auto 03/30/20 04:54 Clumped Platelets Not Reportable 03/30/20 04:54 Plt Clumps, EDTA Not Reportable 03/30/20 04:54 Large Platelets Not Reportable 03/30/20 04:54 Giant Platelets Not Reportable 03/30/20 04:54 Platelet Satelliting Not Reportable 03/30/20 04:54 Plt Morphology Comment Not Reportable 03/30/20 04:54 RBC Morphology Not Reportable 03/30/20 04:54 Dimorphic RBCs Not Reportable 03/30/20 04:54 Polychromasia Not Reportable 03/30/20 04:54 Hypochromasia Not Reportable 03/30/20 04:54 Poikilocytosis Not Reportable 03/30/20 04:54 Anisocytosis 1+ 03/30/20 04:54 Microcytosis Not Reportable 03/30/20 04:54 Macrocytosis Not Reportable 03/30/20 04:54 Spherocytes Not Reportable 03/30/20 04:54 Pappenheimer Bodies Not Reportable 03/30/20 04:54 Sickle Cells Not Reportable 03/30/20 04:54 Target Cells Not Reportable 03/30/20 04:54 Tear Drop Cells Not Reportable 03/30/20 04:54 Ovalocytes Not Reportable 03/30/20 04:54 Helmet Cells Not Reportable 03/30/20 04:54 Badillo-Domino Bodies Not Reportable 03/30/20 04:54 [place] Rings Not Reportable 03/30/20 04:54 [place] Cells Not Reportable 03/30/20 04:54 Bite Cells Not Reportable 03/30/20 04:54 Crenated Cell Not Reportable 03/30/20 04:54 Elliptocytes Not Reportable 03/30/20 04:54 Acanthocytes (Spur) Not Reportable 03/30/20 04:54 Rouleaux Not Reportable 03/30/20 04:54 Hemoglobin C Crystals Not Reportable 03/30/20 04:54 Schistocytes Not Reportable 03/30/20 04:54 Malaria parasites Not Reportable 03/30/20 04:54 Tyron Bodies Not Reportable 03/30/20 04:54 Hem Pathologist Commnt No 03/30/20 04:54 PT 17.1 Sec. (12.2-14.9) H 04/02/20 09:29 INR 1.41 (0.87-1.13) H 04/02/20 09:29 APTT 48.6 Sec. (24.2-36.6) H 04/02/20 09:29 D-Dimer 1520.95 ng/mlDDU (0-234) H 03/27/20 04:53 VBG pH 7.482 (7.320-7.420) H 03/23/20 17:13 Sodium 135 mmol/L (137-145) L 04/06/20 10:27 Potassium 3.7 mmol/L (3.6-5.0) 04/06/20 10:27 Chloride 102.9 mmol/L (98-107) 04/06/20 10:27 Carbon Dioxide 22 mmol/L (22-30) 04/06/20 10:27 Anion Gap 14 mmol/L 04/06/20 10:27 BUN 11 mg/dL (7-17) 04/06/20 10:27 Creatinine 1.3 mg/dL (0.6-1.2) H 04/06/20 10:27 Estimated GFR 58 ml/min 04/06/20 10:27 BUN/Creatinine Ratio 8 % 04/06/20 10:27 Glucose 108 mg/dL (65-100) H 04/06/20 10:27 POC Glucose 113 mg/dL (70-105) H 04/06/20 13:02 Lactic Acid 1.10 mmol/L (0.7-2.0) 03/23/20 18:25 Calcium 8.1 mg/dL (8.4-10.2) L 04/06/20 10:27 Magnesium 1.90 mg/dL (1.7-2.3) 04/02/20 05:07 Ferritin 1124.0 ng/mL (10.0-200.0) H 03/23/20 16:28 Total Bilirubin 0.60 mg/dL (0.1-1.2) 04/02/20 05:07 Direct Bilirubin 0.3 mg/dL (0-0.2) H 04/02/20 05:07 Indirect Bilirubin 0.3 mg/dL 04/02/20 05:07 AST 18 units/L (5-40) 04/02/20 05:07 ALT 13 units/L (7-56) 04/02/20 05:07 Alkaline Phosphatase 227 units/L (35-129) H 04/02/20 05:07 Lactate Dehydrogenase 428 units/L (91-180) H 03/23/20 16:28 Total Creatine Kinase 30 units/L (30-135) 03/23/20 16:28 C-Reactive Protein 23.00 mg/dL (0.00-1.30) H 03/27/20 04:53 Total Protein 6.5 g/dL (6.3-8.2) 04/02/20 05:07 Albumin 2.0 g/dL (3.9-5) L 04/02/20 05:07 Albumin/Globulin Ratio 0.4 % 04/02/20 05:07 Procalcitonin 68.32 ng/mL (<0.15) 04/03/20 18:56 TSH 1.730 mlU/mL (0.270-4.200) 04/02/20 19:11 Free T4 0.98 ng/dL (0.76-1.46) 04/02/20 19:11 Thyroxine (T4) 5.0 ug/dL (4.0-12.0) 04/02/20 19:11 Free T3 Index 1.9 pg/mL (2.3-4.2) L 04/02/20 19:11 HCG, Quant < 2 mIU/mL (0-4) 03/23/20 16:28 Urine Color Colorless (Yellow) 03/23/20 Unknown Urine Turbidity Clear (Clear) 03/23/20 Unknown Urine pH 7.0 (5.0-7.0) 03/23/20 Unknown Ur Specific [place] 1.019 (1.003-1.030) 03/23/20 Unknown Urine Protein <15 mg/dl mg/dL (Negative) 03/23/20 Unknown Urine Glucose (UA) Neg mg/dL (Negative) 03/23/20 Unknown Urine Ketones Neg mg/dL (Negative) 03/23/20 Unknown Urine Blood Sm (Negative) 03/23/20 Unknown Urine Nitrite Neg (Negative) 03/23/20 Unknown Ur Reducing Substances Not Reportable 03/23/20 Unknown Urine Bilirubin Neg (Negative) 03/23/20 Unknown Urine Ictotest Not Reportable 03/23/20 Unknown Urine Urobilinogen < 2.0 mg/dL (<2.0) 03/23/20 Unknown Ur Leukocyte Esterase Neg (Negative) 03/23/20 Unknown Urine WBC (Auto) 1.0 /HPF (0.0-6.0) 03/23/20 Unknown Urine RBC (Auto) 1.0 /HPF (0.0-6.0) 03/23/20 Unknown U Epithel Cells (Auto) < 1.0 /HPF (0-13.0) 03/23/20 Unknown Nasal Screen MRSA (PCR) Negative (Negative) 03/24/20 06:42 Vancomycin Trough 26.2 ug/mL (5.0-20.0) H 04/06/20 00:25 Lymph Enumerat CD4/CD8 0.23 (0.86-5.00) L 03/24/20 15:27 % CD3 Cells 92 % (57-85) H 03/24/20 15:27 Absolute CD3 Count 978 cells/uL (840-3060) 03/24/20 15:27 % CD4 Cells 17 % (30-61) L 03/24/20 15:27 Absolute CD4 Count 191 cells/uL (490-1740) L 03/24/20 15:27 % CD8 Cells 76 % (12-42) H 03/24/20 15:27 Absolute CD8 Count 837 cells/uL (180-1170) 03/24/20 15:27 % CD19 Cells 2 % (6-29) L 03/24/20 15:27 Absolute CD19 Count 22 cells/uL (110-660) L 03/24/20 15:27 Coronavirus (PCR) Negative (Negative) 03/24/20 Unknown CMV Specimen Source Serum 03/24/20 15:27 CMV DNA PCR log certified flex endoscope reprocessor/mL See scanned result 03/24/20 15:27 HIV-1 RNA PCR copies/ml 97845 Copies/mL H 03/24/20 15:27 HIV-1 RNA (PCR) log 4.54 Log cps/mL H 03/24/20 15:27 TB (QFT) Gold In Tube Positive (NEGATIVE) H 03/27/20 11:08 TB Test (QFT) Nil 3.46 IU/mL 03/27/20 11:08 TB Test Mitogen - Nil 4.57 IU/mL 03/27/20 11:08 TB Test Ag - Nil 1 1.82 IU/mL 03/27/20 11:08 TB Test Ag - Nil 2 1.95 IU/mL 03/27/20 11:08 Miscellaneous Test Flexitest 1 03/31/20 07:56 Marroquin/IV: Voiding Method Incontinent Active Medications - Current Medications Current Medications: Generic Name Dose Route Start Last Admin Trade Name Freq PRN Reason Stop Dose Admin Abacavir Sulfate 600 mg 03/24/20 16:00 04/05/20 11:55 Abacavir 300 Mg Tab PO 600 mg DAILY SUN Administration Acetaminophen 650 mg 03/30/20 15:19 04/05/20 22:26 Acetaminophen 325 Mg Tab PO 650 mg Q4H PRN Administration Pain, Mild (1-3) Albuterol 2.5 mg 03/23/20 19:21 03/28/20 14:44 Albuterol 2.5 Mg/3 Ml Nebu IH 2.5 mg Q4HRT PRN Administration Shortness Of Breath Alprazolam 0.5 mg 03/25/20 11:00 04/03/20 21:29 Alprazolam 0.5 Mg Tab PO 0.5 mg Q8H PRN Administration Anxiety Atovaquone 750 mg 03/27/20 22:00 04/05/20 22:25 Atovaquone 750 Mg/5 Ml Oral Susp PO 750 mg BID SUN Administration Benzonatate 100 mg 03/27/20 14:53 04/03/20 21:31 Benzonatate 100 Mg Cap PO 100 mg Q8HR PRN Administration Cough Dextrose 50 ml 03/31/20 16:27 04/03/20 13:13 Dextrose 50% In Water (25gm) 50 Ml Syringe IV 50 ml Q30MIN PRN Administration Hypoglycemia Protocol Enoxaparin Sodium 40 mg 03/25/20 15:00 04/05/20 11:54 Enoxaparin 40 Mg/0.4 Ml Inj SUB-Q 40 mg QDAY@1000 SUN Administration MEROPENEM/NS 1 GRAM/100 ML 1 gram in 100 mls @ 100 mls/hr 03/30/20 18:00 04/06/20 14:24 Merrem/Ns 1 Gram/100 Ml IV 100 mls/hr Q8HR SUN Administration Protocol Dextrose/Sodium Chloride 1,000 mls @ 42 mls/hr 04/03/20 14:00 04/05/20 01:19 D5/0.45ns IV 42 mls/hr DIRECT SUN Administration Ibuprofen 600 mg 03/27/20 00:15 04/05/20 11:55 Ibuprofen 600 Mg Tab PO 600 mg Q8H PRN Administration Pain, Mild (1-3) Lamivudine 300 mg 03/24/20 16:00 04/05/20 11:55 Lamivudine 150 Mg Tab PO 300 mg DAILY SUN Administration Loperamide HCl 2 mg 03/29/20 14:39 04/03/20 22:12 Loperamide 2 Mg Cap PO 2 mg Q2H PRN Administration Diarrhea Metoprolol Tartrate 2.5 mg 03/25/20 11:00 04/03/20 13:13 Metoprolol Tartrate 5 Mg/5 Ml Inj IV 2.5 mg Q6H PRN Administration Tachyarrhythmias Metoprolol Tartrate 50 mg 03/29/20 22:00 04/05/20 22:25 Metoprolol Tartrate 25 Mg Tab PO 50 mg BID SUN Administration Ondansetron HCl 4 mg 03/23/20 19:21 03/31/20 05:04 Ondansetron 4 Mg/2 Ml Inj IV 4 mg Q8H PRN Administration Nausea And Vomiting Prednisone 40 mg 04/06/20 10:00 Prednisone 20 Mg Tab PO QDAY SUN Pseudoephedrine/Acetam/Chlorphenir 15 ml 03/24/20 16:53 04/06/20 01:15 Guaifenesin/Codeine 100-10mg Oral Liqd 5 Ml PO 15 ml Q4H PRN Administration Cough Sodium Chloride 10 ml 03/23/20 22:00 04/05/20 22:26 Sodium Chloride 0.9% 10 Ml Flush Syringe IV 10 ml BID SUN Administration Sodium Chloride 10 ml 03/23/20 19:21 03/31/20 05:05 Sodium Chloride 0.9% 10 Ml Flush Syringe IV 10 ml PRN PRN Administration LINE FLUSH Nutrition/Malnutrition Assess - Dietary Evaluation Nutrition/Malnutrition Findings: Nutrition Notes Start: 03/24/20 10:38 Freq: Status: Active Protocol: Document 04/06/20 09:17 CW (Rec: 04/06/20 09:27 CW [id number]) Nutrition Notes Initial or Follow up Reassessment Other Pertinent Diagnosis PNA, tuberculosis, HIV Current Diet Full Liquid Labs/Tests 04/05/2020 Na 134 K 3.5 Cr 1.3 Ca 8.3 Pertinent Medications D5 1/2 NS at 42 ml/h Meropenem Height 5 ft 2 in Weight 58 kg Nettie Body Weight (kg) 50.00 BMI 23.3 Intake Prior to Admission Fair Weight change and time frame Weight change noted. Wt fluctuating around 58 kg Weight Status Appropriate Subjective/Other Information F/U for ONS tolerance and intakes. Diet downgraded to full liquid diet. PO intake remains low. Pt is tolerating diet otherwise and states no N /V. Food preferences noted. Pt states that she is lactose intolerant. Pt also states that she does not want Ensure at all. 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 No Is Patient Ambulatory and/or Out of Bed Yes REE-([facility]-ambulatory/OOB) [ [id number] [id number]] Calculation Used for Recommendations [facility] Additional Notes Protein needs:52 - 69g (1 - 1. 2g/kg for hepatic disorder) Fluid: 1ml/kcal or MD order Nutrition Intervention Change Diet Order: Continue full liquid diet Add Supplement/Snack (indicate name/kcal d/c Ensure Enlive BID /protein ) Goal #1 Meet at least 75% of energy and protein needs Goal #2 Monitor for PO intakes Anticipated Discharge Needs: Unable to determine at this time Follow-Up By: 04/08/20 Additional Comments F/U PO intake
[2020-04-06] MEDS: METOPROLOL TARTRATE 25 MG TAB PO SCH ×2 (14:34→21:43)
[2020-04-06] MEDS: BENZONATATE 100 MG CAP PO PRN (14:36)
[2020-04-06] MEDS: predniSONE 20 MG TAB PO SCH (14:37)
[2020-04-06] MEDS: DOLUTEGRAVIR 50 MG TAB PO SCH (14:37)
[2020-04-06] MEDS: LOPERAMIDE 2 MG CAP PO PRN (14:38)
[2020-04-06] MEDS: ATOVAQUONE 750 MG/5 ML ORAL SUSP PO SCH ×2 (14:38→21:42)
[2020-04-06] MEDS: ABACAVIR 300 MG TAB PO SCH (14:38)
[2020-04-07] MEDS: MEROPENEM/NS 1 GRAM/100 ML 1 GRAM/100 ML BAG IV SCH ×3 (10:49→21:10)
[2020-04-07] MEDS: ATOVAQUONE 750 MG/5 ML ORAL SUSP PO SCH ×2 (10:56→21:11)
[2020-04-07] MEDS: ENOXAPARIN 40 MG/0.4 ML INJ SUB-Q SCH (10:58)
[2020-04-07] MEDS: METOPROLOL TARTRATE 25 MG TAB PO SCH ×2 (11:00→21:11)
[2020-04-07] MEDS: predniSONE 20 MG TAB PO SCH (11:00)
[2020-04-07] MEDS: ABACAVIR 300 MG TAB PO SCH (11:01)
[2020-04-07] MEDS: DOLUTEGRAVIR 50 MG TAB PO SCH (11:02)
[2020-04-07 13:19] LABS: BUN/Creatinine Ratio 8; Blood Urea Nitrogen 10 mg/dL (7-17); Calcium 8.1 mg/dL (8.4-10.2); Hemolysis Index 0
--- NOTE | 2020-04-07 13:36 | Progress Note ---
Assessment and Plan Cultures: SARS CoV2 PCR: Negative 03/23/2020 blood culture: no growth 03/23/2020 urine culture: no growth 03/24/2020 serum cryptococcal antigen: Negative HIV RNA PCR 34,900 MRSA nasal PCR: Negative 03/30/2020 blood culture: no growth A/P: 29/F with HIV, asthma recent admission at [place], underwent lymph node biopsy/surgery now here with: #Pneumonia: continue empiric abx: Ceftriaxone + Azithromycin. #Fevers: unclear etiology. ?IRIS given recent resumption of ART, though would not explain lympahadenopathy. Most recent procalcitonion highly elevated >25. #Extensive lymphadenopathy: Status post biopsy at [place]. Patient reports she underwent evaluation for TB, COVID-19 and influenza while at [place] and was negative. 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 Negative for fungal and AFB organisms. Flow cytometry negative for abnormal B or T-cell population. Differential diagnosis is wide, could be fungal/AFB, Kikuchi, Castleman's disease, autoimmune, sarcoidosis. ?IRIS from recent initiation of HAART. CMV DNA negative. Fungitell negative. HHV-8 negative. #HIV disease: CD4 191, HIV RNA PCR back at 34,900. ?prior non compliance. follows up at [facility] clinic and is on Epzicom in addition to Tivicay, it seems she had nausea with her previous medications. HAART was recently started. #Positive Quantiferon: noted she reported being negative for TB at [place], she reports blood test performed there. Will obtain AFB cultures and determine celia tment necessity, ordered x3. Will repeat Quantiferon too, as she is low risk for TB ([place], no travel, never in skilled nursing//homeless, no known family members with TB). Recs: -HHV-8 PCR pending -Continue empiric p.o. atovaquone 750 mg twice daily. Patient allergic to Bactrim -f/u EBV DNA PCR, urinary histoplasma Ag, -Continue vancomycin and meropenem -Continue HIV medications: PO Epzicom plus Tivicay (patient has her own meds) -Started prednisone 40mg q24h as steroid trial -Follow-up thoracentesis studies -airborn precautions pending AFB cultures -Notes from nursing indicate at least one AFB has been obtained. Follow up smear. -Given the complexity of her case she may be better served at [place] where the bulk of her workup was performed. -When stable for discharge would send with doxycycline 100mg q12h and Levaquin 750mg q24h for 10 days -She will need to follow up with [facility] for TB evaluation as we have been largely unable to collect AFB as appropriate here. Liat Lopez MD [facility] ([facility]) O: [phone] F: [phone] Subjective Date of service: 04/07/20 Interval history: Afebrile, no other acute changes. Currently on Venturi mask Objective - Exam Narrative Exam: Physical Exam: Constitutional: Alert, cooperative. No acute distress Head, Ears, Nose: Normocephalic, atraumatic. External ears, nose normal Eyes: Conjunctivae/corneas clear. No icterus. No ptosis. Neck: Supple, no meningeal signs Cardiovascular: S1, S2 normal. Respiratory: Good air entry, clear to auscultation bilaterally GI: Soft, non-tender; bowel sounds normal. No peritoneal signs Musculoskeletal: No pedal edema, no cyanosis. Skin: No rash or abscess Psych: Mood ok. Affect normal Neurological: Awake, alert, oriented. No gross abnormality - Constitutional Vitals: Vital Signs Temp Pulse Resp BP Pulse Ox 98.4 F 104 H 19 117/64 96 04/07/20 08:24 04/07/20 11:00 04/07/20 08:24 04/07/20 11:00 04/07/20 09:30 Temperature -Last 24 Hours Temperature 98.4 F Temperature 97.8 F Temperature 97.7 F Temperature 98.6 F Temperature 100.3 F - Labs CBC & Chem 7: 04/04/20 05:37 04/07/20 12:14 Labs: Abnormal lab results 04/06/20 04/06/20 04/07/20 Range/Units 18:22 20:20 12:14 Sodium 135 L (137-145) mmol/L Potassium 3.3 L (3.6-5.0) mmol/L Glucose 144 H (65-100) mg/dL POC Glucose 109 H 113 H (70-105) mg/dL Calcium 8.1 L (8.4-10.2) mg/dL 04/07/20 Range/Units 12:49 Sodium (137-145) mmol/L Potassium (3.6-5.0) mmol/L Glucose (65-100) mg/dL POC Glucose 111 H (70-105) mg/dL Calcium (8.4-10.2) mg/dL
[2020-04-07] MEDS ORDERED: POTASSIUM CHLORIDE ER 20 MEQ TAB PO NR (15:46)
--- NOTE | 2020-04-07 15:55 | Progress Note ---
<SHARONFANNIE PauloYesi - Last Filed: 04/07/20 15:55> Assessment and Plan Assessment and plan: Sepsis -POA -Presented with tachycardia into the 130s, tachypnea into the 30s and febrile state in the 101.6 and CXR shows pneumonia -S/p 2 L normal saline bolus and ceftriaxone in the ED -Antibiotic therapy -Infectious disease consulted, appreciate recommendations -COVID-19 PCR negative -03/23 blood cultures x2 no growth to date -03/23 urinalysis negative for nitrates and leukocyte esterase Fever of unknown origin -Due to underlying illness -Patient has been spiking temperatures since admission -Antibiotic therapy -Infectious disease consulted, appreciate recommendations -04/02 blood cultures x2 with no growth after 4 hours -03/23 urine culture shows normal joan -03/24 cryptococcal serum antigen negative, Histoplasma urinary antigen, EBV DNA PCR quantitative,TB QuantiFERON gold positive, CMV negative, Fungitell negative, HHV-8 negative, HHV -8 PCR pending -Pulmonary hygiene -Supportive care -Per ID: steroid trial with Prednisone 40 mg q 24 on 04/06 -Given the complexity of her case she may be better served at [facility] where the bulk of her workup was performed. -When stable for discharge would send with doxycycline 100mg q12h and Levaquin 750mg q24h for 10 days -She will need to follow up with [facility] for TB evaluation as we have been largely unable to collect AFB as appropriate here. Acute respiratory failure -Patient is a supplemental oxygenation -Pulmonary hygiene -Pulmonary consult, appreciate recommendations Pleural effusion -Partially loculated [id number] right pleural effusion noted on CTA chest -Pulmonology consult, appreciate recommendations -03/31 coagulation studies -04/01 thoracentesis with removal of 720 mL of blood-tinged fluid -04/01 CXR postthoracentesis shows 50% decrease in loculated pleural effusion with no pneumothorax -04/01 Pleural fluid acid-fast base culture and smear, cell count, glucose, LDH, total protein pending Persistent tachycardia -Initiated beta-fletcher, titrate as needed -IV beta-fletcher as needed -Telemetry monitoring -Supportive care -04/02 thyroid studies: TSH 1.7, free T4 0.98, T4 5 Pneumonia -03/23 CXR shows pneumonia -03/27 CXR shows worsened patchy consolidation/effusion in the right lung base with minimal patchy left basilar airspace disease also now present. No appreciable effusion on the left. -Supplemental oxygen as needed -SPO2 monitoring -Antibiotic therapy -Supportive care -Pulmonary hygiene Extensive adenopathy -S/p biopsy at [facility] (per infectious disease requested cervical lymph node biopsy results and hospitalization records) -Per ID: Opportunistic infection versus lymphoma versus sarcoid -03/23 CTA chest shows extensive lymphadenopathy throughout the chest involving bilateral axillary, mediastinal anthony regions, airspace consolidation of the right lower lobe with extensive tree-in-bud opacities in the right lower lobe and middle lobe less so within bilateral upper lobes -03/23 CTA neck shows recent left-sided lymph node biopsy, extensive bilateral symmetrical cervical neck lymphadenopathies with multifocal areas of necrosis -Per ID: 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 Acute kidney injury -Presented with a BUN/creatinine 7/0.9 -04/01 BUN/creatinine 7/1.3 -MIVF -Trend BMP -Consider nephrology consult and further studies if not improving -Avoid nephrotoxic medications -Renally dose medications -Strict intake and output Elevated D-dimer -Presented with a D-dimer of 2608 -03/23 CTA chest shows no evidence of pulmonary embolism -03/30 BLE Doppler US negative for DVT/SVT Supratherapeutic INR -03/31 INR 1.26, PT 13.6, APTT 63.2 -Trend INR/PT/APTT -Monitor for bleeding HIV disease -03/24: Absolute CD4 191, HIV RNA PCR 39081 -Continue home antiretroviral therapy -Follow-up outpatient with HIV clinic or ID Malnutrition -Presented with a BMI of 21 -Nutrition consulted for supplementation and dietary education Anxiety -As needed Ativan -Redirection and verbal de-escalation as needed -Supportive care -Follow-up outpatient with psych DVT -SCDs to bilateral lower extremities while in bed -Lovenox subcu -GI prophylaxis History Interval history: This is a 29-year-old female with asthma and HIV he was admitted to the hospital on 03/23 with a 2-week history of a dry cough, shaking chills, and fever. Work-up in the emergency department revealed tachypnea, tachycardia, febrile state and a CXR which revealed pneumonia. Patient CT scan of the chest revealed bilateral infiltrates as well as evidence of tuberculosis lymphadenitis, and hyponatremia. Patient was admitted to the hospital service with consult infectious disease for rule out tuberculosis and COVID-19. 03/24: TB PPD pending, COVID-19 PCR negative, infectious disease consulted, fever and patient was started on antibiotic therapy. No acute events reported overnight. Remains supplemental oxygenation. 03/25: Patient is having persistent fevers, tachycardia into the 140s s/p IV Lopressor x1 and p.o. Lopressor for rate control, patient was transferred from [facility] to telemetry overnight. 03/26: Patient had a low-grade temperature this morning which was treated with Tylenol. Patient states that she feels slightly better but is still experiencing coughing and chills. Patient still remains on empiric antibiotics and her hyponatremia has improved. She has persistent fevers, on antibiotics, supportive care, we will try scheduled Tylenol every 6 hours for 24 hours 03/27: Patient remains febrile. This afternoon patient was tachypneic, tachycardic and experienced wheezing therefore she received an albuterol treatment with RT and IV metoprolol. Patient stated that she felt like she was having an anxiety attack and has a history of anxiety and RN was instructed to provide the patient with as needed Ativan. CXR ordered. Patient is currently on 5 L nasal cannula however on reexamination patient was speaking on the phone with her father. We will also order as needed Tessalon Perles. Patient's CXR shows worsening patchy consolidation/effusion in the right lung base with minimal patchy left basilar airspace disease. Encourage pulmonary hygiene. 03/28: Febrile and sinus tachycardia 03/29: Febrile and sinus tachycardia 03/30: Patient was hypoglycemic this morning to the 60s and she received oral intake. RN to recheck BG. Patient placed on hypoglycemic protocol with Accu- Cheks AC at bedtime. Patient remains tachycardic though afebrile (T-max 99.0). Discharge pending infectious disease clearance. 03/31: Pulmonology was consulted for loculated pleural effusion. Patient remains tachycardic to the low 100s but has been afebrile. Coagulation studies ordered by pulmonology are slightly elevated. Patient is hypokalemic today which was repleted. Repeat BMP in the a.m. 04/01: At the time my examination patient was 35% Venturi mask for comfort even though her SPO2 was in the high 90s, patient stated that she feels zapien, T-max 100.4, patient scheduled for a thoracentesis today. No acute events reported overnight. Patient still remains tachycardic and today she developed acute kidney injury. 04/02: Patient is on 35% venti mask for patient comfort and she states that she "is not feeling well" but does not elaborate further when asked. Sputum culture still not obtained and RN instructed to ask RT to obtain. Patient still is having tachycardia. 04/03: Patient was severely tachycardic and as needed beta-fletcher was given, patient was again febrile. Patient's RN reports that the patient has decreased p.o. intake and only drinks clear liquids therefore diet has been changed and patient has been restarted on MIVF. ID has initiated the patient on a trial dose of steroids. Airborne precautions strictly in place until AFB results. 04/04/2020: HHV-8 PCR pending, Continue empiric p.o. atovaquone 750 mg twice daily, f/u EBV DNA PCR, urinary histoplasma Ag, continue vancomycin and meropenem, continue HIV medications: PO Epzicom plus Tivicay (patient has her own meds), Started prednisone 40mg q24h as steroid trial, Follow-up thoracentesis studies, airborne precautions pending AFB cultures, Repeat Quantiferon gold and procalcitonin. Ordered AFB cultures x3 with induced sputum if necessary. Have not been obtained yet. I discussed with respiratory to get induced sputum. 04/05/2020; patient had episodes fever overnight. Continue with p.o. atovaquone, Vanco and meropenem. Continue HIV medication. Sputum for AFB, was ordered and patient is not producing sputum so discussed with respiratory therapist and one sample was taken yesterday. ID is following the patient. 04/06: At the time of my examination patient is standing to leave AMA when informed that she would be discharged today due to pending AFB cultures. Patient states that she feels that she can be discharged and is discharging herself. Trial steroids started today. RT contacted to assist in obtaining cultures. Patient remains tachycardic and T-max was 101.7 yesterday. She still remains on 35% Ventimask for patient comfort. 04/07. No acute events reported overnight. Per infectious disease the patient is afebrile for 24 hours she can discharge with p.o. antibiotics. Patient will need to follow-up with the [facility] upon discharge. Patient was noted to be hypokalemic today which was repleted. Hospitalist Physical - Physical exam Narrative exam: General appearance: Present: no acute distress, well-nourished, other - EENT Eyes: Present: PERRL, EOM intact ENT: hearing intact, clear oral mucosa, dentition normal - Neck Neck: Present: normal ROM - Respiratory Respiratory effort: normal Respiratory: bilateral: diminished - Cardiovascular Rhythm: regular Heart Sounds: Present: S1 & S2. Absent: systolic murmur, diastolic murmur - Extremities Extremities: no ischemia, pulses intact, pulses symmetrical, No edema, normal temperature, normal color, Full ROM Peripheral Pulses: within normal limits - Abdominal General gastrointestinal: soft, non-tender, non-distended, normal bowel sounds - Integumentary Integumentary: Present: clear, warm, dry - Psychiatric Psychiatric: appropriate mood/affect, cooperative - Neurologic Neurologic: CNII-XII intact, no focal deficits, moves all extremities - Constitutional Vitals: Temp Pulse Resp BP Pulse Ox 104.4 F H 126 H 18 128/73 96 04/07/20 12:52 04/07/20 12:52 04/07/20 12:52 04/07/20 12:52 04/07/20 12:52 General appearance: Present: no acute distress, well-nourished, other Results - Labs CBC & Chem 7: 04/04/20 05:37 04/07/20 12:14 Labs: Laboratory Last Values WBC 8.4 K/mm3 (4.5-11.0) 04/04/20 05:37 RBC 3.11 M/mm3 (3.65-5.03) L 04/04/20 05:37 Hgb 8.0 gm/dl (10.1-14.3) L 04/04/20 05:37 Hct 23.9 % (30.3-42.9) L 04/04/20 05:37 MCV 77 fl (79-97) L 04/04/20 05:37 MCH 26 pg (28-32) L 04/04/20 05:37 MCHC 33 % (30-34) 04/04/20 05:37 RDW 23.0 % (13.2-15.2) H 04/04/20 05:37 Plt Count 223 K/mm3 (140-440) 04/04/20 05:37 Lymph % (Auto) 9.7 % (13.4-35.0) L 04/02/20 05:07 [place] % (Auto) 12.3 % (0.0-7.3) H 04/02/20 05:07 Eos % (Auto) 0.2 % (0.0-4.3) 04/02/20 05:07 Baso % (Auto) 0.2 % (0.0-1.8) 04/02/20 05:07 Lymph # (Auto) 1.2 K/mm3 (1.2-5.4) 04/02/20 05:07 [place] # (Auto) 1.5 K/mm3 (0.0-0.8) H 04/02/20 05:07 Eos # (Auto) 0.0 K/mm3 (0.0-0.4) 04/02/20 05:07 Baso # (Auto) 0.0 K/mm3 (0.0-0.1) 04/02/20 05:07 Add Manual Diff Complete 03/30/20 04:54 Total Counted 100 03/30/20 04:54 Seg Neutrophils % 77.6 % (40.0-70.0) H 04/02/20 05:07 Seg Neuts % (Manual) 91.0 % (40.0-70.0) H 03/30/20 04:54 Band Neutrophils % 1.0 % 03/30/20 04:54 Lymphocytes % (Manual) 1.0 % (13.4-35.0) L 03/30/20 04:54 Monocytes % (Manual) 7.0 % (0.0-7.3) 03/30/20 04:54 Nucleated RBC % Not Reportable 03/30/20 04:54 Seg Neutrophils # 9.8 K/mm3 (1.8-7.7) H 04/02/20 05:07 Seg Neutrophils # Man 7.4 K/mm3 (1.8-7.7) 03/30/20 04:54 Band Neutrophils # 0.1 K/mm3 03/30/20 04:54 Abs Lymphs (Manual) 1064 cells/uL (850-3900) 03/24/20 15:27 Lymphocytes # (Manual) 0.1 K/mm3 (1.2-5.4) L 03/30/20 04:54 Abs React Lymphs (Man) 0.0 K/mm3 03/30/20 04:54 Monocytes # (Manual) 0.6 K/mm3 (0.0-0.8) 03/30/20 04:54 Eosinophils # (Manual) 0.0 K/mm3 (0.0-0.4) 03/30/20 04:54 Basophils # (Manual) 0.0 K/mm3 (0.0-0.1) 03/30/20 04:54 Metamyelocytes # 0.0 K/mm3 03/30/20 04:54 Myelocytes # 0.0 K/mm3 03/30/20 04:54 Promyelocytes # 0.0 K/mm3 03/30/20 04:54 Blast Cells # 0.0 K/mm3 03/30/20 04:54 WBC Morphology Not Reportable 03/30/20 04:54 Hypersegmented Neuts Not Reportable 03/30/20 04:54 Hyposegmented Neuts Not Reportable 03/30/20 04:54 Hypogranular Neuts Not Reportable 03/30/20 04:54 Smudge Cells Not Reportable 03/30/20 04:54 Toxic Granulation Not Reportable 03/30/20 04:54 Toxic Vacuolation Not Reportable 03/30/20 04:54 Dohle Bodies Not Reportable 03/30/20 04:54 Pelger-Huet Anomaly Not Reportable 03/30/20 04:54 Ney Rods Not Reportable 03/30/20 04:54 Platelet Estimate Consistent w auto 03/30/20 04:54 Clumped Platelets Not Reportable 03/30/20 04:54 Plt Clumps, EDTA Not Reportable 03/30/20 04:54 Large Platelets Not Reportable 03/30/20 04:54 Giant Platelets Not Reportable 03/30/20 04:54 Platelet Satelliting Not Reportable 03/30/20 04:54 Plt Morphology Comment Not Reportable 03/30/20 04:54 RBC Morphology Not Reportable 03/30/20 04:54 Dimorphic RBCs Not Reportable 03/30/20 04:54 Polychromasia Not Reportable 03/30/20 04:54 Hypochromasia Not Reportable 03/30/20 04:54 Poikilocytosis Not Reportable 03/30/20 04:54 Anisocytosis 1+ 03/30/20 04:54 Microcytosis Not Reportable 03/30/20 04:54 Macrocytosis Not Reportable 03/30/20 04:54 Spherocytes Not Reportable 03/30/20 04:54 Pappenheimer Bodies Not Reportable 03/30/20 04:54 Sickle Cells Not Reportable 03/30/20 04:54 Target Cells Not Reportable 03/30/20 04:54 Tear Drop Cells Not Reportable 03/30/20 04:54 Ovalocytes Not Reportable 03/30/20 04:54 Helmet Cells Not Reportable 03/30/20 04:54 [place] Bodies Not Reportable 03/30/20 04:54 [place] Rings Not Reportable 03/30/20 04:54 [place] Cells Not Reportable 03/30/20 04:54 Bite Cells Not Reportable 03/30/20 04:54 Crenated Cell Not Reportable 03/30/20 04:54 Elliptocytes Not Reportable 03/30/20 04:54 Acanthocytes (Spur) Not Reportable 03/30/20 04:54 Rouleaux Not Reportable 03/30/20 04:54 Hemoglobin C Crystals Not Reportable 03/30/20 04:54 Schistocytes Not Reportable 03/30/20 04:54 Malaria parasites Not Reportable 03/30/20 04:54 Tyron Bodies Not Reportable 03/30/20 04:54 Hem Pathologist Commnt No 03/30/20 04:54 PT 17.1 Sec. (12.2-14.9) H 04/02/20 09:29 INR 1.41 (0.87-1.13) H 04/02/20 09:29 APTT 48.6 Sec. (24.2-36.6) H 04/02/20 09:29 D-Dimer 1520.95 ng/mlDDU (0-234) H 03/27/20 04:53 VBG pH 7.482 (7.320-7.420) H 03/23/20 17:13 Sodium 135 mmol/L (137-145) L 04/07/20 12:14 Potassium 3.3 mmol/L (3.6-5.0) L 04/07/20 12:14 Chloride 101.2 mmol/L (98-107) 04/07/20 12:14 Carbon Dioxide 26 mmol/L (22-30) 04/07/20 12:14 Anion Gap 11 mmol/L 04/07/20 12:14 BUN 10 mg/dL (7-17) 04/07/20 12:14 Creatinine 1.2 mg/dL (0.6-1.2) 04/07/20 12:14 Estimated GFR > 60 ml/min 04/07/20 12:14 BUN/Creatinine Ratio 8 % 04/07/20 12:14 Glucose 144 mg/dL (65-100) H 04/07/20 12:14 POC Glucose 111 mg/dL (70-105) H 04/07/20 12:49 Lactic Acid 1.10 mmol/L (0.7-2.0) 03/23/20 18:25 Calcium 8.1 mg/dL (8.4-10.2) L 04/07/20 12:14 Magnesium 1.90 mg/dL (1.7-2.3) 04/02/20 05:07 Ferritin 1124.0 ng/mL (10.0-200.0) H 03/23/20 16:28 Total Bilirubin 0.60 mg/dL (0.1-1.2) 04/02/20 05:07 Direct Bilirubin 0.3 mg/dL (0-0.2) H 04/02/20 05:07 Indirect Bilirubin 0.3 mg/dL 04/02/20 05:07 AST 18 units/L (5-40) 04/02/20 05:07 ALT 13 units/L (7-56) 04/02/20 05:07 Alkaline Phosphatase 227 units/L (35-129) H 04/02/20 05:07 Lactate Dehydrogenase 428 units/L (91-180) H 03/23/20 16:28 Total Creatine Kinase 30 units/L (30-135) 03/23/20 16:28 C-Reactive Protein 23.00 mg/dL (0.00-1.30) H 03/27/20 04:53 Total Protein 6.5 g/dL (6.3-8.2) 04/02/20 05:07 Albumin 2.0 g/dL (3.9-5) L 04/02/20 05:07 Albumin/Globulin Ratio 0.4 % 04/02/20 05:07 Procalcitonin 68.32 ng/mL (<0.15) 04/03/20 18:56 TSH 1.730 mlU/mL (0.270-4.200) 04/02/20 19:11 Free T4 0.98 ng/dL (0.76-1.46) 04/02/20 19:11 Thyroxine (T4) 5.0 ug/dL (4.0-12.0) 04/02/20 19:11 Free T3 Index 1.9 pg/mL (2.3-4.2) L 04/02/20 19:11 HCG, Quant < 2 mIU/mL (0-4) 03/23/20 16:28 Urine Color Colorless (Yellow) 03/23/20 Unknown Urine Turbidity Clear (Clear) 03/23/20 Unknown Urine pH 7.0 (5.0-7.0) 03/23/20 Unknown Ur Specific [place] 1.019 (1.003-1.030) 03/23/20 Unknown Urine Protein <15 mg/dl mg/dL (Negative) 03/23/20 Unknown Urine Glucose (UA) Neg mg/dL (Negative) 03/23/20 Unknown Urine Ketones Neg mg/dL (Negative) 03/23/20 Unknown Urine Blood Sm (Negative) 03/23/20 Unknown Urine Nitrite Neg (Negative) 03/23/20 Unknown Ur Reducing Substances Not Reportable 03/23/20 Unknown Urine Bilirubin Neg (Negative) 03/23/20 Unknown Urine Ictotest Not Reportable 03/23/20 Unknown Urine Urobilinogen < 2.0 mg/dL (<2.0) 03/23/20 Unknown Ur Leukocyte Esterase Neg (Negative) 03/23/20 Unknown Urine WBC (Auto) 1.0 /HPF (0.0-6.0) 03/23/20 Unknown Urine RBC (Auto) 1.0 /HPF (0.0-6.0) 03/23/20 Unknown U Epithel Cells (Auto) < 1.0 /HPF (0-13.0) 03/23/20 Unknown Nasal Screen MRSA (PCR) Negative (Negative) 03/24/20 06:42 Vancomycin Trough 26.2 ug/mL (5.0-20.0) H 04/06/20 00:25 Random Vancomycin 10.4 ug/mL (0-40.0) 04/07/20 12:14 Lymph Enumerat CD4/CD8 0.23 (0.86-5.00) L 03/24/20 15:27 % CD3 Cells 92 % (57-85) H 03/24/20 15:27 Absolute CD3 Count 978 cells/uL (840-3060) 03/24/20 15:27 % CD4 Cells 17 % (30-61) L 03/24/20 15:27 Absolute CD4 Count 191 cells/uL (490-1740) L 03/24/20 15:27 % CD8 Cells 76 % (12-42) H 03/24/20 15:27 Absolute CD8 Count 837 cells/uL (180-1170) 03/24/20 15:27 % CD19 Cells 2 % (6-29) L 03/24/20 15:27 Absolute CD19 Count 22 cells/uL (110-660) L 03/24/20 15:27 Coronavirus (PCR) Negative (Negative) 03/24/20 Unknown CMV Specimen Source Serum 03/24/20 15:27 CMV DNA PCR log marketing copywriter/mL See scanned result 03/24/20 15:27 HIV-1 RNA PCR copies/ml 18572 Copies/mL H 03/24/20 15:27 HIV-1 RNA (PCR) log 4.54 Log cps/mL H 03/24/20 15:27 TB (QFT) Gold In Tube Positive (NEGATIVE) H 03/27/20 11:08 TB Test (QFT) Nil 3.46 IU/mL 03/27/20 11:08 TB Test Mitogen - Nil 4.57 IU/mL 03/27/20 11:08 TB Test Ag - Nil 1 1.82 IU/mL 03/27/20 11:08 TB Test Ag - Nil 2 1.95 IU/mL 03/27/20 11:08 Miscellaneous Test Flexitest 1 03/31/20 07:56 Marroquin/IV: Voiding Method Bedside Commode Active Medications - Current Medications Current Medications: Generic Name Dose Route Start Last Admin Trade Name Freq PRN Reason Stop Dose Admin Abacavir Sulfate 600 mg 03/24/20 16:00 04/07/20 11:01 Abacavir 300 Mg Tab PO 600 mg DAILY SUN Administration Acetaminophen 650 mg 03/30/20 15:19 04/05/20 22:26 Acetaminophen 325 Mg Tab PO 650 mg Q4H PRN Administration Pain, Mild (1-3) Albuterol 2.5 mg 03/23/20 19:21 03/28/20 14:44 Albuterol 2.5 Mg/3 Ml Nebu IH 2.5 mg Q4HRT PRN Administration Shortness Of Breath Alprazolam 0.5 mg 03/25/20 11:00 04/03/20 21:29 Alprazolam 0.5 Mg Tab PO 0.5 mg Q8H PRN Administration Anxiety Atovaquone 750 mg 03/27/20 22:00 04/07/20 10:56 Atovaquone 750 Mg/5 Ml Oral Susp PO 750 mg BID SUN Administration Benzonatate 100 mg 03/27/20 14:53 04/06/20 14:36 Benzonatate 100 Mg Cap PO 100 mg Q8HR PRN Administration Cough Dextrose 50 ml 03/31/20 16:27 04/03/20 13:13 Dextrose 50% In Water (25gm) 50 Ml Syringe IV 50 ml Q30MIN PRN Administration Hypoglycemia Protocol Enoxaparin Sodium 40 mg 03/25/20 15:00 04/07/20 10:58 Enoxaparin 40 Mg/0.4 Ml Inj SUB-Q 40 mg QDAY@1000 SUN Administration MEROPENEM/NS 1 GRAM/100 ML 1 gram in 100 mls @ 100 mls/hr 03/30/20 18:00 04/07/20 10:49 Merrem/Ns 1 Gram/100 Ml IV 04/09/20 06:59 100 mls/hr Q8HR SUN Administration Protocol Dextrose/Sodium Chloride 1,000 mls @ 42 mls/hr 04/03/20 14:00 04/05/20 01:19 D5/0.45ns IV 42 mls/hr DIRECT SUN Administration Vancomycin HCl 750 mg/ Sodium 265 mls @ 166.667 mls/hr 04/07/20 22:00 Chloride IV 04/08/20 23:59 Q24H SUN Lamivudine 300 mg 03/24/20 16:00 04/07/20 11:02 Lamivudine 150 Mg Tab PO 300 mg DAILY SUN Administration Loperamide HCl 2 mg 03/29/20 14:39 04/06/20 14:38 Loperamide 2 Mg Cap PO 2 mg Q2H PRN Administration Diarrhea Metoprolol Tartrate 2.5 mg 03/25/20 11:00 04/03/20 13:13 Metoprolol Tartrate 5 Mg/5 Ml Inj IV 2.5 mg Q6H PRN Administration Tachyarrhythmias Metoprolol Tartrate 50 mg 03/29/20 22:00 04/07/20 11:00 Metoprolol Tartrate 25 Mg Tab PO 50 mg BID SUN Administration Ondansetron HCl 4 mg 03/23/20 19:21 03/31/20 05:04 Ondansetron 4 Mg/2 Ml Inj IV 4 mg Q8H PRN Administration Nausea And Vomiting Potassium Chloride 40 meq 04/07/20 15:46 Potassium Chloride Er 20 Meq Tab PO 04/07/20 17:00 ONCE NR Prednisone 40 mg 04/06/20 10:00 04/07/20 11:00 Prednisone 20 Mg Tab PO 40 mg QDAY SUN Administration Pseudoephedrine/Acetam/Chlorphenir 15 ml 03/24/20 16:53 04/06/20 01:15 Guaifenesin/Codeine 100-10mg Oral Liqd 5 Ml PO 15 ml Q4H PRN Administration Cough Sodium Chloride 10 ml 03/23/20 22:00 04/06/20 21:45 Sodium Chloride 0.9% 10 Ml Flush Syringe IV 10 ml BID SUN Administration Sodium Chloride 10 ml 03/23/20 19:21 03/31/20 05:05 Sodium Chloride 0.9% 10 Ml Flush Syringe IV 10 ml PRN PRN Administration LINE FLUSH Nutrition/Malnutrition Assess - Dietary Evaluation Nutrition/Malnutrition Findings: Nutrition Notes Start: 03/24/20 10:38 Freq: Status: Active Protocol: Document 04/06/20 09:17 CW (Rec: 04/06/20 09:27 CW [id number]) Nutrition Notes Initial or Follow up Reassessment Other Pertinent Diagnosis PNA, tuberculosis, HIV Current Diet Full Liquid Labs/Tests 04/05/2020 Na 134 K 3.5 Cr 1.3 Ca 8.3 Pertinent Medications D5 1/2 NS at 42 ml/h Meropenem Height 5 ft 2 in Weight 58 kg [place] Body Weight (kg) 50.00 BMI 23.3 Intake Prior to Admission Fair Weight change and time frame Weight change noted. Wt fluctuating around 58 kg Weight Status Appropriate Subjective/Other Information F/U for ONS tolerance and intakes. Diet downgraded to full liquid diet. PO intake remains low. Pt is tolerating diet otherwise and states no N /V. Food preferences noted. Pt states that she is lactose intolerant. Pt also states that she does not want Ensure at all. Will d/c Percent of energy/protein needs met: 32%/36% Burn Absent Trauma Absent GI Symptoms Diarrhea Food Allergy Yes Usual Diet at Home Lactose intolerant Current % PO Fair (50-74%) Minimum of two criteria Yes Energy Intake (severe) < or equal to 50% Estimated Energy Requirement > or equal to 5 days Fluid Accumulation Moderate to Severe (severe) Reduced Shank Tapper Strength Measurably Reduced (severe) #1 Nutrition Diagnosis Malnutrition As Evidenced by Signs and Symptoms reduced elevator starter stength, nonpitting edema, PO intake < 50% of kcal and protein needs >5 days Diagnosis Progress(for reassessment Worsened documentation) Is patient on ventilator? No Is Patient Ambulatory and/or Out of Bed Yes REE-([place] or-ambulatory/OOB) [ 1629.225 [id number]] [facility]culation [facility] Additional Notes Protein needs:52 - 69g (1 - 1. 2g/kg for hepatic disorder) Fluid: 1ml/kcal or MD order Nutrition Intervention Change Diet Order: Continue full liquid diet Add Supplement/Snack (indicate name/kcal d/c Ensure Enlive BID /protein ) Goal #1 Meet at least 75% of energy and protein needs Goal #2 Monitor for PO intakes Anticipated Discharge Needs: Unable to determine at this time Follow-Up By: 04/08/20 Additional Comments F/U PO intake <PIA JACOBSEN M - Last Filed: 04/08/20 08:20> Hospitalist Physical - Constitutional Vitals: Temp Pulse Resp BP Pulse Ox 98.0 F 76 18 102/65 100 04/08/20 04:31 04/08/20 04:31 04/08/20 04:31 04/08/20 04:31 04/08/20 04:31 Results - Labs CBC & Chem 7: 04/04/20 05:37 04/08/20 04:39 Labs: Laboratory Last Values WBC 8.4 K/mm3 (4.5-11.0) 04/04/20 05:37 RBC 3.11 M/mm3 (3.65-5.03) L 04/04/20 05:37 Hgb 8.0 gm/dl (10.1-14.3) L 04/04/20 05:37 Hct 23.9 % (30.3-42.9) L 04/04/20 05:37 MCV 77 fl (79-97) L 04/04/20 05:37 MCH 26 pg (28-32) L 04/04/20 05:37 MCHC 33 % (30-34) 04/04/20 05:37 RDW 23.0 % (13.2-15.2) H 04/04/20 05:37 Plt Count 223 K/mm3 (140-440) 04/04/20 05:37 Lymph % (Auto) 9.7 % (13.4-35.0) L 04/02/20 05:07 Bleckley % (Auto) 12.3 % (0.0-7.3) H 04/02/20 05:07 Eos % (Auto) 0.2 % (0.0-4.3) 04/02/20 05:07 Baso % (Auto) 0.2 % (0.0-1.8) 04/02/20 05:07 Lymph # (Auto) 1.2 K/mm3 (1.2-5.4) 04/02/20 05:07 Bleckley # (Auto) 1.5 K/mm3 (0.0-0.8) H 04/02/20 05:07 Eos # (Auto) 0.0 K/mm3 (0.0-0.4) 04/02/20 05:07 Baso # (Auto) 0.0 K/mm3 (0.0-0.1) 04/02/20 05:07 Add Manual Diff Complete 03/30/20 04:54 Total Counted 100 03/30/20 04:54 Seg Neutrophils % 77.6 % (40.0-70.0) H 04/02/20 05:07 Seg Neuts % (Manual) 91.0 % (40.0-70.0) H 03/30/20 04:54 Band Neutrophils % 1.0 % 03/30/20 04:54 Lymphocytes % (Manual) 1.0 % (13.4-35.0) L 03/30/20 04:54 Monocytes % (Manual) 7.0 % (0.0-7.3) 03/30/20 04:54 Nucleated RBC % Not Reportable 03/30/20 04:54 Seg Neutrophils # 9.8 K/mm3 (1.8-7.7) H 04/02/20 05:07 Seg Neutrophils # Man 7.4 K/mm3 (1.8-7.7) 03/30/20 04:54 Band Neutrophils # 0.1 K/mm3 03/30/20 04:54 Abs Lymphs (Manual) 1064 cells/uL (850-3900) 03/24/20 15:27 Lymphocytes # (Manual) 0.1 K/mm3 (1.2-5.4) L 03/30/20 04:54 Abs React Lymphs (Man) 0.0 K/mm3 03/30/20 04:54 Monocytes # (Manual) 0.6 K/mm3 (0.0-0.8) 03/30/20 04:54 Eosinophils # (Manual) 0.0 K/mm3 (0.0-0.4) 03/30/20 04:54 Basophils # (Manual) 0.0 K/mm3 (0.0-0.1) 03/30/20 04:54 Metamyelocytes # 0.0 K/mm3 03/30/20 04:54 Myelocytes # 0.0 K/mm3 03/30/20 04:54 Promyelocytes # 0.0 K/mm3 03/30/20 04:54 Blast Cells # 0.0 K/mm3 03/30/20 04:54 WBC Morphology Not Reportable 03/30/20 04:54 Hypersegmented Neuts Not Reportable 03/30/20 04:54 Hyposegmented Neuts Not Reportable 03/30/20 04:54 Hypogranular Neuts Not Reportable 03/30/20 04:54 Smudge Cells Not Reportable 03/30/20 04:54 Toxic Granulation Not Reportable 03/30/20 04:54 Toxic Vacuolation Not Reportable 03/30/20 04:54 Dohle Bodies Not Reportable 03/30/20 04:54 Pelger-Huet Anomaly Not Reportable 03/30/20 04:54 Ney Rods Not Reportable 03/30/20 04:54 Platelet Estimate Consistent w auto 03/30/20 04:54 Clumped Platelets Not Reportable 03/30/20 04:54 Plt Clumps, EDTA Not Reportable 03/30/20 04:54 Large Platelets Not Reportable 03/30/20 04:54 Giant Platelets Not Reportable 03/30/20 04:54 Platelet Satelliting Not Reportable 03/30/20 04:54 Plt Morphology Comment Not Reportable 03/30/20 04:54 RBC Morphology Not Reportable 03/30/20 04:54 Dimorphic RBCs Not Reportable 03/30/20 04:54 Polychromasia Not Reportable 03/30/20 04:54 Hypochromasia Not Reportable 03/30/20 04:54 Poikilocytosis Not Reportable 03/30/20 04:54 Anisocytosis 1+ 03/30/20 04:54 Microcytosis Not Reportable 03/30/20 04:54 Macrocytosis Not Reportable 03/30/20 04:54 Spherocytes Not Reportable 03/30/20 04:54 Pappenheimer Bodies Not Reportable 03/30/20 04:54 Sickle Cells Not Reportable 03/30/20 04:54 Target Cells Not Reportable 03/30/20 04:54 Tear Drop Cells Not Reportable 03/30/20 04:54 Ovalocytes Not Reportable 03/30/20 04:54 Helmet Cells Not Reportable 03/30/20 04:54 Badillo-Ambridge Bodies Not Reportable 03/30/20 04:54 [place] Rings Not Reportable 03/30/20 04:54 [place] Cells Not Reportable 03/30/20 04:54 Bite Cells Not Reportable 03/30/20 04:54 Crenated Cell Not Reportable 03/30/20 04:54 Elliptocytes Not Reportable 03/30/20 04:54 Acanthocytes (Spur) Not Reportable 03/30/20 04:54 Rouleaux Not Reportable 03/30/20 04:54 Hemoglobin C Crystals Not Reportable 03/30/20 04:54 Schistocytes Not Reportable 03/30/20 04:54 Malaria parasites Not Reportable 03/30/20 04:54 Tyron Bodies Not Reportable 03/30/20 04:54 Hem Pathologist Commnt No 03/30/20 04:54 PT 17.1 Sec. (12.2-14.9) H 04/02/20 09:29 INR 1.41 (0.87-1.13) H 04/02/20 09:29 APTT 48.6 Sec. (24.2-36.6) H 04/02/20 09:29 D-Dimer 1520.95 ng/mlDDU (0-234) H 03/27/20 04:53 VBG pH 7.482 (7.320-7.420) H 03/23/20 17:13 Sodium 138 mmol/L (137-145) 04/08/20 04:39 Potassium 4.0 mmol/L (3.6-5.0) D 04/08/20 04:39 Chloride 104.0 mmol/L (98-107) 04/08/20 04:39 Carbon Dioxide 27 mmol/L (22-30) 04/08/20 04:39 Anion Gap 11 mmol/L 04/08/20 04:39 BUN 11 mg/dL (7-17) 04/08/20 04:39 Creatinine 1.1 mg/dL (0.6-1.2) 04/08/20 04:39 Estimated GFR > 60 ml/min 04/08/20 04:39 BUN/Creatinine Ratio 10 % 04/08/20 04:39 Glucose 98 mg/dL (65-100) 04/08/20 04:39 POC Glucose 138 mg/dL (70-105) H 04/07/20 21:43 Lactic Acid 1.10 mmol/L (0.7-2.0) 03/23/20 18:25 Calcium 8.2 mg/dL (8.4-10.2) L 04/08/20 04:39 Magnesium 1.90 mg/dL (1.7-2.3) 04/02/20 05:07 Ferritin 1124.0 ng/mL (10.0-200.0) H 03/23/20 16:28 Total Bilirubin 0.60 mg/dL (0.1-1.2) 04/02/20 05:07 Direct Bilirubin 0.3 mg/dL (0-0.2) H 04/02/20 05:07 Indirect Bilirubin 0.3 mg/dL 04/02/20 05:07 AST 18 units/L (5-40) 04/02/20 05:07 ALT 13 units/L (7-56) 04/02/20 05:07 Alkaline Phosphatase 227 units/L (35-129) H 04/02/20 05:07 Lactate Dehydrogenase 428 units/L (91-180) H 03/23/20 16:28 Total Creatine Kinase 30 units/L (30-135) 03/23/20 16:28 C-Reactive Protein 23.00 mg/dL (0.00-1.30) H 03/27/20 04:53 Total Protein 6.5 g/dL (6.3-8.2) 04/02/20 05:07 Albumin 2.0 g/dL (3.9-5) L 04/02/20 05:07 Albumin/Globulin Ratio 0.4 % 04/02/20 05:07 Procalcitonin 68.32 ng/mL (<0.15) 04/03/20 18:56 TSH 1.730 mlU/mL (0.270-4.200) 04/02/20 19:11 Free T4 0.98 ng/dL (0.76-1.46) 04/02/20 19:11 Thyroxine (T4) 5.0 ug/dL (4.0-12.0) 04/02/20 19:11 Free T3 Index 1.9 pg/mL (2.3-4.2) L 04/02/20 19:11 HCG, Quant < 2 mIU/mL (0-4) 03/23/20 16:28 Urine Color Colorless (Yellow) 03/23/20 Unknown Urine Turbidity Clear (Clear) 03/23/20 Unknown Urine pH 7.0 (5.0-7.0) 03/23/20 Unknown Ur Specific [place] 1.019 (1.003-1.030) 03/23/20 Unknown Urine Protein <15 mg/dl mg/dL (Negative) 03/23/20 Unknown Urine Glucose (UA) Neg mg/dL (Negative) 03/23/20 Unknown Urine Ketones Neg mg/dL (Negative) 03/23/20 Unknown Urine Blood Sm (Negative) 03/23/20 Unknown Urine Nitrite Neg (Negative) 03/23/20 Unknown Ur Reducing Substances Not Reportable 03/23/20 Unknown Urine Bilirubin Neg (Negative) 03/23/20 Unknown Urine Ictotest Not Reportable 03/23/20 Unknown Urine Urobilinogen < 2.0 mg/dL (<2.0) 03/23/20 Unknown Ur Leukocyte Esterase Neg (Negative) 03/23/20 Unknown Urine WBC (Auto) 1.0 /HPF (0.0-6.0) 03/23/20 Unknown Urine RBC (Auto) 1.0 /HPF (0.0-6.0) 03/23/20 Unknown U Epithel Cells (Auto) < 1.0 /HPF (0-13.0) 03/23/20 Unknown Nasal Screen MRSA (PCR) Negative (Negative) 03/24/20 06:42 Vancomycin Trough 26.2 ug/mL (5.0-20.0) H 04/06/20 00:25 Random Vancomycin 10.4 ug/mL (0-40.0) 04/07/20 12:14 Lymph Enumerat CD4/CD8 0.23 (0.86-5.00) L 03/24/20 15:27 % CD3 Cells 92 % (57-85) H 03/24/20 15:27 Absolute CD3 Count 978 cells/uL (840-3060) 03/24/20 15:27 % CD4 Cells 17 % (30-61) L 03/24/20 15:27 Absolute CD4 Count 191 cells/uL (490-1740) L 03/24/20 15:27 % CD8 Cells 76 % (12-42) H 03/24/20 15:27 Absolute CD8 Count 837 cells/uL (180-1170) 03/24/20 15:27 % CD19 Cells 2 % (6-29) L 03/24/20 15:27 Absolute CD19 Count 22 cells/uL (110-660) L 03/24/20 15:27 Coronavirus (PCR) Negative (Negative) 03/24/20 Unknown CMV Specimen Source Serum 03/24/20 15:27 CMV DNA PCR log marketing copywriter/mL See scanned result 03/24/20 15:27 HIV-1 RNA PCR copies/ml 93822 Copies/mL H 03/24/20 15:27 HIV-1 RNA (PCR) log 4.54 Log cps/mL H 03/24/20 15:27 TB (QFT) Gold In Tube Positive (NEGATIVE) H 03/27/20 11:08 TB Test (QFT) Nil 3.46 IU/mL 03/27/20 11:08 TB Test Mitogen - Nil 4.57 IU/mL 03/27/20 11:08 TB Test Ag - Nil 1 1.82 IU/mL 03/27/20 11:08 TB Test Ag - Nil 2 1.95 IU/mL 03/27/20 11:08 Miscellaneous Test Flexitest 1 03/31/20 07:56 Marroquin/IV: Voiding Method External Female Catheter Active Medications - Current Medications Current Medications: Generic Name Dose Route Start Last Admin Trade Name Freq PRN Reason Stop Dose Admin Abacavir Sulfate 600 mg 03/24/20 16:00 04/07/20 11:01 Abacavir 300 Mg Tab PO 600 mg DAILY SUN Administration Acetaminophen 650 mg 03/30/20 15:19 04/07/20 16:43 Acetaminophen 325 Mg Tab PO 650 mg Q4H PRN Administration Pain, Mild (1-3) Albuterol 2.5 mg 03/23/20 19:21 03/28/20 14:44 Albuterol 2.5 Mg/3 Ml Nebu IH 2.5 mg Q4HRT PRN Administration Shortness Of Breath Alprazolam 0.5 mg 03/25/20 11:00 04/03/20 21:29 Alprazolam 0.5 Mg Tab PO 0.5 mg Q8H PRN Administration Anxiety Atovaquone 750 mg 03/27/20 22:00 04/07/20 21:11 Atovaquone 750 Mg/5 Ml Oral Susp PO 750 mg BID SUN Administration Benzonatate 100 mg 03/27/20 14:53 04/06/20 14:36 Benzonatate 100 Mg Cap PO 100 mg Q8HR PRN Administration Cough Dextrose 50 ml 03/31/20 16:27 04/03/20 13:13 Dextrose 50% In Water (25gm) 50 Ml Syringe IV 50 ml Q30MIN PRN Administration Hypoglycemia Protocol Enoxaparin Sodium 40 mg 03/25/20 15:00 04/07/20 10:58 Enoxaparin 40 Mg/0.4 Ml Inj SUB-Q 40 mg QDAY@1000 SUN Administration MEROPENEM/NS 1 GRAM/100 ML 1 gram in 100 mls @ 100 mls/hr 03/30/20 18:00 04/08/20 06:09 Merrem/Ns 1 Gram/100 Ml IV 04/09/20 06:59 100 mls/hr Q8HR SUN Administration Protocol Dextrose/Sodium Chloride 1,000 mls @ 42 mls/hr 04/03/20 14:00 04/07/20 16:46 D5/0.45ns IV 42 mls/hr DIRECT SUN Administration Vancomycin HCl 750 mg/ Sodium 265 mls @ 166.667 mls/hr 04/07/20 22:00 04/07/20 21:14 Chloride IV 04/08/20 23:59 166.667 mls/hr Q24H SUN Administration Lamivudine 300 mg 03/24/20 16:00 04/07/20 11:02 Lamivudine 150 Mg Tab PO 300 mg DAILY SUN Administration Loperamide HCl 2 mg 03/29/20 14:39 04/06/20 14:38 Loperamide 2 Mg Cap PO 2 mg Q2H PRN Administration Diarrhea Metoprolol Tartrate 2.5 mg 03/25/20 11:00 04/03/20 13:13 Metoprolol Tartrate 5 Mg/5 Ml Inj IV 2.5 mg Q6H PRN Administration Tachyarrhythmias Metoprolol Tartrate 50 mg 03/29/20 22:00 04/07/20 21:11 Metoprolol Tartrate 25 Mg Tab PO 50 mg BID SUN Administration Ondansetron HCl 4 mg 03/23/20 19:21 03/31/20 05:04 Ondansetron 4 Mg/2 Ml Inj IV 4 mg Q8H PRN Administration Nausea And Vomiting Prednisone 40 mg 04/06/20 10:00 04/07/20 11:00 Prednisone 20 Mg Tab PO 40 mg QDAY SUN Administration Pseudoephedrine/Acetam/Chlorphenir 15 ml 03/24/20 16:53 04/06/20 01:15 Guaifenesin/Codeine 100-10mg Oral Liqd 5 Ml PO 15 ml Q4H PRN Administration Cough Sodium Chloride 10 ml 03/23/20 22:00 04/07/20 21:12 Sodium Chloride 0.9% 10 Ml Flush Syringe IV 10 ml BID SUN Administration Sodium Chloride 10 ml 03/23/20 19:21 03/31/20 05:05 Sodium Chloride 0.9% 10 Ml Flush Syringe IV 10 ml PRN PRN Administration LINE FLUSH Nutrition/Malnutrition Assess - Dietary Evaluation Nutrition/Malnutrition Findings: Nutrition Notes Start: 03/24/20 10:38 Freq: Status: Active Protocol: Document 04/06/20 09:17 CW (Rec: 04/06/20 09:27 CW [id number]) Nutrition Notes Initial or Follow up Reassessment Other Pertinent Diagnosis PNA, tuberculosis, HIV Current Diet Full Liquid Labs/Tests 04/05/2020 Na 134 K 3.5 Cr 1.3 Ca 8.3 Pertinent Medications D5 1/2 NS at 42 ml/h Meropenem Height 5 ft 2 in Weight 58 kg [place] Body Weight (kg) 50.00 BMI 23.3 Intake Prior to Admission Fair Weight change and time frame Weight change noted. Wt fluctuating around 58 kg Weight Status Appropriate Subjective/Other Information F/U for ONS tolerance and intakes. Diet downgraded to full liquid diet. PO intake remains low. Pt is tolerating diet otherwise and states no N /V. Food preferences noted. Pt states that she is lactose intolerant. Pt also states that she does not want Ensure at all. Will d/c Percent of energy/protein needs met: 32%/36% Burn Absent Trauma Absent GI Symptoms Diarrhea Food Allergy Yes Usual Diet at Home Lactose intolerant Current % PO Fair (50-74%) Minimum of two criteria Yes Energy Intake (severe) < or equal to 50% Estimated Energy Requirement > or equal to 5 days Fluid Accumulation Moderate to Severe (severe) Reduced Shank Tapper Strength Measurably Reduced (severe) #1 Nutrition Diagnosis Malnutrition As Evidenced by Signs and Symptoms reduced elevator starter stength, nonpitting edema, PO intake < 50% of kcal and protein needs >5 days Diagnosis Progress(for reassessment Worsened documentation) Is patient on ventilator? No Is Patient Ambulatory and/or Out of Bed Yes REE-([place]-St. Jeor-ambulatory/OOB) [ 1629.225 [id number]] Calculation Used for Recommendations [facility] Additional Notes Protein needs:52 - 69g (1 - 1. 2g/kg for hepatic disorder) Fluid: 1ml/kcal or MD order Nutrition Intervention Change Diet Order: Continue full liquid diet Add Supplement/Snack (indicate name/kcal d/c Ensure Enlive BID /protein ) Goal #1 Meet at least 75% of energy and protein needs Goal #2 Monitor for PO intakes Anticipated Discharge Needs: Unable to determine at this time Follow-Up By: 04/08/20 Additional Comments F/U PO intake
[2020-04-07] MEDS: ACETAMINOPHEN 325 MG TAB PO PRN (16:43)
[2020-04-07] MEDS: D5W/0.45% NACL 1,000 ML IV SCH (16:46)
[2020-04-07] MEDS: VANCOMYCIN 750 MG in SODIUM CHLORIDE 0.9% 250ML 250 ML IV SCH (21:14)
[2020-04-08] MEDS: MEROPENEM/NS 1 GRAM/100 ML 1 GRAM/100 ML BAG IV SCH ×3 (06:09→22:38)
[2020-04-08 07:00] LABS: BUN/Creatinine Ratio 10; Blood Urea Nitrogen 11 mg/dL (7-17); Calcium 8.2 mg/dL (8.4-10.2); Hemolysis Index 8
[2020-04-08] MEDS: ENOXAPARIN 40 MG/0.4 ML INJ SUB-Q SCH (09:56)
[2020-04-08] MEDS: METOPROLOL TARTRATE 25 MG TAB PO SCH ×2 (09:57→22:41)
[2020-04-08] MEDS: ATOVAQUONE 750 MG/5 ML ORAL SUSP PO SCH ×2 (09:58→22:38)
[2020-04-08] MEDS: ABACAVIR 300 MG TAB PO SCH (10:00)
[2020-04-08] MEDS: DOLUTEGRAVIR 50 MG TAB PO SCH (10:00)
[2020-04-08] MEDS: BENZONATATE 100 MG CAP PO PRN (10:01)
[2020-04-08] MEDS: guaiFENesin/CODEINE 100-10MG ORAL LIQD 5 ML PO PRN (10:01)
[2020-04-08] MEDS: predniSONE 20 MG TAB PO SCH (10:07)
[2020-04-08] MEDS: ONDANSETRON 4 MG/2 ML INJ IV PRN (10:11)
--- NOTE | 2020-04-08 11:55 | Discharge Summary ---
Providers - Providers Date of Admission: 03/23/20 19:21 Attending physician: PIA JACOBSEN MD 03/23/20 18:43 Consult to Physician [CONS] Urgent Comment: Consulting Provider: DAVIDSON WELLS Physician Instructions: Reason For Exam: acute febrile ill,ess. ? scrofula vs covid 03/24/20 00:52 Consult to Dietitian/Nutrition [CONS] Routine Physician Instructions: Reason For Exam: Reason for Consult: Poor oral intake 04/02/20 10:00 Consult to Wound/ET Nurse [CONS] Routine Reason For Exam: wound eval Primary care physician: EPIDEMIOLOGIST Hospitalization Condition: Stable Hospital course: This is a 29-year-old female with asthma and HIV he was admitted to the hospital on 03/23 with a 2-week history of a dry cough, shaking chills, and fever. Work- up in the emergency department revealed tachypnea, tachycardia, febrile state and a CXR which revealed pneumonia. Patient CT scan of the chest revealed bilateral infiltrates as well as evidence of tuberculosis lymphadenitis, and hyponatremia. Patient was admitted to the hospital service with consult infectious disease for rule out tuberculosis and COVID-19. On 03/24 her TB PPD is pending, COVID-19 PCR negative, infectious disease consulted, fever and patient was started on antibiotic therapy and the patient remains supplemental oxygenation. Starting 03/26 patient was consistently having tachycardia as high into the 150s and consistently febrile. On 03/27 patient had a chest x-ray which showed patchy consolidation/effusion of the right lung with minimal patchy left basilar airspace disease. Patient has been started on a beta-fletcher for her persistent tachycardia. On 03/31 pulmonology was consulted for a loculated pleural effusion seen on CT chest. Patient had various electrolyte imbalances throughout the stay which were repleted. On 04/01 patient had thoracentesis and 750 ml of blood-tinged fluid was removed which was set up for studies. On 04/06 patient was initiated on trial dose of steroids for persistent febrile illness. Patient's PPD resulted as negative however her QuantiFERON was positive therefore we attempted to obtain the sputum samples for AFB testing however the patient was only able to provide 2 of 3 needed. Patient will be discharged with p.o. antibiotic therapy per infectious disease and with a steroid taper. Patient strongly encouraged to follow-up with [place] or [place] outpatient and department public health upon discharge. Patient will need to follow-up with her primary care physician within 1 to 2 weeks of discharge and continue her antiretroviral therapy. Patient will need to follow-up with her HIV clinic outpatient. Patient verbalized understanding of instructions. And her sister was also updated to plan of care. Assessment and Plan Sepsis -POA -Presented with tachycardia into the 130s, tachypnea into the 30s and febrile state in the 101.6 and CXR shows pneumonia -S/p 2 L normal saline bolus and ceftriaxone in the ED -Antibiotic therapy -Infectious disease consulted, appreciate recommendations -COVID-19 PCR negative -03/23 blood cultures x2 no growth to date -03/23 urinalysis negative for nitrates and leukocyte esterase -Discharged with antibiotic therapy Fever of unknown origin -Due to underlying illness -Patient has been spiking temperatures since admission -Antibiotic therapy -Infectious disease consulted, appreciate recommendations -04/02 blood cultures x2 with no growth after 4 hours -03/23 urine culture shows normal joan -03/24 cryptococcal serum antigen negative, Histoplasma urinary antigen, EBV DNA PCR quantitative,TB QuantiFERON gold positive, CMV negative, Fungitell negative, HHV-8 negative, HHV -8 PCR pending -Pulmonary hygiene -Supportive care -Per ID: steroid trial with Prednisone 40 mg q 24 on 04/06 -Given the complexity of her case she may be better served at [place] where the bulk of her workup was performed. -When stable for discharge would send with doxycycline 100mg q12h and Levaquin 750mg q24h for 10 days -She will need to follow up with [facility] for TB evaluation as we have been largely unable to collect AFB as appropriate here. -Discharged with antibiotic therapy -Strongly encouraged to follow-up with [place] or [place] outpatient in the department public health upon discharge Acute respiratory failure -Patient is a supplemental oxygenation -Pulmonary hygiene -Pulmonary consult, appreciate recommendations Pleural effusion -Partially loculated [id number] right pleural effusion noted on CTA chest -Pulmonology consult, appreciate recommendations -03/31 coagulation studies -04/01 thoracentesis with removal of 720 mL of blood-tinged fluid -04/01 CXR post thoracentesis shows 50% decrease in loculated pleural effusion with no pneumothorax -04/01 Pleural fluid acid-fast base culture and smear, cell count, glucose, LDH, total protein pending Persistent tachycardia -Continue current beta-fletcher -Supportive care -04/02 thyroid studies: TSH 1.7, free T4 0.98, T4 5 Pneumonia -03/23 CXR shows pneumonia -03/27 CXR shows worsened patchy consolidation/effusion in the right lung base with minimal patchy left basilar airspace disease also now present. No appreciable effusion on the left. -Antibiotic therapy -Pulmonary hygiene Extensive adenopathy -S/p biopsy at [place] (per infectious disease requested cervical lymph node biopsy results and hospitalization records) -Per ID: Opportunistic infection versus lymphoma versus sarcoid -03/23 CTA chest shows extensive lymphadenopathy throughout the chest involving bilateral axillary, mediastinal anthony regions, airspace consolidation of the right lower lobe with extensive tree-in-bud opacities in the right lower lobe and middle lobe less so within bilateral upper lobes -03/23 CTA neck shows recent left-sided lymph node biopsy, extensive bilateral symmetrical cervical neck lymphadenopathies with multifocal areas of necrosis -Per ID: 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, negative for fungal and AFB organisms, flow cytometry negative for abnormal B or T-cell population Suspected tuberculosis -03/23 PPD administered, read on 03/26 as negative (no induration, redness noted) -03/24 TB QuantiFERON gold positive -Discontinue airborne and droplet precautions -Per [place] records: Acid-fast base of lymph node biopsy was negative -AFB x3 (03/18 obtained) and repeat Quantiferon pending -Per ID: continue airborne precautions till AFB results -Need to follow-up with department public health upon discharge Acute kidney injury, resolved/stabilized -Presented with a BUN/creatinine 7/0.9 -04/01 BUN/creatinine 7/1.3 -s/p MIVF -04/08 BUN/creatinine 11/1.1 Elevated D-dimer -Presented with a D-dimer of 2608 -03/23 CTA chest shows no evidence of pulmonary embolism -03/30 BLE Doppler US negative for DVT/SVT Supratherapeutic INR -03/31 INR 1.26, PT 13.6, APTT 63.2 -Follow-up outpatient with PCP for further work-up HIV disease -03/24: Absolute CD4 191, HIV RNA PCR [id number] -Continue home antiretroviral therapy -Follow-up outpatient with HIV clinic or ID Malnutrition -Presented with a BMI of 21 -Nutrition consulted for supplementation and dietary education Anxiety -As needed [facility] -Redirection and verbal de-escalation as needed -Supportive care -Follow-up outpatient with psych Hypokalemia, resolved -04/07 calcium 3.3, 04/08 potassium 4 -Repleted -Repeat BMP in the a.m. Disposition: DC-01 TO HOME OR SELFCARE Time spent for discharge: 45 Core Measure Documentation - Palliative Care Palliative Care/ Comfort Measures: Not Applicable - Core Measures Any of the following diagnoses?: none Exam - Constitutional Vitals: Temp Pulse Resp BP Pulse Ox 97.0 F L 84 19 121/71 100 04/08/20 08:06 04/08/20 08:06 04/08/20 08:06 04/08/20 08:06 04/08/20 08:42 General appearance: Present: no acute distress - EENT Eyes: Present: EOM intact ENT: hearing intact, clear oral mucosa, dentition normal - Neck Neck: Present: supple, normal ROM - Respiratory Respiratory effort: normal Respiratory: bilateral: CTA - Cardiovascular Rhythm: regular Heart Sounds: Present: S1 & S2. Absent: systolic murmur, diastolic murmur - Extremities Extremities: no ischemia, pulses intact, pulses symmetrical, normal temperature, normal color, Full ROM Extremity abnormal: edema - Peripheral Assessment Generalized Edema Type: Non-pitting Capillary Refill: < 3 seconds Skin Temperature: Warm Peripheral Pulses: within normal limits - Abdominal General gastrointestinal: Present: soft, non-tender, non-distended, normal bowel sounds - Integumentary Integumentary: Present: clear, warm, dry - Musculoskeletal Musculoskeletal: strength equal bilaterally - Psychiatric Psychiatric: agitated - Neurologic Neurologic: CNII-XII intact, no focal deficits, moves all extremities - Allied Health Allied health notes reviewed: nursing Plan Activity: advance as tolerated Diet: regular Additional Instructions: Report to nearest emergency department or contact your primary care physician if experience worsening symptoms. You need to follow-up with your HIV provider and primary care physician within 1 to 2 weeks of discharge. You will need to follow-up with the department public health upon discharge. You are strongly encouraged to follow-up with [place] or [place] within 1-2 weeks of discharge. You will be discharged with antibiotic therapy. You are strongly encouraged to continue antiretroviral therapy. Follow up with: [facility] [Outside] - 7 Days DAVIDSON WELLS MD [Staff Physician] - 7 Days PRIMARY CAREMD [Primary Care Provider] - 3-5 Days [facility] [Outside] - 7 Days [facility] [Outside] - 7 Days [facility] [Outside] - 7 Days [facility] [Outside] - [address] [facility] [Outside] - 7 Days Prescriptions: Loperamide [Imodium] 2 mg PO Q2H PRN #10 capsule PRN Reason: Diarrhea levoFLOXacin [Levaquin] 750 mg PO QDAY 10 Days #10 tablet Metoprolol [Lopressor TAB] 50 mg PO BID #60 tablet predniSONE 10 mg PO QDAY #13 tab Benzonatate [Tessalon Perles] 100 mg PO Q8HR PRN #5 capsule PRN Reason: Cough DOXYCYCLINE Hyclate [Vibramycin CAP] 100 mg PO Q12HR 10 Days #20 capsule
[2020-04-08] MEDS: ACETAMINOPHEN 325 MG TAB PO PRN (14:57)
[2020-04-08] MEDS: D5W/0.45% NACL 1,000 ML IV SCH (22:37)
[2020-04-08] MEDS: VANCOMYCIN 750 MG in SODIUM CHLORIDE 0.9% 250ML 250 ML IV SCH (22:42)
[2020-04-09] MEDS: guaiFENesin/CODEINE 100-10MG ORAL LIQD 5 ML PO PRN ×3 (02:30→13:46)
[2020-04-09] MEDS: MEROPENEM/NS 1 GRAM/100 ML 1 GRAM/100 ML BAG IV SCH (05:31)
[2020-04-09 06:14] LABS: Hematocrit 22.2 % (30.3-42.9); Hemoglobin 7.1 gm/dl (10.1-14.3); Mean Corpuscular HGB Conc 32 % (30-34); Mean Corpuscular Volume 76 fl (79-97); Platelet Count 393 K/mm3 (140-440)
[2020-04-09 06:15] LABS: Red Cell Distribution Width 23.5 % (13.2-15.2)
--- NOTE | 2020-04-09 07:24 | Progress Note ---
<SHARONFANNIE PauloYesi - Last Filed: 04/09/20 07:24> Assessment and Plan Assessment and plan: Sepsis -POA -Presented with tachycardia into the 130s, tachypnea into the 30s and febrile state in the 101.6 and CXR shows pneumonia -S/p 2 L normal saline bolus and ceftriaxone in the ED -Antibiotic therapy -Infectious disease consulted, appreciate recommendations -COVID-19 PCR negative -03/23 blood cultures x2 no growth to date -03/23 urinalysis negative for nitrates and leukocyte esterase Fever of unknown origin -Due to underlying illness -Patient has been spiking temperatures since admission -Antibiotic therapy -Infectious disease consulted, appreciate recommendations -04/02 blood cultures x2 with no growth after 4 hours -03/23 urine culture shows normal joan -03/24 cryptococcal serum antigen negative, Histoplasma urinary antigen, EBV DNA PCR quantitative,TB QuantiFERON gold positive, CMV negative, Fungitell negative, HHV-8 negative, HHV -8 PCR pending -Pulmonary hygiene -Supportive care -Per ID: steroid trial with Prednisone 40 mg q 24 on 04/06 -Given the complexity of her case she may be better served at [facility] where the bulk of her workup was performed. -When stable for discharge would send with doxycycline 100mg q12h and Levaquin 750mg q24h for 10 days -She will need to follow up with [facility] for TB evaluation as we have been largely unable to collect AFB as appropriate here. Acute respiratory failure -Patient is on supplemental oxygenation -Pulmonary hygiene -Pulmonary consult, appreciate recommendations Pleural effusion -Partially loculated [id number] right pleural effusion noted on CTA chest -Pulmonology consult, appreciate recommendations -04/01 thoracentesis with removal of 720 mL of blood-tinged fluid -04/01 CXR postthoracentesis shows 50% decrease in loculated pleural effusion with no pneumothorax -04/01 Pleural fluid acid-fast base culture and smear, cell count, glucose, LDH, total protein pending Persistent tachycardia -Initiated beta-fletcher, titrate as needed -IV beta-fletcher as needed -Telemetry monitoring -Supportive care -04/02 thyroid studies: TSH 1.7, free T4 0.98, T4 5 Pneumonia -03/23 CXR shows pneumonia -03/27 CXR shows worsened patchy consolidation/effusion in the right lung base with minimal patchy left basilar airspace disease also now present. No appreciable effusion on the left. -Supplemental oxygen as needed -SPO2 monitoring -Antibiotic therapy -Supportive care -Pulmonary hygiene Extensive adenopathy -S/p biopsy at [facility] (per infectious disease requested cervical lymph node biopsy results and hospitalization records) -Per ID: Opportunistic infection versus lymphoma versus sarcoid -03/23 CTA chest shows extensive lymphadenopathy throughout the chest involving bilateral axillary, mediastinal anthony regions, airspace consolidation of the right lower lobe with extensive tree-in-bud opacities in the right lower lobe and middle lobe less so within bilateral upper lobes -03/23 CTA neck shows recent left-sided lymph node biopsy, extensive bilateral symmetrical cervical neck lymphadenopathies with multifocal areas of necrosis -Per ID: 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, negative for fungal and AFB organisms, flow cytometry negative for abnormal B or T-cell population Suspected tuberculosis -03/23 PPD administered, read on 03/26 as negative (no induration, redness noted) -03/24 TB QuantiFERON gold positive -Per [facility] records: Acid-fast base of lymph node biopsy was negative -AFB x3 and repeat Quantiferon pending -Per ID: continue airborne precautions till AFB results Acute kidney injury -Presented with a BUN/creatinine 7/0.9 -04/01 BUN/creatinine 7/1.3 -MIVF -Trend BMP -Consider nephrology consult and further studies if not improving -Avoid nephrotoxic medications -Renally dose medications -Strict intake and output Elevated D-dimer -Presented with a D-dimer of 2608 -03/23 CTA chest shows no evidence of pulmonary embolism -03/30 BLE Doppler US negative for DVT/SVT Supratherapeutic INR -03/31 INR 1.26, PT 13.6, APTT 63.2 -Trend INR/PT/APTT -Monitor for bleeding HIV disease -03/24: Absolute CD4 191, HIV RNA PCR [id number] -Continue home antiretroviral therapy -Follow-up outpatient with HIV clinic or ID Malnutrition -Presented with a BMI of 21 -Nutrition consulted for supplementation and dietary education Anxiety -As needed Ativan -Redirection and verbal de-escalation as needed -Supportive care -Follow-up outpatient with psych DVT -SCDs to bilateral lower extremities while in bed -Lovenox subcu -GI prophylaxis Hypokalemia, resolved -04/07 K 3.3, 04/08 K 4 -Repleted -Repeat BMP in the a.m. History Interval history: This is a 29-year-old female with asthma and HIV he was admitted to the hospital on 03/23 with a 2-week history of a dry cough, shaking chills, and fever. Work-up in the emergency department revealed tachypnea, tachycardia, febrile state and a CXR which revealed pneumonia. Patient CT scan of the chest revealed bilateral infiltrates as well as evidence of tuberculosis lymphadenitis, and hyponatremia. Patient was admitted to the hospital service with consult infectious disease for rule out tuberculosis and COVID-19. 03/24: TB PPD pending, COVID-19 PCR negative, infectious disease consulted, fever and patient was started on antibiotic therapy. No acute events reported overnight. Remains supplemental oxygenation. 03/25: Patient is having persistent fevers, tachycardia into the 140s s/p IV Lopressor x1 and p.o. Lopressor for rate control, patient was transferred from [facility] to telemetry overnight. 03/26: Patient had a low-grade temperature this morning which was treated with Tylenol. Patient states that she feels slightly better but is still experiencing coughing and chills. Patient still remains on empiric antibiotics and her hyponatremia has improved. She has persistent fevers, on antibiotics, supportive care, we will try scheduled Tylenol every 6 hours for 24 hours 03/27: Patient remains febrile. This afternoon patient was tachypneic, tachycardic and experienced wheezing therefore she received an albuterol treatment with RT and IV metoprolol. Patient stated that she felt like she was having an anxiety attack and has a history of anxiety and RN was instructed to provide the patient with as needed Ativan. CXR ordered. Patient is currently on 5 L nasal cannula however on reexamination patient was speaking on the phone with her father. We will also order as needed Tessalon Perles. Patient's CXR shows worsening patchy consolidation/effusion in the right lung base with minimal patchy left basilar airspace disease. Encourage pulmonary hygiene. 03/28: Febrile and sinus tachycardia 03/29: Febrile and sinus tachycardia 03/30: Patient was hypoglycemic this morning to the 60s and she received oral intake. RN to recheck BG. Patient placed on hypoglycemic protocol with Accu- Cheks AC at bedtime. Patient remains tachycardic though afebrile (T-max 99.0). Discharge pending infectious disease clearance. 03/31: Pulmonology was consulted for loculated pleural effusion. Patient remains tachycardic to the low 100s but has been afebrile. Coagulation studies ordered by pulmonology are slightly elevated. Patient is hypokalemic today which was repleted. Repeat BMP in the a.m. 04/01: At the time my examination patient was 35% Venturi mask for comfort even though her SPO2 was in the high 90s, patient stated that she feels zapien, T-max 100.4, patient scheduled for a thoracentesis today. No acute events reported overnight. Patient still remains tachycardic and today she developed acute kidney injury. 04/02: Patient is on 35% venti mask for patient comfort and she states that she "is not feeling well" but does not elaborate further when asked. Sputum culture still not obtained and RN instructed to ask RT to obtain. Patient still is having tachycardia. 04/03: Patient was severely tachycardic and as needed beta-fletcher was given, patient was again febrile. Patient's RN reports that the patient has decreased p.o. intake and only drinks clear liquids therefore diet has been changed and patient has been restarted on MIVF. ID has initiated the patient on a trial dose of steroids. Airborne precautions strictly in place until AFB results. 04/04/2020: HHV-8 PCR pending, Continue empiric p.o. atovaquone 750 mg twice daily, f/u EBV DNA PCR, urinary histoplasma Ag, continue vancomycin and meropenem, continue HIV medications: PO Epzicom plus Tivicay (patient has her own meds), Started prednisone 40mg q24h as steroid trial, Follow-up thoracentesis studies, airborne precautions pending AFB cultures, Repeat Q uantiferon gold and procalcitonin. Ordered AFB cultures x3 with induced sputum if necessary. Have not been obtained yet. I discussed with respiratory to get induced sputum. 04/05/2020; patient had episodes fever overnight. Continue with p.o. atovaquone, Vanco and meropenem. Continue HIV medication. Sputum for AFB, was ordered and patient is not producing sputum so discussed with respiratory therapist and one sample was taken yesterday. ID is following the patient. 04/06: At the time of my examination patient is standing to leave AMA when informed that she would be discharged today due to pending AFB cultures. Patient states that she feels that she can be discharged and is discharging herself. Trial steroids started today. RT contacted to assist in obtaining cultures. Patient remains tachycardic and T-max was 101.7 yesterday. She still remains on 35% Ventimask for patient comfort. 04/07. No acute events reported overnight. Per infectious disease the patient is afebrile for 24 hours she can discharge with p.o. antibiotics. Patient will need to follow-up with the [facility] upon discharge. Patient was noted to be hypokalemic today which was repleted. 04/08: no acute events overnight. If the patient is afebrile for 24 hours then she would be discharged with PO abx with f/u with providers. However she spiked at temperature at 1600. We will aim for 24 hours afebrile again for discharge. Hospitalist Physical - Physical exam Narrative exam: General appearance: Present: no acute distress - EENT Eyes: Present: EOM intact ENT: hearing intact, clear oral mucosa, dentition normal - Neck Neck: Present: supple, normal ROM - Respiratory Respiratory effort: normal Respiratory: bilateral: CTA - Cardiovascular Rhythm: regular Heart Sounds: Present: S1 & S2. Absent: systolic murmur, diastolic murmur - Extremities Extremities: no ischemia, pulses intact, pulses symmetrical, normal temperature, normal color, Full ROM Extremity abnormal: edema - Peripheral Assessment Generalized Edema Type: Non-pitting Capillary Refill: < 3 seconds Skin Temperature: Warm Peripheral Pulses: within normal limits - Abdominal General gastrointestinal: Present: soft, non-tender, non-distended, normal bowel sounds - Integumentary Integumentary: Present: clear, warm, dry - Musculoskeletal Musculoskeletal: strength equal bilaterally - Psychiatric Psychiatric: agitated - Neurologic Neurologic: CNII-XII intact, no focal deficits, moves all extremities - Allied Health Allied health notes reviewed: nursing - Constitutional Vitals: Temp Pulse Resp BP Pulse Ox 97.8 F 90 20 124/86 95 04/09/20 05:23 04/09/20 05:23 04/09/20 05:23 04/09/20 05:23 04/09/20 05:23 General appearance: Present: no acute distress Results - Labs CBC & Chem 7: 04/09/20 05:43 04/08/20 04:39 Labs: Laboratory Last Values WBC 4.5 K/mm3 (4.5-11.0) 04/09/20 05:43 RBC 2.90 M/mm3 (3.65-5.03) L 04/09/20 05:43 Hgb 7.1 gm/dl (10.1-14.3) L 04/09/20 05:43 Hct 22.2 % (30.3-42.9) L 04/09/20 05:43 MCV 76 fl (79-97) L 04/09/20 05:43 MCH 25 pg (28-32) L 04/09/20 05:43 MCHC 32 % (30-34) 04/09/20 05:43 RDW 23.5 % (13.2-15.2) H 04/09/20 05:43 Plt Count 393 K/mm3 (140-440) 04/09/20 05:43 Lymph % (Auto) 9.7 % (13.4-35.0) L 04/02/20 05:07 [place] % (Auto) 12.3 % (0.0-7.3) H 04/02/20 05:07 Eos % (Auto) 0.2 % (0.0-4.3) 04/02/20 05:07 Baso % (Auto) 0.2 % (0.0-1.8) 04/02/20 05:07 Lymph # (Auto) 1.2 K/mm3 (1.2-5.4) 04/02/20 05:07 [place] # (Auto) 1.5 K/mm3 (0.0-0.8) H 04/02/20 05:07 Eos # (Auto) 0.0 K/mm3 (0.0-0.4) 04/02/20 05:07 Baso # (Auto) 0.0 K/mm3 (0.0-0.1) 04/02/20 05:07 Add Manual Diff Complete 03/30/20 04:54 Total Counted 100 03/30/20 04:54 Seg Neutrophils % 77.6 % (40.0-70.0) H 04/02/20 05:07 Seg Neuts % (Manual) 91.0 % (40.0-70.0) H 03/30/20 04:54 Band Neutrophils % 1.0 % 03/30/20 04:54 Lymphocytes % (Manual) 1.0 % (13.4-35.0) L 03/30/20 04:54 Monocytes % (Manual) 7.0 % (0.0-7.3) 03/30/20 04:54 Nucleated RBC % Not Reportable 03/30/20 04:54 Seg Neutrophils # 9.8 K/mm3 (1.8-7.7) H 04/02/20 05:07 Seg Neutrophils # Man 7.4 K/mm3 (1.8-7.7) 03/30/20 04:54 Band Neutrophils # 0.1 K/mm3 03/30/20 04:54 Abs Lymphs (Manual) 1064 cells/uL (850-3900) 03/24/20 15:27 Lymphocytes # (Manual) 0.1 K/mm3 (1.2-5.4) L 03/30/20 04:54 Abs React Lymphs (Man) 0.0 K/mm3 03/30/20 04:54 Monocytes # (Manual) 0.6 K/mm3 (0.0-0.8) 03/30/20 04:54 Eosinophils # (Manual) 0.0 K/mm3 (0.0-0.4) 03/30/20 04:54 Basophils # (Manual) 0.0 K/mm3 (0.0-0.1) 03/30/20 04:54 Metamyelocytes # 0.0 K/mm3 03/30/20 04:54 Myelocytes # 0.0 K/mm3 03/30/20 04:54 Promyelocytes # 0.0 K/mm3 03/30/20 04:54 Blast Cells # 0.0 K/mm3 03/30/20 04:54 WBC Morphology Not Reportable 03/30/20 04:54 Hypersegmented Neuts Not Reportable 03/30/20 04:54 Hyposegmented Neuts Not Reportable 03/30/20 04:54 Hypogranular Neuts Not Reportable 03/30/20 04:54 Smudge Cells Not Reportable 03/30/20 04:54 Toxic Granulation Not Reportable 03/30/20 04:54 Toxic Vacuolation Not Reportable 03/30/20 04:54 Dohle Bodies Not Reportable 03/30/20 04:54 Pelger-Huet Anomaly Not Reportable 03/30/20 04:54 Ney Rods Not Reportable 03/30/20 04:54 Platelet Estimate Consistent w auto 03/30/20 04:54 Clumped Platelets Not Reportable 03/30/20 04:54 Plt Clumps, EDTA Not Reportable 03/30/20 04:54 Large Platelets Not Reportable 03/30/20 04:54 Giant Platelets Not Reportable 03/30/20 04:54 Platelet Satelliting Not Reportable 03/30/20 04:54 Plt Morphology Comment Not Reportable 03/30/20 04:54 RBC Morphology Not Reportable 03/30/20 04:54 Dimorphic RBCs Not Reportable 03/30/20 04:54 Polychromasia Not Reportable 03/30/20 04:54 Hypochromasia Not Reportable 03/30/20 04:54 Poikilocytosis Not Reportable 03/30/20 04:54 Anisocytosis 1+ 03/30/20 04:54 Microcytosis Not Reportable 03/30/20 04:54 Macrocytosis Not Reportable 03/30/20 04:54 Spherocytes Not Reportable 03/30/20 04:54 Pappenheimer Bodies Not Reportable 03/30/20 04:54 Sickle Cells Not Reportable 03/30/20 04:54 Target Cells Not Reportable 03/30/20 04:54 Tear Drop Cells Not Reportable 03/30/20 04:54 Ovalocytes Not Reportable 03/30/20 04:54 Helmet Cells Not Reportable 03/30/20 04:54 Badillo-Glasco Bodies Not Reportable 03/30/20 04:54 [place] Rings Not Reportable 03/30/20 04:54 Duarte Cells Not Reportable 03/30/20 04:54 Bite Cells Not Reportable 03/30/20 04:54 Crenated Cell Not Reportable 03/30/20 04:54 Elliptocytes Not Reportable 03/30/20 04:54 Acanthocytes (Spur) Not Reportable 03/30/20 04:54 Rouleaux Not Reportable 03/30/20 04:54 Hemoglobin C Crystals Not Reportable 03/30/20 04:54 Schistocytes Not Reportable 03/30/20 04:54 Malaria parasites Not Reportable 03/30/20 04:54 Tyron Bodies Not Reportable 03/30/20 04:54 Hem Pathologist Commnt No 03/30/20 04:54 PT 17.1 Sec. (12.2-14.9) H 04/02/20 09:29 INR 1.41 (0.87-1.13) H 04/02/20 09:29 APTT 48.6 Sec. (24.2-36.6) H 04/02/20 09:29 D-Dimer 1520.95 ng/mlDDU (0-234) H 03/27/20 04:53 VBG pH 7.482 (7.320-7.420) H 03/23/20 17:13 Sodium 138 mmol/L (137-145) 04/08/20 04:39 Potassium 4.0 mmol/L (3.6-5.0) D 04/08/20 04:39 Chloride 104.0 mmol/L (98-107) 04/08/20 04:39 Carbon Dioxide 27 mmol/L (22-30) 04/08/20 04:39 Anion Gap 11 mmol/L 04/08/20 04:39 BUN 11 mg/dL (7-17) 04/08/20 04:39 Creatinine 1.1 mg/dL (0.6-1.2) 04/08/20 04:39 Estimated GFR > 60 ml/min 04/08/20 04:39 BUN/Creatinine Ratio 10 % 04/08/20 04:39 Glucose 98 mg/dL (65-100) 04/08/20 04:39 POC Glucose 120 mg/dL (70-105) H 04/08/20 22:29 Lactic Acid 1.10 mmol/L (0.7-2.0) 03/23/20 18:25 Calcium 8.2 mg/dL (8.4-10.2) L 04/08/20 04:39 Magnesium 1.90 mg/dL (1.7-2.3) 04/02/20 05:07 Ferritin 1124.0 ng/mL (10.0-200.0) H 03/23/20 16:28 Total Bilirubin 0.60 mg/dL (0.1-1.2) 04/02/20 05:07 Direct Bilirubin 0.3 mg/dL (0-0.2) H 04/02/20 05:07 Indirect Bilirubin 0.3 mg/dL 04/02/20 05:07 AST 18 units/L (5-40) 04/02/20 05:07 ALT 13 units/L (7-56) 04/02/20 05:07 Alkaline Phosphatase 227 units/L (35-129) H 04/02/20 05:07 Lactate Dehydrogenase 428 units/L (91-180) H 03/23/20 16:28 Total Creatine Kinase 30 units/L (30-135) 03/23/20 16:28 C-Reactive Protein 23.00 mg/dL (0.00-1.30) H 03/27/20 04:53 Total Protein 6.5 g/dL (6.3-8.2) 04/02/20 05:07 Albumin 2.0 g/dL (3.9-5) L 04/02/20 05:07 Albumin/Globulin Ratio 0.4 % 04/02/20 05:07 Procalcitonin 68.32 ng/mL (<0.15) 04/03/20 18:56 TSH 1.730 mlU/mL (0.270-4.200) 04/02/20 19:11 Free T4 0.98 ng/dL (0.76-1.46) 04/02/20 19:11 Thyroxine (T4) 5.0 ug/dL (4.0-12.0) 04/02/20 19:11 Free T3 Index 1.9 pg/mL (2.3-4.2) L 04/02/20 19:11 HCG, Quant < 2 mIU/mL (0-4) 03/23/20 16:28 Urine Color Colorless (Yellow) 03/23/20 Unknown Urine Turbidity Clear (Clear) 03/23/20 Unknown Urine pH 7.0 (5.0-7.0) 03/23/20 Unknown Ur Specific Ensign 1.019 (1.003-1.030) 03/23/20 Unknown Urine Protein <15 mg/dl mg/dL (Negative) 03/23/20 Unknown Urine Glucose (UA) Neg mg/dL (Negative) 03/23/20 Unknown Urine Ketones Neg mg/dL (Negative) 03/23/20 Unknown Urine Blood Sm (Negative) 03/23/20 Unknown Urine Nitrite Neg (Negative) 03/23/20 Unknown Ur Reducing Substances Not Reportable 03/23/20 Unknown Urine Bilirubin Neg (Negative) 03/23/20 Unknown Urine Ictotest Not Reportable 03/23/20 Unknown Urine Urobilinogen < 2.0 mg/dL (<2.0) 03/23/20 Unknown Ur Leukocyte Esterase Neg (Negative) 03/23/20 Unknown Urine WBC (Auto) 1.0 /HPF (0.0-6.0) 03/23/20 Unknown Urine RBC (Auto) 1.0 /HPF (0.0-6.0) 03/23/20 Unknown U Epithel Cells (Auto) < 1.0 /HPF (0-13.0) 03/23/20 Unknown Nasal Screen MRSA (PCR) Negative (Negative) 03/24/20 06:42 Vancomycin Trough 26.2 ug/mL (5.0-20.0) H 04/06/20 00:25 Random Vancomycin 10.4 ug/mL (0-40.0) 04/07/20 12:14 Lymph Enumerat CD4/CD8 0.23 (0.86-5.00) L 03/24/20 15:27 % CD3 Cells 92 % (57-85) H 03/24/20 15:27 Absolute CD3 Count 978 cells/uL (840-3060) 03/24/20 15:27 % CD4 Cells 17 % (30-61) L 03/24/20 15:27 Absolute CD4 Count 191 cells/uL (490-1740) L 03/24/20 15:27 % CD8 Cells 76 % (12-42) H 03/24/20 15:27 Absolute CD8 Count 837 cells/uL (180-1170) 03/24/20 15:27 % CD19 Cells 2 % (6-29) L 03/24/20 15:27 Absolute CD19 Count 22 cells/uL (110-660) L 03/24/20 15:27 Coronavirus (PCR) Negative (Negative) 03/24/20 Unknown CMV Specimen Source Serum 03/24/20 15:27 CMV DNA PCR log service technician copier/mL See scanned result 03/24/20 15:27 HIV-1 RNA PCR copies/ml [id number] Copies/mL H 03/24/20 15:27 HIV-1 RNA (PCR) log 4.54 Log cps/mL H 03/24/20 15:27 TB (QFT) Gold In Tube Positive (NEGATIVE) H 03/27/20 11:08 TB Test (QFT) Nil 3.46 IU/mL 03/27/20 11:08 TB Test Mitogen - Nil 4.57 IU/mL 03/27/20 11:08 TB Test Ag - Nil 1 1.82 IU/mL 03/27/20 11:08 TB Test Ag - Nil 2 1.95 IU/mL 03/27/20 11:08 Miscellaneous Test Flexitest 1 03/31/20 07:56 Marroquin/IV: Voiding Method External Female Catheter Active Medications - Current Medications Current Medications: Generic Name Dose Route Start Last Admin Trade Name Freq PRN Reason Stop Dose Admin Abacavir Sulfate 600 mg 03/24/20 16:00 04/08/20 10:00 Abacavir 300 Mg Tab PO 600 mg DAILY SUN Administration Acetaminophen 650 mg 03/30/20 15:19 04/08/20 14:57 Acetaminophen 325 Mg Tab PO 650 mg Q4H PRN Administration Pain, Mild (1-3) Albuterol 2.5 mg 03/23/20 19:21 03/28/20 14:44 Albuterol 2.5 Mg/3 Ml Nebu IH 2.5 mg Q4HRT PRN Administration Shortness Of Breath Alprazolam 0.5 mg 03/25/20 11:00 04/03/20 21:29 Alprazolam 0.5 Mg Tab PO 0.5 mg Q8H PRN Administration Anxiety Atovaquone 750 mg 03/27/20 22:00 04/08/20 22:38 Atovaquone 750 Mg/5 Ml Oral Susp PO 750 mg BID SUN Administration Benzonatate 100 mg 03/27/20 14:53 04/08/20 10:01 Benzonatate 100 Mg Cap PO 100 mg Q8HR PRN Administration Cough Dextrose 50 ml 03/31/20 16:27 04/03/20 13:13 Dextrose 50% In Water (25gm) 50 Ml Syringe IV 50 ml Q30MIN PRN Administration Hypoglycemia Protocol Enoxaparin Sodium 40 mg 03/25/20 15:00 04/08/20 09:56 Enoxaparin 40 Mg/0.4 Ml Inj SUB-Q 40 mg QDAY@1000 SUN Administration Dextrose/Sodium Chloride 1,000 mls @ 42 mls/hr 04/03/20 14:00 04/08/20 22:37 D5/0.45ns IV 42 mls/hr DIRECT SUN Administration Lamivudine 300 mg 03/24/20 16:00 04/08/20 09:56 Lamivudine 150 Mg Tab PO 300 mg DAILY SUN Administration Loperamide HCl 2 mg 03/29/20 14:39 04/06/20 14:38 Loperamide 2 Mg Cap PO 2 mg Q2H PRN Administration Diarrhea Metoprolol Tartrate 2.5 mg 03/25/20 11:00 04/03/20 13:13 Metoprolol Tartrate 5 Mg/5 Ml Inj IV 2.5 mg Q6H PRN Administration Tachyarrhythmias Metoprolol Tartrate 50 mg 03/29/20 22:00 04/08/20 22:41 Metoprolol Tartrate 25 Mg Tab PO 50 mg BID SUN Administration Ondansetron HCl 4 mg 03/23/20 19:21 04/08/20 10:11 Ondansetron 4 Mg/2 Ml Inj IV 4 mg Q8H PRN Administration Nausea And Vomiting Prednisone 40 mg 04/06/20 10:00 04/08/20 10:07 Prednisone 20 Mg Tab PO 40 mg QDAY SUN Administration Pseudoephedrine/Acetam/Chlorphenir 15 ml 03/24/20 16:53 04/09/20 02:30 Guaifenesin/Codeine 100-10mg Oral Liqd 5 Ml PO 15 ml Q4H PRN Administration Cough Sodium Chloride 10 ml 03/23/20 22:00 04/08/20 22:39 Sodium Chloride 0.9% 10 Ml Flush Syringe IV 10 ml BID SUN Administration Sodium Chloride 10 ml 03/23/20 19:21 03/31/20 05:05 Sodium Chloride 0.9% 10 Ml Flush Syringe IV 10 ml PRN PRN Administration LINE FLUSH Nutrition/Malnutrition Assess - Dietary Evaluation Nutrition/Malnutrition Findings: Nutrition Notes Start: 03/24/20 10:38 Freq: Status: Active Protocol: Document 04/08/20 13:54 AL (Rec: 04/08/20 14:02 AL [id number]) Co-Sign 04/08/20 13:54 LP Nutrition Notes Need for Assessment generated from: MD Order,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 Pt tolerating full liquid diet only at 25%. Pt says she tolerates chicken noodle soup well. Does not want apple sauce or ONS. Percent of energy/protein needs met: 18%/13% Burn Absent Trauma Absent GI Symptoms Diarrhea Food Allergy Yes Usual Diet at Home Lactose intolerant Current % PO Poor (25-49%) Minimum of two criteria Yes Energy Intake (severe) < or equal to 50% Estimated Energy Requirement > or equal to 5 days Fluid Accumulation Moderate to Severe (severe) Reduced Coloring Checker Strength Measurably Reduced (severe) #1 Nutrition Diagnosis Malnutrition Diagnosis Progress(for reassessment Worsened documentation) Is patient on ventilator? No Is Patient Ambulatory and/or Out of Bed Yes [facility] [ 1598.025 [id number]] Calculation Used for Recommendations [facility] Additional Notes Protein needs: 66-82.5g (1.2-1 .5g/kg for hepatic disorder) Fluid: 1ml/kcal or MD order Nutrition Intervention Change Diet Order: Continue full liquid diet Goal #1 Diet advancement when medically feasible Goal #2 Meet energy and protein needs as best as possible Anticipated Discharge Needs: Unable to determine at this time Follow-Up By: 04/10/20 Additional Comments F/U for diet advancement and PO intake <PIA JACOBSEN M - Last Filed: 04/09/20 07:39> Hospitalist Physical - Constitutional Vitals: Temp Pulse Resp BP Pulse Ox 97.8 F 90 20 124/86 95 04/09/20 05:23 04/09/20 05:23 04/09/20 05:23 04/09/20 05:23 04/09/20 05:23 Results - Labs CBC & Chem 7: 04/09/20 05:43 04/08/20 04:39 Labs: Laboratory Last Values WBC 4.5 K/mm3 (4.5-11.0) 04/09/20 05:43 RBC 2.90 M/mm3 (3.65-5.03) L 04/09/20 05:43 Hgb 7.1 gm/dl (10.1-14.3) L 04/09/20 05:43 Hct 22.2 % (30.3-42.9) L 04/09/20 05:43 MCV 76 fl (79-97) L 04/09/20 05:43 MCH 25 pg (28-32) L 04/09/20 05:43 MCHC 32 % (30-34) 04/09/20 05:43 RDW 23.5 % (13.2-15.2) H 04/09/20 05:43 Plt Count 393 K/mm3 (140-440) 04/09/20 05:43 Lymph % (Auto) 9.7 % (13.4-35.0) L 04/02/20 05:07 [place] % (Auto) 12.3 % (0.0-7.3) H 04/02/20 05:07 Eos % (Auto) 0.2 % (0.0-4.3) 04/02/20 05:07 Baso % (Auto) 0.2 % (0.0-1.8) 04/02/20 05:07 Lymph # (Auto) 1.2 K/mm3 (1.2-5.4) 04/02/20 05:07 [place] # (Auto) 1.5 K/mm3 (0.0-0.8) H 04/02/20 05:07 Eos # (Auto) 0.0 K/mm3 (0.0-0.4) 04/02/20 05:07 Baso # (Auto) 0.0 K/mm3 (0.0-0.1) 04/02/20 05:07 Add Manual Diff Complete 03/30/20 04:54 Total Counted 100 03/30/20 04:54 Seg Neutrophils % 77.6 % (40.0-70.0) H 04/02/20 05:07 Seg Neuts % (Manual) 91.0 % (40.0-70.0) H 03/30/20 04:54 Band Neutrophils % 1.0 % 03/30/20 04:54 Lymphocytes % (Manual) 1.0 % (13.4-35.0) L 03/30/20 04:54 Monocytes % (Manual) 7.0 % (0.0-7.3) 03/30/20 04:54 Nucleated RBC % Not Reportable 03/30/20 04:54 Seg Neutrophils # 9.8 K/mm3 (1.8-7.7) H 04/02/20 05:07 Seg Neutrophils # Man 7.4 K/mm3 (1.8-7.7) 03/30/20 04:54 Band Neutrophils # 0.1 K/mm3 03/30/20 04:54 Abs Lymphs (Manual) 1064 cells/uL (850-3900) 03/24/20 15:27 Lymphocytes # (Manual) 0.1 K/mm3 (1.2-5.4) L 03/30/20 04:54 Abs React Lymphs (Man) 0.0 K/mm3 03/30/20 04:54 Monocytes # (Manual) 0.6 K/mm3 (0.0-0.8) 03/30/20 04:54 Eosinophils # (Manual) 0.0 K/mm3 (0.0-0.4) 03/30/20 04:54 Basophils # (Manual) 0.0 K/mm3 (0.0-0.1) 03/30/20 04:54 Metamyelocytes # 0.0 K/mm3 03/30/20 04:54 Myelocytes # 0.0 K/mm3 03/30/20 04:54 Promyelocytes # 0.0 K/mm3 03/30/20 04:54 Blast Cells # 0.0 K/mm3 03/30/20 04:54 WBC Morphology Not Reportable 03/30/20 04:54 Hypersegmented Neuts Not Reportable 03/30/20 04:54 Hyposegmented Neuts Not Reportable 03/30/20 04:54 Hypogranular Neuts Not Reportable 03/30/20 04:54 Smudge Cells Not Reportable 03/30/20 04:54 Toxic Granulation Not Reportable 03/30/20 04:54 Toxic Vacuolation Not Reportable 03/30/20 04:54 Dohle Bodies Not Reportable 03/30/20 04:54 Pelger-Huet Anomaly Not Reportable 03/30/20 04:54 Ney Rods Not Reportable 03/30/20 04:54 Platelet Estimate Consistent w auto 03/30/20 04:54 Clumped Platelets Not Reportable 03/30/20 04:54 Plt Clumps, EDTA Not Reportable 03/30/20 04:54 Large Platelets Not Reportable 03/30/20 04:54 Giant Platelets Not Reportable 03/30/20 04:54 Platelet Satelliting Not Reportable 03/30/20 04:54 Plt Morphology Comment Not Reportable 03/30/20 04:54 RBC Morphology Not Reportable 03/30/20 04:54 Dimorphic RBCs Not Reportable 03/30/20 04:54 Polychromasia Not Reportable 03/30/20 04:54 Hypochromasia Not Reportable 03/30/20 04:54 Poikilocytosis Not Reportable 03/30/20 04:54 Anisocytosis 1+ 03/30/20 04:54 Microcytosis Not Reportable 03/30/20 04:54 Macrocytosis Not Reportable 03/30/20 04:54 Spherocytes Not Reportable 03/30/20 04:54 Pappenheimer Bodies Not Reportable 03/30/20 04:54 Sickle Cells Not Reportable 03/30/20 04:54 Target Cells Not Reportable 03/30/20 04:54 Tear Drop Cells Not Reportable 03/30/20 04:54 Ovalocytes Not Reportable 03/30/20 04:54 Helmet Cells Not Reportable 03/30/20 04:54 Badillo-Glasco Bodies Not Reportable 03/30/20 04:54 [place] Rings Not Reportable 03/30/20 04:54 Dutton Cells Not Reportable 03/30/20 04:54 Bite Cells Not Reportable 03/30/20 04:54 Crenated Cell Not Reportable 03/30/20 04:54 Elliptocytes Not Reportable 03/30/20 04:54 Acanthocytes (Spur) Not Reportable 03/30/20 04:54 Rouleaux Not Reportable 03/30/20 04:54 Hemoglobin C Crystals Not Reportable 03/30/20 04:54 Schistocytes Not Reportable 03/30/20 04:54 Malaria parasites Not Reportable 03/30/20 04:54 Tyron Bodies Not Reportable 03/30/20 04:54 Hem Pathologist Commnt No 03/30/20 04:54 PT 17.1 Sec. (12.2-14.9) H 04/02/20 09:29 INR 1.41 (0.87-1.13) H 04/02/20 09:29 APTT 48.6 Sec. (24.2-36.6) H 04/02/20 09:29 D-Dimer 1520.95 ng/mlDDU (0-234) H 03/27/20 04:53 VBG pH 7.482 (7.320-7.420) H 03/23/20 17:13 Sodium 138 mmol/L (137-145) 04/08/20 04:39 Potassium 4.0 mmol/L (3.6-5.0) D 04/08/20 04:39 Chloride 104.0 mmol/L (98-107) 04/08/20 04:39 Carbon Dioxide 27 mmol/L (22-30) 04/08/20 04:39 Anion Gap 11 mmol/L 04/08/20 04:39 BUN 11 mg/dL (7-17) 04/08/20 04:39 Creatinine 1.1 mg/dL (0.6-1.2) 04/08/20 04:39 Estimated GFR > 60 ml/min 04/08/20 04:39 BUN/Creatinine Ratio 10 % 04/08/20 04:39 Glucose 98 mg/dL (65-100) 04/08/20 04:39 POC Glucose 120 mg/dL (70-105) H 04/08/20 22:29 Lactic Acid 1.10 mmol/L (0.7-2.0) 03/23/20 18:25 Calcium 8.2 mg/dL (8.4-10.2) L 04/08/20 04:39 Magnesium 1.90 mg/dL (1.7-2.3) 04/02/20 05:07 Ferritin 1124.0 ng/mL (10.0-200.0) H 03/23/20 16:28 Total Bilirubin 0.60 mg/dL (0.1-1.2) 04/02/20 05:07 Direct Bilirubin 0.3 mg/dL (0-0.2) H 04/02/20 05:07 Indirect Bilirubin 0.3 mg/dL 04/02/20 05:07 AST 18 units/L (5-40) 04/02/20 05:07 ALT 13 units/L (7-56) 04/02/20 05:07 Alkaline Phosphatase 227 units/L (35-129) H 04/02/20 05:07 Lactate Dehydrogenase 428 units/L (91-180) H 03/23/20 16:28 Total Creatine Kinase 30 units/L (30-135) 03/23/20 16:28 C-Reactive Protein 23.00 mg/dL (0.00-1.30) H 03/27/20 04:53 Total Protein 6.5 g/dL (6.3-8.2) 04/02/20 05:07 Albumin 2.0 g/dL (3.9-5) L 04/02/20 05:07 Albumin/Globulin Ratio 0.4 % 04/02/20 05:07 Procalcitonin 68.32 ng/mL (<0.15) 04/03/20 18:56 TSH 1.730 mlU/mL (0.270-4.200) 04/02/20 19:11 Free T4 0.98 ng/dL (0.76-1.46) 04/02/20 19:11 Thyroxine (T4) 5.0 ug/dL (4.0-12.0) 04/02/20 19:11 Free T3 Index 1.9 pg/mL (2.3-4.2) L 04/02/20 19:11 HCG, Quant < 2 mIU/mL (0-4) 03/23/20 16:28 Urine Color Colorless (Yellow) 03/23/20 Unknown Urine Turbidity Clear (Clear) 03/23/20 Unknown Urine pH 7.0 (5.0-7.0) 03/23/20 Unknown Ur Specific Ensign 1.019 (1.003-1.030) 03/23/20 Unknown Urine Protein <15 mg/dl mg/dL (Negative) 03/23/20 Unknown Urine Glucose (UA) Neg mg/dL (Negative) 03/23/20 Unknown Urine Ketones Neg mg/dL (Negative) 03/23/20 Unknown Urine Blood Sm (Negative) 03/23/20 Unknown Urine Nitrite Neg (Negative) 03/23/20 Unknown Ur Reducing Substances Not Reportable 03/23/20 Unknown Urine Bilirubin Neg (Negative) 03/23/20 Unknown Urine Ictotest Not Reportable 03/23/20 Unknown Urine Urobilinogen < 2.0 mg/dL (<2.0) 03/23/20 Unknown Ur Leukocyte Esterase Neg (Negative) 03/23/20 Unknown Urine WBC (Auto) 1.0 /HPF (0.0-6.0) 03/23/20 Unknown Urine RBC (Auto) 1.0 /HPF (0.0-6.0) 03/23/20 Unknown U Epithel Cells (Auto) < 1.0 /HPF (0-13.0) 03/23/20 Unknown Nasal Screen MRSA (PCR) Negative (Negative) 03/24/20 06:42 Vancomycin Trough 26.2 ug/mL (5.0-20.0) H 04/06/20 00:25 Random Vancomycin 10.4 ug/mL (0-40.0) 04/07/20 12:14 Lymph Enumerat CD4/CD8 0.23 (0.86-5.00) L 03/24/20 15:27 % CD3 Cells 92 % (57-85) H 03/24/20 15:27 Absolute CD3 Count 978 cells/uL (840-3060) 03/24/20 15:27 % CD4 Cells 17 % (30-61) L 03/24/20 15:27 Absolute CD4 Count 191 cells/uL (490-1740) L 03/24/20 15:27 % CD8 Cells 76 % (12-42) H 03/24/20 15:27 Absolute CD8 Count 837 cells/uL (180-1170) 03/24/20 15:27 % CD19 Cells 2 % (6-29) L 03/24/20 15:27 Absolute CD19 Count 22 cells/uL (110-660) L 03/24/20 15:27 Coronavirus (PCR) Negative (Negative) 03/24/20 Unknown CMV Specimen Source Serum 03/24/20 15:27 CMV DNA PCR log 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 technician copier/mL See scanned result 03/24/20 15:27 HIV-1 RNA PCR copies/ml 98475 Copies/mL H 03/24/20 15:27 HIV-1 RNA (PCR) log 4.54 Log cps/mL H 03/24/20 15:27 TB (QFT) Gold In Tube Positive (NEGATIVE) H 03/27/20 11:08 TB Test (QFT) Nil 3.46 IU/mL 03/27/20 11:08 TB Test Mitogen - Nil 4.57 IU/mL 03/27/20 11:08 TB Test Ag - Nil 1 1.82 IU/mL 03/27/20 11:08 TB Test Ag - Nil 2 1.95 IU/mL 03/27/20 11:08 Miscellaneous Test Flexitest 1 03/31/20 07:56 Marroquin/IV: Voiding Method External Female Catheter Active Medications - Current Medications Current Medications: Generic Name Dose Route Start Last Admin Trade Name Freq PRN Reason Stop Dose Admin Abacavir Sulfate 600 mg 03/24/20 16:00 04/08/20 10:00 Abacavir 300 Mg Tab PO 600 mg DAILY SUN Administration Acetaminophen 650 mg 03/30/20 15:19 04/08/20 14:57 Acetaminophen 325 Mg Tab PO 650 mg Q4H PRN Administration Pain, Mild (1-3) Albuterol 2.5 mg 03/23/20 19:21 03/28/20 14:44 Albuterol 2.5 Mg/3 Ml Nebu IH 2.5 mg Q4HRT PRN Administration Shortness Of Breath Alprazolam 0.5 mg 03/25/20 11:00 04/03/20 21:29 Alprazolam 0.5 Mg Tab PO 0.5 mg Q8H PRN Administration Anxiety Atovaquone 750 mg 03/27/20 22:00 04/08/20 22:38 Atovaquone 750 Mg/5 Ml Oral Susp PO 750 mg BID SUN Administration Benzonatate 100 mg 03/27/20 14:53 04/08/20 10:01 Benzonatate 100 Mg Cap PO 100 mg Q8HR PRN Administration Cough Dextrose 50 ml 03/31/20 16:27 04/03/20 13:13 Dextrose 50% In Water (25gm) 50 Ml Syringe IV 50 ml Q30MIN PRN Administration Hypoglycemia Protocol Enoxaparin Sodium 40 mg 03/25/20 15:00 04/08/20 09:56 Enoxaparin 40 Mg/0.4 Ml Inj SUB-Q 40 mg QDAY@1000 SUN Administration Dextrose/Sodium Chloride 1,000 mls @ 42 mls/hr 04/03/20 14:00 04/08/20 22:37 D5/0.45ns IV 42 mls/hr DIRECT SUN Administration Lamivudine 300 mg 03/24/20 16:00 04/08/20 09:56 Lamivudine 150 Mg Tab PO 300 mg DAILY SUN Administration Loperamide HCl 2 mg 03/29/20 14:39 04/06/20 14:38 Loperamide 2 Mg Cap PO 2 mg Q2H PRN Administration Diarrhea Metoprolol Tartrate 2.5 mg 03/25/20 11:00 04/03/20 13:13 Metoprolol Tartrate 5 Mg/5 Ml Inj IV 2.5 mg Q6H PRN Administration Tachyarrhythmias Metoprolol Tartrate 50 mg 03/29/20 22:00 04/08/20 22:41 Metoprolol Tartrate 25 Mg Tab PO 50 mg BID SUN Administration Ondansetron HCl 4 mg 03/23/20 19:21 04/08/20 10:11 Ondansetron 4 Mg/2 Ml Inj IV 4 mg Q8H PRN Administration Nausea And Vomiting Prednisone 40 mg 04/06/20 10:00 04/08/20 10:07 Prednisone 20 Mg Tab PO 40 mg QDAY SUN Administration Pseudoephedrine/Acetam/Chlorphenir 15 ml 03/24/20 16:53 04/09/20 02:30 Guaifenesin/Codeine 100-10mg Oral Liqd 5 Ml PO 15 ml Q4H PRN Administration Cough Sodium Chloride 10 ml 03/23/20 22:00 04/08/20 22:39 Sodium Chloride 0.9% 10 Ml Flush Syringe IV 10 ml BID SUN Administration Sodium Chloride 10 ml 03/23/20 19:21 03/31/20 05:05 Sodium Chloride 0.9% 10 Ml Flush Syringe IV 10 ml PRN PRN Administration LINE FLUSH Nutrition/Malnutrition Assess - Dietary Evaluation Nutrition/Malnutrition Findings: Nutrition Notes Start: 03/24/20 10:38 Freq: Status: Active Protocol: Document 04/08/20 13:54 AL (Rec: 04/08/20 14:02 AL [id number]) Co-Sign 04/08/20 13:54 LP Nutrition Notes Need for Assessment generated from: MD Order,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 Pt tolerating full liquid diet only at 25%. Pt says she tolerates chicken noodle soup well. Does not want apple sauce or ONS. Percent of energy/protein needs met: 18%/13% Burn Absent Trauma Absent GI Symptoms Diarrhea Food Allergy Yes Usual Diet at Home Lactose intolerant Current % PO Poor (25-49%) Minimum of two criteria Yes Energy Intake (severe) < or equal to 50% Estimated Energy Requirement > or equal to 5 days Fluid Accumulation Moderate to Severe (severe) Reduced Coloring Checker Strength Measurably Reduced (severe) #1 Nutrition Diagnosis Malnutrition Diagnosis Progress(for reassessment Worsened documentation) Is patient on ventilator? No Is Patient Ambulatory and/or Out of Bed Yes REE-([facility]-ambulatory/OOB) [ 1598.025 NUTR.[id number]] Calculation Used for Recommendations [facility] Additional Notes Protein needs: 66-82.5g (1.2-1 .5g/kg for hepatic disorder) Fluid: 1ml/kcal or MD order Nutrition Intervention Change Diet Order: Continue full liquid diet Goal #1 Diet advancement when medically feasible Goal #2 Meet energy and protein needs as best as possible Anticipated Discharge Needs: Unable to determine at this time Follow-Up By: 04/10/20 Additional Comments F/U for diet advancement and PO intake
[2020-04-09] MEDS: DOLUTEGRAVIR 50 MG TAB PO SCH (10:13)
[2020-04-09] MEDS: predniSONE 20 MG TAB PO SCH (10:13)
[2020-04-09] MEDS: METOPROLOL TARTRATE 25 MG TAB PO SCH (10:13)
[2020-04-09] MEDS: ABACAVIR 300 MG TAB PO SCH (10:14)
[2020-04-09] MEDS: ATOVAQUONE 750 MG/5 ML ORAL SUSP PO SCH (10:14)
[2020-04-09] MEDS: ENOXAPARIN 40 MG/0.4 ML INJ SUB-Q SCH (10:15)
[2020-04-09 10:33] LABS: Iron 19 ug/dL (37-170); Total Iron Binding Capacity 82 mcg/dL (250-450)
[2020-04-09] MEDS: ACETAMINOPHEN 325 MG TAB PO PRN (13:44)
[2020-04-09] MEDS: BENZONATATE 100 MG CAP PO PRN (13:45)
[2020-04-09] MEDS: FERROUS SULFATE 325 MG TAB PO SCH ×2 (14:17→15:18)
[2020-04-09 17:23] VITALS: BP 139/86
--- NOTE | 2020-04-09 18:22 | Progress Note ---
Assessment and Plan Cultures: SARS CoV2 PCR: Negative 03/23/2020 blood culture: no growth 03/23/2020 urine culture: no growth 03/24/2020 serum cryptococcal antigen: Negative HIV RNA PCR 34,900 MRSA nasal PCR: Negative 03/30/2020 blood culture: no growth A/P: 29/F with HIV, asthma recent admission at [facility], underwent lymph node biopsy/surgery now here with: #Pneumonia: continue empiric abx: Ceftriaxone + Azithromycin. #Fevers: unclear etiology. ?IRIS given recent resumption of ART, though would not explain lympahadenopathy. Most recent procalcitonion highly elevated >25. #Extensive lymphadenopathy: Status post biopsy at [facility]. Patient reports she underwent evaluation for TB, COVID-19 and influenza while at [facility] and was negative. 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 Negative for fungal and AFB organisms. Flow cytometry negative for abnormal B or T-cell population. Differential diagnosis is wide, could be fungal/AFB, Kikuchi, Castleman's disease, autoimmune, sarcoidosis. ?IRIS from recent initiation of HAART. CMV DNA negative. Fungitell negative. HHV-8 negative. #HIV disease: CD4 191, HIV RNA PCR back at 34,900. ?prior non compliance. follows up at [facility] clinic and is on Epzicom in addition to Tivicay, it seems she had nausea with her previous medications. HAART was recently started. #Positive Quantiferon: noted she reported being negative for TB at [facility], she reports blood test performed there. Will obtain AFB cultures and determine celia tment necessity, ordered x3. Will repeat Quantiferon too, as she is low risk for TB ([place] in [place], no travel, never in alf//homeless, no known family members with TB). Recs: -HHV-8 PCR pending -Continue empiric p.o. atovaquone 750 mg twice daily. Patient allergic to Bactrim -f/u EBV DNA PCR, urinary histoplasma Ag, -Continue vancomycin and meropenem -Continue HIV medications: PO Epzicom plus Tivicay (patient has her own meds) -Started prednisone 40mg q24h as steroid trial -Follow-up thoracentesis studies -airborn precautions pending AFB cultures -Notes from nursing indicate at least one AFB has been obtained. Follow up smear. -Given the complexity of her case she may be better served at [facility] where the bulk of her workup was performed. Can follow-up there at discharge. -When stable for discharge would send with doxycycline 100mg q12h and Levaquin 750mg q24h for 10 days -She will need to follow up with [facility] for TB evaluation as we have been largely unable to collect AFB as appropriate here. Liat Lopez MD [facility] ([facility]) O: [phone] F: [phone] Subjective Date of service: 04/09/20 Interval history: At present 8 patient afebrile over last 24 hours, however fevers were very recurrent. White count remains normal. Objective - Exam Narrative Exam: Physical Exam: Constitutional: Alert, cooperative. No acute distress Head, Ears, Nose: Normocephalic, atraumatic. External ears, nose normal Eyes: Conjunctivae/corneas clear. No icterus. No ptosis. Neck: Supple, no meningeal signs Cardiovascular: S1, S2 normal. Respiratory: Good air entry, clear to auscultation bilaterally GI: Soft, non-tender; bowel sounds normal. No peritoneal signs Musculoskeletal: No pedal edema, no cyanosis. Skin: No rash or abscess Psych: Mood ok. Affect normal Neurological: Awake, alert, oriented. No gross abnormality - Constitutional Vitals: Vital Signs Temp Pulse Resp BP Pulse Ox 99.0 F 114 H 18 139/86 94 04/09/20 17:22 04/09/20 17:22 04/09/20 17:22 04/09/20 17:22 04/09/20 17:22 Temperature -Last 24 Hours Temperature 99.0 F Temperature 99.1 F Temperature 100.0 F Temperature 98.6 F Temperature 97.8 F Temperature 98.2 F Temperature 98.6 F - Labs CBC & Chem 7: 04/09/20 05:43 04/08/20 04:39 Labs: Abnormal lab results 04/08/20 04/09/20 04/09/20 Range/Units 22:29 05:43 09:37 RBC 2.90 L (3.65-5.03) M/mm3 Hgb 7.1 L (10.1-14.3) gm/dl Hct 22.2 L (30.3-42.9) % MCV 76 L (79-97) fl MCH 25 L (28-32) pg RDW 23.5 H (13.2-15.2) % POC Glucose 120 H (70-105) mg/dL Iron 19 L (37-170) ug/dL TIBC 82 L (250-450) mcg/dL Ferritin (10.0-200.0) ng/mL Vitamin B12 (211-911) pg/mL Folate (7.3-26.0) ng/mL 04/09/20 04/09/20 04/09/20 Range/Units 09:37 09:37 09:37 RBC (3.65-5.03) M/mm3 Hgb (10.1-14.3) gm/dl Hct (30.3-42.9) % MCV (79-97) fl MCH (28-32) pg RDW (13.2-15.2) % POC Glucose (70-105) mg/dL Iron (37-170) ug/dL TIBC (250-450) mcg/dL Ferritin 1198.0 H (10.0-200.0) ng/mL Vitamin B12 1430 H (211-911) pg/mL Folate 3.00 L (7.3-26.0) ng/mL 04/09/20 Range/Units 12:17 RBC (3.65-5.03) M/mm3 Hgb (10.1-14.3) gm/dl Hct (30.3-42.9) % MCV (79-97) fl MCH (28-32) pg RDW (13.2-15.2) % POC Glucose 65 L (70-105) mg/dL Iron (37-170) ug/dL TIBC (250-450) mcg/dL Ferritin (10.0-200.0) ng/mL Vitamin B12 (211-911) pg/mL Folate (7.3-26.0) ng/mL
== END 2020-04-09 18:28 | disposition home or self-care (01) | DRG 974 ==
LOC: ED 15:33 → 3A 19:21 → 4A 03-25 05:34
PROVIDERS: ADMIT Internal Medicine; ATTEND Internal Medicine
PROC: 0W993ZZ Drainage of Right Pleural Cavity, Percutaneous Approach (ICD-10-PCS; principal; 2020-04-01)
PROC: BB4BZZZ Ultrasonography of Pleura (ICD-10-PCS; 2020-04-01)
DX: A41.9 Sepsis, unspecified organism (principal); J96.00 Acute respiratory failure, unspecified whether with hypoxia or hypercapnia; B20 Human immunodeficiency virus [HIV] disease; J18.9 Pneumonia, unspecified organism; E87.1 Hypo-osmolality and hyponatremia; J90 Pleural effusion, not elsewhere classified; N17.9 Acute kidney failure, unspecified; E44.1 Mild protein-calorie malnutrition; Z20.822 Contact with and (suspected) exposure to COVID-19; J45.909 Unspecified asthma, uncomplicated; R59.1 Generalized enlarged lymph nodes; R59.9 Enlarged lymph nodes, unspecified; E87.8 Other disorders of electrolyte and fluid balance, not elsewhere classified; Z20.1 Contact with and (suspected) exposure to tuberculosis; F41.9 Anxiety disorder, unspecified; E87.6 Hypokalemia; Z82.49 Family history of ischemic heart disease and other diseases of the circulatory system; Z88.2 Allergy status to sulfonamides; Z79.899 Other long term (current) drug therapy; Z91.010 Allergy to peanuts; Z68.21 Body mass index [BMI] 21.0-21.9, adult
CPT/HCPCS: 32555; 36415; 70491; 71045; 71275; 74177; 80048; 80053; 80076; 80202; 81001; 82024; 82140; 82164; 82550; 82607; 82728; 82747; 82805; 82947; 82962; 83516; 83550; 83615; 83735; 84145; 84436; 84439; 84443; 84481; 84702; 85007; 85025; 85027; 85379; 85610; 85730; 86140; 86403; 87040; 87086; 87497; 87536; 87641; 88112; 88305; 88312; 93005; 93970; 94640; 94760; 96365; 96366; 96375; G0378; J0456; J0696; J1650; J2185; J2270; J2405; J3370; J7030; J7050; J7512; Q9967; U0003